=== PATIENT | male | born 1940 | race Caucasian/White ===

== ENCOUNTER 2016-12-29 07:51 | Inpatient (IN) | payer OTHER ==
--- NOTE | 2016-09-16 09:46 | PAT Medication Instructions ---
Service Date Sep 16, 2016. Current Home Medication List Amoxicillin (Amoxil), 2,000 MG PO UD Ipratropium Waverly (Nasal) (Ipratropium Waverly), 1 DOSE N/A TID Meloxicam (Mobic), 7.5 MG PO QAM Multivitamin (Multivitamin), 1 TAB PO QAM Psyllium (Metamucil), 1 DOSE PO QAM Medication Instructions For Your Scheduled Surgery - Hold the following medications 10 days prior to surgery per surgeon's instructions: Meloxicam (Mobic), 7.5 MG PO QAM - Hold the following medications the morning of surgery: Multivitamin (Multivitamin), 1 TAB PO QAM Psyllium (Metamucil), 1 DOSE PO QAM - Take the following medications the morning of surgery with a sip of water: Ipratropium Waverly (Nasal) (Ipratropium Waverly), 1 DOSE N/A TID Tylenol (okay to take if needed up to 4 hours prior to surgery) - Take the following medications as scheduled the night before surgery: Ipratropium Waverly (Nasal) (Ipratropium Waverly), 1 DOSE N/A TID Tylenol If you have any questions please call us at [phone] or [phone] or [phone]
[2016-09-16 10:24] LABS: COMPLETE YES; HEMATOCRIT 41.4 % (42-52); IG% 0.1 %; LYMPH % 40.8 %; LYMPH ABS # 3.64 K/uL (1.2-3.4); MEAN CELL VOLUME 84.5 fL (80-100); MEAN CORPUSCULAR HEMOGLOBIN 29.4 pg (25-34); MEAN CORPUSCULAR HGB CONC 34.8 g/dl (32-36); MEAN PLATELET VOLUME 8.5 fL (7.4-10.4); MONO % 6.6 %; NEUT % 52.5 %; PLATELET COUNT 145 K/uL (130-400); WHITE BLOOD COUNT 8.92 K/uL (4.8-10.8)
[2016-09-16 10:32] LABS: PROTHROMBIN TIME (PATIENT) 10.7 SECONDS (9.0-12.0)
--- NOTE | 2016-09-16 10:34 | DIAGNOSTIC IMAGING REPORT ---
CHEST 2 VIEWS ROUTINE HISTORY: Preop. COMPARISON: Chest 12/05/2012. FINDINGS: Stable calcification along within the bilateral midlung zones. The lungs are otherwise clear. The heart is normal in size. No pleural effusions. No pneumothorax. IMPRESSION: No significant change compared to the prior study. No acute process. Electronically signed by: Chung Clifton M.D. 09/16/2016 10:32 AM Dictated Date/Time: 09/16/2016 10:31 AM
[2016-09-16 10:42] LABS: BUN/CREATININE RATIO 29.1 (10-20); CALCIUM 9.2 mg/dl (8.5-10.1); CREATININE 0.92 mg/dl (0.60-1.40); POTASSIUM 4.3 mmol/L (3.5-5.1)
--- NOTE | 2016-10-09 08:17 | HISTORY & PHYSICAL EXAMINATION ---
DATE OF ADMISSION: 10/13/2016 CHIEF COMPLAINT: Right knee pain. HISTORY OF PRESENT ILLNESS: The patient is a 75-year-old gentleman who presents for surgical treatment of his right knee. He has got a long history of bilateral knee pain and discomfort and had his left knee replaced about 4 years ago. He has done well from this. Over the past couple years, he has developed increased pain and discomfort in his right knee. He has actually resorted to using a walker to get around due to his pain. We tried basically everything short of surgery. He has had multiple injections. He has tried a hinged knee brace. All this provided pretty minimal relief. He is having difficulty maintaining an independent lifestyle due to his pain and decreased ability to get around. He would like to have his right knee replaced. He has been on different anti-inflammatories without much relief. PAST MEDICAL HISTORY: 1. Heart murmur. 2. BPH. 3. Bladder disease followed by Dr. Romero. 4. Mild obesity with BMI of 31. 5. Low back pain/spinal disease. PAST SURGICAL HISTORY: 1. Cholecystectomy. 2. Thyroid operation. 3. Left total knee replacement done 08/19/2012. ALLERGIES: None. CURRENT MEDICINES: 1. Meloxicam once a day. 2. Multivitamin. 3. Ipratropium bromide 4. Nasal spray solution. SOCIAL HISTORY: A 75-year-old male. He is single. Lives by himself. FAMILY HISTORY: Noncontributory. REVIEW OF SYSTEMS: Negative for diabetes, neurologic problems, vascular problems, bleeding disorders. Denies any chest pain, no shortness of breath. No history of DVT or PE. PHYSICAL EXAMINATION: GENERAL: Reveals a healthy pleasant elderly male. He looks to be in reasonably good health. HEAD, EYES, EARS, NOSE, AND THROAT EXAMINATION: Benign. NECK: Supple. No lymphadenopathy. LUNGS: Clear to auscultation. HEART: Regular rate and rhythm. ABDOMEN: Soft, nontender, nondistended. EXTREMITY EXAMINATION: Grossly neurovascularly intact except as follows: Examination of the right leg reveals patient ambulates with the use of a walker. He comes in wearing a hinged knee brace. He has got varus alignment to his knee with a varus thrust. He has got bony hypertrophy medially. Range of motion is 10 degrees short of full extension to 110 degrees of flexion. No gross instability. X-RAYS: X-rays of the right knee reviewed. It shows advanced right knee DJD. He has got complete loss of his medial joint space. He has got tibial and femoral subluxation. He has got subchondral sclerosis. ASSESSMENT: A 75-year-old gentleman 4 years out from left knee replaced with advanced right knee degenerative joint disease. He has failed conservative care. He is relatively independent and a relatively healthy and would like to have his right knee replaced. PLAN: We are going to take him of the operating room and do a right total knee replacement. The risks and benefits of this procedure were explained to the patient including but not limited to DVT, PE, , infection, neurological injury, vascular injury, bleeding problem, pain, limited range of motion, stiffness, failure to relieve symptoms, incomplete relief of symptoms, need for further surgery in the future, fracture, leg length inequality, nerve palsy, etc. The patient understands and desires to proceed. Informed consent was obtained. As far as discharge plans, he would like to go to [facility] for a brief rehab stay and then use the [facility] home health program after that as he lives by himself. We can have Dr. Oliva follow him in the hospital.
[2016-11-16 10:33] LABS: COMPLETE YES; HEMATOCRIT 42.2 % (42-52); IG% 0.1 %; LYMPH % 41.3 %; LYMPH ABS # 3.21 K/uL (1.2-3.4); MEAN CELL VOLUME 88.5 fL (80-100); MEAN CORPUSCULAR HEMOGLOBIN 29.4 pg (25-34); MEAN CORPUSCULAR HGB CONC 33.2 g/dl (32-36); MEAN PLATELET VOLUME 8.6 fL (7.4-10.4); MONO % 5.3 %; NEUT % 53.3 %; PLATELET COUNT 143 K/uL (130-400); RED BLOOD COUNT 4.77 M/uL (4.7-6.1); WHITE BLOOD COUNT 7.77 K/uL (4.8-10.8)
[2016-11-16 10:47] LABS: PROTHROMBIN TIME (PATIENT) 10.6 SECONDS (9.0-12.0)
[2016-12-01 14:57] LABS: COMPLETE YES; HEMATOCRIT 41.2 % (42-52); IG% 0.2 %; LYMPH % 36.3 %; LYMPH ABS # 3.86 K/uL (1.2-3.4); MEAN CELL VOLUME 87.1 fL (80-100); MEAN CORPUSCULAR HEMOGLOBIN 30.2 pg (25-34); MEAN CORPUSCULAR HGB CONC 34.7 g/dl (32-36); MEAN PLATELET VOLUME 8.7 fL (7.4-10.4); MONO % 8.1 %; NEUT % 55.4 %; PLATELET COUNT 174 K/uL (130-400); RED BLOOD COUNT 4.73 M/uL (4.7-6.1); WHITE BLOOD COUNT 10.63 K/uL (4.8-10.8)
[2016-12-01 15:05] LABS: INR 0.9 (0.9-1.1)
[2016-12-01 15:16] LABS: BUN/CREATININE RATIO 29.4 (10-20); CALCIUM 9.2 mg/dl (8.5-10.1); CREATININE 1.1 mg/dl (0.60-1.40); POTASSIUM 4.1 mmol/L (3.5-5.1)
[2016-12-01 15:19] LABS: C-REACTIVE PROTEIN 0.52 mg/dl (0-0.29)
--- NOTE | 2016-12-26 20:08 | HISTORY & PHYSICAL EXAMINATION ---
DATE OF ADMISSION: 12/29/2016 This is a repeat dictation as his previous surgery was cancelled. So this is a new H\T\P. CHIEF COMPLAINT: Right knee pain. HISTORY OF PRESENT ILLNESS: A 76-year-old gentleman who presents for surgical treatment of his right knee. He has got a long history of bilateral knee pain and discomfort. He had his left knee replaced about 4 years ago and done well from this. Over the past several years, he has developed increased pain and discomfort in his right knee. He was actually scheduled for surgery back in September, but cancelled due to an illness. He has now recovered and would like to proceed with knee surgery. He is actually resorted and using a walker to get around due to his knee pain. We have tried everything short of surgery including injections, bracing and medicines. He is having difficulty maintaining an independent lifestyle and would like to proceed with knee replacement surgery. He has done well on his other side. PAST MEDICAL HISTORY: 1. Heart murmur. 2. BPH. 3. Bladder disease followed by Dr. Romero. 4. Mild obesity. 5. Low back pain. PAST SURGICAL HISTORY: Include: 1. Cholecystectomy. 2. Thyroid surgery. 3. Left total knee replacement done on 08/19/2012. ALLERGIES: None. CURRENT MEDICINES: 1. Meloxicam once a day. 2. Multivitamin. 3. Ipratropium bromide. 4. Nasal spray. SOCIAL HISTORY: A 75-year-old male. He lives in [place]. He lives by himself. He is single. FAMILY HISTORY: Noncontributory. REVIEW OF SYSTEMS: Negative for diabetes, neurologic problems, vascular problems, bleeding disorders. No chest pain or shortness of breath. No history of DVT or PE. PHYSICAL EXAMINATION: GENERAL: Pleasant, elderly male. He looks to be in reasonably good health. HEENT: Benign. NECK: Supple. No lymphadenopathy. LUNGS: Clear to auscultation. HEART: Has a regular rate and rhythm. ABDOMEN: Soft, nontender, nondistended. EXTREMITIES: Grossly neurovascularly intact except as follows: Examination of the right knee reveals the patient walks with the use of a walker. He has got a varus alignment to his knee. He comes in wearing a hinged knee brace. He has got a small knee effusion. He has got bony hypertrophy medially. Range of motion about 10 degrees short of full extension, about 115 degrees of flexion. No instability. X-RAYS: X-rays of the right knee reviewed. It shows advanced right knee DJD. He has complete loss of his medial joint space. He has got tibial femoral subluxation. He has subchondral sclerosis. He has got osteophytes of the medial femoral condyle and medial tibial plateau. ASSESSMENT: A 76-year-old gentleman, 4 years out from left knee replacement with advanced right knee degenerative joint disease. He has failed conservative treatment and would like to have his right knee replaced. PLAN: We are going to take him to the operating room and do a right total knee replacement. The risks and benefits of this procedure were explained to the patient including but not limited to DVT, PE, , infection, neurologic injury, vascular injury, bleeding problem, pain, limited range of motion, stiffness, failure to relieve the symptoms, incomplete relief of symptoms, need for further surgery in the future, persistent pain, etc. The patient understands and desires to proceed. Informed consent was obtained. The patient has seen Dr. Oliva and cleared for surgery. We will likely have Dr. Oliva follow him in the hospital. He is hoping to be discharged to [facility] for a brief rehab stay and then use the [facility] home health program. KEVON
[2016-12-29] VITALS (8 sets, daily range): BP systolic 97–146; BP diastolic 53–83; PULSE 53–73; TEMP 36.4–36.6; O2SAT 93–98; Ht 172.7 cm; Wt 91.1 kg
[~2016-12-29] VITALS: Ht 172.7 cm; Wt 91.1 kg
[~2016-12-29 07:51] MED LIST: ACETAMINOPHEN 500 MG TAB PO SCH; AMOX500C3 PO; BUPIVACAINE 0.25% 30 ML VIAL ONE; BUPIVACAINE 0.5 % 5 MG/1 ML PF 10ML VIAL ONE; BUPIVACAINE LIPOSOME 266 MG, BUPIVACAINE/EPINEPHRINE INJ 50 ML, SODIUM CHLORIDE 0.9% PF... INFIL SCH; CEFAZOLIN 2000 MG/60 ML D5W 60 ML IV SCH; CHECK SCOPOLAMINE PATCH PLACEMENT SCH; CeleBREX 200 MG CAP PO SCH; DEXAMETHASONE 4 MG TAB PO SCH; FAMOTIDINE 20 MG TAB PO SCH; GABAPENTIN 300 MG CAP PO SCH; IPRA0.06; LACTATED RINGER'S 1000ML 1,000 ML IV SCH; LACTATED RINGER'S 1000ML 500 ML IV ONE; LACTATED RINGER'S 1000ML IV SCH; MELO7.5T5 PO; METOCLOPRAMIDE HCL 10 MG TAB PO SCH; MULT-506 PO; PSYL0.524 PO; SCOPOLAMINE 1.5 MG TDSY TD SCH; TRANEXAMIC ACID INJ 1,000 MG in SODIUM CHLORIDE 0.9% 100ML 100 ML IV SCH
[2016-12-29] MEDS ORDERED: FENTANYL CITRATE INJ 50 MCG/1 ML 2 ML VIAL IV PRN (08:15)
[2016-12-29] MEDS ORDERED: LABETALOL HCL IV 5 MG/ML 20ML IV PRN (08:15)
[2016-12-29] MEDS ORDERED: MEPERIDINE HCL 25 MG/ML CARP IV PRN (08:15)
[2016-12-29] MEDS ORDERED: EpHEDrine SULFATE INJ 50 MG/ML AMP IV PRN (08:15)
[2016-12-29] MEDS ORDERED: ATROPINE SULFATE 0.1 MG/ML 5ML SYR IV PRN (08:15)
[2016-12-29] MEDS ORDERED: ONDANSETRON INJ 2 MG/ML 2 ML VIAL IV PRN ×2 (08:15→12:45)
[2016-12-29] MEDS ORDERED: HYDROmorphone INJ 1 MG/ML SYR IV PRN ×2 (08:15→12:45)
--- NOTE | 2016-12-29 08:33 | History & Physical Bridge Note ---
H&P Re-Evaluation Bridge Note: I have examined the patient, reviewed the History & Physical and in the interval since the performance of the History & Physical I have noted the following changes of clinical significance: No changes noted
[2016-12-29] MEDS ORDERED: PROPOFOL IV EMULSION 10 MG/ML 20 ML VIAL IV ONE (09:23)
[2016-12-29] MEDS ORDERED: ONDANSETRON INJ 2 MG/ML 2 ML VIAL ONE (09:23)
[2016-12-29] MEDS ORDERED: MIDAZOLAM HCL 1 MG/ML 2ML VIAL ONE (09:23)
[2016-12-29] MEDS ORDERED: LIDOCAINE HCL 2% 2 ML VIAL (20MG/ML) ONE (09:23)
[2016-12-29] MEDS ORDERED: DEXAMETHASONE SOD INJ 4 MG/ML VIAL ONE (09:23)
[2016-12-29] MEDS ORDERED: FENTANYL CITRATE INJ 50 MCG/1 ML 2 ML VIAL ONE (09:24)
[2016-12-29] MEDS ORDERED: BUPIVACAINE/EPINEPHRINE 0.25% 1:200,000 30 ML VIAL ONE (10:47)
[2016-12-29] MEDS ORDERED: SODIUM CHLORIDE 0.9% PF 50 ML VIAL ONE (10:48)
[2016-12-29] MEDS ORDERED: BUPIVACAINE LIPOSOME 1/3% 266 MG/20 ML VIAL INFIL ONE (10:48)
[2016-12-29] MEDS ORDERED: BACITRACIN 50000 UNIT VIAL ONE (10:48)
--- NOTE | 2016-12-29 12:40 | [facility] Post Operative Brief Note ---
Immediate Operative Summary Operative Date December 29, 2016. Pre-Operative Diagnosis Advanced right knee degenerative joint disease Post-Operative Diagnosis Advanced right knee degenerative joint disease Procedure(s) Performed Right Total Knee Arthroplasty - Cemented Surgeon Dr. Cruzito Jurado Sample Distributor Surgeon(s) Dwaine Schulz PA-C Estimated Blood Loss 50 ML Findings Right Knee DJD Fluids (cc crystalloids) 1500 cc Specimens A: Right knee bone and tissue Drains None Anesthesia Spinal Complication(s) None Disposition Recovery Room / PACU
[2016-12-29] MEDS ORDERED: ALUMINUM/MAGNESIUM/SIMETH (MAALOX MAX) 30 ML UDC PO PRN (12:45)
[2016-12-29] MEDS ORDERED: MAGNESIUM HYDROXIDE SUSP 30 ML UDC PO PRN (12:45)
[2016-12-29] MEDS ORDERED: TAMSULOSIN HCL 0.4 MG CAP PO PRN (12:45)
[2016-12-29] MEDS ORDERED: OXYCODONE HCL IR 5 MG TAB (IMMEDIATE RELEASE) PO PRN (12:45)
[2016-12-29] MEDS ORDERED: BISACODYL 10 MG SUPP PR PRN (12:45)
[2016-12-29] MEDS ORDERED: ZOLPIDEM TARTRATE 5 MG TAB PO PRN (12:45)
[2016-12-29] MEDS ORDERED: METOCLOPRAMIDE HCL INJ 5 MG/ML 2 ML VIAL IV PRN (12:45)
[2016-12-29] MEDS ORDERED: SILVER SULFADIAZINE 1% CR 50 GM JAR EXT PRN (12:45)
--- NOTE | 2016-12-29 13:39 | Anesthesiology Progress Note ---
Anesthesia Post Op Note Date & Time December 29, 2016 at 13:39 Vital Signs Pain Intensity: 0 Vital Signs Past 12 Hours Date Time Temp Pulse Resp B/P Pulse Ox O2 Delivery O2 Flow Rate FiO2 12/29/16 13:25 36.2 58 16 112/62 96 Nasal Cannula 2 12/29/16 13:15 57 16 112/59 94 Nasal Cannula 2 12/29/16 13:05 54 16 104/59 95 Nasal Cannula 2 12/29/16 12:55 60 16 93/63 96 Mask 10 12/29/16 12:45 36.2 59 16 95/45 98 Mask 10 12/29/16 08:30 36.6 73 20 133/83 95 Room Air Notes Mental Status: alert / awake / arousable, participated in evaluation Pt Amnestic to Procedure: Yes Nausea / Vomiting: adequately controlled Pain: adequately controlled Airway Patency, RR, SpO2: stable & adequate BP & HR: stable & adequate Hydration State: stable & adequate Neuraxial Anesthesia: was administered, sensory block is resolving Anesthetic Complications: no major complications apparent
--- NOTE | 2016-12-29 13:49 | DIAGNOSTIC IMAGING REPORT ---
RIGHT KNEE 1 OR 2 VIEWS ROUTINE CLINICAL HISTORY: Degenerative arthritis COMPARISON: Outside study dated 08/27/2016 DISCUSSION: There are postsurgical changes of a total right knee arthroplasty and patellar resurfacing. The femoral and tibial components appear well seated. Overlying skin kiko are evident. There is air within soft tissues consistent with recent surgery. IMPRESSION: Postsurgical changes of a total right knee arthroplasty. Electronically signed by: Daniel Mix M.D. 12/29/2016 1:48 PM Dictated Date/Time: 12/29/2016 1:47 PM
[2016-12-29] MEDS: D5W AND 1/2NSS + 20MEQ KCL 1,000 ML IV SCH (15:46)
[2016-12-29] MEDS: KETOROLAC TROMETHAMINE 15 MG/ML VIAL IV. SCH ×2 (15:46→21:22)
[2016-12-29] MEDS: ACETAMINOPHEN 500 MG TAB PO SCH ×2 (15:47→23:30)
[2016-12-29] MEDS: CHECK SCOPOLAMINE PATCH PLACEMENT SCH ×2 (15:47→23:29)
--- NOTE | 2016-12-29 16:14 | PROGRESS NOTE ---
DATE: 12/29/2016 SUBJECTIVE: A 76-year-old gentleman postop from a right knee replacement. He is doing well. Just starting to get some pain in his leg. No chest pain or shortness of breath. Not feeling dizzy or lightheaded. OBJECTIVE: VITAL SIGNS: Temperature 36.4. Vital signs stable. GENERAL: Reveals a healthy pleasant elderly male. He is sitting up in bed and talking to the nurse and looks pretty comfortable. LUNGS: Clear to auscultation. HEART: Has regular rate and rhythm. ABDOMEN: Soft, nontender, nondistended. EXTREMITIES: Grossly neurovascularly intact except as follows: Examination of the right leg reveals the leg to be well aligned. The dressing is clean, dry, and intact. He can dorsiflex and plantarflex his foot appropriately. He has got brisk refill. X-RAYS: X-rays of the right knee from recovery room were reviewed. It shows a right cemented posterior stabilized total knee arthroplasty. The components looked to be in good position. No signs of problems. ASSESSMENT: A 76-year-old gentleman postop from a right knee replacement, doing pretty well. His pain is controlled. He is neurologically intact. PLAN: 1. DVT prophylaxis including thigh-high TEDs, SCDs, and aspirin twice a day. 2. PT/OT. Weightbearing as tolerated. Right total knee protocol. 3. Pain control, doing pretty well with current pain regimen. 4. IV antibiotics x24 hours. 5. Medical management as per Dr. Oliva, his primary care physician. 6. Disposition: He is hoping to be discharged to [facility] for a brief rehab stay once medically stable.
--- NOTE | 2016-12-29 16:23 | OPERATIVE REPORT ---
DATE OF OPERATION: 12/29/2016 SURGEON: Cruzito Jurado MD CONTROL PANEL OPERATOR CRUDE UNIT: LESIA Harley PREOPERATIVE DIAGNOSIS: Right knee degenerative joint disease. POSTOPERATIVE DIAGNOSIS: Same. PROCEDURE PERFORMED: Right cemented posterior stabilized total knee arthroplasty. COMPLICATIONS: None. ESTIMATED BLOOD LOSS: 50 mL. FLUID REPLACEMENT: 1600 mL crystalloid fluid replacement. ANESTHESIA: Spinal with adductor canal block. DRAINS: None. SPECIMENS: Right knee sent for pathology. TOURNIQUET TIME: 58 minutes at 300 mmHg. ANESTHESIA: Spinal with adductor canal block. OPERATIVE INDICATIONS: The patient is a 76-year-old very independent gentleman who is status post a left total knee replacement 4 years or so ago. He has developed increased pain, discomfort and limitations respect to his right knee. He has been through extensive conservative treatment including injections, oral medicines, and bracing. He is having more and more time difficulty getting around and living an independent lifestyle. It was all related to his knee pain. He had failed conservative treatment and elected to proceed with total knee arthroplasty. OPERATIVE FINDINGS: Operative findings revealed advanced right knee DJD. He had grade 4 [id number] disease in the medial femoral condyle and medial tibial plateau with pretty extensive disease and eburnation. He had also had significant gouging of the lateral femoral condyle from the intercondylar eminence in subluxation. He had focal grade 4 changes in the patellofemoral joint. OPERATIVE IMPLANTS: Operative implants consisted of: 1. Biomet Vanguard size 72.5 right posterior stabilized femoral component. 2. Biomet size 71 tibial tray. 3. A 14-mm posterior stabilized polyethylene insert. 4. A 31 x 8 all poly patella. OPERATIVE PROCEDURE: The patient was taken to the operating room, identified and placed on the operating table in the supine position. All contact areas were appropriately padded. IV antibiotics were provided by anesthesia team. A spinal anesthetic and adductor canal block had been provided in the holding area. Graham catheter was placed in sterile fashion. Right thigh tourniquet was then placed and the right lower extremity was then prepped and draped in the usual sterile fashion. The right leg was elevated and exsanguinated with Esmarch and tourniquet was placed at 300 mmHg. An anterior approach to the right knee was then performed through a longitudinal incision centered over the patella. Sharp dissection was carried out through the subcutaneous tissues down to the level of the extensor mechanism. A medial parapatellar arthrotomy incision was made. Some subperiosteal dissection was carried out medially. The fat pad was resected from beneath the patellar tendon. The lateral patellofemoral ligament was released. The patella was everted and knee was flexed. The osteophytes were taken off the distal femur. The ACL and PCL were then released from the distal femur and the tibia subluxated anteriorly. The external tibial alignment jig was then placed in the anterior face of the tibia and adjusted 14 mm medially. Proximal tibial cut was made to remove about a millimeter or 2 of bone from the most deficient aspect of the medial tibial plateau. Tibia was sized to a size 71. Some osteophytes were taken off medial and posteromedially. Attention was then drawn to the femur. The distal femur was entered with a sharp drill bit. Intramedullary canal was suctioned. A right 6-degree valgus cutting guide was placed. Distal femoral cutting block was pinned in place. Distal femoral cut was made to take an additional 3 mm of bone off the distal femur. The femur was then sized to a size 72.5. We did downsize this slightly. The AP cutting block was pinned parallel to the epicondylar axis, which was 3 degrees of external rotation. The anterior cut, anterior chamfer, posterior cut, and posterior chamfer cuts were made. Box cutting guide was placed and adjusted slightly lateral and the box cut was made. The knee was flexed. The remnants of the medial and lateral menisci were excised. The osteophytes were taken off the posterior aspect of the femur. A trial femoral component was placed. Tibial tray was pinned in maximum external rotation and drill and stem punch were used to create defect in proximal tibia for the tibial tray. The knee was then trialed and the 14-mm insert fit most appropriately. Attention was then drawn to the patella. The patella was cleaned of all soft tissues. Patella thickness measured 23 mm in thickness and was cut down to 14. It was sized to a size 31 patella. Lug holes were drilled for the 31 patella. Lateral osteophyte was removed. Patella button was placed. Knee was taken through range of motion and patella tracked nicely with no thumbs test. Attention was then drawn toward placement of the permanent components. All trial components were removed. Bone plug was placed in the distal femur to limit blood loss. A double batch of Palacos G cement was mixed. A right size 72.5 posterior stabilized femoral component, size 71 tibial tray, a 14-mm posterior stabilized polyethylene insert, and a 31 x 8 all poly patella were then cemented in place. Knee was brought out into full extension until cement hardened. A final cement check was then performed. The pericapsular tissues were injected with a total of 100 mL of a combination of 20 mL of Exparel, 30 mL of normal saline, and 50 mL of 0.25% Marcaine with epinephrine. The patient did receive 1 gram of tranexamic acid. The tourniquet was let down for final tourniquet time of 58 minutes. Hemostasis was assured with use of electrocautery. The extensor mechanism was closed with a combination of #1 PDS suture and #1 Vicryl suture in a [id number] fashion. The extensor mechanism was checked and found to be intact. The subcutaneous tissues were then closed with 2-0 Dexon suture in a buried interrupted fashion. Skin was closed skin kiko. Leg was then cleaned and dried and a sterile dressing of Xeroform, 4 x 4, sterile cast padding and Ambrose bandage were applied. The patient was then transferred to the recovery room in stable condition. The patient tolerated the procedure well with no complications. All needle and sponge counts were correct at the end of the operation. I attest to the content of the Intraoperative Record and any orders documented therein. Any exceptio ns are noted below.
[2016-12-29] MEDS: FERROUS GLUCONATE 324 MG TAB PO SCH (18:08)
[2016-12-29] MEDS: CEFAZOLIN IV 2,000 MG in DEXTROSE 5% 50ML 50 ML IV SCH (18:08)
[2016-12-29] MEDS ORDERED: TRANEXAMIC ACID INJ 1,000 MG in SODIUM CHLORIDE 0.9% 100ML 100 ML IV SCH (19:00)
[2016-12-29] MEDS: IPRATROPIUM BROMIDE NASAL SPRAY 0.06% 15ML SCH (21:19)
[2016-12-29] MEDS: TAPENTADOL ER 50 MG TABCR PO SCH (21:20)
[2016-12-29] MEDS: DOCUSATE SODIUM 100 MG CAP PO SCH (21:21)
[2016-12-29] MEDS: ASPIRIN 325 MG ECTAB PO SCH (21:21)
--- NOTE | 2016-12-29 23:54 | INTERNAL MEDICINE CONSULTATION ---
DATE OF CONSULTATION: 12/29/2016 A 76-year-old male, underwent a right total knee arthroplasty by Dr. Cruzito Jurado for severe osteoarthritis. The procedure was done this morning. The patient was admitted after his surgery. MEDICAL PROBLEMS: Include; 1. Osteoarthritis, severe. 2. Status post left total knee arthroplasty on 08/19/[address] Cruzito Jurado. 3. Esophageal achalasia status post myotomy done at [facility]. 4. Stasis dermatitis. 5. Vitiligo. 6. Varicose veins. 7. History of rosacea. 8. Rhinitis. OUTPATIENT MEDICATIONS: Include; 1. Mobic 7.5 mg daily. 2. Metamucil 1 scoop daily. 3. Multivitamin 1 daily. 4. Atrovent 0.03% nasal spray as needed for his rhinorrhea. REVIEW OF SYSTEMS: The procedure was well-tolerated. The patient is resting comfortably. He denied any headache. No dizziness, no lightheadedness. He does wear glasses. He does have hearing aids. He has an oxygen cannula in place. He denied any neck pain. No chest pain, pressure or tightness. No shortness of breath. No abdominal pain, no nausea, no vomiting. No recent problem with his bowel movements. No problem urinating. His pain after surgery is well-controlled. PHYSICAL EXAMINATION: GENERAL: Well-developed, in no distress. His recorded weight is 91.1 kg, height 172.7 cm and BMI 30.5. VITAL SIGNS: Blood pressure 146/82, pulse 61, respirations 16, temperature 36.5 and oxygen saturation 93% on two liters oxygen by nasal cannula. SKIN: Warm and dry. No rash. Multiple areas of vitiligo. HEENT: He wears glasses. He has had cataract surgery in the past. Decreased hearing, he has hearing aids. Oxygen cannula in place. He has upper dentures, lower partials. NECK: Supple. Nontender. No lymph node or thyroid enlargement. No JVD. HEART: Regular heart sounds with 1/6 systolic murmur. No rub, no gallop. LUNGS: Clear. ABDOMEN: Soft and nontender. No organomegaly or masses. Scars from prior laparoscopic cholecystectomy. BACK: No spinal tenderness. EXTREMITIES: Surgical dressing, right leg. Scar, left knee from prior surgery. Compression stockings. Good dorsalis pedis pulses. Absent posterior tibialis pulses. ASSESSMENT: 1. Status post right total knee arthroplasty for severe osteoarthritis. 2. Osteoarthritis with history of left total knee arthroplasty. 3. History of esophageal achalasia status post myotomy. 4. Stasis dermatitis. 5. Varicose veins. 6. Vitiligo. PLAN: At this time, his condition is quite stable. He is adequately medicated for pain. He is quite awake and alert. He is tolerating his diet. His vital signs are stable. We will proceed with therapies as ordered by Dr. Jurado.
[2016-12-30] VITALS (7 sets, daily range): BP systolic 104–120; BP diastolic 57–78; PULSE 55–73; TEMP 36.4–36.7; O2SAT 93–98
[2016-12-30] MEDS: D5W AND 1/2NSS + 20MEQ KCL 1,000 ML IV SCH ×2 (00:35→10:51)
[2016-12-30] MEDS: CEFAZOLIN IV 2,000 MG in DEXTROSE 5% 50ML 50 ML IV SCH (02:11)
[2016-12-30] MEDS: KETOROLAC TROMETHAMINE 15 MG/ML VIAL IV. SCH ×4 (04:53→21:47)
[2016-12-30 06:06] LABS: HEMATOCRIT 35.3 % (42-52); MEAN CELL VOLUME 86.7 fL (80-100); MEAN CORPUSCULAR HEMOGLOBIN 27.8 pg (25-34); MEAN PLATELET VOLUME 8.4 fL (7.4-10.4); PLATELET COUNT 143 K/uL (130-400); RED BLOOD COUNT 4.07 M/uL (4.7-6.1); WHITE BLOOD COUNT 11.98 K/uL (4.8-10.8)
[2016-12-30 06:42] LABS: BUN/CREATININE RATIO 25.5 (10-20); CALCIUM 7.7 mg/dl (8.5-10.1); CREATININE 1.1 mg/dl (0.60-1.40); POTASSIUM 4.1 mmol/L (3.5-5.1)
[2016-12-30] MEDS: ACETAMINOPHEN 500 MG TAB PO SCH ×3 (07:37→23:19)
[2016-12-30] MEDS: CHECK SCOPOLAMINE PATCH PLACEMENT SCH ×3 (07:37→23:18)
[2016-12-30] MEDS ORDERED: ACET-1138 PO (08:32)
[2016-12-30] MEDS ORDERED: RXC5 PO (08:32)
[2016-12-30] MEDS ORDERED: ASPEC325 PO (08:32)
--- NOTE | 2016-12-30 08:34 | Discharge Instructions ---
Discharge Instructions Date of Service December 30, 2016. Admission Reason for Admission: Right Knee Degenerative Joint Disease Discharge Discharge Diagnosis / Problem: Right Knee Replacement Discharge Goals Goal(s): Decrease discomfort, Improve function, Increase independence, Improve disease control, Therapeutic intervention Activity Recommendations Activity Level: Assistance Required Therapies: Physical Therapy, Occupational Therapy Weightbearing Status: Right weightbearing . Additional Information Patient informed of condition: Yes Advance Directives: No DNR: No Level of Care: Acute Rehab Communicable Disease: No Prognosis: Improving Instructions / Follow-Up Instructions / Follow-Up ACTIVITY RECOMMENDATIONS: Physical Therapy: * You will go to physical therapy three times each week for four to six weeks after your surgery in order to regain your knee range of motion and to retrain your knee to work properly. * It is just as important to make sure you are getting your knee perfectly straight as it is to regain your knee bend. * Taking a pain pill an hour before therapy can help you have a more productive and comfortable therapy session. Home Exercise: * You were shown a series of exercises (heel props, heel slides, etc.) in the hospital. Do these exercises three to four times each day including the exercises you were shown in physical therapy. Walking: * Get up and walk several times each day. For the first four weeks, try not to stand or walk for more than one hour at a time. If you do stand or walk for more than one hour, you will not hurt anything, but your knee and leg will likely swell. * As you feel comfortable, you may change from the walker or crutches to a cane and then to independent walking. MEDICATIONS: New Medicine: * You will likely be taking one or more of these medications: 1. Oxycodone - A quick and shorter-acting pain medication. Take one to two tablets every four to six hours to lessen your pain. 2. Aspirin - Thins your blood to lessen the chance of forming a blood clot. * The most common side effects of pain medicine and iron are nausea and constipation. If nausea or constipation is too much of a problem or if you have any questions about your new medicines or doses, call [facility] at . We will try to help you manage these issues. VERY IMPORTANT TO READ AND REVIEW" Pain: * The immediate post-operative period after knee replacement surgery is often quite painful. * You are given a prescription for pain medicine. You should take it, as directed, when you need it, especially before physical therapy and before going to bed. Pain that interferes with sleep is very common and can last several months. * You will likely need pain medicine for the first four to six weeks. It will not stop all of the pain. The pain will lessen and as you feel better, you may change to milder pain medicine such as Tylenol. * The most common side effects of pain medicine are nausea and constipation, so don't take more than you need. SPECIAL CARE INSTRUCTIONS: TEDs/Elastic Stockings: * The white elastic stockings help limit swelling and prevent blood clots from forming in your legs. The more you wear them, the more they work. * Wear them for six weeks after knee replacement surgery and four weeks after partial knee replacement. Prevention of Infection: * Take antibiotics one hour before any dental cleaning, dental work, urological procedure, gastrointestinal procedure or any invasive surgery in order to prevent your new joint from getting infected. * You may get the antibiotics from the doctor performing the procedure or you may call our office at before and we will call in a prescription to the pharmacy of your choice. Things to Watch For: * Drainage from the incision site that occurs more than one week after your surgery. * Severely increased knee/leg pain or swelling. * Increased redness at the incision site. * Fever above 102 degrees Fahrenheit. * Unusual chest pain or shortness of breath. * Unusual pain or burning with urination. Call [facility] at with any of the above problems or if you have any questions about your medicines or recovery. FOLLOW UP VISIT: Make an appointment to see your doctor for approximately two weeks after surgery for a progress check and staple removal by calling the office at . Current Hospital Diet Patient's current hospital diet: Regular Diet Discharge Diet Recommended Diet: Regular Diet Procedures Procedures Performed: Right Total Knee Arthroplasty - Cemented Pending Studies Studies pending at discharge: no Medical Emergencies . Who to Call and When: Medical Emergencies: If at any time you feel your situation is an emergency, please call [phone] immediately. . Non-Emergent Contact Non-Emergency issues call your: Surgeon . . "Provider Documentation" section prepared by Cruzito Jurado. . Core Measure Problem Core Measures: None
--- NOTE | 2016-12-30 08:36 | PROGRESS NOTE ---
DATE: 12/30/2016 SUBJECTIVE: A 76-year-old gentleman postop day 1 from right knee replacement. He is doing well. Some pain, but managed. No chest pain or shortness of breath. Not feeling dizzy or lightheaded. OBJECTIVE: VITAL SIGNS: Temperature 36.6. Vital signs stable. PHYSICAL EXAMINATION: Reveals a pleasant elderly male. He was walking around in his bathroom when I visited him this morning. EXTREMITIES: Examination of the right leg reveals the dressing to be clean, dry and intact. Leg is well aligned. He can dorsiflex and plantarflex his foot appropriately. He is neurologically intact. LABORATORY DATA: Hemoglobin 11.3. Hematocrit 35.3. White cell count 11.98. Electrolytes are stable. ASSESSMENT: A 76-year-old gentleman postop day 1 from right knee replacement, doing pretty well. Pain is controlled. PLAN: 1. DVT prophylaxis including thigh-high TEDs, SCDs, and aspirin twice a day. 2. PT/OT. Weight bear as tolerated. Right total knee protocol. 3. Pain control, doing well with current pain regimen. 4. Disposition: He is hoping to be discharged to rehab. He lives by himself and will need some assistance. If not rehab, he will likely need some mcfp for a short period of time.
[2016-12-30] MEDS ORDERED: MULTIVITAMIN TAB PO SCH (09:00)
[2016-12-30] MEDS: PANTOprazole SOD 40 MG TAB PO SCH (09:13)
[2016-12-30] MEDS: FERROUS GLUCONATE 324 MG TAB PO SCH ×3 (09:13→18:04)
[2016-12-30] MEDS: ASPIRIN 325 MG ECTAB PO SCH ×2 (09:13→20:53)
[2016-12-30] MEDS: DOCUSATE SODIUM 100 MG CAP PO SCH ×2 (09:13→20:53)
[2016-12-30] MEDS: MULTIVITAMIN TAB PO SCH (09:14)
[2016-12-30] MEDS: PSYLLIUM 58.6% PWD PACK S\\F PO SCH (09:14)
[2016-12-30] MEDS: IPRATROPIUM BROMIDE NASAL SPRAY 0.06% 15ML SCH ×3 (09:15→20:53)
[2016-12-30] MEDS: TAPENTADOL ER 50 MG TABCR PO SCH ×2 (09:19→20:53)
--- NOTE | 2016-12-31 01:15 | PROGRESS NOTE ---
DATE: 12/30/2016 SUBJECTIVE: A 76-year-old male underwent a right total knee arthroplasty because of severe osteoarthritis. Overall, he is doing well. His procedure was well tolerated. His pain is under control. He denied any headache or dizziness. No chest pain, no shortness of breath. No abdominal pain. No nausea. Tolerating his diet very well. His pain is well controlled. PHYSICAL EXAMINATION: GENERAL: Well developed in no distress. VITAL SIGNS: Blood pressure 118/78, pulse 57, respirations 16, temperature 36.6, oxygen saturation 94% on room air. SKIN: Warm and dry. No rash. Areas of vitiligo. HEENT: He has hearing aids. Wears glasses. NECK: Supple without lymph node enlargement. No JVD. HEART: Regular heart sounds. LUNGS: Clear. ABDOMEN: Soft, nontender. BACK: No spinal tenderness. EXTREMITIES: Surgical dressing post-knee replacement. No edema, clubbing, or cyanosis. TODAY'S LABORATORY TESTS: WBC count 11,980, hemoglobin 11.3, hematocrit 35.3, platelet count 143,000. Sodium 142, potassium 4.1, chloride 109, CO2 28, BUN 28, creatinine 1.1, glucose 120, calcium 7.7. ASSESSMENT: 1. Severe osteoarthritis. Status post right total knee arthroplasty. 2. History of esophageal achalasia status post myotomy. PLAN: 1. His condition is quite stable. The procedure was well tolerated. His pain is well controlled. He is doing well in therapy. 2. Anticipating transfer to [facility].
[2016-12-31] MEDS: KETOROLAC TROMETHAMINE 15 MG/ML VIAL IV. SCH ×2 (04:00→10:16)
[2016-12-31 06:07] VITALS: BP 106/64; PULSE 75; TEMP 36.5; O2SAT 94
[2016-12-31] MEDS: PSYLLIUM 58.6% PWD PACK S\\F PO SCH (07:29)
[2016-12-31] MEDS: PANTOprazole SOD 40 MG TAB PO SCH (07:29)
[2016-12-31] MEDS: MULTIVITAMIN TAB PO SCH (07:30)
[2016-12-31] MEDS: IPRATROPIUM BROMIDE NASAL SPRAY 0.06% 15ML SCH (07:30)
[2016-12-31] MEDS: FERROUS GLUCONATE 324 MG TAB PO SCH ×2 (07:30→12:48)
--- NOTE | 2016-12-31 07:38 | PROGRESS NOTE ---
DATE: 12/31/2016 SUBJECTIVE: 76-year-old gentleman postop day 2 from right knee replacement. He is doing well. Pain is controlled. Therapy has gone pretty well. Denies any chest pain or shortness of breath. OBJECTIVE: VITAL SIGNS: Temperature is 36.5. Vital signs stable. PHYSICAL EXAMINATION: GENERAL: Pleasant elderly male. I had to wake him this morning. EXTREMITIES: Examination of the right leg reveals the leg to be well aligned. Dressing is clean, dry, and intact. He can dorsiflex and plantarflex his foot appropriately. He is neurologically intact. ASSESSMENT: 76-year-old gentleman postop day 2 from right knee replacement, doing well. Pain is controlled. PLAN: 1. DVT prophylaxis includes thigh high TEDS, SCDs, and aspirin twice a day. 2. PT/OT. Weightbearing as tolerated. Right total knee protocol. 3. Pain control, doing well with current pain regimen. 4. Disposition: Plan to discharge to [facility] later today if accepted and approved.
[2016-12-31] MEDS: ASPIRIN 325 MG ECTAB PO SCH (07:42)
[2016-12-31] MEDS: ACETAMINOPHEN 500 MG TAB PO SCH (07:42)
[2016-12-31] MEDS: DOCUSATE SODIUM 100 MG CAP PO SCH (07:42)
[2016-12-31] MEDS: TAPENTADOL ER 50 MG TABCR PO SCH (07:45)
[2016-12-31 08:04] VITALS: BP 118/68; PULSE 81; TEMP 36.8; O2SAT 94
[2016-12-31 08:30] VITALS: O2SAT 94
[2016-12-31 12:33] VITALS: BP 118/68; PULSE 81; TEMP 36.8; O2SAT 94
--- NOTE | 2017-01-08 14:04 | DISCHARGE SUMMARY ---
ADMITTING PHYSICIAN AND SURGEON: Dr. Jurado. ADMITTING DIAGNOSIS: Right knee degenerative joint disease. SURGERY PERFORMED: Right total knee arthroplasty. SECONDARY DIAGNOSES: Heart murmur, benign prostatic hypertrophy, bladder disease, mild obesity, low back pain. CONSULTS: Dr. Oliva for postoperative medical management. HISTORY AND PHYSICAL EXAMINATION: Well documented in the patient's chart. HOSPITAL COURSE: The patient was admitted on 12/29/2016 and underwent total knee arthroplasty. He tolerated the procedure well. There were no complications. He was transferred to the PACU postoperatively and later to the orthopedic floor for further care. He was given Ancef for antibiotic prophylaxis, BARBIE stockings, SCDs and aspirin for DVT prophylaxis. Hemoglobin, hematocrit and vital signs were monitored during his hospital stay and remained stable, did not require any blood transfusions. There were no complications. By postoperative day 2, he was tolerating a general diet, pain was controlled with oral pain medicine. He was participating in physical therapy and had no signs or symptoms of deep vein thrombosis. On postoperative day 2, he was transferred to a rehab facility. He was given discharge instructions including new prescriptions for extra strength Tylenol, aspirin 325 mg b.i.d., oxycodone, continue his home medications, continue physical therapy, weightbearing as tolerated, BARBIE stockings. Follow up in 10-12 days or sooner if there are any problems or concerns.
== END 2016-12-31 13:10 | DRG 470 ==
LOC: ENRESERVDT → ENRESERVTM → C.ACU 07:51 → C.3E 09:00
PROVIDERS: ADMIT Orthopaedic Surgery Sports Medicine; ATTEND Orthopaedic Surgery Sports Medicine
PROC: 0SRC0J9 Replacement of Right Knee Joint with Synthetic Substitute, Cemented, Open Approach (ICD-10-PCS; principal; 2016-12-29 10:50)
DX: M17.11 Unilateral primary osteoarthritis, right knee (principal); M21.061 Valgus deformity, not elsewhere classified, right knee; M25.461 Effusion, right knee; R01.1 Cardiac murmur, unspecified; N40.0 Benign prostatic hyperplasia without lower urinary tract symptoms; J31.0 Chronic rhinitis; E66.9 Obesity, unspecified; Z68.30 Body mass index [BMI] 30.0-30.9, adult; Z96.652 Presence of left artificial knee joint; Z87.19 Personal history of other diseases of the digestive system; Z87.891 Personal history of nicotine dependence; Z79.1 Long term (current) use of non-steroidal anti-inflammatories (NSAID); Z79.899 Other long term (current) drug therapy

== ENCOUNTER → 2017-11-02 | Outpatient (CLI) | payer OTHER ==
[~2017-11-02] MED LIST changes: +ACET-1138 PO; -ACETAMINOPHEN 500 MG TAB PO SCH; +ASPEC325 PO; -BUPIVACAINE 0.25% 30 ML VIAL ONE; -BUPIVACAINE 0.5 % 5 MG/1 ML PF 10ML VIAL ONE; -BUPIVACAINE LIPOSOME 266 MG, BUPIVACAINE/EPINEPHRINE INJ 50 ML, SODIUM CHLORIDE 0.9% PF... INFIL SCH; -CEFAZOLIN 2000 MG/60 ML D5W 60 ML IV SCH; -CHECK SCOPOLAMINE PATCH PLACEMENT SCH; -CeleBREX 200 MG CAP PO SCH; -DEXAMETHASONE 4 MG TAB PO SCH; -FAMOTIDINE 20 MG TAB PO SCH; -GABAPENTIN 300 MG CAP PO SCH; -LACTATED RINGER'S 1000ML 1,000 ML IV SCH; -LACTATED RINGER'S 1000ML 500 ML IV ONE; -LACTATED RINGER'S 1000ML IV SCH; -METOCLOPRAMIDE HCL 10 MG TAB PO SCH; +RXC5 PO; -SCOPOLAMINE 1.5 MG TDSY TD SCH; -TRANEXAMIC ACID INJ 1,000 MG in SODIUM CHLORIDE 0.9% 100ML 100 ML IV SCH
[2017-11-10 17:08] LABS: FECAL OCCULT BLOOD #1 NEGATIVE (NEGATIVE); FECAL OCCULT BLOOD #2 NEGATIVE (NEGATIVE); FECAL OCCULT BLOOD #3 NEGATIVE (NEGATIVE)
== END | disposition home or self-care (01) ==
LOC: C.LABSPEC 16:27
PROVIDERS: ATTEND Internal Medicine
DX: Z12.11 Encounter for screening for malignant neoplasm of colon (principal)

== ENCOUNTER → 2018-02-16 | Outpatient (CLI) | payer OTHER ==
[2018-02-16 14:32] LABS: HEMATOCRIT 45.1 % (42-52); HEMOGLOBIN 15.4 g/dL (14.0-18.0); IG# 0.02 K/uL (0.00-0.02); LYMPH % 45.2 %; LYMPH ABS # 4.08 K/uL (1.2-3.4); MEAN CELL VOLUME 85.4 fL (80-100); MEAN CORPUSCULAR HEMOGLOBIN 29.2 pg (25-34); MEAN CORPUSCULAR HGB CONC 34.1 g/dl (32-36); MEAN PLATELET VOLUME 9.2 fL (7.4-10.4); MONO % 5.9 %; MONO ABS # 0.53 K/uL (0.11-0.59); NEUT % 48.7 %; NEUT ABS # 4.39 K/uL (1.4-6.5); PLATELET COUNT 142 K/uL (130-400); RED CELL DISTRIBUTION WIDTH CV 13.9 % (11.5-14.5); RED CELL DISTRIBUTION WIDTH SD 43.2 fL (36.4-46.3); WHITE BLOOD COUNT 9.02 K/uL (4.8-10.8)
[2018-02-16 15:06] LABS: ALBUMIN 3.9 gm/dl (3.4-5.0); ALKALINE PHOSPHATASE 64 U/L (45-117); ALT/SGPT 25 U/L (12-78); AST/SGOT 15 U/L (15-37); BLOOD UREA NITROGEN 26 mg/dl (7-18); CALCIUM 9.2 mg/dl (8.5-10.1); CARBON DIOXIDE 31 mmol/L (21-32); GLUCOSE 95 mg/dl (70-99); POTASSIUM 3.8 mmol/L (3.5-5.1); SODIUM 139 mmol/L (136-145); TOTAL PROTEIN 7.3 gm/dl (6.4-8.2)
[2018-02-19 13:33] LABS: CLAM CLASS 0; CLAM IGE <0.10 KU/L; COMPLEMENT TOTAL(CH50)**45328P >60 U/mL (31-60); CRAB CLASS 0; CRAB IGE <0.10 KU/L; LOBSTER CLASS 0; LOBSTER IGE <0.10 KU/L; SHRIMP CLASS 0; SHRIMP IGE <0.10 KU/L
== END | disposition home or self-care (01) ==
LOC: C.LAB1850 13:25
PROVIDERS: ATTEND Internal Medicine Pulmonary Disease
DX: L50.1 Idiopathic urticaria (principal)

== ENCOUNTER 2018-08-29 09:20 | Observation (INO) ==
[2018-08-29] MEDS ORDERED: NITROGLYCERIN/D5W 100MCG/ML 20ML SYR ONE (12:19)
[2018-08-29] MEDS ORDERED: HEPARIN (PORCINE) 1000 UNIT/ML 10 ML (CATH LAB USE ONLY) ONE (12:19)
[2018-08-29] MEDS ORDERED: MIDAZOLAM HCL 1 MG/ML 2ML VIAL ONE (12:19)
[2018-08-29] MEDS ORDERED: NiCARDipine HCL INJ 2.5 MG/ML 10 ML AMP ONE (12:19)
[2018-08-29] MEDS ORDERED: fentaNYL citrate 100 MCG/2 ML VIAL ONE (12:19)
--- NOTE | 2018-08-29 14:08 | Pre Anesthesia Assessment ---
Date of Service August 29, 2018 Pre Sedation Assessment Vital Signs Temp Pulse Resp BP Pulse Ox 08/29/18 09:39 36.6 C 75 18 118/64 98 Cardiovascular RRR, no murmur, no edema Respiratory normal respiratory effort, lungs clear to auscultation Pre-Sedation Airway Assessment Smoking Status: Never smoker Hx Sleep Apnea: No Short, Thick Neck: No Thyromental Distance: > or= 3.5 Finger Breadths Oral Cavity: + Dentures Mallampati Class: II ASA: ASA4 NPO Status Date of Last Intake of Fluids: 08/28/18 Time of Last Intake of Fluids: 18:00 Date of Last Intake of Solid Food: 08/28/18 Time of Last Intake of Solid Foods: 18:00 Procedure Planning Contraindications for Sedation: none Current Medications Reviewed: Yes Notes The planned sedation has been discussed with the patient. Informed Consent was obtained. I have identified the patient, determined the appropriateness of sedation and have assessed the patient immediately prior to the procedure. All medicine(s) and interventions are by my order.
--- NOTE | 2018-08-29 14:08 | History & Physical Bridge Note ---
Date of Service August 29, 2018 History & Physical Bridge Note I have examined the patient, reviewed the History & Physical and in the interval since the performance of the History & Physical I have noted the following changes of clinical significance: no changes noted
--- NOTE | 2018-08-29 14:09 | Post Anesthesia Assessment ---
Date of Service August 29, 2018 Post Sedation Assessment Vital Signs Temp Pulse Resp BP Pulse Ox 08/29/18 09:39 36.6 C 75 18 118/64 98 Recovery Score Activity: Moves 4 extremities Respiration: Deep Breath/Cough Circulation: +/-20% PreAnes Value Consciousness: Fully Awake Oxygen Saturation: O2 needed for >90% Discharge Sedation Level of Care: Fast Track Phase II Post Sedation Plan On clinical assessment, the patient appears to have tolerated the sedation without complications. Patient is recovering as anticipated. Patient will continue to be monitored by nursing and may be discharged when sedation discharge criteria are met per below protocol. Upon Completions of procedure and additional 15 minutes continue every 5 minute vital signs and the P.A.R. score; then discharge to a Phase I or Fast Track to Phase II per the following guidelines: * Discharge Patient to appropriate Phase II area if PAR is 8 or greater or return to pre- procedure baseline. The post - procedure orders will be as directed. * If PAR score is less than 8 or not return to pre-procedure baseline then patient will follow Phase I monitoring till PAR is reached for Phase II. The Phase I may be done in procedure room or may call to secure a Phase I area. * If naloxone or flumazenil are used for reversal, hold in Phase I for continued monitoring from when last reversal dose was given for a minimum of 60 minutes or longer pending the nurse and/or physician discretion of patient condition before discharge to Phase II. Please call the Sedation Physician to re-evaluate and complete post-note for discharge to Phase II area. Do NOT discharge from procedure sedation or Phase 1 until post- sedation evaluation note is complete by procedure /sedation MD Sedation Discharge Instructions to be given to the patient at discharge to home.
--- NOTE | 2018-08-29 14:12 | Cardiac Catheterization ---
Cardiac Cath Procedure Full Procedure Date August 29, 2018 Pre-Procedure Diagnosis Pre-Procedure Diagnosis: Positive Stress Test AUC Score AUC Score: 8 Post-Procedure Diagnosis Post-Procedure Diagnosis: Severe CAD and Successful PCI Procedure(s) Performed Procedure(s) Performed: Coronary Angiography and Drug Eluting Stent Manager Surgical Toni Espino MD Microwave Radio Technician(s) Josette Vitale Estimated Blood Loss Estimated Blood Loss: 10 Medication(s) Medication(s): Fentanyl, Heparin, Lidocaine 1%, Nicardipine and Versed Summary of Findings Indication: High risk positive stress test Access: 6 [place]ino right radial artery Catheters: [place], EBU 3.5 guide Findings: LM -calcified, luminal irregularities LAD -moderate caliber vessel, heavily calcified proximally, 95% mid segment focal stenosis at takeoff of small second diagonal. Distal vessel with luminal irregularities as tapers to apex. LAD gives off collaterals to PDA via septal. small second diagonal aneurysmal proximally mild diffuse distal disease. LCxlarge caliber vessel, gives off high OM1 without significant disease 95% calcified focal stenosis in the mid segment after takeoff of OM1. Minimal disease in distal vessel, left PLB. Gives off epicardial collaterals to distal RCA RCA -dominant, heavily calcified, 100% chronic proximal occlusion. Distal vessel fills primarily via left to right collaterals with some right to right collaterals via AV vanesa branch -- PCI -- Antithrombotic therapy: Heparin, clopidogrel Procedure: Left main cannulated with EBU 3.5 guide Net Ui Developer 50 wire passed across lesion into distal vessel Mid LAD lesion predilated with 2.0, 2.75 compliant balloon Dilated lesion stented with 3.0 x 18 mm [place] drug-eluting stent Stent post-dilated with 3.0 noncompliant balloon to high atmospheres IC vasodilators administered for spasm Post procedure ALICE 3 flow, stent well expanded with minimal residual stenosis and no apparent cardiac complications. Arterial Closure: TR band Summary: 1. Severe 3 vessel coronary artery disease -100% proximal chronic RCA occlusion well collateralized distally via left to right and some right to right collaterals. 95% mid LAD at bifurcation of small second diagonal 95% mid circumflex after takeoff of OM1 2. Successful PCI of mid LAD with single drug-eluting stent (3.0 x 18 mm [place]). 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 Hemodynamics Rest Ao:: 104/45/71 Final Ao: 112/50/75 LV: -- Recommendations Recommendations: PCI without planned CABG Specimens Specimens: None Radiation Exposure (mGy) 2637 Contrast (mls) 115 Fluids (cc crystalloids) Fluids (cc crystalloids): 135 Drains Drains: None Anesthesia Moderate Procedural Complication(s) None Disposition PCU ACC Data: Disbursing Officer Cardiac Status Clinical evaluation leading to the procedure CAD Presenation: Positive Stress Test Anginal Classification: CCS III Heart Failure: No Cardiogenic Shock within 24 Hours: No Cardiac Arrest within 24 Hours: No Imaging Studies Past 6 Months: Yes Stress Studies Past 6 Months: Yes Stress Echocardiogram: Yes - Positive and Risk/Extent of Ischemia (High) Diagnostic Physicians Name: Toni Espino MD Status: Elective Closure Device Percutaneous Entry Location: Radial Closure Device: Radial Band Recommendations: PCI without planned CABG PCI Indication: + Stress Test Lesion Segment Name: Mid LAD Culprit Artery: Yes Stenosis Prior to Rx (%): 95 Chronic Total Occlusion: No IVUS: No FFR: No Pre-Procedure ALICE Flow: 3 Previously Treated Lesion: No Lesion Complexity: High/C Lesion Length (mm): 50 Thrombus Present: No Bifurcation Lesion: Yes Guidewire Across Lesion: Stenosis Post-Procedure (%): 0 Post-Procedure ALICE Flow : 3 Devices(s) Deployed: Yes Yes Intraprocedure Events Significant Disection: No Perforation: No
[2018-08-29] MEDS ORDERED: CLOPIDOGREL BISULFATE 300 MG TAB ONE (14:15)
[2018-08-29] MEDS ORDERED: ACETAMINOPHEN 325 MG TAB PO PRN (14:25)
[2018-08-29] MEDS ORDERED: ONDANSETRON INJ 2 MG/ML 2 ML VIAL IV PRN (14:25)
[2018-08-29] MEDS ORDERED: SODIUM CHLORIDE 0.9% 1000ML 1,000 ML IV SCH (16:00)
[2018-08-29] MEDS: METOPROLOL TARTRATE 25 MG TAB PO SCH (20:40)
[2018-08-29] MEDS: IPRATROPIUM BROMIDE NASAL SPRAY 0.06% 15ML SCH (20:41)
[2018-08-30] MEDS ORDERED: LEVOTHYROXINE SODIUM 50 MCG TABLET PO SCH (06:30)
[2018-08-30 07:50] LABS: Hematocrit (blood only) 40.9 % (42-52); Hemoglobin 13.8 g/dL (14.0-18.0); Immature Granulocytes # (auto) 0.02 K/uL (0.00-0.02); Immature Granulocytes % (auto) 0.2 %; Lymphocytes # (auto) 2.91 K/uL (1.2-3.4); Lymphocytes % (auto) 35.9 %; Mean Corpuscular Hgb Conc 33.7 g/dL (32-36); Mean Corpuscular Volume 86.7 fL (80-100); Mean Platelet Volume 8.9 fL (7.4-10.4); Monocytes # (auto) 0.52 K/uL (0.11-0.59); Monocytes % (auto) 6.4 %; Neutrophils # (auto) 4.66 K/uL (1.4-6.5); Neutrophils % (auto) 57.5 %; Platelet Count 115 K/uL (130-400); RDW Coefficient of Variation 14.1 % (11.5-14.5); RDW Standard Deviation 44.5 fL (36.4-46.3); Red Blood Count 4.72 M/uL (4.7-6.1); White Blood Count 8.11 K/uL (4.8-10.8)
[2018-08-30] MEDS: METOPROLOL TARTRATE 25 MG TAB PO SCH (07:58)
[2018-08-30] MEDS: IPRATROPIUM BROMIDE NASAL SPRAY 0.06% 15ML SCH (08:00)
[2018-08-30 08:22] LABS: BUN Creatinine Ratio 24.3 (10-20); Est GFR (African American) 92.6; Est GFR (Non-African American) 79.9
[2018-08-30] MEDS ORDERED: ASPIRIN 81 MG ECTAB PO SCH (09:00)
[2018-08-30] MEDS ORDERED: MULTIVITAMIN TAB PO SCH (09:00)
[2018-08-30] MEDS ORDERED: ATORVASTATIN 40 MG TAB PO SCH (09:00)
[2018-08-30] MEDS ORDERED: CLOPIDOGREL BISULFATE 75 MG TAB PO SCH (09:00)
--- NOTE | 2018-09-07 22:11 | Discharge Summary ---
Date of Service August 29, 2018 Admission HPI Per Admitting Provider Mr. Lindsey presented for cardiac catheterization after high risk stress test in the setting of progressive CCS class III symptoms. Specialty Data Cardiology Cardiac catheterization/PCI: 1. Severe 3 vessel coronary artery disease -100% proximal chronic RCA occlusion, well-collateralized distally via left to right and some right to right collaterals. 95% mid LAD at bifurcation of small second diagonal 95% mid circumflex after takeoff of OM1 2. Successful PCI of mid LAD with single drug-eluting stent (3.0 x 18 mm [place]). Discharge Data Procedures Performed Operation Date: 08/29/18 10:00 Actual Procedures p Drug Eluting Stent SGl Vessel - Tuan Espino MD s Cineradiography w/Routine Exam - Tuan Espino MD s Cath, Coronaries ONLY (no LV) - Tuan Espino MD Hospital Course (1) Multi-vessel coronary artery stenosis: Underwent cardiac catheterization via right radial artery. Was found to have severe 3 vessel disease with chronically occluded RCA, and severe focal disease in mid LAD and mid circumflex. Underwent successful PCI of mid LAD without complication. Admitted to telemetry service for observation. Overnight had no recurrent chest pain. No apparent access site complications. Labs stable. Discharged to home on hospital day 2. Staged PCI arranged for next week of mid circumflex. Will plan to medically manage well-collateralized chronically occluded RCA. Home on DAPT with aspirin and plavix.
== END 2018-08-30 12:20 | disposition home or self-care (01) ==
LOC: CC 09:20 → 2S 09:20
PROC: CLB.CCO (2018-08-29 10:00)

== ENCOUNTER 2018-09-05 08:24 | Observation (INO) ==
--- NOTE | 2018-09-05 09:28 | Pre Anesthesia Assessment ---
Date of Service September 05, 2018 Pre Sedation Assessment Vital Signs Temp Pulse Resp BP Pulse Ox 09/05/18 08:54 36.6 C 63 16 110/53 L 98 Cardiovascular RRR, no murmur, no edema Respiratory normal respiratory effort, lungs clear to auscultation Pre-Sedation Airway Assessment Smoking Status: Never smoker Hx Sleep Apnea: No Hx Difficult Intubation: No Short, Thick Neck: No Thyromental Distance: > or= 3.5 Finger Breadths Oral Cavity: + WNL Mallampati Class: III Procedure Planning Contraindications for Sedation: none Current Medications Reviewed: Yes Notes The planned sedation has been discussed with the patient. Informed Consent was obtained. I have identified the patient, determined the appropriateness of sedation and have assessed the patient immediately prior to the procedure. All medicine(s) and interventions are by my order.
--- NOTE | 2018-09-05 09:33 | History & Physical Report ---
Date of Service September 05, 2018 Assessment & Plan (1) Multi-vessel coronary artery stenosis: Plan to proceed with staged PCI of mid circumflex. History of Present Illness Primary Care Provider: Rolan Oliva MD Mr. Lindsey is a very pleasant 77-year-old man with a history of dyslipidemia, hypothyroidism, esophageal achalasia, severe osteoarthritis post bilateral TKA with a history of multivessel coronary artery disease and accelerating angina who returns today for staged PCI of mid circumflex. Patient underwent diagnostic angiography last week. Was found to have severe LAD disease which was treated with PCI with a single FRANNIE. RCA chronically occluded with [id number] collaterals. Mid circumflex after takeoff of OM1 with 90-95% focal stenosis. Since procedure last week is done well. Denies any recurrent chest pain. Exertional shortness of breath is somewhat improved. No right radial artery access site complications. Allergies Allergy/AdvReac Type Severity Reaction Status Date / Time No Known Allergies Allergy Unknown Verified 12/29/16 08:10 Home Medications Home Medications Medication Instructions Recorded Confirmed Type IPRATROPIUM BROMIDE (NASAL) 1 dose NOT APPLICABLE TID #0 09/16/16 09/05/18 History (IPRATROPIUM BROMIDE) Meloxicam (Mobic) 7.5 mg PO QAM #0 tab 09/16/16 09/05/18 History Multivitamin 1 tab PO QAM #0 tab 09/16/16 09/05/18 History Acetaminophen (Tylenol Extra 1,000 mg PO Q8H 30 Days #180 tab 12/30/16 09/05/18 Rx Strength) aspirin 81 mg PO DAILY 08/29/18 09/05/18 History levothyroxine 50 mcg PO DAILY 08/29/18 09/05/18 History atorvastatin 40 mg PO QAM 30 Days #60 tab 08/30/18 09/05/18 Rx clopidogrel 75 mg PO QAM 30 Days #30 tab 08/30/18 09/05/18 Rx metoprolol tartrate 25 mg PO BID 30 Days #60 tab 08/30/18 09/05/18 Rx Past Med/Surg History Social History Current Living Situation: Alone Other Information That Helps Us Care for You: No Feels Safe at Home: Yes Safety Concerns: Feels Safe At This Time Smoking Status: Never smoker Second Hand Exposure: No Hx Alcohol Use: No Hx Substance Use: No Beliefs That Will Affect Care: None Preferred Language: Hebrew Reservoir 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 No JVD. Lungs: Clear to auscultation bilaterally, no rhonchi or wheezes Cardiac: Regular rate and rhythm, no murmurs, rubs or gallops. Vascular: Mild residual ecchymosis at right radial artery access site. Intact distal pulse. Abdomen: Soft, nontender, nondistended, positive bowel sounds. Extremities: Well perfused, no peripheral edema Skin: No rashes or lesions. Neuro: Nonfocal Psych: Alert orient x3, normal affect and mood
[2018-09-05] MEDS ORDERED: MIDAZOLAM HCL 1 MG/ML 2ML VIAL ONE (09:50)
[2018-09-05] MEDS ORDERED: NiCARDipine HCL INJ 2.5 MG/ML 10 ML AMP ONE (09:50)
[2018-09-05] MEDS ORDERED: fentaNYL citrate 100 MCG/2 ML VIAL ONE (09:50)
[2018-09-05] MEDS ORDERED: HEPARIN (PORCINE) 1000 UNIT/ML 10 ML (CATH LAB USE ONLY) ONE (09:50)
[2018-09-05] MEDS ORDERED: NITROGLYCERIN/D5W 100MCG/ML 20ML SYR ONE (09:51)
[2018-09-05] MEDS ORDERED: CLOPIDOGREL BISULFATE 75 MG TAB ONE (09:56)
[2018-09-05] MEDS ORDERED: ASPIRIN 81 MG CHEW ONE (09:56)
[2018-09-05] MEDS ORDERED: CLOPIDOGREL BISULFATE 300 MG TAB ONE (11:05)
[2018-09-05] MEDS ORDERED: ACETAMINOPHEN 325 MG TAB PO PRN (11:13)
[2018-09-05] MEDS ORDERED: ONDANSETRON INJ 2 MG/ML 2 ML VIAL IV PRN (11:13)
[2018-09-05] MEDS ORDERED: SODIUM CHLORIDE 0.9% 1000ML 1,000 ML IV SCH (11:15)
--- NOTE | 2018-09-05 11:19 | Post Anesthesia Assessment ---
Date of Service September 05, 2018 Post Sedation Assessment Vital Signs Temp Pulse Resp BP Pulse Ox 09/05/18 08:54 36.6 C 63 16 110/53 L 98 Recovery Score Activity: Moves 4 extremities Respiration: Deep Breath/Cough Consciousness: Fully Awake Oxygen Saturation: O2 needed for >90% Discharge Sedation Level of Care: Fast Track Phase II Post Sedation Plan On clinical assessment, the patient appears to have tolerated the sedation without complications. Patient is recovering as anticipated. Patient will continue to be monitored by nursing and may be discharged when sedation discharge criteria are met per below protocol. Upon Completions of procedure and additional 15 minutes continue every 5 minute vital signs and the P.A.R. score; then discharge to a Phase I or Fast Track to Phase II per the following guidelines: * Discharge Patient to appropriate Phase II area if PAR is 8 or greater or return to pre- procedure baseline. The post - procedure orders will be as directed. * If PAR score is less than 8 or not return to pre-procedure baseline then patient will follow Phase I monitoring till PAR is reached for Phase II. The Phase I may be done in procedure room or may call to secure a Phase I area. * �If naloxone or flumazenil are used for reversal, hold in Phase I for continued monitoring from when last reversal dose was given for a minimum of 60 minutes or longer pending the nurse and/or physician discretion of patient condition before discharge to Phase II.� Please call the Sedation Physician to re-evaluate and complete post-note for discharge to Phase II area. Do NOT discharge from procedure sedation or Phase 1 until post- sedation evaluation note is complete by procedure /sedation MD Sedation Discharge Instructions to be given to the patient at discharge to home.
--- NOTE | 2018-09-05 11:21 | Cardiac Catheterization ---
Cardiac Cath Procedure Full Procedure Date September 05, 2018 Pre-Procedure Diagnosis Pre-Procedure Diagnosis: Positive Stress Test AUC Score AUC Score: 8 Post-Procedure Diagnosis Post-Procedure Diagnosis: Severe CAD and Successful PCI Procedure(s) Performed Procedure(s) Performed: Drug Eluting Stent Clinical Services Manager Toni Espino MD Transportation Economics Teacher(s) Josette Macario Estimated Blood Loss Estimated Blood Loss: 10 Medication(s) Medication(s): Clopidogrel, Fentanyl, Heparin, Lidocaine 1%, Nicardipine, Nitroglycerin and Versed Summary of Findings Indication: Multivessel coronary artery disease Access: 6 American right radial artery Catheters: EBU 3.5 guide, guideliner Findings: For full details of patient's coronary angiography please see cath report dictated on 08/29/2018. Briefly patient found to have severe multivessel disease and is post PCI to mid LAD with single drug-eluting stent. He returns today for planned PCI of mid circumflex. -- PCI -- Antithrombotic therapy: Heparin, clopidogrel Procedure: Left main cannulated with EBU 3.5 guide Customer Services Coordinator 50 wire passed across lesion into distal vessel With the aid of a guideliner lesion predilated with 2.0 and 2.5 compliant balloon Dilated lesion stented with 2.5 x 12 mm [place] drug-eluting stent Stent post-dilated with 2.5 noncompliant balloon IC vasodilators administered for spasm Post procedure ALICE 3 flow, stent well expanded with minimal residual stenosis and no apparent cardiac complications. Arterial Closure: TR band Summary: 1. Successful PCI of mid circumflex with single drug-eluting stent (2.5 x 12 mm [place]). Recommendations: To PCU for continued monitoring Reloaded with clopidogrel 300 mg in section laborer Continue dual-antiplatelet therapy for at least one year Continue statin, and ASCVD risk factor modification Hemodynamics Rest Ao:: 89/45/63 Final Ao: 121/55/70 LV: -- Recommendations Recommendations: PCI without planned CABG Specimens Specimens: None Radiation Exposure (mGy) 3843 Contrast (mls) 95 Fluids (cc crystalloids) Fluids (cc crystalloids): 131 Drains Drains: None Anesthesia Moderate Procedural Complication(s) None Disposition PCU ACC Data: Cream Separator Operator Cardiac Status Clinical evaluation leading to the procedure CAD Presenation: Positive Stress Test Anginal Classification: CCS III Heart Failure: No Cardiogenic Shock within 24 Hours: No Cardiac Arrest within 24 Hours: No Imaging Studies Past 6 Months: Yes Stress Studies Past 6 Months: Yes Stress Echocardiogram: Yes - Positive and Risk/Extent of Ischemia (High) Diagnostic Physicians Name: Toni Espino MD Status: Elective Closure Device Percutaneous Entry Location: Radial Closure Device: Radial Band Recommendations: PCI without planned CABG PCI Indication: Staged PCI Lesion Segment Name: Mid circumflex Culprit Artery: No Stenosis Prior to Rx (%): 90-95 Chronic Total Occlusion: No IVUS: No FFR: No Pre-Procedure ALICE Flow: 3 Previously Treated Lesion: No Lesion Complexity: Non-High/Non-C Lesion Length (mm): 10 Thrombus Present: No Bifurcation Lesion: Yes Guidewire Across Lesion: Stenosis Post-Procedure (%): 0 Post-Procedure ALICE Flow : 3 Devices(s) Deployed: Yes Yes Intraprocedure Events Significant Disection: No Perforation: No
[2018-09-05] MEDS: METOPROLOL TARTRATE 25 MG TAB PO SCH (20:46)
[2018-09-06] MEDS ORDERED: LEVOTHYROXINE SODIUM 50 MCG TABLET PO SCH (06:30)
[2018-09-06 07:01] LABS: Hemoglobin 14.2 g/dL (14.0-18.0); Immature Granulocytes # (auto) 0.02 K/uL (0.00-0.02); Immature Granulocytes % (auto) 0.2 %; Lymphocytes # (auto) 3.55 K/uL (1.2-3.4); Lymphocytes % (auto) 35.8 %; Mean Corpuscular Hgb Conc 33.8 g/dL (32-36); Mean Platelet Volume 8.9 fL (7.4-10.4); Monocytes # (auto) 0.89 K/uL (0.11-0.59); Neutrophils # (auto) 5.47 K/uL (1.4-6.5); Platelet Count 130 K/uL (130-400); RDW Coefficient of Variation 14.1 % (11.5-14.5); RDW Standard Deviation 44.4 fL (36.4-46.3); Red Blood Count 4.83 M/uL (4.7-6.1); White Blood Count 9.93 K/uL (4.8-10.8)
[2018-09-06 07:30] LABS: BUN Creatinine Ratio 27.5 (10-20); Creatinine Clr Calc Pharmacy 68.2 ml/min; Est GFR (African American) 82.6; Est GFR (Non-African American) 71.3; Potassium 4.3 mmol/L (3.5-5.1)
[2018-09-06] MEDS: METOPROLOL TARTRATE 25 MG TAB PO SCH (08:11)
--- NOTE | 2018-09-06 08:51 | Discharge Summary ---
Date of Service September 06, 2018 Admission HPI Per Admitting Provider Mr. Lindsey is a very pleasant 77-year-old man with a history of dyslipidemia, hypothyroidism, esophageal achalasia, severe osteoarthritis post bilateral TKA with a history of multivessel coronary artery disease and accelerating angina who returns today for staged PCI of mid circumflex. Patient underwent diagnostic angiography last week. Was found to have severe LAD disease which was treated with PCI with a single FRANNIE. RCA chronically occluded with [id number] collaterals. Mid circumflex after takeoff of OM1 with 90-95% focal stenosis. Since procedure last week is done well. Denies any recurrent chest pain. Exertional shortness of breath is somewhat improved. No right radial artery access site complications. Discharge Data Procedures Performed Operation Date: 09/05/18 09:30 Actual Procedures s Cineradiography w/Routine Exam - Tuan Espino MD p Drug Eluting Stent SGl Vessel - Tuan Espino MD Hospital Course (1) Multi-vessel coronary artery stenosis: 1. Successful PCI of mid circumflex with single drug-eluting stent . Patient underwent staged PCI of mid circumflex via right radial artery. A single drug-eluting stent (2.5 x 12 mm [place]) was placed without complication. Post procedure patient was admitted to telemetry service for observation. Overnight no arrhythmias, no recurrent chest pain or apparent access site complications. Labs stable in AM and patient feeling well. He was discharged to home on continued dual-antiplatelet therapy. Follow-up with Dr. Espino in 2 weeks. Discharge Instructions Home Medications IPRATROPIUM BROMIDE (NASAL) (IPRATROPIUM BROMIDE) 1 dose NOT APPLICABLE TID #0 09/16/16 [History Confirmed 09/05/18] Meloxicam (Mobic) 7.5 mg PO QAM #0 tab 09/16/16 [History Confirmed 09/05/18] Multivitamin 1 tab PO QAM #0 tab 09/16/16 [History Confirmed 09/05/18] Acetaminophen (Tylenol Extra Strength) 1,000 mg PO Q8H 30 Days #180 tab [Rx Confirmed 09/05/18] aspirin 81 mg PO DAILY 08/29/18 [History Confirmed 09/05/18] levothyroxine 50 mcg PO DAILY 08/29/18 [History Confirmed 09/05/18] atorvastatin 40 mg PO QAM 30 Days #60 tab 08/30/18 [Rx Confirmed 09/05/18] clopidogrel 75 mg PO QAM 30 Days #30 tab 08/30/18 [Rx Confirmed 09/05/18] metoprolol tartrate 25 mg PO BID 30 Days #60 tab 08/30/18 [Rx Confirmed 09/05/18 ]
[2018-09-06] MEDS ORDERED: MULTIVITAMIN TAB PO SCH (09:00)
[2018-09-06] MEDS ORDERED: ASPIRIN 81 MG CHEW PO SCH (09:00)
[2018-09-06] MEDS ORDERED: ATORVASTATIN 40 MG TAB PO SCH (09:00)
[2018-09-06] MEDS ORDERED: CLOPIDOGREL BISULFATE 75 MG TAB PO SCH (09:00)
== END 2018-09-06 12:14 | disposition home or self-care (01) ==
LOC: 2S 08:24 → CC 08:24

== ENCOUNTER 2021-02-13 20:06 | Inpatient (IN) ==
[2021-02-13] MEDS ORDERED: PANTOprazole 80 MG in DEXTROSE 5% 100 ML IV ONE (20:22)
[2021-02-13] MEDS ORDERED: SODIUM CHLORIDE 0.9% 250 ML IV PRN (20:22)
--- NOTE | 2021-02-13 20:29 | Emergency Department Note ---
History of Present Illness General Chief complaint: Illness Stated complaint: LOW BLOOD COUNT, WEAK, SOB Time Seen by Provider: 02/13/21 20:13 Source: patient History of Present Illness Provider complaint: Weakness Onset (ago): day(s) Location: head Severity: moderate Pain Consistency: + constant Maximum Pain Intensity: 0 Quality: + other (Generalized weakness) Exacerbated By: + movement Associated symptoms: + cough (Mild cough), + weakness and + other (Bloody diarrhea yesterday); no chest pain, no fever/chills, no nausea/vomiting or no shortness of breath This is an 80-year-old male who was sent over by his doctor for low blood count, weakness and bloody diarrhea. The patient states that he has been feeling generalized weakness since yesterday. Is worse with any exertion. He denies any associated chest pain or shortness of breath. He does state that he had 2 episodes of bloody diarrhea yesterday. He denies any black or bloody stools. He was seen by his doctor today who performed a rectal examination which showed blood. His blood work also showed a low hemoglobin so he was sent here. He denies any fever, urinary symptoms or hematuria. He states that he has had a mild cough. He does complain of occasional abdominal pain which she describes as an intermittent cramping. He is not having any pain right now. He does take a baby aspirin daily but denies other blood thinner use. He does not know when his last colonoscopy was or if he ever had one. Home Medications Medication Instructions Recorded Confirmed Type aspirin 81 mg chewable tablet 81 mg PO QAM 08/29/18 02/13/21 History levothyroxine 50 mcg tablet 50 mcg PO QAM 08/29/18 02/13/21 History ipratropium bromide 42 mcg (0.06 2 spray INTRANASAL TID 01/23/19 02/13/21 History %) nasal spray meloxicam 7.5 mg tablet 7.5 mg PO QAM PRN 01/23/19 02/13/21 History multivitamin 1 tab PO QAM 01/23/19 02/13/21 History metoprolol tartrate 25 mg tablet 25 mg PO BID #180 tab 04/02/20 02/13/21 Rx clopidogrel 75 mg tablet 75 mg PO QAM 90 Days #90 tab 10/23/20 02/13/21 Rx atorvastatin 40 mg tablet 40 mg PO DAILY #90 tab 01/28/21 02/13/21 Rx fexofenadine 180 mg tablet 180 mg PO DAILY 02/13/21 02/13/21 History magnesium 250 mg tablet 250 mg PO DAILY 02/13/21 02/13/21 History Allergies Allergy/AdvReac Type Severity Reaction Status Date / Time No Known Drug Allergies Allergy Unknown Verified 02/13/21 20:27 Past Med/Surg History Medical History Coronary artery stenosis Former smoker History of esophageal dilatation Hyperlipidemia Hypothyroidism Myocardial Infarction pt denies? Osteoarthritis Spinal stenosis Surgical History History of cardiac cath x2--SEVERE 3 VESSEL Dx with chronic RCA occlusion with distal collaterals, 95 % mid lAD and 95% Cx at takeoff of OM1. LAD s/p pCI and single FRANNIE on 08/29/2018 and staged PCI of Cx on 09/05/2018 wit single FRANNIE History of carpal tunnel release of both wrists History of cholecystectomy History of esophagogastroduodenoscopy (EGD) History of heart artery stent x2 total--08/2018 and 09/2018 History of phacoemulsification of cataract of both eyes with intraocular lens implantation History of tonsillectomy History of tooth extraction History of total knee replacement B/L Stented coronary artery Family History Aunt Family history of diabetes mellitus Mother Family history of diabetes mellitus Family/Other Family history of diabetes mellitus niece Other No family history of adverse response to anesthesia Social History Smoking Status: Never smoker Second Hand Exposure: No; Hx Alcohol Use: No Hx Substance Use: No Preferred Language: Kenyan Communication Ability: Effective Hearing Ability: Hard of Hearing Radioisotope Technician Required: No Beliefs That Will Affect Care: None marital status: / Current Living Situation: Alone current occupation: retired from [employer] Feels Safe at Home: Yes Assistive Devices: Cane, Glasses, Hearing Aid - Bilateral and Walker Review of Systems See HPI for pertinent positives & negatives. and A total of 10 systems reviewed and were otherwise negative Physical Exam Vital Signs Vital Signs - 24 hr 02/13/21 20:08 02/13/21 20:33 02/13/21 20:35 Temperature 35.9 C L Temperature Source Temporal Artery Scan Pulse Rate 75 73 70 Pulse Rate from SpO2 Sensor 73 Pulse Rhythm Regular Pulse Strength Respiratory Rate 20 27 H 20 Respiratory Effort / Characteristics Non-Labored Spontaneous Respiratory Depth Normal Blood Pressure 128/60 113/63 Blood Pressure Mean 82 79 Blood Pressure Position Sitting Pulse Oximetry 97 95 96 Oxygen Delivery Method Room Air Room Air Sepsis Recent Fever Within 48 Hours No Sepsis New/Unexplained Change in Mental Status No Sepsis Action Taken by Nursing No Action Required 02/13/21 21:22 02/13/21 21:30 02/13/21 22:00 Temperature Temperature Source Pulse Rate 73 70 69 Pulse Rate from SpO2 Sensor 75 70 69 Pulse Rhythm Pulse Strength Respiratory Rate 21 18 21 Respiratory Effort / Characteristics Respiratory Depth Blood Pressure 117/54 L 114/62 105/54 L Blood Pressure Mean 75 79 71 Blood Pressure Position Pulse Oximetry 99 98 97 Oxygen Delivery Method Sepsis Recent Fever Within 48 Hours Sepsis New/Unexplained Change in Mental Status Sepsis Action Taken by Nursing 02/13/21 22:27 02/13/21 22:45 Temperature 36.9 C 36.5 C Temperature Source Oral Oral Pulse Rate 69 73 Pulse Rate from SpO2 Sensor Pulse Rhythm Regular Pulse Strength Normal Respiratory Rate 20 19 Respiratory Effort / Characteristics Respiratory Depth Blood Pressure 97/60 L 104/53 L Blood Pressure Mean 72 70 Blood Pressure Position Sitting Pulse Oximetry 98 95 Oxygen Delivery Method Sepsis Recent Fever Within 48 Hours Sepsis New/Unexplained Change in Mental Status Sepsis Action Taken by Nursing Constitutional: Vital signs reviewed. Eyes: Pupils are equal round reactive to light. Conjunctiva are noninjected. ENT: Pharynx is clear without erythema or exudate. Mucous membranes are moist. Neck supple without meningeal signs. Respiratory: Clear to auscultation bilaterally. Breath sounds are equal bilaterally. Cardiovascular: Regular rate and rhythm. No rubs or gallops. GI: Soft, nondistended and nontender. Bowel sounds are present. Musculoskeletal: No peripheral edema. No lower extremity tenderness. Integumentary: No cyanosis. or jaundice. Pale. Neurological: The patient is awake and alert. No focal deficits. Psychiatric: Normal affect. Not anxious appearing. Course Administered Medications Pantoprazole Sodium 40 mg/ (Dextrose) 100 mls @ 20 mls/hr IV Q5H CAMRYN Stop: 03/15/21 20:44 Last Admin: 02/13/21 22:10 Dose: 8 mg/hr, 20 mls/hr Documented by: [id number] Discontinued Medications Pantoprazole Sodium (Protonix Bolus/Drip) 0 mls @ 1 mls/hr IV ONE STA Stop: 02/13/21 20:23 Last Admin: 02/13/21 22:49 Dose: Not Given Documented by: [id number] Pantoprazole Sodium 80 mg/ (Dextrose) 120 mls @ 400 mls/hr IV NOW ONE Stop: 02/13/21 20:39 Last Infusion: 02/13/21 22:10 Dose: 0 mls/hr Documented by: [id number] Admin: 02/13/21 21:26 Dose: 400 mls/hr Documented by: [id number] Ioversol (Optiray 320 100ml) 94 ml IV ONCE ONE Stop: 02/13/21 21:11 Last Admin: 02/13/21 21:11 Dose: 94 ml Documented by: [id number] Critical Care Time Critical Care Time: Yes Total Critical Care Time: 40 I have personally spent approximately 40 minutes of critical care time in the direct management of this patient. This includes bedside care, interpretation of diagnostic studies, and testing, discussion with consultants, patient, and family members, and other required patient management activities. These minutes are in excess of all separately billable procedures. Medical Decision Making Differential Diagnosis GI bleed, anemia, duodenal bleed, AVM, diverticulosis Medical Records Attestation: I reviewed the patient's medical records. I did perform a limited focused review of portions of the patient's old chart on the electronic medical record. The patient had blood work at 3 PM today which showed a hemoglobin of 7.7. His white count was over 20,000. He did have a EGD in 2019. This demonstrated duodenal erosions without bleeding Home Medications Current Medication List: was personally reviewed by me Laboratory Data Attestation: I reviewed the patient's lab results. Result diagrams: 02/13/21 20:40 Lab Results 02/13/21 02/13/21 02/13/21 Range/Units 20:40 20:40 20:40 WBC 17.76 H (4.8-10.8) K/uL RBC 2.52 L (4.7-6.1) M/uL Hgb 7.2 L (14.0-18.0) g/dL Hct 22.3 L (42-52) % MCV 88.5 (80-100) fL MCH 28.6 (25-34) pg MCHC 32.3 (32-36) g/dL RDW Std Deviation 50.4 H (36.4-46.3) fL RDW Coeff of You 15.7 H (11.5-14.5) % Plt Count 165 (130-400) K/uL MPV 8.0 (7.4-10.4) fL Immature Gran % (Auto) 0.3 % Neut % (Auto) 42.0 % Lymph % (Auto) 53.0 % [place] % (Auto) 4.6 % Eos % (Auto) 0.0 % Baso % (Auto) 0.1 % Neut # (Auto) 7.47 H (1.4-6.5) K/uL Lymph # (Auto) 9.41 H (1.2-3.4) K/uL [place] # (Auto) 0.82 H (0.11-0.59) K/uL Eos # (Auto) 0.00 (0-0.5) K/uL Baso # (Auto) 0.01 (0-0.2) K/uL Immature Gran # (Auto) 0.05 H (0.00-0.02) K/uL Polychromasia 1+ Hypochromasia Present PT (9.0-12.0) Seconds INR (0.9-1.1) APTT (21.0-31.0) Seconds PTT Ratio Troponin I 0.392 H* (0-0.045) ng/ml COVID-19 Eval Order Blood Type A Positive Blood Type Recheck Antibody Screen NEGATIVE Crossmatch See Detail 02/13/21 02/13/21 02/13/21 Range/Units 20:40 21:00 22:11 WBC (4.8-10.8) K/uL RBC (4.7-6.1) M/uL Hgb (14.0-18.0) g/dL Hct (42-52) % MCV (80-100) fL MCH (25-34) pg MCHC (32-36) g/dL RDW Std Deviation (36.4-46.3) fL RDW Coeff of You (11.5-14.5) % Plt Count (130-400) K/uL MPV (7.4-10.4) fL Immature Gran % (Auto) % Neut % (Auto) % Lymph % (Auto) % [place] % (Auto) % Eos % (Auto) % Baso % (Auto) % Neut # (Auto) (1.4-6.5) K/uL Lymph # (Auto) (1.2-3.4) K/uL [place] # (Auto) (0.11-0.59) K/uL Eos # (Auto) (0-0.5) K/uL Baso # (Auto) (0-0.2) K/uL Immature Gran # (Auto) (0.00-0.02) K/uL Polychromasia Hypochromasia PT 10.6 (9.0-12.0) Seconds INR 1.0 (0.9-1.1) APTT 20.0 L (21.0-31.0) Seconds PTT Ratio 0.8 Troponin I (0-0.045) ng/ml COVID-19 Eval Order Covid19 at [facility] Blood Type Blood Type Recheck A Positive Antibody Screen Crossmatch Imaging Data Attestation: I personally reviewed and interpreted this imaging study as follows: My Impression: Chest x-ray per my interpretation shows no acute cardiopulmonary process. Radiologist's Impression: Preliminary Findings Only See Final Report For Complete Findings CT ABDOMEN & PELVIS With Contrast: The solid organs are within normal limits. Redemonstrated large bladder diverticulum. Cholecystectomy. No obstruction. Diverticulosis. Mild age indeterminate L3 compression fracture. Radiologist: Majo Barksdale MD Study ready at 21:30 and initial results transmitted at 21:35 ECG Data Attestation: I personally reviewed and interpreted this ECG as follows: Indication: + weakness Rate (beats per minute): 67 Rhythm: + normal sinus ECG Intervals/blocks: + Right Bundle branch block ECG ST segments: + ST depression (Anterior lateral) ECG Findings: no PVCs Comparison ECG Date: from (September 05, 2018) Change: the following changes noted (ST depressions are new.) MDM Narrative I did evaluate the patient as noted above. The patient is presenting with symptoms concerning for a GI bleed. He was seen at his doctor's office today and had blood work as well as a rectal examination. He is feeling weak. His hemoglobin 7.7 and his white count was elevated over 20,000. He denies having any fevers. I did discuss informed consent for transfusion. He was amenable to transfusion. IV access was established. I did start him on IV Protonix. He was also placed on a drip. I did order 2 units of packed RBCs for transfusion. I did place an order for continuous cardiac monitoring. The monitor showed normal sinus rhythm at a rate of 70 bpm. I did order and personally review the patient's 12-lead EKG as described above. He has an old right bundle branch block without ST elevations. He does have some ST depressions in the anterior leads. I did order and personally reviewed the images of the patient's chest x- ray as described above. I do not see any evidence of pneumonia. I did order a urine analysis. I did order and review the patient's blood work as noted in the electronic medical record. His white count has improved to 17,000 here. His hemoglobin dropped to 7.2. Platelet count is within normal limits. Troponin is elevated at 0.392. The patient denies having any chest or back pain or shortness of breath. I did repeat a twelve-lead EKG. He has persistent ST depressions as noted above. Again he denies having any chest pain, back pain or shortness of breath. I did order a CT of the abdomen and pelvis. I did review the images myself as well as the radiology report as described above. There is no evidence of acute process within the abdomen or pelvis. The patient is currently being transfused. He denies any complaints other than fatigue. I did discuss the test results with him and he will be hospitalized. I did discuss the case with the hospitalist and shelter case manager. Impression & Plan Acute GI bleeding, Symptomatic anemia, Elevated troponin, Leukocytosis, Abnormal ECG Discharge Plan Visit Data Chief Complaint: Illness Stated Complaint: LOW BLOOD COUNT, WEAK, SOB ED Provider: Bashir Leon Discharge Problem: Acute GI bleeding, Symptomatic anemia, Elevated troponin, Leukocytosis, Abnormal ECG Patient Disposition: Being Evaluated by Hospitalist Forms Stand Alone Forms: My [facility] [employer] Prescriptions Prescriptions: No Action metoprolol tartrate 25 mg tablet 25 mg PO BID Qty: 180 RF: 3 clopidogrel 75 mg tablet 75 mg PO QAM 90 Days Qty: 90 RF: 3 atorvastatin 40 mg tablet 40 mg PO DAILY Qty: 90 RF: 3 levothyroxine 50 mcg Tablet 50 mcg PO QAM RF: 0 aspirin 81 mg Tablet,Chewable 81 mg PO QAM RF: 0 multivitamin Tablet 1 tab PO QAM RF: 0 meloxicam 7.5 mg Tablet 7.5 mg PO QAM PRN (Reason: Muscle Spasm) RF: 0 ipratropium bromide 42 mcg (0.06 %) [place],Non-Aerosol 2 spray INTRANASAL TID RF: 0 fexofenadine 180 mg tablet 180 mg PO DAILY RF: 0 magnesium 250 mg Tablet 250 mg PO DAILY RF: 0 Referrals Referrals: Rolan Oliva MD [Primary Care Provider] -
[2021-02-13 20:55] LABS: Hematocrit (blood only) 22.3 % (42-52); Hemoglobin 7.2 g/dL (14.0-18.0); Mean Corpuscular Hemoglobin 28.6 pg (25-34); Mean Corpuscular Hgb Conc 32.3 g/dL (32-36); Mean Corpuscular Volume 88.5 fL (80-100); Platelet Count 165 K/uL (130-400); RDW Coefficient of Variation 15.7 % (11.5-14.5); RDW Standard Deviation 50.4 fL (36.4-46.3); Red Blood Count 2.52 M/uL (4.7-6.1); White Blood Count 17.76 K/uL (4.8-10.8)
[2021-02-13 21:05] LABS: Partial Thromboplastin Ratio 0.8; Prothrombin Time 10.6 Seconds (9.0-12.0)
[2021-02-13] MEDS ORDERED: OPTIRAY 320 100ml IV ONE (21:10)
[2021-02-13 21:14] LABS: Basophils # (auto) 0.01 K/uL (0-0.2); Basophils % (auto) 0.1 %; Hypochromasia Present; Immature Granulocytes # (auto) 0.05 K/uL (0.00-0.02); Immature Granulocytes % (auto) 0.3 %; Lymphocytes # (auto) 9.41 K/uL (1.2-3.4); Monocytes # (auto) 0.82 K/uL (0.11-0.59); Monocytes % (auto) 4.6 %; Neutrophils # (auto) 7.47 K/uL (1.4-6.5); Polychromasia 1+
[2021-02-13 21:28] LABS: Troponin I 0.392 ng/ml (0-0.045)
[2021-02-13] MEDS: PANTOPRAZOLE BOLUS/DRIP 1 EA IV STA ×2 (22:10→22:49)
[2021-02-13] MEDS: PANTOprazole 40 MG in DEXTROSE 5% 100 ML IV SCH (22:10)
[2021-02-13] MEDS ORDERED: cefTRIAXone SODIUM 1,000 MG in DEXTROSE 5% 50 ML IV STA (23:05)
--- NOTE | 2021-02-13 23:17 | History & Physical Report ---
Date of Service February 13, 2021 Assessment & Plan (1) Acute GI bleeding: (2) Symptomatic anemia: (3) Elevated troponin: (4) Multi-vessel coronary artery stenosis: (5) Hyperlipidemia: (6) Hypothyroidism: Plan: Acute GIB: Presented with bright red diarrhea x2 days with associated HARRIS, full-body weakness. Hgb 7.7 -> 7.2 today, baseline ~13.0 in 2020. No history of GIB. Takes daily DAPT, as well as daily meloxicam. CTAP without acute pathology noted on [facility]. Protonix gtt. Blood consent obtained. Will transfuse 2u PRBCs and check q6h H/H. Empiric ceftriaxone for GIB. Holding aspirin, Plavix, meloxicam. GI consulted and appreciate recommendations. Patient will remain n.p.o. until evaluated by GI. CAD s/p stent, HTN, HLD; demand ischemia: Hx CAD: Severe 3 vessel disease. LAD s/p PCI and single FRANNIE on 08/29/2018, and staged PCI of Cx on 09/05/2018 with single FRANNIE. Last Echo 2019 with EF 50-55%. Today with elevated troponin and V3-V5 T wave changes, no cardiac complaints. Suspect demand ischemia in the setting of GIB. Treatment of GIB and 2u PRBCs as above. Holding aspirin, Plavix due to GIB. Continue metoprolol with holding parameters, statin. Trend troponin, telemetry for cardiac monitoring, Echo in AM. Hypothyroidism: Continue levothyroxine. Code Status: Conditional code; desires all interventions save for intubation. Discussed that cardiac arrest situations are often unsuccessful if intubation is not performed.. Patient understands and still declines intubation but would like chest compressions and defibrillation if indicated. FEN: NPO, receiving 2u PRBCS DVT ppx: holding anticoagulation in setting of GIB; SCDs Dispo: Telemetry History of Present Illness Chief Complaint: Weakness, bloody stools Primary Care Provider: Rolan Rahman MD 80-year-old male past medical history significant for CAD s/p stent, hypothyroidism, chronic joint pains presented to the ER for 1 day of bloody diarrhea and a sensation of worsening weakness. Had CBC done by PCP which showed hemoglobin of 7.7 and he was urged to go to the ER. In the ER patient's vitals were stable save for mild hypotension which patient has had on previous admits. Lab work showed hemoglobin of 7.2, WBC count 17.76, elevated troponin to 0.392. EKG with T wave changes in lateral leads. CTAP did not show any acute pathologies on stat read. Patient was consented for blood and transfusion was ordered. Allergies Allergy/AdvReac Type Severity Reaction Status Date / Time No Known Drug Allergies Allergy Unknown Verified 02/14/21 12:36 Home Medications Medication Instructions Recorded Confirmed Type aspirin 81 mg chewable tablet 81 mg PO QAM 08/29/18 02/13/21 History levothyroxine 50 mcg tablet 50 mcg PO QAM 08/29/18 02/13/21 History ipratropium bromide 42 mcg (0.06 2 spray INTRANASAL TID 01/23/19 02/13/21 History %) nasal spray meloxicam 7.5 mg tablet 7.5 mg PO QAM PRN 01/23/19 02/13/21 History multivitamin 1 tab PO QAM 01/23/19 02/13/21 History metoprolol tartrate 25 mg tablet 25 mg PO BID #180 tab 04/02/20 02/13/21 Rx clopidogrel 75 mg tablet 75 mg PO QAM 90 Days #90 tab 10/23/20 02/13/21 Rx atorvastatin 40 mg tablet 40 mg PO DAILY #90 tab 01/28/21 02/13/21 Rx fexofenadine 180 mg tablet 180 mg PO DAILY 02/13/21 02/13/21 History magnesium 250 mg tablet 250 mg PO DAILY 02/13/21 02/13/21 History Past Med/Surg History Medical History Coronary artery stenosis Former smoker History of esophageal dilatation Hyperlipidemia Hypothyroidism Myocardial Infarction pt denies? Osteoarthritis Spinal stenosis Surgical History History of cardiac cath x2--SEVERE 3 VESSEL Dx with chronic RCA occlusion with distal collaterals, 95% mid lAD and 95% Cx at takeoff of OM1. LAD s/p pCI and single FRANNIE on 08/29/2018 and staged PCI of Cx on 09/05/2018 wit single FRANNIE History of carpal tunnel release of both wrists History of cholecystectomy History of esophagogastroduodenoscopy (EGD) History of heart artery stent x2 total--08/2018 and 09/2018 History of phacoemulsification of cataract of both eyes with intraocular lens implantation History of tonsillectomy History of tooth extraction History of total knee replacement B/L Stented coronary artery Family History Aunt Family history of diabetes mellitus Mother Family history of diabetes mellitus Family/Other Family history of diabetes mellitus niece Other No family history of adverse response to anesthesia Social History Smoking Status: Never smoker Second Hand Exposure: No; Hx Alcohol Use: No Hx Substance Use: No Preferred Language: Ukrainian Communication Ability: Effective Hearing Ability: Hard of Hearing 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 Required: No Beliefs That Will Affect Care: None marital status: / Current Living Situation: Alone current occupation: retired from [employer] Other Information That Helps Us Care for You: No Feels Safe at Home: Yes Safety Concerns: Feels Safe At This Time Assistive Devices: Denture - Upper, Denture - Lower, Glasses, Hearing Aid - Left and Walker Review of Systems Review of Systems: All systems reviewed & are unremarkable except as noted in HPI & below Constitutional: + malaise; no fever and no chills Respiratory: + dyspnea on exertion; no cough Cardiovascular: no chest pain, no palpitations and no edema Gastrointestinal: + abdominal pain (mild, diffuse), + diarrhea/loose stools and + blood in stools; no nausea, no vomiting and no constipation Genitourinary: no dysuria, no urinary frequency or no hematuria Physical Exam Constitutional: WD/WN, vitals as above Eyes: PERRL, conjunctivae normal, anicteric sclerae ENMT: external ear and nose normal, oropharynx normal Neck: normal visual inspection Respiratory: normal respiratory effort, lungs clear to auscultation Cardiovascular: RRR, no murmur, no edema Gastrointestinal (Abdomen): normal bowel sounds, soft, nontender, no hepatosplenomegaly Musculoskeletal: no cyanosis or clubbing, extremities motor strength 5/5 Skin: no rashes, warm and dry Neurologic: Normal speech, no focal motor deficits Psychiatric: A+Ox3, euthymic affect Results & Data Results & Data ([facility]) Vital Signs (Past 12 Hours) Vital Signs Temp Pulse Resp BP Pulse Ox 02/13/21 23:00 36.6 C 64 21 108/55 L 95 02/13/21 22:45 36.5 C 73 19 104/53 L 95 02/13/21 22:27 36.9 C 69 20 97/60 L 98 02/13/21 22:07 20 98 02/13/21 22:00 69 21 105/54 L 97 02/13/21 21:30 70 18 114/62 98 02/13/21 21:22 73 21 117/54 L 99 02/13/21 20:35 70 20 96 02/13/21 20:33 73 27 H 113/63 95 02/13/21 20:08 35.9 C L 75 20 128/60 97 Code Status & VTE Plan VTE Prophylaxis Plan VTE Prophylaxis will be ordered: Yes Supervising Physician Co-Signing Physician Notes Attending addendum: I have physically seen this patient, have supervised the medical residents activities, and agree with the H&P unless as otherwise noted. Assessment and Plan: Acute GI bleed/bright red blood per rectum- Hemoglobin 7.2 upon admission, with baseline around 13 Transfuse 2 units PRBCs now Stop dual antiplatelet therapy and meloxicam Protonix bolus and drip H&H every 6 hours DDAVP 3 mcg/kg IV x1 Consult gastroenterology Remaining orders and notations as noted Resident Activity Tracking Resident Involvement: Resident Care Provided Care Provided: Adult Hospital Medicine
[2021-02-14] MEDS ORDERED: NITROGLYCERIN SL 0.4 MG/TAB TAB SL PRN (00:52)
[2021-02-14] MEDS ORDERED: ONDANSETRON INJ 2 MG/ML 2 ML VIAL IV PRN (00:52)
[2021-02-14] MEDS: PANTOprazole 40 MG in DEXTROSE 5% 100 ML IV SCH ×4 (03:37→14:53)
[2021-02-14 06:02] LABS: Hematocrit (blood only) 25.1 % (42-52); Hemoglobin 8.2 g/dL (14.0-18.0)
[2021-02-14] MEDS: LEVOTHYROXINE SODIUM 50 MCG TABLET PO SCH (06:44)
--- NOTE | 2021-02-14 06:54 | XRay Report ---
XR chest 1V portable CLINICAL HISTORY: WBC elevated eval for PNA COMPARISON STUDY: 12/05/2012 FINDINGS: The heart is borderline enlarged. There is aortic tortuosity/ectasia. There is no overt magda lure. There is no lobar consolidation. There is a linear opacity within the left midlung zone likely representing subsegmental atelectasis. There are mild basilar atelectatic changes.[ IMPRESSION: 1. Mild basilar atelectasis 2. No evidence of failure. No evidence of lobar consolidation ACT 112: Negative or not required by law. Electronically signed by: Daniel Mix M.D. 02/14/2021 6:53 AM
[2021-02-14] MEDS ORDERED: SODIUM CHLORIDE 0.9% 250 ML IV PRN ×2 (08:31→14:22)
--- NOTE | 2021-02-14 08:38 | CT Scan Report ---
ABDOMEN AND PELVIS CT WITH IV CONTRAST CT DOSE: 796.29 mGy.cm HISTORY: Acute generalized abdominal pain abd pain and bleeding (creatinine 1.08 today) TECHNIQUE: Multiaxial CT images of the abdomen and pelvis were performed following the IV administrat ion of 94 cc of Optiray, A dose lowering technique was utilized adhering to the principles of ALARA. COMPARISON STUDY: Chest radiograph of same day, CT abdomen and pelvis 11/23/2012 FINDINGS: Mild bibasilar atelectasis. No pneumatosis or pneumoperitoneum. Cardiomegaly with coronary artery daxa cifications. Unremarkable spleen, pancreas and adrenal glands. Unremarkable liver. The gallbladder ap pears surgically absent. Mild extrahepatic biliary ductal prominence is likely postsurgical. Patency of the hepatic and portal veins. Unremarkable kidneys. No hydronephrosis. Mild urinary bladder disten tion. 9.5 cm ovoid diverticulum projects along the right lateral margin of the bladder, previously me asuring up to 4.2 cm. Prostamegaly. Calcifications of the vas deferens. Calcified plaque of the abdom inal aorta without aneurysm. No bowel obstruction. Mild rectal wall thickening on image 397. Tiny hiatal hernia with fluid-filled distal esophagus. Indeterminate 10 x 8 mm nodule within the abdominal flow quadrant adjacent to the d escending sigmoid junction on image 325 which appears new from comparison. Mild fecal retention. The appendix is not diagnostically visualized. Degenerative changes of the spine, pelvis and hips. No acu te fracture identified. Chronic L3 and L4 compression deformities. IMPRESSION: 1. Mild rectal wall thickening is likely secondary to partial distention. With reported clinical hist ory of rectal bleeding, this finding could be correlated with colonoscopy. 2. Indeterminate 10 x 8 mm soft tissue nodule of the abdominal left lower quadrant adjacent to the de scending sigmoid junction, possibly a lymph node. Attention at follow-up recommended. 3. Prostamegaly with large urinary bladder diverticulum, increased in size from 2013. 4. Additional findings as above. ACT 112: Negative or not required by law. The above report was generated using voice recognition software. It may contain grammatical, syntax o r spelling errors. Electronically signed by: Osbaldo Sen M.D. 02/14/2021 8:37 AM
--- NOTE | 2021-02-14 08:55 | XCELERA ---
[id number]
[2021-02-14 08:59] LABS: Estimated Average Glucose 126 mg/dl
[2021-02-14] MEDS: METOPROLOL TARTRATE 25 MG TAB PO SCH ×2 (09:00→20:46)
--- NOTE | 2021-02-14 09:30 | Hospitalist Progress Note ---
Date of Service February 14, 2021 Assessment & Plan (1) Acute GI bleeding: Plan: Duodenitis 2nd to NSAID use Meloxicam discontinued s/p 2 u PRBC, will transfuse 1 additional unit to keep hgb >8.5 Trop elevated, decreased on repeat -- suspect demand 2nd to bleeding Protonix gtt for today s/p EGD with duodentiis, multiple small ulcers Transitioned to protonix 40mg IV BID --> continue PPI BID x 3 months Monitor blood counts in AM WBC 17k on admission --> 13.4k (likely secondary to stress/bleeding, but did get dose of Ceftriaxone) Afebrile. Continue to monitor Will order clear liquid diet for today CTA/P with rectal wall thickening --> per discussion with GI, can follow up with [facility] in 1 week and possible c-scope if continued bleeding noted (2) Symptomatic anemia: Plan: 2nd to above continue to monitor (3) Hyperlipidemia: Plan: Continue Lipitor 40mg daily (4) Hypothyroidism: Plan: Continue levothyroxine 50mcg daily (5) Multi-vessel coronary artery stenosis: Plan: On DAPT Continue metoprolol tartrate 25mg BID Holding ASA/Plavix in setting of bleed --> resume when ok with GI , likely in 10 days ECHO with LV systolic function normal, mild concentric LVH. Mild valvular aortic stenosis. RVSP elevated at 30-40mmHg. Will obtain overnight pulse ox Dispo: continued inpatient stay Admission and Anticipated Discharge Date Admission Date: February 13, 2021 Subjective Patient evaluated this afternoon. Feeling well. Underwent EGD which showed some ulcers and duodenitis, likely from meloxicam. Discussed discontinuing this and can use tylenol as needed for pain. No fever, chills, chest pain. Shortness of breath last evening but improved this morning. Got 2u PRBC and will order 3rd unit to keep Hgb >8.5. Discussed if hgb stable and symptoms controlled in am, possible d/c. Questions/concerns addressed at this time. Review of Systems Review of Systems: All systems reviewed & are unremarkable except as noted in HPI & below Physical Exam Constitutional: WD/WN, vitals as above general pallor Eyes: PERRL, conjunctivae normal, anicteric sclerae ENMT: external ear and nose normal, oropharynx normal Neck: normal visual inspection Respiratory: normal respiratory effort, lungs clear to auscultation Cardiovascular: RRR, no murmur, no edema Gastrointestinal (Abdomen): normal bowel sounds, soft, nontender, no hepatosplenomegaly Musculoskeletal: no cyanosis or clubbing, extremities motor strength 5/5 Skin: no rashes, warm and dry Neurologic: Normal speech, no focal motor deficits Psychiatric: A+Ox3, euthymic affect Results & Data Results & Data ([facility]) Vital Signs (Past 12 Hours) Vital Signs Temp Pulse Pulse Resp BP BP Pulse Ox 02/14/21 08:58 68 19 114/65 95 02/14/21 05:32 20 110/54 L 98 02/14/21 05:00 65 22 99/53 L 96 02/14/21 04:45 60 19 95/51 L 97 02/14/21 04:30 67 21 101/54 L 96 02/14/21 04:15 63 21 99/55 L 96 02/14/21 04:00 66 19 101/54 L 96 02/14/21 03:45 60 19 98/54 L 94 02/14/21 03:30 64 23 96/50 L 95 02/14/21 03:15 65 22 97/49 L 95 02/14/21 03:00 67 22 116/51 L 95 02/14/21 02:38 37 C 63 16 100/53 L 94 02/14/21 02:23 37.1 C 65 20 103/47 L 94 02/14/21 02:15 68 21 104/49 L 92 02/14/21 02:03 36.9 C 66 20 97/50 L 94 02/14/21 02:00 69 14 97/50 L 94 02/14/21 01:45 65 21 102/50 L 93 02/14/21 01:30 65 23 103/52 L 95 02/14/21 01:23 37.6 C H 63 23 134/76 95 02/14/21 01:15 74 22 134/76 95 02/14/21 01:00 65 21 109/60 94 02/14/21 00:45 69 22 103/56 L 96 02/14/21 00:30 37.5 C 65 21 105/56 L 95 02/14/21 00:15 70 22 103/57 L 95 02/14/21 00:00 36.7 C 68 24 104/55 L 95 02/13/21 23:45 66 23 102/56 L 02/13/21 23:30 36.7 C 65 19 102/54 L 94 02/13/21 23:15 66 20 98/51 L 94 02/13/21 23:00 36.6 C 66 21 108/55 L 95 02/13/21 22:45 36.5 C 71 27 H 104/53 L 95 02/13/21 22:30 70 23 104/59 L 96 02/13/21 22:27 36.9 C 68 23 97/60 L 95 02/13/21 22:12 70 23 105/56 L 97 02/13/21 22:07 20 98 02/13/21 22:00 69 21 105/54 L 97 02/13/21 21:30 70 18 114/62 98 Laboratory Results 02/14/21 02/14/21 02/14/21 Range/Units 10:10 10:10 09:04 WBC 13.46 H (4.8-10.8) K/uL RBC 2.90 L (4.7-6.1) M/uL Hgb 8.3 L (14.0-18.0) g/dL Hct 25.4 L (42-52) % MCV 87.6 (80-100) fL MCH 28.6 (25-34) pg MCHC 32.7 (32-36) g/dL RDW Std Deviation 51.4 H (36.4-46.3) fL RDW Coeff of You 15.9 H (11.5-14.5) % Plt Count 120 L (130-400) K/uL MPV 7.9 (7.4-10.4) fL Immature Gran % (Auto) % Neut % (Auto) % Lymph % (Auto) % [place] % (Auto) % Eos % (Auto) % Baso % (Auto) % Neut # (Auto) (1.4-6.5) K/uL Lymph # (Auto) (1.2-3.4) K/uL [place] # (Auto) (0.11-0.59) K/uL Eos # (Auto) (0-0.5) K/uL Baso # (Auto) (0-0.2) K/uL Immature Gran # (Auto) (0.00-0.02) K/uL Absolute Nucleated RBC 0.02 H (0-0) K/uL Nucleated RBC % (auto) 0.2 % Polychromasia Hypochromasia PT (9.0-12.0) Seconds INR (0.9-1.1) APTT (21.0-31.0) Seconds PTT Ratio Sodium 141 (136-145) mmol/L Potassium 3.6 (3.5-5.1) mmol/L Chloride 109 H (98-107) mmol/L Carbon Dioxide 28 (21-32) mmol/L Anion Gap 4.0 (3-11) BUN 48 H (7-18) mg/dl Creatinine 0.92 (0.6-1.4) mg/dl Est Cr Clr Drug Dosing 68.6 ml/min Est GFR ( Amer) 89.5 ml/min Est GFR (Non-Af Amer) 77.2 ml/min BUN/Creatinine Ratio 52.5 H (10-20) Glucose 106 H (70-99) mg/dl Estimat Average Glucose mg/dl Hemoglobin A1c (4.5-5.6) % Calcium 8.0 L (8.5-10.1) mg/dl Troponin I 0.557 H* (0-0.045) ng/ml Triglycerides (0-150) mg/dl Cholesterol (0-200) mg/dl LDL Cholesterol, Calc mg/dl VLDL Cholesterol, Calc mg/dl HDL Cholesterol mg/dl Cholesterol/HDL Ratio COVID-19 Eval Order SARS-CoV-2 (PCR) (Negative) Flow Cytometry Comment Blood Type Blood Type Recheck Antibody Screen Crossmatch 02/14/21 02/14/21 02/13/21 Range/Units 05:49 05:49 22:11 WBC (4.8-10.8) K/uL RBC (4.7-6.1) M/uL Hgb 8.2 L (14.0-18.0) g/dL Hct 25.1 L (42-52) % MCV (80-100) fL MCH (25-34) pg MCHC (32-36) g/dL RDW Std Deviation (36.4-46.3) fL RDW Coeff of You (11.5-14.5) % Plt Count (130-400) K/uL MPV (7.4-10.4) fL Immature Gran % (Auto) % Neut % (Auto) % Lymph % (Auto) % [place] % (Auto) % Eos % (Auto) % Baso % (Auto) % Neut # (Auto) (1.4-6.5) K/uL Lymph # (Auto) (1.2-3.4) K/uL [place] # (Auto) (0.11-0.59) K/uL Eos # (Auto) (0-0.5) K/uL Baso # (Auto) (0-0.2) K/uL Immature Gran # (Auto) (0.00-0.02) K/uL Absolute Nucleated RBC (0-0) K/uL Nucleated RBC % (auto) % Polychromasia Hypochromasia PT (9.0-12.0) Seconds INR (0.9-1.1) APTT (21.0-31.0) Seconds PTT Ratio Sodium (136-145) mmol/L Potassium (3.5-5.1) mmol/L Chloride (98-107) mmol/L Carbon Dioxide (21-32) mmol/L Anion Gap (3-11) BUN (7-18) mg/dl Creatinine (0.6-1.4) mg/dl Est Cr Clr Drug Dosing ml/min Est GFR ( Amer) ml/min Est GFR (Non-Af Amer) ml/min BUN/Creatinine Ratio (10-20) Glucose (70-99) mg/dl Estimat Average Glucose mg/dl Hemoglobin A1c (4.5-5.6) % Calcium (8.5-10.1) mg/dl Troponin I 0.588 H* (0-0.045) ng/ml Triglycerides (0-150) mg/dl Cholesterol (0-200) mg/dl LDL Cholesterol, Calc mg/dl VLDL Cholesterol, Calc mg/dl HDL Cholesterol mg/dl Cholesterol/HDL Ratio COVID-19 Eval Order SARS-CoV-2 (PCR) NEGATIVE (Negative) Flow Cytometry Comment Blood Type Blood Type Recheck Antibody Screen Crossmatch 02/13/21 02/13/21 02/13/21 Range/Units 22:11 21:00 20:40 WBC (4.8-10.8) K/uL RBC (4.7-6.1) M/uL Hgb (14.0-18.0) g/dL Hct (42-52) % MCV (80-100) fL MCH (25-34) pg MCHC (32-36) g/dL RDW Std Deviation (36.4-46.3) fL RDW Coeff of You (11.5-14.5) % Plt Count (130-400) K/uL MPV (7.4-10.4) fL Immature Gran % (Auto) % Neut % (Auto) % Lymph % (Auto) % [place] % (Auto) % Eos % (Auto) % Baso % (Auto) % Neut # (Auto) (1.4-6.5) K/uL Lymph # (Auto) (1.2-3.4) K/uL [place] # (Auto) (0.11-0.59) K/uL Eos # (Auto) (0-0.5) K/uL Baso # (Auto) (0-0.2) K/uL Immature Gran # (Auto) (0.00-0.02) K/uL Absolute Nucleated RBC (0-0) K/uL Nucleated RBC % (auto) % Polychromasia Hypochromasia PT (9.0-12.0) Seconds INR (0.9-1.1) APTT (21.0-31.0) Seconds PTT Ratio Sodium (136-145) mmol/L Potassium (3.5-5.1) mmol/L Chloride (98-107) mmol/L Carbon Dioxide (21-32) mmol/L Anion Gap (3-11) BUN (7-18) mg/dl Creatinine (0.6-1.4) mg/dl Est Cr Clr Drug Dosing ml/min Est GFR ( Amer) ml/min Est GFR (Non-Af Amer) ml/min BUN/Creatinine Ratio (10-20) Glucose (70-99) mg/dl Estimat Average Glucose mg/dl Hemoglobin A1c (4.5-5.6) % Calcium (8.5-10.1) mg/dl Troponin I (0-0.045) ng/ml Triglycerides (0-150) mg/dl Cholesterol (0-200) mg/dl LDL Cholesterol, Calc mg/dl VLDL Cholesterol, Calc mg/dl HDL Cholesterol mg/dl Cholesterol/HDL Ratio COVID-19 Eval Order Covid19 at [facility] SARS-CoV-2 (PCR) (Negative) Flow Cytometry Comment Pending Blood Type Blood Type Recheck A Positive Antibody Screen Crossmatch 02/13/21 02/13/21 02/13/21 Range/Units 20:40 20:40 20:40 WBC 17.76 H (4.8-10.8) K/uL RBC 2.52 L (4.7-6.1) M/uL Hgb 7.2 L (14.0-18.0) g/dL Hct 22.3 L (42-52) % MCV 88.5 (80-100) fL MCH 28.6 (25-34) pg MCHC 32.3 (32-36) g/dL RDW Std Deviation 50.4 H (36.4-46.3) fL RDW Coeff of You 15.7 H (11.5-14.5) % Plt Count 165 (130-400) K/uL MPV 8.0 (7.4-10.4) fL Immature Gran % (Auto) 0.3 % Neut % (Auto) 42.0 % Lymph % (Auto) 53.0 % [place] % (Auto) 4.6 % Eos % (Auto) 0.0 % Baso % (Auto) 0.1 % Neut # (Auto) 7.47 H (1.4-6.5) K/uL Lymph # (Auto) 9.41 H (1.2-3.4) K/uL [place] # (Auto) 0.82 H (0.11-0.59) K/uL Eos # (Auto) 0.00 (0-0.5) K/uL Baso # (Auto) 0.01 (0-0.2) K/uL Immature Gran # (Auto) 0.05 H (0.00-0.02) K/uL Absolute Nucleated RBC (0-0) K/uL Nucleated RBC % (auto) % Polychromasia 1+ Hypochromasia Present PT 10.6 (9.0-12.0) Seconds INR 1.0 (0.9-1.1) APTT 20.0 L (21.0-31.0) Seconds PTT Ratio 0.8 Sodium (136-145) mmol/L Potassium (3.5-5.1) mmol/L Chloride (98-107) mmol/L Carbon Dioxide (21-32) mmol/L Anion Gap (3-11) BUN (7-18) mg/dl Creatinine (0.6-1.4) mg/dl Est Cr Clr Drug Dosing ml/min Est GFR ( Amer) ml/min Est GFR (Non-Af Amer) ml/min BUN/Creatinine Ratio (10-20) Glucose (70-99) mg/dl Estimat Average Glucose 126 mg/dl Hemoglobin A1c 6.0 H (4.5-5.6) % Calcium (8.5-10.1) mg/dl Troponin I (0-0.045) ng/ml Triglycerides (0-150) mg/dl Cholesterol (0-200) mg/dl LDL Cholesterol, Calc mg/dl VLDL Cholesterol, Calc mg/dl HDL Cholesterol mg/dl Cholesterol/HDL Ratio COVID-19 Eval Order SARS-CoV-2 (PCR) (Negative) Flow Cytometry Comment Blood Type Blood Type Recheck Antibody Screen Crossmatch 02/13/21 02/13/21 Range/Units 20:40 20:40 WBC (4.8-10.8) K/uL RBC (4.7-6.1) M/uL Hgb (14.0-18.0) g/dL Hct (42-52) % MCV (80-100) fL MCH (25-34) pg MCHC (32-36) g/dL RDW Std Deviation (36.4-46.3) fL RDW Coeff of You (11.5-14.5) % Plt Count (130-400) K/uL MPV (7.4-10.4) fL Immature Gran % (Auto) % Neut % (Auto) % Lymph % (Auto) % [place] % (Auto) % Eos % (Auto) % Baso % (Auto) % Neut # (Auto) (1.4-6.5) K/uL Lymph # (Auto) (1.2-3.4) K/uL [place] # (Auto) (0.11-0.59) K/uL Eos # (Auto) (0-0.5) K/uL Baso # (Auto) (0-0.2) K/uL Immature Gran # (Auto) (0.00-0.02) K/uL Absolute Nucleated RBC (0-0) K/uL Nucleated RBC % (auto) % Polychromasia Hypochromasia PT (9.0-12.0) Seconds INR (0.9-1.1) APTT (21.0-31.0) Seconds PTT Ratio Sodium (136-145) mmol/L Potassium (3.5-5.1) mmol/L Chloride (98-107) mmol/L Carbon Dioxide (21-32) mmol/L Anion Gap (3-11) BUN (7-18) mg/dl Creatinine (0.6-1.4) mg/dl Est Cr Clr Drug Dosing ml/min Est GFR ( Amer) ml/min Est GFR (Non-Af Amer) ml/min BUN/Creatinine Ratio (10-20) Glucose (70-99) mg/dl Estimat Average Glucose mg/dl Hemoglobin A1c (4.5-5.6) % Calcium (8.5-10.1) mg/dl Troponin I 0.392 H* (0-0.045) ng/ml Triglycerides 197 H (0-150) mg/dl Cholesterol 104 (0-200) mg/dl LDL Cholesterol, Calc 35 mg/dl VLDL Cholesterol, Calc 39 mg/dl HDL Cholesterol 30 mg/dl Cholesterol/HDL Ratio 4 COVID-19 Eval Order SARS-CoV-2 (PCR) (Negative) Flow Cytometry Comment Blood Type A Positive Blood Type Recheck Antibody Screen NEGATIVE Crossmatch See Detail Diagnostic Findings Abdomen/Pelvis CT 02/13/21 20:[address] WITH IV CONTRAST CT DOSE: 796.29 mGy.cm HISTORY: Acute generalized abdominal pain abd pain and bleeding (creatinine 1.08 today) TECHNIQUE: Multiaxial CT images of the abdomen and pelvis were performed following the IV administration of 94 cc of Optiray, A dose lowering technique was utilized adhering to the principles of ALARA. COMPARISON STUDY: Chest radiograph of same day, CT abdomen and pelvis 11/23/2012 FINDINGS: Mild bibasilar atelectasis. No pneumatosis or pneumoperitoneum. Cardiomegaly with coronary artery calcifications. Unremarkable spleen, pancreas and adrenal glands. Unremarkable liver. The gallbladder appears surgically absent. Mild extrahepatic biliary ductal prominence is likely postsurgical. Patency of the hepatic and portal veins. Unremarkable kidneys. No hydronephrosis. Mild urinary bladder distention. 9.5 cm ovoid diverticulum projects along the right lateral margin of the bladder, previously measuring up to 4.2 cm. Prostamegaly. Calcifications of the vas deferens. Calcified plaque of the abdominal aorta without aneurysm. No bowel obstruction. Mild rectal wall thickening on image 397. Tiny hiatal hernia with fluid-filled distal esophagus. Indeterminate 10 x 8 mm nodule within the abdominal flow quadrant adjacent to the descending sigmoid junction on image 325 which appears new from comparison. Mild fecal retention. The appendix is not diagnostically visualized. Degenerative changes of the spine, pelvis and hips. No acute fracture identified. Chronic L3 and L4 compression deformities. IMPRESSION: 1. Mild rectal wall thickening is likely secondary to partial distention. With reported clinical history of rectal bleeding, this finding could be correlated with colonoscopy. 2. Indeterminate 10 x 8 mm soft tissue nodule of the abdominal left lower quadrant adjacent to the descending sigmoid junction, possibly a lymph node. Attention at follow-up recommended. 3. Prostamegaly with large urinary bladder diverticulum, increased in size from 2013. 4. Additional findings as above. ACT 112: Negative or not required by law. The above report was generated using voice recognition software. It may contain grammatical, syntax or spelling errors. Electronically signed by: Osbaldo Sen M.D. 02/14/2021 8:37 AM Chest X-Ray 02/13/21 22:03 XR chest 1V portable CLINICAL HISTORY: WBC elevated eval for PNA COMPARISON STUDY: 12/05/2012 FINDINGS: The heart is borderline enlarged. There is aortic tortuosity/ectasia. There is no overt failure. There is no lobar consolidation. There is a linear opacity within the left midlung zone likely representing subsegmental atelectasis. There are mild basilar atelectatic changes.[ IMPRESSION: 1. Mild basilar atelectasis 2. No evidence of failure. No evidence of lobar consolidation ACT 112: Negative or not required by law. Electronically signed by: Daniel Mix M.D. 02/14/2021 6:53 AM PG Care Time/CCT Total # of Minutes Spent Total Time Spent with Patient: Total time spent is greater than 50% in coordination of care (as documented) at patient's floor/unit and/or counseling patient: Coding Level of Care Code 54185 Subseq Hosp Care Lvl 3 Diagnoses Acute GI bleeding K92.2 Symptomatic anemia D64.9 Hyperlipidemia E78.5 Hypothyroidism E03.9 Multi-vessel coronary artery stenosis I25.10
[2021-02-14 10:34] LABS: Hematocrit (blood only) 25.4 % (42-52); Hemoglobin 8.3 g/dL (14.0-18.0); Mean Corpuscular Hemoglobin 28.6 pg (25-34); Mean Corpuscular Hgb Conc 32.7 g/dL (32-36); Mean Corpuscular Volume 87.6 fL (80-100); Mean Platelet Volume 7.9 fL (7.4-10.4); Nucleated RBC # (auto) 0.02 K/uL (0-0); Nucleated RBC % (auto) 0.2 %; Platelet Count 120 K/uL (130-400); RDW Coefficient of Variation 15.9 % (11.5-14.5); RDW Standard Deviation 51.4 fL (36.4-46.3); White Blood Count 13.46 K/uL (4.8-10.8)
[2021-02-14 10:58] LABS: BUN Creatinine Ratio 52.5 (10-20); Creatinine Clr Calc Pharmacy 68.6 ml/min; Est GFR (African American) 89.5 ml/min; Est GFR (Non-African American) 77.2 ml/min; Potassium 3.6 mmol/L (3.5-5.1)
--- NOTE | 2021-02-14 10:59 | Anesthesiology Consultation ---
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 Mode Coello MD Height/Weight Height: 5 ft 7 in Weight: 96.7 kg Allergies Allergy/AdvReac Type Severity Reaction Status Date / Time No Known Drug Allergies Allergy Unknown Verified 02/13/21 20:27 Medications Home Medications Medication Instructions Recorded Confirmed Last Taken aspirin 81 mg chewable tablet 81 mg PO QAM 08/29/18 02/13/21 03/26/19 08:00 levothyroxine 50 mcg tablet 50 mcg PO QAM 08/29/18 02/13/21 03/27/19 06:00 ipratropium bromide 42 mcg (0.06 2 spray INTRANASAL TID 01/23/19 02/13/21 08:00 %) nasal spray meloxicam 7.5 mg tablet 7.5 mg PO QAM PRN 01/23/19 02/13/21 03/26/19 08:00 multivitamin 1 tab PO QAM 01/23/19 02/13/21 03/26/19 08:00 metoprolol tartrate 25 mg tablet 25 mg PO BID #180 tab 04/02/20 02/13/21 Unknown clopidogrel 75 mg tablet 75 mg PO QAM 90 Days #90 tab 10/23/20 02/13/21 Unknown atorvastatin 40 mg tablet 40 mg PO DAILY #90 tab 01/28/21 02/13/21 Unknown fexofenadine 180 mg tablet 180 mg PO DAILY 02/13/21 02/13/21 Unknown magnesium 250 mg tablet 250 mg PO DAILY 02/13/21 02/13/21 Unknown Active Medications Generic Name Dose Route Start Last Admin Trade Name Freq PRN Reason Stop Dose Admin Pantoprazole Sodium 40 mg/ 100 mls @ 20 mls/hr 02/13/21 20:45 02/14/21 08:45 Dextrose IV 03/15/21 20:44 8 mg/hr Q5H CAMRYN 20 mls/hr Administration 8 MG/HR Levothyroxine Sodium 50 mcg 02/14/21 06:30 02/14/21 06:44 Levothyroxine Sodium 50 Mcg Tablet PO 03/16/21 06:29 50 mcg DAILYBB CAMRYN Administration Metoprolol Tartrate 25 mg 02/14/21 09:00 02/14/21 09:00 Metoprolol Tartrate 25 Mg Tab PO 03/16/21 08:59 25 mg BID CAMRYN Administration Past Medical History Medical History Coronary artery stenosis Former smoker History of esophageal dilatation Hyperlipidemia Hypothyroidism Myocardial Infarction pt denies? Osteoarthritis Spinal stenosis Past Family History Family History Aunt Family history of diabetes mellitus Mother Family history of diabetes mellitus Family/Other Family history of diabetes mellitus niece Other No family history of adverse response to anesthesia Past Surgical History Surgical History History of cardiac cath x2--SEVERE 3 VESSEL Dx with chronic RCA occlusion with distal collaterals, 95% mid lAD and 95% Cx at takeoff of OM1. LAD s/p pCI and single FRANNIE on 08/29/2018 and staged PCI of Cx on 09/05/2018 wit single FRANNIE History of carpal tunnel release of both wrists History of cholecystectomy History of esophagogastroduodenoscopy (EGD) History of heart artery stent x2 total--08/2018 and 09/2018 History of phacoemulsification of cataract of both eyes with intraocular lens implantation History of tonsillectomy History of tooth extraction History of total knee replacement B/L Stented coronary artery Social History Smoking Status: Never smoker Hx Alcohol Use: No Hx Substance Use: No substance use type: does not use Physical Exam Vital Signs Last Vital Signs Temp 98.6 F 02/14/21 02:38 Pulse 68 02/14/21 08:58 Resp 19 02/14/21 08:58 BP 114/65 02/14/21 08:58 Pulse Ox 95 02/14/21 08:58 Testing Laboratory Results 02/14/21 10:10 PT 10.6 Seconds (9.0-12.0) 02/13/21 20:40 INR 1.0 (0.9-1.1) 02/13/21 20:40 APTT 20.0 Seconds (21.0-31.0) L 02/13/21 20:40 Hemoglobin A1c 6.0 % (4.5-5.6) H 02/13/21 20:40 Blood Type A Positive 02/13/21 20:40 Antibody Screen NEGATIVE 02/13/21 20:40 Electrocardiogram Date: 02/13/21 Normal sinus rhythm, rate 69 bpm Right bundle branch block Abnormal ECG When compared with ECG of 13-FEB-2021 20:43, (unconfirmed) No significant change was found Chest X-Ray Date: 02/14/21 IMPRESSION: 1. Mild basilar atelectasis 2. No evidence of failure. No evidence of lobar consolidation Echocardiogram Date: 02/14/21 LV systolic function is normal There is mild concentric LVH Mild valvular aortic stenosis RVSP is elevated at 30-40mmHg
--- NOTE | 2021-02-14 12:09 | Gastrointestinal Consultation ---
Date of Consultation February 14, 2021 Assessment & Plan (1) Acute GI bleeding: (2) Symptomatic anemia: possible peptic ulcer disease vs. bleeding AVM or other etiology. HD stable at this time, s/p PRBC transfusion yesterday. Recs: --keep NPO --protonix drip or IV 40 mg BID --EGD today to further evaluate --supportive care, IVFs Thank you for allowing me to participate in the care of this patient History of Present Illness Reason for Consultation: GI bleed Attending Physician: Bashir Segovia MD History of Present Illness 80 yo male with hx CAD s/p stent, hypothyroidism here with GI bleed. He presented to ER with bloody diarrhea and weakness. Hgb as an outpatient was noted to be 7.7 and was sent to ER. Received PRBC overnight and hgb now 8.[address] A/P was unremarkable. EGD in 2019 with erosions and dilated esophagus. labs reviewed. Allergies Allergy/AdvReac Type Severity Reaction Status Date / Time No Known Drug Allergies Allergy Unknown Verified 02/13/21 20:27 Home Medications Medication Instructions Recorded Confirmed Type aspirin 81 mg chewable tablet 81 mg PO QAM 08/29/18 02/13/21 History levothyroxine 50 mcg tablet 50 mcg PO QAM 08/29/18 02/13/21 History ipratropium bromide 42 mcg (0.06 2 spray INTRANASAL TID 01/23/19 02/13/21 History %) nasal spray meloxicam 7.5 mg tablet 7.5 mg PO QAM PRN 01/23/19 02/13/21 History multivitamin 1 tab PO QAM 01/23/19 02/13/21 History metoprolol tartrate 25 mg tablet 25 mg PO BID #180 tab 04/02/20 02/13/21 Rx clopidogrel 75 mg tablet 75 mg PO QAM 90 Days #90 tab 10/23/20 02/13/21 Rx atorvastatin 40 mg tablet 40 mg PO DAILY #90 tab 01/28/21 02/13/21 Rx fexofenadine 180 mg tablet 180 mg PO DAILY 02/13/21 02/13/21 History magnesium 250 mg tablet 250 mg PO DAILY 02/13/21 02/13/21 History Patient History Medical History Coronary artery stenosis Former smoker History of esophageal dilatation Hyperlipidemia Hypothyroidism Myocardial Infarction pt denies? Osteoarthritis Spinal stenosis Surgical History History of cardiac cath x2--SEVERE 3 VESSEL Dx with chronic RCA occlusion with distal collaterals, 95% mid lAD and 95% Cx at takeoff of OM1. LAD s/p pCI and single FRANNIE on 08/29 and staged PCI of Cx on 09/05/2018 wit single FRANNIE History of carpal tunnel release of both wrists History of cholecystectomy History of esophagogastroduodenoscopy (EGD) History of heart artery stent x2 total--08/2018 and 09/2018 History of phacoemulsification of cataract of both eyes with intraocular lens implantation History of tonsillectomy History of tooth extraction History of total knee replacement B/L Stented coronary artery Family History Aunt Family history of diabetes mellitus Mother Family history of diabetes mellitus Family/Other Family history of diabetes mellitus niece Other No family history of adverse response to anesthesia Social History Smoking Status: Never smoker Second Hand Exposure: No; Hx Alcohol Use: No Hx Substance Use: No Preferred Language: Persian Communication Ability: Effective Hearing Ability: Hard of Hearing Branch Director Required: No Beliefs That Will Affect Care: None marital status: / Current Living Situation: Alone current occupation: retired from [employer] Other Information That Helps Us Care for You: No Feels Safe at Home: Yes Safety Concerns: Feels Safe At This Time Assistive Devices: Cane, Glasses, Hearing Aid - Left, Hearing Aid - Right and Walker Review of Systems Constitutional: no fever, no chills and no weight loss Eyes: as per Subjective / HPI Ear, Nose, Mouth, Throat: as per Subjective / HPI Respiratory: no dyspnea and no dyspnea on exertion Cardiovascular: no chest pain and no palpitations Gastrointestinal: as per Subjective / HPI Musculoskeletal: no joint pain and no swelling Integumentary: no rash and no lesions Neurologic: no numbness and no paresthesia Psychiatric: no depression and no anxiety Endocrine: no fatigue Hematologic / Lymphatic: no easy bleeding and no easy bruising Physical Exam Constitutional: WD/WN, vitals as above Eyes: EOM intact bilaterally Neck: normal visual inspection Respiratory: normal respiratory effort, lungs clear to auscultation Cardiovascular: RRR, no murmur, no edema Gastrointestinal (Abdomen): Inspection/Auscultation: abdomen normal to inspection; abdomen not distended Percussion/Palpation: abdomen soft; abdomen nontender and no hepatosplenomegaly Musculoskeletal: Extremities: no cyanosis Gait: normal gait Skin: no rashes, warm and dry Neurologic: moves all extremities Psychiatric: A+Ox3, euthymic affect Results & Data ([facility]) Vital Signs (Past 12 Hours) Vital Signs Temp Pulse Pulse Resp BP BP Pulse Ox 02/14/21 08:58 68 19 114/65 95 02/14/21 05:32 20 110/54 L 98 02/14/21 05:00 65 22 99/53 L 96 02/14/21 04:45 60 19 95/51 L 97 02/14/21 04:30 67 21 101/54 L 96 02/14/21 04:15 63 21 99/55 L 96 02/14/21 04:00 66 19 101/54 L 96 02/14/21 03:45 60 19 98/54 L 94 02/14/21 03:30 64 23 96/50 L 95 02/14/21 03:15 65 22 97/49 L 95 02/14/21 03:00 67 22 116/51 L 95 02/14/21 02:38 37 C 63 16 100/53 L 94 02/14/21 02:23 37.1 C 65 20 103/47 L 94 02/14/21 02:15 68 21 104/49 L 92 02/14/21 02:03 36.9 C 66 20 97/50 L 94 02/14/21 02:00 69 14 97/50 L 94 02/14/21 01:45 65 21 102/50 L 93 02/14/21 01:30 65 23 103/52 L 95 02/14/21 01:23 37.6 C H 63 23 134/76 95 02/14/21 01:15 74 22 134/76 95 02/14/21 01:00 65 21 109/60 94 02/14/21 00:45 69 22 103/56 L 96 02/14/21 00:30 37.5 C 65 21 105/56 L 95 02/14/21 00:15 70 22 103/57 L 95 PG Care Time/CCT Total # of Minutes Spent Total Time Spent with Patient: Total time spent is greater than 50% in coordination of care (as documented) at patient's floor/unit and/or counseling patient: Coding Level of Care Code 52816 Initial Inpt Care Lvl 3 Diagnoses Acute GI bleeding K92.2 Symptomatic anemia D64.9
--- NOTE | 2021-02-14 13:03 | GI REPORT ---
Patient Name: Smith Lindsey Procedure Date: 02/14/2021 12:50 PM Date of : 1940 Admit Type: Inpatient Age: 80 Gender: Male Attending MD: Johny Coello MD Procedure: Upper GI endoscopy Providers: Johny Coello MD Referring MD: Bashir Segovia Indications: Acute post hemorrhagic anemia, Hematochezia Medicines: Monitored Anesthesia Care Complications: No immediate complications. Estimated blood loss: None. Estimated Blood Loss: Estimated blood loss: none. Procedure: Pre-Anesthesia Assessment: - Prior Anticoagulants: The patient has taken Plavix (clopidogrel), last dose was 1 day prior to procedure. - ASA Grade Assessment: III - A patient with severe systemic disease. After obtaining informed consent, the endoscope was passed under direct vision. Throughout the procedure, the patient's blood pressure, pulse, and oxygen saturations were monitored continuously. The Endoscope was introduced through the mouth, and advanced to the second part of duodenum. The upper GI endoscopy was accomplished without difficulty. The patient tolerated the procedure well. Findings: The lumen of the esophagus was mildly dilated. Few non-bleeding linear gastric ulcers and erosions with no stigmata of bleeding were found in the gastric antrum. Estimated blood loss: none. Diffuse mild inflammation characterized by erythema was found in the duodenal bulb. The second portion of the duodenum was normal. Impression: - Dilation in the entire esophagus. - Non-bleeding gastric ulcers with no stigmata of bleeding. likely NSAID induced - Duodenitis. - Normal second portion of the duodenum. - No specimens collected. Recommendation: - Return patient to hospital eng for ongoing care. - clear liquid diet today, advance tomorrow as tolerated if hgb stable -protonix 40 mg BID for 3 months -stop meloxicam and all NSAIDS -supportive care, trend H/H daily Johny Coello MD 02/14/2021 1:03:20 PM This report has been signed electronically. Note Initiated On: 02/14/2021 12:50 PM Number of Addenda: 0 I attest to the content of the Intraoperative Record and orders documented therein, exceptions below {[id number]}
[2021-02-14] MEDS ORDERED: LIDOCAINE 2% 2 ML VIAL/AMP(20MG/ML) INFIL ONE (13:07)
[2021-02-14] MEDS ORDERED: PHENYLEPHRINE 100MCG/ML 5ML SYR ONE (13:07)
[2021-02-14] MEDS ORDERED: PROPOFOL IV EMULSION 10 MG/ML 20 ML VIAL IV ONE (13:07)
[2021-02-14] MEDS ORDERED: ePHEDrine sulfate 50 MG/ML SYR ONE (13:07)
--- NOTE | 2021-02-14 13:12 | Electrocardiogram Report ---
Test Reason : Blood Pressure : / mmHG Vent. Rate : 067 BPM Atrial Rate : 067 BPM P-R Int : 190 ms QRS Dur : 126 ms QT Int : 460 ms P-R-T Axes : 021 089 030 degrees QTc Int : 486 ms Normal sinus rhythm Right bundle branch block Abnormal ECG When compared with ECG of 05-SEP-2018 11:40, ST no longer elevated in Inferior leads ST now depressed in Anterolateral leads Nonspecific T wave abnormality, improved in Anterior leads QT has lengthened Confirmed by Toni Schmid ([id number]) on 02/14/2021 1:12:28 PM Referred By: REFERRED SELF Confirmed By:Gaston Schmid
--- NOTE | 2021-02-14 13:14 | Electrocardiogram Report ---
Test Reason : Blood Pressure : / mmHG Vent. Rate : 069 BPM Atrial Rate : 069 BPM P-R Int : 204 ms QRS Dur : 124 ms QT Int : 454 ms P-R-T Axes : 062 092 034 degrees QTc Int : 486 ms Normal sinus rhythm 1st degree AV block Right bundle branch block Abnormal ECG When compared with ECG of 13-FEB-2021 20:43, (unconfirmed) No significant change was found Confirmed by Toni Schmid ([id number]) on 02/14/2021 1:13:38 PM Referred By: REFERRED SELF Confirmed By:Gaston Schmid
--- NOTE | 2021-02-14 13:23 | Anesthesiology Progress Note ---
Date of Service February 14, 2021 Anesthesia Post Procedure Vital Signs Vital Signs: Temp Pulse Pulse Resp BP BP Pulse Ox 02/14/21 13:06 16 133/85 96 02/14/21 12:37 97.7 F 60 16 108/55 L 94 02/14/21 08:58 68 19 114/65 95 02/14/21 05:32 20 110/54 L 98 02/14/21 05:00 65 22 99/53 L 96 02/14/21 04:45 60 19 95/51 L 97 02/14/21 04:30 67 21 101/54 L 96 02/14/21 04:15 63 21 99/55 L 96 02/14/21 04:00 66 19 101/54 L 96 02/14/21 03:45 60 19 98/54 L 94 02/14/21 03:30 64 23 96/50 L 95 02/14/21 03:15 65 22 97/49 L 95 02/14/21 03:00 67 22 116/51 L 95 02/14/21 02:38 98.6 F 63 16 100/53 L 94 02/14/21 02:23 98.8 F 65 20 103/47 L 94 02/14/21 02:15 68 21 104/49 L 92 02/14/21 02:03 98.4 F 66 20 97/50 L 94 02/14/21 02:00 69 14 97/50 L 94 02/14/21 01:45 65 21 102/50 L 93 02/14/21 01:30 65 23 103/52 L 95 02/14/21 01:23 99.7 F H 63 23 134/76 95 02/14/21 01:15 74 22 134/76 95 02/14/21 01:00 65 21 109/60 94 02/14/21 00:45 69 22 103/56 L 96 02/14/21 00:30 99.5 F 65 21 105/56 L 95 02/14/21 00:15 70 22 103/57 L 95 02/14/21 00:00 98.1 F 68 24 104/55 L 95 02/13/21 23:45 66 23 102/56 L 02/13/21 23:30 98.1 F 65 19 102/54 L 94 02/13/21 23:15 66 20 98/51 L 94 02/13/21 23:00 97.9 F 66 21 108/55 L 95 02/13/21 22:45 97.7 F 71 27 H 104/53 L 95 02/13/21 22:30 70 23 104/59 L 96 02/13/21 22:27 98.4 F 68 23 97/60 L 95 02/13/21 22:12 70 23 105/56 L 97 02/13/21 22:07 20 98 02/13/21 22:00 69 21 105/54 L 97 02/13/21 21:30 70 18 114/62 98 02/13/21 21:22 73 21 117/54 L 99 02/13/21 20:35 70 20 96 02/13/21 20:33 73 27 H 113/63 95 02/13/21 20:08 96.6 F L 75 20 128/60 97 Transfer of Care Handoff Completed per policy Notes Mental Status: alert / awake / arousable and participated in evaluation Patient Amnestic to Procedure: Yes Nausea / Vomiting: adequately controlled Pain: adequately controlled Airway Patency, RR, SpO2: stable & adequate BP & HR: stable & adequate Hydration State: stable & adequate Anesthetic Complications: no major complications apparent and Pt Satisfied with anesthetic care
[2021-02-14] MEDS ORDERED: SODIUM CHLORIDE 0.9% 500 ML IV SCH (19:00)
[2021-02-14 19:38] LABS: Hemoglobin 8.8 g/dL (14.0-18.0)
[2021-02-14] MEDS: PANTOprazole 40 MG in SYRINGE 0 ML IV SCH (20:47)
[2021-02-14] MEDS: IPRATROPIUM BROMIDE NASAL SPRAY 0.06% 15ML NAE SCH (20:53)
[2021-02-15] MEDS: LEVOTHYROXINE SODIUM 50 MCG TABLET PO SCH (05:55)
--- NOTE | 2021-02-15 05:56 | Billing Data ---
Date of Service February 15, 2021 Coding Level of Care Code 29289 Initial Inpt Care Lvl 3
[2021-02-15 07:40] LABS: Hematocrit (blood only) 26.7 % (42-52); Mean Corpuscular Hgb Conc 33.7 g/dL (32-36); Mean Corpuscular Volume 86.1 fL (80-100); Mean Platelet Volume 8.1 fL (7.4-10.4); Platelet Count 102 K/uL (130-400); RDW Coefficient of Variation 16.1 % (11.5-14.5); RDW Standard Deviation 49.6 fL (36.4-46.3)
[2021-02-15 07:55] LABS: Immature Granulocytes # (auto) 0.03 K/uL (0.00-0.02); Immature Granulocytes % (auto) 0.3 %; Lymphocytes # (auto) 6.41 K/uL (1.2-3.4); Lymphocytes % (auto) 59.4 %; Monocytes # (auto) 0.62 K/uL (0.11-0.59); Monocytes % (auto) 5.7 %; Neutrophils # (auto) 3.74 K/uL (1.4-6.5); Neutrophils % (auto) 34.6 %; Polychromasia 1+
--- NOTE | 2021-02-15 07:58 | Hospitalist Progress Note ---
Date of Service February 15, 2021 Assessment & Plan (1) Acute GI bleeding: Plan: Presented with weakness and blood diarrhea. On DAPT and was also on daily meloxicam Hgb dropped to 7.2 GI consulted s/p EGD which showed evidence of duodenitis, with few non-bleeding linear g astric ulcers and erosions with no stigmata of bleeding, diffuse mild inflammation/erythema in duodenal bulb Is s/p 3 u PRBC Hgb stable at 9 (also on IVF, dilutional as well) Protonix transitioned to 40mg PO BID and will need continued for 3 months Diet advanced today without issues NO FURTHER NSAIDS-- educated on avoidance of these WBC wnl without further IV abx since in ER (1 dose Ceftriaxone), afebrile PT eval with patient acceptable to return home but was only able to make it about 5 steps and has 13 to enter his house Will order dose of Venofer for today (iron not checked on admission) CM alerted to arrange for home health Likely d/c tomorrow Of note, CTA/P with rectal wall thickening --> per discussion with GI, can follow up with [facility] in 1 week and possible c-scope if continued bleeding noted *Indeterminate 10 x 8 mm soft tissue nodule of the abdominal left lower quadrant adjacent to the descending sigmoid junction, possibly a lymph node. Attention at follow-up recommended.* --> Flow cytometry pending but peripheral smear without smudge cells -- Will need f/u at d/c Labs in AM (2) Symptomatic anemia: Plan: 2nd to above continue to monitor Also given 1gm IV calcium for Ca 7.9 -- likely from blood products and monitor on am labs Venofer x 1 for today Consider daily oral supplementation short term at discharge to help build stores (3) Elevated troponin: Plan: suspect secondary to demand, trending down on repeat. No CP reported (4) Multi-vessel coronary artery stenosis: Plan: Hx CAD: Severe 3 vessel disease. LAD s/p PCI and single FRANNIE on 08/29/2018, and staged PCI of Cx on 09/05/2018 with single FRANNIE. Last Echo 2019 with EF 50-55%. ECHO -- LV systolic function normal 55-60%, mild concentric LVH, mild valvular aortic stenosis. RVSP elevated 30-40mmHg. Today with elevated troponin and V3-V5 T wave changes, no cardiac complaints. Suspect demand ischemia in the setting of GIB - repeat trop trending down as above Treatment of GIB and 3u PRBCs as above. Holding aspirin, Plavix due to GIB -- ok to resume in AM per discussion with GI Continue metoprolol with holding parameters, statin. EKG w CP Has been SR on monitor, 1st degree AV block, low to the 50s overnight (5) Hyperlipidemia: Plan: Continue Lipitor 40mg daily (6) Hypothyroidism: Plan: Continue levothyroxine 50mcg daily Plan: Code Status: Conditional code; desires all interventions save for intubation. Discussed that cardiac arrest situations are often unsuccessful if intubation is not performed.. Patient understands and still declines intubation but would like chest compressions and defibrillation if indicated. DVT ppx: SCDs Chemical proph held in setting of GIB --> DAPT to be resumed in AM Dispo: continued inpatient stay, likely d/c in AM Admission and Anticipated Discharge Date Admission Date: February 13, 2021 Subjective Patient evaluated this morning. Doing well. No fever, chills, chest pain, shortness of breath, weakness, although he has not been out of bed. Passing gas but no BM. Tolerated clear liquid diet and will advance for lunch and if tolerated can increase to [facility] dinner. If tolerates, and PT/OT evals today with recs for home can get him home today with outpt GI follow up in 1 week. --> Only able to take about 5 steps before becoming tired and has 13 steps for entry to house. Will give dose of venofer today and have repeat therapy tomorrow and possible home with home health. CM alerted. Review of Systems Review of Systems: All systems reviewed & are unremarkable except as noted in HPI & below Physical Exam Constitutional: WD/WN, vitals as above general pallor (improved) Eyes: + anicteric sclerae and PERRL ENMT: external ear and nose normal, oropharynx normal slightly dry mm Neck: normal visual inspection Respiratory: normal respiratory effort, lungs clear to auscultation Cardiovascular: RRR, no murmur, no edema Gastrointestinal (Abdomen): normal bowel sounds, soft, nontender, no hepatosplenomegaly Musculoskeletal: strength 4/5 b/l LE NVI no edema, calf tenderness Skin: no rashes, warm and dry Neurologic: PERRL, EOMI, accommodation nl, no face palsy, no dysarthria Psychiatric: A+Ox3, euthymic affect Results & Data Results & Data ([facility]) Vital Signs (Past 12 Hours) Vital Signs Temp Pulse Pulse Pulse Resp BP BP 02/15/21 07:47 63 02/15/21 07:18 36.5 C 62 17 110/63 02/15/21 06:56 36.7 C 64 16 103/60 02/15/21 03:56 36.7 C 65 17 102/61 02/14/21 23:41 62 02/14/21 22:47 36.8 C 65 16 110/69 02/14/21 21:20 70 Pulse Ox Pulse Ox 02/15/21 07:47 02/15/21 07:18 92 02/15/21 06:56 92 02/15/21 03:56 96 02/14/21 23:41 02/14/21 22:47 98 02/14/21 21:20 91 Laboratory Results 02/15/21 02/15/21 02/14/21 Range/Units 07:23 07:23 19:11 WBC 10.80 (4.8-10.8) K/uL RBC 3.10 L (4.7-6.1) M/uL Hgb 9.0 L 8.8 L (14.0-18.0) g/dL Hct 26.7 L 27.0 L (42-52) % MCV 86.1 (80-100) fL MCH 29.0 (25-34) pg MCHC 33.7 (32-36) g/dL RDW Std Deviation 49.6 H (36.4-46.3) fL RDW Coeff of You 16.1 H (11.5-14.5) % Plt Count 102 L (130-400) K/uL MPV 8.1 (7.4-10.4) fL Immature Gran % (Auto) 0.3 % Neut % (Auto) 34.6 % Lymph % (Auto) 59.4 % Stanly % (Auto) 5.7 % Eos % (Auto) 0.0 % Baso % (Auto) 0.0 % Neut # (Auto) 3.74 (1.4-6.5) K/uL Lymph # (Auto) 6.41 H (1.2-3.4) K/uL Stanly # (Auto) 0.62 H (0.11-0.59) K/uL Eos # (Auto) 0.00 (0-0.5) K/uL Baso # (Auto) 0.00 (0-0.2) K/uL Immature Gran # (Auto) 0.03 H (0.00-0.02) K/uL Polychromasia 1+ Sodium 141 (136-145) mmol/L Potassium 3.3 L (3.5-5.1) mmol/L Chloride 109 H (98-107) mmol/L Carbon Dioxide 27 (21-32) mmol/L Anion Gap 6.0 (3-11) BUN 31 H (7-18) mg/dl Creatinine 0.86 (0.6-1.4) mg/dl Est Cr Clr Drug Dosing 72.4 ml/min Est GFR ( Amer) 93.6 ml/min Est GFR (Non-Af Amer) 80.8 ml/min BUN/Creatinine Ratio 35.9 H (10-20) Glucose 94 (70-99) mg/dl Calcium 7.9 L (8.5-10.1) mg/dl Magnesium 2.0 (1.8-2.4) mg/dl Blood Type Antibody Screen Crossmatch 02/13/21 Range/Units 20:40 WBC (4.8-10.8) K/uL RBC (4.7-6.1) M/uL Hgb (14.0-18.0) g/dL Hct (42-52) % MCV (80-100) fL MCH (25-34) pg MCHC (32-36) g/dL RDW Std Deviation (36.4-46.3) fL RDW Coeff of You (11.5-14.5) % Plt Count (130-400) K/uL MPV (7.4-10.4) fL Immature Gran % (Auto) % Neut % (Auto) % Lymph % (Auto) % Stanly % (Auto) % Eos % (Auto) % Baso % (Auto) % Neut # (Auto) (1.4-6.5) K/uL Lymph # (Auto) (1.2-3.4) K/uL Stanly # (Auto) (0.11-0.59) K/uL Eos # (Auto) (0-0.5) K/uL Baso # (Auto) (0-0.2) K/uL Immature Gran # (Auto) (0.00-0.02) K/uL Polychromasia Sodium (136-145) mmol/L Potassium (3.5-5.1) mmol/L Chloride (98-107) mmol/L Carbon Dioxide (21-32) mmol/L Anion Gap (3-11) BUN (7-18) mg/dl Creatinine (0.6-1.4) mg/dl Est Cr Clr Drug Dosing ml/min Est GFR ( Amer) ml/min Est GFR (Non-Af Amer) ml/min BUN/Creatinine Ratio (10-20) Glucose (70-99) mg/dl Calcium (8.5-10.1) mg/dl Magnesium (1.8-2.4) mg/dl Blood Type A Positive Antibody Screen NEGATIVE Crossmatch See Detail Diagnostic Findings Abdomen/Pelvis CT 02/13/21 20:[address] WITH IV CONTRAST CT DOSE: 796.29 mGy.cm HISTORY: Acute generalized abdominal pain abd pain and bleeding (creatinine 1.08 today) TECHNIQUE: Multiaxial CT images of the abdomen and pelvis were performed following the IV administration of 94 cc of Optiray, A dose lowering technique was utilized adhering to the principles of ALARA. COMPARISON STUDY: Chest radiograph of same day, CT abdomen and pelvis 11/23/2012 FINDINGS: Mild bibasilar atelectasis. No pneumatosis or pneumoperitoneum. Cardiomegaly with coronary artery calcifications. Unremarkable spleen, pancreas and adrenal glands. Unremarkable liver. The gallbladder appears surgically absent. Mild extrahepatic biliary ductal prominence is likely postsurgical. Patency of the hepatic and portal veins. Unremarkable kidneys. No hydronephrosis. Mild urinary bladder distention. 9.5 cm ovoid diverticulum projects along the right lateral margin of the bladder, previously measuring up to 4.2 cm. Prostamegaly. Ca lcifications of the vas deferens. Calcified plaque of the abdominal aorta without aneurysm. No bowel obstruction. Mild rectal wall thickening on image 397. Tiny hiatal hernia with fluid-filled distal esophagus. Indeterminate 10 x 8 mm nodule within the abdominal flow quadrant adjacent to the descending sigmoid junction on image 325 which appears new from comparison. Mild fecal retention. The appendix is not diagnostically visualized. Degenerative changes of the spine, pelvis and hips. No acute fracture identified. Chronic L3 and L4 compression deformities. IMPRESSION: 1. Mild rectal wall thickening is likely secondary to partial distention. With reported clinical history of rectal bleeding, this finding could be correlated with colonoscopy. 2. Indeterminate 10 x 8 mm soft tissue nodule of the abdominal left lower quadrant adjacent to the descending sigmoid junction, possibly a lymph node. Attention at follow-up recommended. 3. Prostamegaly with large urinary bladder diverticulum, increased in size from 2013. 4. Additional findings as above. ACT 112: Negative or not required by law. The above report was generated using voice recognition software. It may contain grammatical, syntax or spelling errors. Electronically signed by: Osbaldo Sen M.D. 02/14/2021 8:37 AM PG Care Time/CCT Total # of Minutes Spent Total Time Spent with Patient: Total time spent is greater than 50% in coordination of care (as documented) at patient's floor/unit and/or counseling patient: Coding Level of Care Code 21658 Subseq Hosp Care Lvl 3 Diagnoses Acute GI bleeding K92.2 Symptomatic anemia D64.9 Elevated troponin R77.8 Multi-vessel coronary artery stenosis I25.10 Hyperlipidemia E78.5 Hypothyroidism E03.9
[2021-02-15 08:19] LABS: BUN Creatinine Ratio 35.9 (10-20); Calcium 7.9 mg/dl (8.5-10.1); Creatinine Clr Calc Pharmacy 72.4 ml/min; Est GFR (African American) 93.6 ml/min; Est GFR (Non-African American) 80.8 ml/min; Potassium 3.3 mmol/L (3.5-5.1)
[2021-02-15] MEDS: IPRATROPIUM BROMIDE NASAL SPRAY 0.06% 15ML NAE SCH ×3 (08:25→20:17)
[2021-02-15] MEDS: ATORVASTATIN 40 MG TAB PO SCH (08:25)
[2021-02-15] MEDS: MAGNESIUM OXIDE 400 MG TAB PO SCH (08:25)
[2021-02-15] MEDS: FEXOFENADINE HCL 180 MG TAB PO SCH (08:25)
[2021-02-15] MEDS: PANTOprazole 40 MG in SYRINGE 0 ML IV SCH (08:26)
[2021-02-15] MEDS: METOPROLOL TARTRATE 25 MG TAB PO SCH ×2 (08:26→20:15)
[2021-02-15] MEDS ORDERED: POTASSIUM CHLORIDE CRTAB 20 MEQ TABCR PO STA (09:43)
[2021-02-15] MEDS ORDERED: CALCIUM GLUCONATE 10% 1,000 MG in SODIUM CHLORIDE 0.9% 50 ML IV ONE (10:00)
--- NOTE | 2021-02-15 10:20 | Electrocardiogram Report ---
Test Reason : Blood Pressure : / mmHG Vent. Rate : 059 BPM Atrial Rate : 059 BPM P-R Int : 192 ms QRS Dur : 122 ms QT Int : 482 ms P-R-T Axes : 005 087 031 degrees QTc Int : 477 ms Sinus bradycardia with sinus arrhythmia Right bundle branch block ST depression consider anterolateral ischemia Abnormal ECG When compared with ECG of 13-FEB-2021 21:44, No significant change was found Confirmed by Shad Segal ([id number]) on 02/15/2021 10:19:52 AM Referred By: REFERRED SELF Confirmed By:Shad Segal
--- NOTE | 2021-02-15 10:42 | Electrocardiogram Report ---
Test Reason : Blood Pressure : / mmHG Vent. Rate : 063 BPM Atrial Rate : 063 BPM P-R Int : 178 ms QRS Dur : 122 ms QT Int : 462 ms P-R-T Axes : -01 094 001 degrees QTc Int : 472 ms Normal sinus rhythm Right bundle branch block Anterolateral ST depression Abnormal ECG When compared with ECG of 14-FEB-2021 15:18, (unconfirmed) No significant change was found Confirmed by Shad eSgal ([id number]) on 02/15/2021 10:41:39 AM Referred By: REFERRED SELF Confirmed By:Shad Segal
[2021-02-15] MEDS: DOCUSATE SODIUM/SENNA 50/8.6MG TAB PO SCH (10:58)
--- NOTE | 2021-02-15 11:42 | Gastroenterology Progress Note ---
Date of Service February 15, 2021 Assessment & Plan (1) Symptomatic anemia: (2) Peptic ulcer disease: (3) Abnormal CT scan: Plan: symptomatically improved, HD stable at this time. he does have mild rectal wall thickening and a lymph node adjacent to sigmoid colon on CT A/P. Recs: --protonix 40 mg PO BID for 3 months, then daily thereafter --ok to resume aspirin and plavix at this time -- strict avoidance of NSAIDS including meloxicam --will need outpatient colonoscopy to further evaluate rectal wall thickening and CT abnormalities --advance diet as tolerated --follow up with [facility] in 1 week Admission and Anticipated Discharge Date Admission Date: February 13, 2021 Subjective no events overnight, tolerated clear liquid diet. afebrile. feels well today, no symptoms. No hematochezia. Hgb is stable at 9 today. labs reviewed. Review of Systems Constitutional: no fever and no chills Respiratory: no cough, no dyspnea and no dyspnea on exertion Cardiovascular: no chest pain and no dyspnea Gastrointestinal: as per Subjective / HPI Psychiatric: no depression and no anxiety Physical Exam Constitutional: WD/WN, vitals as above Respiratory: normal respiratory effort, lungs clear to auscultation Cardiovascular: RRR, no murmur, no edema Gastrointestinal (Abdomen): normal bowel sounds, soft, nontender, no hepatosplenomegaly obese Musculoskeletal: no lower extremity edema Psychiatric: A+Ox3, euthymic affect Results & Data Results & Data ([facility]) Vital Signs (Past 12 Hours) Vital Signs Temp Pulse Pulse Resp BP Pulse Ox 02/15/21 11:02 36.5 C 57 L 18 103/60 95 02/15/21 07:47 63 02/15/21 07:18 36.5 C 62 17 110/63 92 02/15/21 06:56 36.7 C 64 16 103/60 92 02/15/21 03:56 36.7 C 65 17 102/61 96 02/14/21 23:41 62 PG Care Time/CCT Total # of Minutes Spent Total Time Spent with Patient: Total time spent is greater than 50% in coordination of care (as documented) at patient's floor/unit and/or counseling patient: Coding Level of Care Code 87635 Subseq Hosp Care Lvl 3 Diagnoses Symptomatic anemia D64.9 Peptic ulcer disease K27.[address] scan R93.89
[2021-02-15] MEDS: POLYETHYLENE (MIRALAX) 17 GM PACK PO SCH (15:21)
[2021-02-15] MEDS ORDERED: IRON SUCROSE 300 MG in SODIUM CHLORIDE 0.9% 250 ML IV ONE (16:30)
[2021-02-15] MEDS ORDERED: ACETAMINOPHEN 325 MG TAB PO PRN (20:01)
[2021-02-15] MEDS: PANTOprazole 40 MG TAB PO SCH (20:17)
[2021-02-16 06:08] LABS: Hematocrit (blood only) 28.8 % (42-52); Hemoglobin 9.4 g/dL (14.0-18.0); Mean Corpuscular Hemoglobin 28.6 pg (25-34); Mean Corpuscular Hgb Conc 32.6 g/dL (32-36); Mean Corpuscular Volume 87.5 fL (80-100); Mean Platelet Volume 8.2 fL (7.4-10.4); Platelet Count 126 K/uL (130-400); RDW Standard Deviation 49.7 fL (36.4-46.3); Red Blood Count 3.29 M/uL (4.7-6.1); White Blood Count 10.83 K/uL (4.8-10.8)
[2021-02-16] MEDS: LEVOTHYROXINE SODIUM 50 MCG TABLET PO SCH (06:41)
[2021-02-16 06:53] LABS: Est GFR (African American) 80.9 ml/min; Est GFR (Non-African American) 69.8 ml/min; Potassium 3.9 mmol/L (3.5-5.1)
[2021-02-16 06:54] LABS: BUN Creatinine Ratio 21.5 (10-20); Calcium 8.2 mg/dl (8.5-10.1); Creatinine Clr Calc Pharmacy 61.6 ml/min; Magnesium 2.3 mg/dl (1.8-2.4)
--- NOTE | 2021-02-16 07:56 | Hospitalist Progress Note ---
Date of Service February 16, 2021 Assessment & Plan Admission and Anticipated Discharge Date Admission Date: February 13, 2021 Results & Data Results & Data ([facility]) Vital Signs (Past 12 Hours) Vital Signs Temp Pulse Pulse Pulse Resp BP Pulse Ox 02/16/21 07:39 36.6 C 60 18 114/66 94 02/16/21 07:21 60 02/16/21 03:11 36.7 C 59 L 17 94/56 L 93 02/15/21 23:19 37.1 C 66 16 100/57 L 91 02/15/21 22:54 60 Laboratory Results 02/16/21 02/16/21 02/15/21 Range/Units 05:24 05:24 07:23 WBC 10.83 H (4.8-10.8) K/uL RBC 3.29 L (4.7-6.1) M/uL Hgb 9.4 L (14.0-18.0) g/dL Hct 28.8 L (42-52) % MCV 87.5 (80-100) fL MCH 28.6 (25-34) pg MCHC 32.6 (32-36) g/dL RDW Std Deviation 49.7 H (36.4-46.3) fL RDW Coeff of You 16.0 H (11.5-14.5) % Plt Count 126 L (130-400) K/uL MPV 8.2 (7.4-10.4) fL Sodium 140 141 (136-145) mmol/L Potassium 3.9 D 3.3 L (3.5-5.1) mmol/L Chloride 108 H 109 H (98-107) mmol/L Carbon Dioxide 31 27 (21-32) mmol/L Anion Gap 1.0 L 6.0 (3-11) BUN 21 H 31 H (7-18) mg/dl Creatinine 1.00 0.86 (0.6-1.4) mg/dl Est Cr Clr Drug Dosing 61.6 72.4 ml/min Est GFR ( Amer) 80.9 93.6 ml/min Est GFR (Non-Af Amer) 69.8 80.8 ml/min BUN/Creatinine Ratio 21.5 H 35.9 H (10-20) Glucose 102 H 94 (70-99) mg/dl Calcium 8.2 L 7.9 L (8.5-10.1) mg/dl Magnesium 2.3 2.0 (1.8-2.4) mg/dl PG Care Time/CCT Total # of Minutes Spent Total Time Spent with Patient: Total time spent is greater than 50% in coordination of care (as documented) at patient's floor/unit and/or counseling patient: Coding
[2021-02-16] MEDS: POLYETHYLENE (MIRALAX) 17 GM PACK PO SCH (08:13)
[2021-02-16] MEDS: METOPROLOL TARTRATE 25 MG TAB PO SCH (08:18)
[2021-02-16] MEDS: IPRATROPIUM BROMIDE NASAL SPRAY 0.06% 15ML NAE SCH (08:18)
[2021-02-16] MEDS: FEXOFENADINE HCL 180 MG TAB PO SCH (08:18)
[2021-02-16] MEDS: DOCUSATE SODIUM/SENNA 50/8.6MG TAB PO SCH (08:18)
[2021-02-16] MEDS: PANTOprazole 40 MG TAB PO SCH (08:18)
[2021-02-16] MEDS: ATORVASTATIN 40 MG TAB PO SCH (08:18)
[2021-02-16] MEDS: MAGNESIUM OXIDE 400 MG TAB PO SCH (08:18)
[2021-02-16] MEDS ORDERED: ASPIRIN 81 MG ECTAB PO SCH (09:00)
[2021-02-16] MEDS ORDERED: IRON SUCROSE 200 MG in 0.9 % SODIUM CHLORIDE 100 ML IV ONE (09:00)
[2021-02-16] MEDS ORDERED: CLOPIDOGREL BISULFATE 75 MG TAB PO SCH (09:00)
[2021-02-16] MEDS ORDERED: bisacodyL 5 MG TABEC PO ONE (09:31)
--- NOTE | 2021-02-16 11:33 | Gastroenterology Progress Note ---
Date of Service February 16, 2021 Assessment & Plan (1) Abnormal CT scan: (2) Symptomatic anemia: Plan: improving, tolerating diet, no signs of GI bleeding. Recs: --protonix 40 mg PO BID for 3 months, then daily thereafter -- strict avoidance of NSAIDS including meloxicam --will need outpatient colonoscopy to further evaluate rectal wall thickening and CT abnormalities --follow up with [facility] in 1 week Admission and Anticipated Discharge Date Admission Date: February 13, 2021 Subjective no events overnight, tolerating regular diet. No hematochezia, vomiting, or any issues. Feels well. Hgb is improved to 9.4. Restarted on ASA and plavix this morning. labs reviewed, VSS afebrile. Review of Systems Constitutional: no fever and no chills Respiratory: no cough, no dyspnea and no dyspnea on exertion Cardiovascular: no chest pain and no dyspnea Gastrointestinal: as per Subjective / HPI Psychiatric: no depression and no anxiety Physical Exam Constitutional: WD/WN, vitals as above Respiratory: normal respiratory effort, lungs clear to auscultation Cardiovascular: RRR, no murmur, no edema Gastrointestinal (Abdomen): normal bowel sounds, soft, nontender, no hepatosplenomegaly Musculoskeletal: no lower extremity edema Psychiatric: A+Ox3, euthymic affect Results & Data Results & Data ([facility]) Vital Signs (Past 12 Hours) Vital Signs Temp Pulse Pulse Pulse Pulse Resp BP 02/16/21 11:03 36.6 C 60 61 66 18 112/63 02/16/21 07:39 36.6 C 60 18 02/16/21 07:21 60 02/16/21 03:11 36.7 C 59 L 17 BP Pulse Ox 02/16/21 11:03 114/66 94 02/16/21 07:39 114/66 94 02/16/21 07:21 02/16/21 03:11 94/56 L 93 PG Care Time/CCT Total # of Minutes Spent Total Time Spent with Patient: Total time spent is greater than 50% in coordination of care (as documented) at patient's floor/unit and/or counseling patient: Coding Level of Care Code 07090 Subseq Hosp Care Lvl [address] scan R93.89 Symptomatic anemia D64.9
--- NOTE | 2021-02-16 12:18 | Discharge Summary ---
Date of Service February 16, 2021 Admission HPI Per Admitting Provider 80-year-old male past medical history significant for CAD s/p stent, hypothyroidism, chronic joint pains presented to the ER for 1 day of bloody diarrhea and a sensation of worsening weakness. Had CBC done by PCP which showed hemoglobin of 7.7 and he was urged to go to the ER. In the ER patient's vitals were stable save for mild hypotension which patient has had on previous admits. Lab work showed hemoglobin of 7.2, WBC count 17.76, elevated troponin to 0.392. EKG with T wave changes in lateral leads. CTAP did not show any acute pathologies on stat read. Patient was consented for blood and transfusion was ordered. Admission Exam Per Admitting Provider Constitutional: WD/WN, vitals as above Eyes: PERRL, conjunctivae normal, anicteric sclerae ENMT: external ear and nose normal, oropharynx normal Neck: normal visual inspection Respiratory: normal respiratory effort, lungs clear to auscultation Cardiovascular: RRR, no murmur, no edema Gastrointestinal (Abdomen): normal bowel sounds, soft, nontender, no hepatosplenomegaly Musculoskeletal: no cyanosis or clubbing, extremities motor strength 5/5 Skin: no rashes, warm and dry Neurologic: Normal speech, no focal motor deficits Psychiatric: A+Ox3, euthymic affect Principal Diagnosis Acute GI Bleed Discharge Exam Constitutional WD/WN, vitals as above general pallor improving Eyes + anicteric sclerae and PERRL ENMT external ear and nose normal, oropharynx normal Neck normal visual inspection Respiratory normal respiratory effort, lungs clear to auscultation Cardiovascular RRR, no murmur, no edema Gastrointestinal (Abdomen) normal bowel sounds, soft, nontender, no hepatosplenomegaly Musculoskeletal no cyanosis or clubbing, extremities motor strength 5/5 Skin no rashes, warm and dry Neurologic PERRL, EOMI, accommodation nl, no face palsy, no dysarthria Psychiatric A+Ox3, euthymic affect Lymphatic no cervical or axillary lymphadenopathy Discharge Data Allergies Allergy/AdvReac Type Severity Reaction Status Date / Time No Known Drug Allergies Allergy Unknown Verified 02/14/21 12:36 Consultations 02/13/21 22:03 ED Decision to Admit Stat 02/13/21 23:05 Consult Gastroenterology Routine Procedures Performed Operation Date: 02/14/21 16:45 Actual Procedures p Esophagogastroduodenoscopy - Johny Coello MD Ordered Studies 02/13/21 20:22 CT abd pelvis IV con only Stat Hospital Course (1) Acute GI bleeding: Presented with weakness and blood diarrhea. On DAPT and was also on daily meloxicam Hgb dropped to 7.2 GI consulted s/p EGD which showed evidence of duodenitis, with few non-bleeding linear gastric ulcers and erosions with no stigmata of bleeding, diffuse mild inflammation/erythema in duodenal bulb Is s/p 3 u PRBC Hgb stable and improving, 9.4 (had been on IVF during admission as well). Venofer x 2 and oral supplementation at d/c. F/u PCP for repeat labs outpt Protonix IV transitioned to 40mg PO BID and continued for 3 months Diet advanced without issues NO FURTHER NSAIDS-- educated on avoidance of these WBC with lymphocyte predominance. No fever. PT eval with patient acceptable to return home but was only able to make it about 5 steps and has 13 to enter his house on 02/15. Given 2 doses IV Venofer and continued iron supplementation at discharge for next month [facility] arranged at discharge. Neighbor also able to assist at discharge today and patient with improvement in strength/ambulation Of note, CTA/P with rectal wall thickening --> per discussion with GI, can follow up with [facility] in 1 week and possible c-scope if continued bleeding noted *Indeterminate 10 x 8 mm soft tissue nodule of the abdominal left lower quadrant adjacent to the descending sigmoid junction, possibly a lymph node. Attention at follow-up recommended.* --> Flow cytometry pending but peripheral smear without smudge cells -- Will need f/u at d/c with PCP pending flow cytometry results Educated on warning signs and when to return to the emergency department (2) Symptomatic anemia: 2nd to above continue to monitor Also given 1gm IV calcium for Ca 7.9 -- likely from blood products and improved on repeat Venofer x 2 as above and oral supplementation at discharge. F/u PCP (3) Elevated troponin: suspect secondary to demand, trending down on repeat. No CP reported (4) Multi-vessel coronary artery stenosis: Hx CAD: Severe 3 vessel disease. LAD s/p PCI and single FRANNIE on 08/29/2018, and staged PCI of Cx on 09/05/2018 with single FRANNIE. Last Echo 2019 with EF 50-55%. ECHO -- LV systolic function normal 55-60%, mild concentric LVH, mild valvular aortic stenosis. RVSP elevated 30-40mmHg. Today with elevated troponin and V3-V5 T wave changes, no cardiac complaints. Suspect demand ischemia in the setting of GIB - repeat trop trending down as above Treatment of GIB and 3u PRBCs as above. Held DAPT given bleeding but ok with GI for resuming and were started prior to d/c Continued metoprolol with holding parameters, statin. EKG w CP Has been SR on monitor, 1st degree AV block (5) Hyperlipidemia: Continue Lipitor 40mg daily (6) Hypothyroidism: Continue levothyroxine 50mcg daily Code Status: Conditional code; desires all interventions save for intubation. Discussed that cardiac arrest situations are often unsuccessful if intubation is not performed.. Patient understands and still declines intubation but would like chest compressions and defibrillation if indicated. DVT ppx: SCDs Chemical proph held in setting of GIB --> DAPT resumed as above Discharged home with OPPT Total Time Total Time Spent Total Time Spent (In Minutes): 65 Discharge Plan Discharge Items Patient Disposition: Home - Self-Care Reason For Visit: ACUTE GIB, DEMAND ISCHEMIA Discharge Diagnosis: Acute GI Bleed Goals: You have been hospitalized for an acute medical problem. During your stay at [facility], we have made an effort to correct the problem that brought you to the hospital while keeping you as comfortable as possible. Medications were used to bring your condition under control and your discharge instructions will include directions for any medications you should take after leaving the hospital. Please make sure you see your Primary Care Provider as part of your follow up plan. Activity: Resume your previous activity Non-emergency contact: Primary Care Provider and [employer] Supervisor Call non-emergency contact if: you have any medication questions, your symptoms worsen and you have a fever Follow-up/Referrals: Rolan Oliva MD [Primary Care Provider] - Armen Ayala [Physician] - (1 week for colonoscopy) Diet: Heart Healthy Addtl Attending Provider Instructions: You have been hospitalized for a GI bleed. GI was consulted. You underwent an EGD which showed inflammation and bleeding ulcers (likely from your meloxicam which has been discontinued and you can use Tylenol as needed for pain but should avoid Aleeve, ibuprofen, etc from the NSAID class of medications). These were treated and you will need to continue on a medication to help called Protonix, which will be 40mg by mouth TWICE daily for THREE MONTHs. Initially it was felt you needed to hold your aspirin and plavix, but this was confirmed with GI provider that you may resume this at discharge as there was no stigmata of bleeding and you should be safe to resume these medications. Imaging showed areas of concern in your colon/rectum that recommend a colonoscopy, and this can be arranged as an outpatient. A follow up appointment with [facility] will be set up in the coming week to get this scheduled. You were given blood products during admission due to low blood counts from the bleeding, and your hemoglobin has remained stable, and improved. You will be sent on oral iron supplementation to take for the next month but note this can cause your stools to be darkened and worsening constipation. You should continue miralax twice daily to help have a bowel movement and can start the iron pill on Wednesday as you got a dose of Venofer (iron) in your IV this morning and wait to start until you have a bowel movement to prevent worsening constipation. Your blood counts did show an elevated lymphocyte count and a flow cytometry is pending at discharge to look at your cells more closely for any underlying issues as this appears to be chronic in nature. Please follow up with Dr. Kristin Rahman in the next week for monitoring post-discharge and to keep an eye on this. Please return to the emergency department with any further bleeding, chest pain, shortness of breath, or for any other symptoms that are concerning for you. It has been a pleasure being a part of the medical team providing for you while you have been in the hospital. Take care! Pending Studies at Discharge: Yes Studies:: Flow Cytometry Stand-Alone Forms: My [facility] Medications and DC Order Prescriptions: New pantoprazole 40 mg Tablet,Delayed Release (Dr/Ec) 40 mg PO BID Qty: 60 RF: 3 ferrous sulfate 325 mg (65 mg iron) tablet 325 mg PO DAILY Qty: 30 RF: 0 Continued metoprolol tartrate 25 mg tablet 25 mg PO BID Qty: 180 RF: 3 clopidogrel 75 mg tablet 75 mg PO QAM 90 Days Qty: 90 RF: 3 atorvastatin 40 mg tablet 40 mg PO DAILY Qty: 90 RF: 3 levothyroxine 50 mcg Tablet 50 mcg PO QAM RF: 0 aspirin 81 mg Tablet,Chewable 81 mg PO QAM RF: 0 multivitamin Tablet 1 tab PO QAM RF: 0 ipratropium bromide 42 mcg (0.06 %) [place],Non-Aerosol 2 spray INTRANASAL TID RF: 0 fexofenadine 180 mg tablet 180 mg PO DAILY RF: 0 magnesium 250 mg Tablet 250 mg PO DAILY RF: 0 Discontinued meloxicam 7.5 mg Tablet 7.5 mg PO QAM PRN (Reason: Muscle Spasm) RF: 0 Discharge Orders: Discharge Order (Routine); Ordered 02/16/21 Ordered By: Saundra Alexander/Other Patient Handouts: A1C, 5 Steps for Eating Healthier Admission Data Admit Date/Time: 02/13/21 23:05 Attending Provider: Bashir Segovia Admit Provider: Christiana Mcqueen Primary Care Provider: Rolan Oliva Other Providers: Pranav Moseley Brian D. Other Interventions: Discharge Summary Assessment (RN) Last Done: 02/16/21 11:03 Coding Level of Care Code D/C DAY MANAGEMENT >30 MINS Diagnoses Acute GI bleeding K92.2 Symptomatic anemia D64.9 Elevated troponin R77.8 Multi-vessel coronary artery stenosis I25.10 Hyperlipidemia E78.5 Hypothyroidism E03.9
--- NOTE | 2021-02-27 14:33 | Coding Query ---
CODING QUERY To promote full compliance with coding requirements relating to patient care, provider participation is requested in all cases of health economist uncertainty. Please assist us with the question(s) below: Coding Question(s): Patient admitted with Upper GI Bleed. EGD - duodenitis and gastric erosion, with no evidence of recent GI bleed. Please document, if known or suspected, the etiology of the GI bleed. Thanks for your help! Billy Barfield [facility] Physician's Response(s): duodenitis and gastric erosion Principal Diagnosis: "that condition established after study, to be chiefly responsible for occasioning the admission of the patient to the hospital for care." Co-Existing Principal Diagnosis: "when two or more diagnoses equally meet the criteria for principal diagnosis as determined by the circumstances of admission, diagnostic work up, and/or therapy provided, and the Alphabetic Index, Tabular List, or another coding guideline does not provide sequencing direction, any one of the diagnoses may be sequenced first." "When the physician has documented what appears to be a current diagnosis in the body of the record, but has not included the diagnosis in the final diagnostic statement, the physician should be asked whether the diagnosis should be added." (Source Coding Clinic 2 QTR90. p3-4) [facility]
== END 2021-02-16 12:25 | disposition home health service (06) | DRG 378 ==
LOC: ED 20:06 → SUATTDRO 23:05 → EDINP 23:05 → 2S 02-14 14:20

== ENCOUNTER 2022-03-24 16:41 | Inpatient (IN) ==
[2022-03-24 17:18] LABS: Hematocrit (blood only) 42.1 % (40.1-51.0); Hemoglobin 13.8 g/dl (14.0-18.0); Immature Granulocytes # (auto) 0.01 K/uL (0.00-0.02); Immature Granulocytes % (auto) 0.2 %; Lymphocytes # (auto) 0.79 K/uL (1.2-3.4); Lymphocytes % (auto) 12.5 %; Mean Corpuscular Hemoglobin 28.3 pg (25.0-34.0); Mean Corpuscular Hgb Conc 32.8 g/dL (32.0-36.0); Mean Corpuscular Volume 86.4 fL (80.0-100.0); Mean Platelet Volume 8.1 fL (9.4-12.4); Monocytes # (auto) 0.56 K/uL (0.24-0.82); Monocytes % (auto) 8.8 %; Neutrophils # (auto) 4.98 K/uL (1.4-6.5); Neutrophils % (auto) 78.5 %; Platelet Count 111 K/uL (130-400); RDW Coefficient of Variation 14.9 % (11.5-14.5); RDW Standard Deviation 47.4 fL (36.4-46.3); Red Blood Count 4.87 M/uL (4.63-6.08); White Blood Count 6.34 K/ul (4.8-10.8)
[2022-03-24 17:40] LABS: Alanine Aminotransferase 15 U/L (7-52); Albumin Globulin Ratio 1.9 (0.9-2); Albumin Level 4.7 gm/dl (3.4-5.0); Alkaline Phosphatase 58 U/L (34-104); Anion Gap 8 (3-11); Aspartate Aminotransferase 16 U/L (13-39); BUN Creatinine Ratio 31.5 (10-20); Bilirubin,Total 1.7 mg/dl (0.2-1.0); Blood Urea Nitrogen 34 mg/dl (6-23); Calcium 10.1 mg/dl (8.5-10.1); Carbon Dioxide 29 mmol/L (21-32); Chloride 102 mmol/L (98-107); Est GFR (African American) 73.2 ml/min; Est GFR (Non-African American) 63.1 ml/min; Globulin 2.5 gm/dl (2.5-4.0); Glucose 120 mg/dl (70-99(Fasting)); Potassium 3.9 mmol/L (3.5-5.1); Sodium 139 mmol/L (136-145); Total Protein 7.2 gm/dl (6.0-8.3)
[2022-03-24] MEDS ORDERED: ONDANSETRON INJ 2 MG/ML 2 ML VIAL IV STA (20:05)
[2022-03-24] MEDS ORDERED: SODIUM CHLORIDE 0.9% 1000ML 500 ML IV ONE (20:05)
--- NOTE | 2022-03-24 20:26 | Emergency Department Note ---
History of Present Illness General Chief complaint: Nausea Stated complaint: nausea Time Seen by Provider: 03/24/22 19:59 History of Present Illness Provider Complaint: + nausea and + vomiting Onset (ago): day(s) 2 Description of Vomiting: + food contents; no bilious, no blood-streaked or no coffee grounds Associated Abdominal Pain: Yes Location of pain: + diffuse Quality: + aching Pain Consistency: + intermittent Relieved By: + none Exacerbated By: + eating Associated symptoms: + bloating; no chest pain, no cough, no fever/chills, no headaches, no dysuria, no shortness of breath, no weakness, no decreased urine output or no fecal incontinence HPI Narrative: Patient reports his symptoms began after he ate some spicy bologna from a [employer]. Neighbor at bedside who brought the patient to the emergency department also reports that 2 days ago the patient was cleaning his toilet prior to him becoming nauseous. Home Medications Medication Instructions Recorded Confirmed Type aspirin 81 mg chewable tablet 81 mg PO QAM 08/29/18 03/24/22 History levothyroxine 50 mcg tablet 50 mcg PO QAM 08/29/18 03/24/22 History ipratropium bromide 42 mcg (0.06 2 spray intranasal UD 01/23/19 03/24/22 History %) nasal spray multivitamin 1 tab PO QAM 01/23/19 03/24/22 History fexofenadine 180 mg tablet 180 mg PO QAM 02/13/21 03/24/22 History magnesium 250 mg tablet 250 mg PO DAILY 02/13/21 03/24/22 History pantoprazole 40 mg tablet,delayed 40 mg PO BID #60 tabs 02/15/21 03/24/22 Rx release clopidogrel 75 mg tablet 75 mg PO QAM 90 days #90 tabs 11/03/21 03/24/22 Rx atorvastatin 40 mg tablet 40 mg PO DAILY #90 tabs 02/16/22 03/24/22 Rx Allergies Allergy/AdvReac Type Severity Reaction Status Date / Time No Known Drug Allergies Allergy Unknown Verified 03/24/22 21:07 Past Med/Surg History Medical History Anemia CAD (coronary artery disease) Coronary artery stenosis Former smoker Gastric ulcer History of esophageal dilatation History of GI bleed Hypothyroidism Myocardial Infarction pt denies? Osteoarthritis Spinal stenosis Surgical History History of cardiac cath x2--SEVERE 3 VESSEL Dx with chronic RCA occlusion with distal collaterals, 95% mid lAD and 95% Cx at takeoff of OM1. LAD s/p pCI and single FRANNIE on 08/29/2018 and staged PCI of Cx on 09/05/2018 wit single FRANNIE History of carpal tunnel release of both wrists History of cholecystectomy History of esophagogastroduodenoscopy (EGD) History of heart artery stent x2 total--08/2018 and 09/2018 History of phacoemulsification of cataract of both eyes with intraocular lens implantation History of tonsillectomy History of tooth extraction History of total knee replacement B/L Stented coronary artery Family History Aunt Family history of diabetes mellitus Mother Family history of diabetes mellitus Family/Other Family history of diabetes mellitus niece Other No family history of adverse response to anesthesia Social History Smoking Status: Never smoker Second Hand Exposure: Yes (hx); Hx Alcohol Use: No Hx Substance Use: No Preferred Language: Icelandic Communication Ability: Effective Hearing Ability: Hard of Hearing Manager Package Required: No Beliefs That Will Affect Care: None marital status: / Current Living Situation: Alone current occupation: retired from [employer] Feels Safe at Home: Yes Assistive Devices: Cane, Denture - Upper, Denture - Lower, Glasses, Hearing Aid - Bilateral and Walker Review of Systems A total of 10 systems reviewed and were otherwise negative Physical Exam Vital Signs: Vital Signs - 24 hr 03/24/22 16:42 03/24/22 20:16 03/24/22 21:13 Temperature 36.8 C Temperature Source Temporal Artery Sc an Pulse Rate 78 Pulse Rate [Finger ] 72 73 Pulse Rhythm Regular Respiratory Rate 18 20 18 Respiratory Effort / Characteristics Non-Labored Sponta neous Non-Labored Sponta neous Non-Labored Sponta neous Respiratory Depth Normal Normal Normal Blood Pressure 117/76 Blood Pressure [Ri ght Arm] 108/73 145/82 H Blood Pressure Jannie n 89 Blood Pressure Jannie n [Right Arm] 84 103 Blood Pressure Pos ition Sitting Pulse Oximetry 96 95 96 Oxygen Delivery Me thod Room Air Room Air Room Air Sepsis Recent Feve r Within 48 Hours No Sepsis New/Unexpla ined Change in Men gabriela Status No Sepsis Action Take n by Nursing No Action Required Physical Exam: Physical Exam GENERAL: He is oriented to person, place, and time. He appears well-developed and well-nourished. He does not appear distressed. HENT: Exam performed. - Head: Normocephalic and atraumatic. - Right Ear: External ear normal. No mastoid tenderness. - Left Ear: External ear normal. No mastoid tenderness. - Mouth/Throat: The oropharynx is clear and moist. No trismus in the jaw. No dental abscesses or uvula swelling. No oropharyngeal exudate or tonsillar abscesses. EYES: Conjunctivae and EOM are normal. Pupils are equal, round, and reactive to light. Right eye exhibits no discharge. Left eye exhibits no discharge. No scleral icterus. NECK: Normal range of motion. Neck supple. No JVD present. No spinous process tenderness present. No carotid bruit present. No rigidity. No tracheal deviation and normal range of motion present. No Brudzinski's sign and no Kernig's sign noted. CV: Normal rate, regular rhythm, normal heart sounds and intact distal pulses. There is no peripheral edema. Palpable radial pulses bue. PULM/CHEST: Effort normal and breath sounds normal. No respiratory distress. No stridor. He has no wheezes. He has no rales. - Chest Wall: He exhibits no tenderness. ABD: The abdomen is soft. Bowel sounds are normal. He has no distension. No mass is present. There is no tenderness. There is no rebound, no guarding, no Estrada's sign and no tenderness at McBurney's point. Rovsig negative. MUSC/SKEL: Normal range of motion. There is no peripheral edema, tenderness or deformity. LYMPH: No cervical adenopathy. NEURO: He is alert and oriented to person, place, and time. He has normal strength. No cranial nerve deficit or sensory deficit. Coordination and gait normal. GCS eye subscore is 4. GCS verbal subscore is 5. GCS motor subscore is 6. Cerebellar tests wnl. SKIN: Skin is warm and dry. He is not diaphoretic. PSYCH: He has a normal mood and affect. Behavior is normal. Judgment and thought content normal. Course Course 1958: The patient was evaluated in room B9. A complete history and physical exam was performed Cardiac monitoring: An order was placed for continuous cardiac monitoring. The monitor shows a rate of 70 with sinus rhythm 2220: Vital signs stable. Labs within normal limits except her bilirubin of 1.7. Imaging shows an esophagus that is impacted with food. I discussed case with on-call GI Dr. Alyson White who reviewed the patient's records and states that the patient does have a history of achalasia and having a myotomy in the past. We discussed possible disposition scenarios and after discussion we decided was best that the patient be admitted to the hospitalist service and be evaluated for dilatation by GI in the morning. Dr. Jurado's team was notified. Administered Medications Discontinued Medications Sodium Chloride (Nss 1000ml) 500 mls @ 999 mls/hr IV .Q31M ONE Stop: 03/24/22 20:35 Last Infusion: 03/24/22 22:50 Dose: 0 mls/hr Documented By: Admin: 03/24/22 20:15 Dose: 999 mls/hr Documented By: ERIC Ioversol (Optiray 300 100ml) 90 ml IV ONCE ONE Stop: 03/24/22 20:47 Last Admin: 03/24/22 20:47 Dose: 90 ml Documented By: CHOLO Ondansetron HCl (Ondansetron Inj 2 Mg/Ml 2 Ml Vial) 4 mg IV NOW STA Stop: 03/24/22 20:06 Last Admin: 03/24/22 20:14 Dose: 4 mg Documented By: ERIC Medical Decision Making Laboratory Data Result diagrams: 03/24/22 16:59 03/24/22 16:59 Lab Results 03/24/22 03/24/22 03/24/22 Range/Units 16:59 16:59 16:59 WBC 6.34 (4.8-10.8) K/ul RBC 4.87 (4.63-6.08) M/uL Hgb 13.8 L (14.0-18.0) g/dl Hct 42.1 (40.1-51.0) % MCV 86.4 (80.0-100.0) fL MCH 28.3 (25.0-34.0) pg MCHC 32.8 (32.0-36.0) g/dL RDW Std Deviation 47.4 H (36.4-46.3) fL RDW Coeff of You 14.9 H (11.5-14.5) % Plt Count 111 L (130-400) K/uL MPV 8.1 L (9.4-12.4) fL Immature Gran % (Auto) 0.2 % Neut % (Auto) 78.5 % Lymph % (Auto) 12.5 % Ransom % (Auto) 8.8 % Eos % (Auto) 0.0 % Baso % (Auto) 0.0 % Neut # (Auto) 4.98 (1.4-6.5) K/uL Lymph # (Auto) 0.79 L (1.2-3.4) K/uL Ransom # (Auto) 0.56 (0.24-0.82) K/uL Eos # (Auto) 0.00 (0-0.50) K/uL Baso # (Auto) 0.00 (0-0.2) K/uL Immature Gran # (Auto) 0.01 (0.00-0.02) K/uL Sodium 139 (136-145) mmol/L Potassium 3.9 (3.5-5.1) mmol/L Chloride 102 (98-107) mmol/L Carbon Dioxide 29 (21-32) mmol/L Anion Gap 8 (3-11) BUN 34 H (6-23) mg/dl Creatinine 1.08 (0.6-1.4) mg/dl Est Cr Clr Drug Dosing Not Reportable Est GFR ( Amer) 73.2 ml/min Est GFR (Non-Af Amer) 63.1 ml/min BUN/Creatinine Ratio 31.5 H (10-20) Glucose 120 H (70-99(Fasting)) mg/dl Calcium 10.1 (8.5-10.1) mg/dl Total Bilirubin 1.7 H (0.2-1.0) mg/dl AST 16 (13-39) U/L ALT 15 (7-52) U/L Alkaline Phosphatase 58 (34-104) U/L Total Protein 7.2 (6.0-8.3) gm/dl Albumin 4.7 (3.4-5.0) gm/dl Globulin 2.5 (2.5-4.0) gm/dl Albumin/Globulin Ratio 1.9 (0.9-2) Lipase 11 (11-82) U/L Imaging Data Radiologist's Impression: Abdomen/Pelvis CT 03/24/22 20:05 CT OF THE ABDOMEN AND PELVIS WITH CONTRAST CLINICAL HISTORY: Nausea and vomiting. COMPARISON STUDY: CT of the abdomen and pelvis February 13, 2021. TECHNIQUE: Following IV administration of 90 mL of Optiray, axial images of the abdomen and pelvis were obtained from the lung bases to the proximal femurs. Images were reviewed in the axial, sagittal, and coronal planes. IV contrast was administered without complication. Automated exposure control was utilized for the study. A dose lowering technique was utilized adhering to the principles of ALARA. CT DOSE: 591.24 mGy.cm FINDINGS: There is extensive coronary artery calcification. The visualized distal esophagus is distended and contains a significant amount of ingested material. The esophagus is dilated to the GE junction. There are minimal contents within the stomach. This finding is new since CT of February 13, 2021. Esophageal dilatation likely accounts for mediastinal widening shown on chest radiograph performed earlier today. The liver, adrenal glands, kidneys and pancreas are unremarkable. A few subcentimeter renal lesions are too small to c haracterize. There is renal cortical thinning. There is no biliary or pancreatic ductal dilatation. Mild splenomegaly is unchanged. Prominent upper abdominal lymph nodes are unchanged. There is extensive plaque of the abdominal aorta and branch vessels. No evidence for a bowel obstruction. Colonic diverticulosis is noted without evidence for acute diverticulitis. There is no ascites. A 9.3 x 3.4 cm right lateral bladder diverticulum is again noted. There is no hydronephrosis. There are no urinary calculi. No acute fracture or suspicious lesions within the visualized skeletal structures. IMPRESSION: 1. Distention of visualized portions of the esophagus which contains a significant amount of ingested material. Esophagus dilated to the GE junction. The findings could be due to to a food impaction or achalasia. An occult lesion at the GE junction cannot be excluded by CT. GI consultation is recommended. Esophageal dilatation likely accounts for mediastinal widening on chest radio graph performed earlier today. However, a follow-up chest CT is recommended for confirmation. 2. No bowel obstruction. No bowel wall thickening. Colonic diverticulosis without evidence for acute diverticulitis. ACT 112: Negative or not required by law. Electronically signed by: Car Rose M.D. 03/24/2022 9:51 PM Chest X-Ray 03/24/22 20:05 XR chest 1V portable CLINICAL HISTORY: Nausea and vomiting. COMPARISON STUDY: Chest radiograph February 13, 2021. FINDINGS: No pneumothorax or pleural effusion is noted. Minimal left basilar opacity favors atelectasis. There is no evidence for pulmonary edema. Cardiac size is normal. There has been interval development of upper mediastinal widening. There is apparent rightward displacement of the trachea. A few suspected calcified granulomas are incidentally noted. IMPRESSION: Interval development of upper mediastinal widening. This is nonspecific and a neoplastic etiology cannot be excluded. A CT of the chest with IV contrast is recommended for further evaluation. ACT 112: Positive. There are findings on this exam that require communication between the performing entity and the patient following Patient Test Result Information Act ([place] Act 112) guidelines. Electronically signed by: Car Rose M.D. 03/24/2022 8:37 PM ECG Data Indication: nausea Rate (beats per minute): 66 Rhythm: normal sinus Findings: + LBBB and + RBBB; no ST depression, no ST elevation or no prolonged QT Comparison ECG Date: from (January 2021) Change: no significant change MDM Narrative Vital signs stable. Labs within normal limits except her bilirubin of 1.7. Imaging shows an esophagus that is impacted with food. I discussed case with on-call GI Dr. Alyson White who reviewed the patient's records and states that the patient does have a history of achalasia and having a myotomy in the past. We discussed possible disposition scenarios and after discussion we decided was best that the patient be admitted to the hospitalist service and be evaluated for dilatation by GI in the morning. Dr. Jurado's team was notified. Impression & Plan Achalasia Discharge Plan Visit Data Chief Complaint: Nausea Stated Complaint: nausea ED Provider: Stanley Garcia Discharge Problem: Achalasia Patient Disposition: Being Evaluated by Hospitalist Forms Stand Alone Forms: My [facility] Prescriptions Prescriptions: No Action clopidogrel 75 mg tablet 75 mg PO QAM 90 Days Qty: 90 3RF atorvastatin 40 mg tablet 40 mg PO DAILY Qty: 90 3RF levothyroxine 50 mcg Tablet 50 mcg PO QAM aspirin 81 mg Tablet,Chewable 81 mg PO QAM multivitamin Tablet 1 tab PO QAM ipratropium bromide 42 mcg (0.06 %) [place],Non-Aerosol 2 spray INTRANASAL UD Rx Instructions: ordered daily but pt takes tid fexofenadine 180 mg tablet 180 mg PO QAM magnesium 250 mg Tablet 250 mg PO DAILY pantoprazole 40 mg Tablet,Delayed Release (Dr/Ec) 40 mg PO BID Qty: 60 3RF Referrals Referrals: Rolan Oliva MD [Staff Physician] -
--- NOTE | 2022-03-24 20:40 | XRay Report ---
XR chest 1V portable CLINICAL HISTORY: Nausea and vomiting. COMPARISON STUDY: Chest radiograph February 13, 2021. FINDINGS: No pneumothorax or pleural effusion is noted. Minimal left basilar opacity favors atelectas is. There is no evidence for pulmonary edema. Cardiac size is normal. There has been interval develop ment of upper mediastinal widening. There is apparent rightward displacement of the trachea. A few lee spected calcified granulomas are incidentally noted. IMPRESSION: Interval development of upper mediastinal widening. This is nonspecific and a neoplastic etiology cannot be excluded. A CT of the chest with IV contrast is recommended for further evaluatio n. ACT 112: Positive. There are findings on this exam that require communication between the performing entity and the patient following Patient Test Result Information Act ([place] Act 112) guidelines. Electronically signed by: Car Rose M.D. 03/24/2022 8:37 PM
[2022-03-24] MEDS ORDERED: OPTIRAY 300 100mL IV ONE (20:46)
--- NOTE | 2022-03-24 21:53 | CT Scan Report ---
CT OF THE ABDOMEN AND PELVIS WITH CONTRAST CLINICAL HISTORY: Nausea and vomiting. COMPARISON STUDY: CT of the abdomen and pelvis February 13, 2021. TECHNIQUE: Following IV administration of 90 mL of Optiray, axial images of the abdomen and pelvis we re obtained from the lung bases to the proximal femurs. Images were reviewed in the axial, sagittal, and coronal planes. IV contrast was administered without complication. Automated exposure control wa s utilized for the study. A dose lowering technique was utilized adhering to the principles of ALARA . CT DOSE: 591.24 mGy.cm FINDINGS: There is extensive coronary artery calcification. The visualized distal esophagus is disten ded and contains a significant amount of ingested material. The esophagus is dilated to the GE juncti on. There are minimal contents within the stomach. This finding is new since CT of February 13, 2021. Eso phageal dilatation likely accounts for mediastinal widening shown on chest radiograph performed earli er today. The liver, adrenal glands, kidneys and pancreas are unremarkable. A few subcentimeter renal lesions are too small to characterize. There is renal cortical thinning. There is no biliary or panc reatic ductal dilatation. Mild splenomegaly is unchanged. Prominent upper abdominal lymph nodes are u nchanged. There is extensive plaque of the abdominal aorta and branch vessels. No evidence for a maximo l obstruction. Colonic diverticulosis is noted without evidence for acute diverticulitis. There is no ascites. A 9.3 x 3.4 cm right lateral bladder diverticulum is again noted. There is no hydronephrosi s. There are no urinary calculi. No acute fracture or suspicious lesions within the visualized skelet al structures. IMPRESSION: 1. Distention of visualized portions of the esophagus which contains a significant amount of ingested material. Esophagus dilated to the GE junction. The findings could be due to to a food impaction or achalasia. An occult lesion at the GE junction cannot be excluded by CT. GI consultation is recommend ed. Esophageal dilatation likely accounts for mediastinal widening on chest radiograph performed fabian ier today. However, a follow-up chest CT is recommended for confirmation. 2. No bowel obstruction. No bowel wall thickening. Colonic diverticulosis without evidence for acute diverticulitis. ACT 112: Negative or not required by law. Electronically signed by: Car Rose M.D. 03/24/2022 9:51 PM
--- NOTE | 2022-03-24 22:54 | History & Physical Report ---
Date of Service March 24, 2022 Assessment & Plan (1) Choked on food: Plan: 81yo male with a history of achalasia s/p myotomy, CAD s/p stents, PUD, and hypothyroidism presents with a two-day history of nausea and vomiting after getting food stuck in his throat. Food bolus, achalasia s/p myotomy Patient with a food bolus for the past two days with resultant nausea, vomiting, and PO intolerance since Vitals and labs stable Imaging findings noted in HPI Symptoms suspected secondary to achalasia GI consulted Strict NPO pending speech eval and GI consult Cady prn NSS @ 60mL/hr (x1 bag ordered) CAD s/p stents: home regimen held while NPO, restart when appropriate Hypothyroidism: home regimen held while NPO, restart when appropriate FEN: strict NPO, NSS @ 60mL/hr (x1 bag ordered) Code status: full code DVT ppx: SCDs Held home meds: home regimen held while NPO, restart when appropriate Consults: gastroenterology PT/OT: ordered Dispo: med/surg (2) Achalasia: (3) Hypothyroidism: (4) Multi-vessel coronary artery stenosis: (5) Peptic ulcer disease: History of Present Illness Primary Care Provider: Ashish Ramirez MD 81yo male with a history of achalasia s/p myotomy, CAD s/p stents, PUD, and hypothyroidism presents with a two-day history of nausea and vomiting after getting food stuck in his throat. Two days ago patient was eating "spicy bologna" when he felt it get stuck in his throat. Patient has been unable to tolerate PO since, reporting nausea and nonbloody nonbilious vomiting each time he tries to eat. Patient denies fever, chills, headache, vision changes, CP, SOB, edema, abdominal pain, dysuria, hematochezia, melena, back pain, numbness, tingling, weakness, or other symptoms. Denies recent illness. Upon arrival, vitals were unremarkable; BP controlled, no tachycardia or tachypnea, afebrile, spO2 adequate on room air. Initial labs were notable for mild anemia (13.8), mild thrombocytopenia (111), and elevated Tbili (1.7). No leukocytosis or leukopenia, no electrolyte abnormalities, creatinine not elevated, LFTs wnl, lipase not elevated. In the ED, patient received NSS 500mL bolus (x1) and zofran. CXR: interval development of upper mediastinal widening - nonspecific and a neoplastic etiology cannot be excluded CT a/p: distention of visualized portions of the esophagus which contains a significant amount of ingested material; esophagus dilated to the GE junction; the findings could be due to to a food impaction or achalasia; an occult lesion at the GE junction cannot be excluded by CT; GI consultation is recommended; esophageal dilatation likely accounts for mediastinal widening on chest radiograph performed earlier today; however, a follow-up chest CT is recommended for confirmation; no bowel obstruction or bowel wall thickening; colonic diverticulosis without evidence for acute diverticulitis Allergies Allergy/AdvReac Type Severity Reaction Status Date / Time No Known Drug Allergies Allergy Unknown Verified 03/24/22 21:07 Home Medications Medication Instructions Recorded Confirmed Type aspirin 81 mg chewable tablet 81 mg PO QAM 08/29/18 03/24/22 History levothyroxine 50 mcg tablet 50 mcg PO QAM 08/29/18 03/24/22 History ipratropium bromide 42 mcg (0.06 2 spray intranasal UD 01/23/19 03/24/22 History %) nasal spray multivitamin 1 tab PO QAM 01/23/19 03/24/22 History fexofenadine 180 mg tablet 180 mg PO QAM 02/13/21 03/24/22 History magnesium 250 mg tablet 250 mg PO DAILY 02/13/21 03/24/22 History pantoprazole 40 mg tablet,delayed 40 mg PO BID #60 tabs 02/15/21 03/24/22 Rx release clopidogrel 75 mg tablet 75 mg PO QAM 90 days #90 tabs 11/03/21 03/24/22 Rx atorvastatin 40 mg tablet 40 mg PO DAILY #90 tabs 02/16/22 03/24/22 Rx Past Med/Surg History Medical History Anemia CAD (coronary artery disease) Coronary artery stenosis Former smoker Gastric ulcer History of esophageal dilatation History of GI bleed Hypothyroidism Myocardial Infarction pt denies? Osteoarthritis Spinal stenosis Surgical History History of cardiac cath x2--SEVERE 3 VESSEL Dx with chronic RCA occlusion with distal collaterals, 95% mid lAD and 95% Cx at takeoff of OM1. LAD s/p pCI and single FRANNIE on 08/29/2018 and staged PCI of Cx on 09/05/2018 wit single FRANNIE History of carpal tunnel release of both wrists History of cholecystectomy History of esophagogastroduodenoscopy (EGD) History of heart artery stent x2 total--08/2018 and 09/2018 History of phacoemulsification of cataract of both eyes with intraocular lens i mplantation History of tonsillectomy History of tooth extraction History of total knee replacement B/L Stented coronary artery Family History Aunt Family history of diabetes mellitus Mother Family history of diabetes mellitus Family/Other Family history of diabetes mellitus niece Other No family history of adverse response to anesthesia Social History Smoking Status: Never smoker Second Hand Exposure: Yes (hx); Do You Dip or Chew Tobacco: No; Hx Alcohol Use: No Hx Substance Use: No Preferred Language: Bahamian Communication Ability: Effective Hearing Ability: Hard of Hearing Circular Knife 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 Machine Required: No Beliefs That Will Affect Care: None marital status: / Current Living Situation: Alone current occupation: retired from [employer] Other Information That Helps Us Care for You: No Feels Safe at Home: Yes Safety Concerns: Feels Safe At This Time Assistive Devices: Cane, Glasses and Hearing Aid - Bilateral Physical Exam Physical Exam: Constitutional: well-appearing, no acute distress HEENT: NCAT, no conjunctival injection, MMM CV: regular rhythm, no murmur appreciated, extremities well-perfused, no LE edema Resp: CTABL, no wheezes/rales/rhonchi appreciated, no increased work of breathing GI: soft, nondistended, nontender, BS normoactive MSK: no gross deformities appreciated Skin: warm, dry, no rash appreciated Neuro: alert, oriented, no focal neurologic deficit appreciated Results & Data Results & Data ([facility]) Vital Signs (Past 12 Hours) Vital Signs Temp Pulse Pulse Resp BP BP Pulse Ox 03/24/22 21:13 73 18 145/82 H 96 03/24/22 20:16 72 20 108/73 95 03/24/22 16:42 36.8 C 78 18 117/76 96 O2 Del Method 03/24/22 21:13 Room Air 03/24/22 20:16 Room Air 03/24/22 16:42 Room Air Supervising Physician Co-Signing Physician Notes Patient seen and examined, chart reviewed, case discussed with Dr. Zhang and I agree with the assessment and plan as above. In brief, patient is an 81yo male with history of achalasia s/p myotomy, CAD, PUD and hypothyroidism presenting with retained food bolus, nausea, vomiting and PO intolerance. Symptoms began 2 days ago after patient ate some spicy bologna. Presently he is comfortable, no nausea, no additional complaints. On exam he is resting comfortably, hard of hearing, NAD Skin - intact HEENT - MMM Heart - +S1/S2, regular, no m/r/g Lungs - CTA Abd - soft, NT/ND Ext -warm, well perfused, no clubbing/cyanosis or edema Labs and images reviewed, CT with distention of esophagus with retention of food Assessment/Plan -81yo male with history of achalasia, nausea/vomiting and PO intolerance x 2 days following ingestion of spicy bologna. Possibly secondary to achalasia. -Strict NPO with aspiration precautions -GI consultation -Remainder as above Resident Activity Tracking Resident Involvement: Resident Care Provided and Retail Team Leader Coverage Note Care Provided: Adult Hospital Medicine
[2022-03-25] MEDS ORDERED: SODIUM CHLORIDE 0.9% 1000ML 1,000 ML IV SCH (01:47)
[2022-03-25] MEDS ORDERED: ONDANSETRON INJ 2 MG/ML 2 ML VIAL IV PRN ×2 (01:47→12:24)
[2022-03-25] MEDS ORDERED: ACETAMINOPHEN 325 MG TAB PO PRN (01:47)
--- NOTE | 2022-03-25 03:36 | Billing Data ---
Date of Service March 25, 2022 Coding Level of Care Code 14684 Initial Inpt Care Lvl 2
[2022-03-25] MEDS ORDERED: diphenhydrAMINE 50 MG/ML VIAL IV STA (03:56)
[2022-03-25] MEDS ORDERED: diphenhydrAMINE 50 MG/ML VIAL ONE (04:06)
[2022-03-25 04:27] LABS: Appearance Urine Clear (Clear); Bilirubin Urine Negative (Negative); Blood Urine Negative (Negative); Color Urine Dark Yellow; Glucose Urine UA Negative (Negative); Ketones Urine Trace (Negative); Leukocyte Esterase Urine Negative (Negative); Nitrite Urine Negative (Negative); Protein Urine Negative (Negative); Specific Gravity Urine 1.045 (1.000-1.030); Urobilinogen Urine Negative (Negative); pH Urine 5.5 (4.5-7.5)
[2022-03-25 06:44] LABS: Hematocrit (blood only) 38.5 % (40.1-51.0); Hemoglobin 12.5 g/dl (14.0-18.0); Mean Corpuscular Hgb Conc 32.5 g/dL (32.0-36.0); Mean Corpuscular Volume 86.1 fL (80.0-100.0); Mean Platelet Volume 7.8 fL (9.4-12.4); Platelet Count 102 K/uL (130-400); RDW Coefficient of Variation 14.9 % (11.5-14.5); RDW Standard Deviation 46.6 fL (36.4-46.3); Red Blood Count 4.47 M/uL (4.63-6.08); White Blood Count 6.59 K/ul (4.8-10.8)
[2022-03-25 07:14] LABS: Albumin Level 4.3 gm/dl (3.4-5.0); BUN Creatinine Ratio 33.3 (10-20); Bilirubin,Total 1.3 mg/dl (0.2-1.0); Calcium 9.4 mg/dl (8.5-10.1); Creatinine Clr Calc Pharmacy 50.1 ml/min; Est GFR (African American) 73.2 ml/min; Est GFR (Non-African American) 63.1 ml/min; Globulin 2.2 gm/dl (2.5-4.0); Magnesium 2.3 mg/dl (1.7-2.4); Potassium 3.9 mmol/L (3.5-5.1); Total Protein 6.5 gm/dl (6.0-8.3)
--- NOTE | 2022-03-25 09:10 | Electrocardiogram Report ---
Test Reason : Blood Pressure : / mmHG Vent. 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
--- NOTE | 2022-03-25 09:20 | Gastrointestinal Consultation ---
Date of Consultation March 25, 2022 Assessment & Plan (1) Achalasia: (2) Choked on food: Plan 81 year old male with history of achalasia s/p POEM, here today with a two day history of food bolus with inability to tolerate PO intake and his own saliva. - discussed case with Dr. Coello who advised on plan. - will set patient up for an egd for today. Will need to be done in OR with patient intubated. Supervising Physician Co-Signing Physician Notes I personally evaluated the patient and agree with the findings as documented by BROOKLYN Marcum Exam: Constitutional: WD/WN, vitals as above General: EOM intact bilaterally Neck: normal visual inspection Respiratory: normal respiratory effort, lungs clear to auscultation Cardiovascular: RRR, no murmur, no edema Gastrointestinal: abdomennormal to inspection, nondistended, soft, nontender, no hepatosplenomegaly Musculoskeletal: no cyanosis, head normal to inspection Skin: no rashes, warm and dry Neurologic: moves all extremities Psychiatric: A and O x3, euthymic affect Proceed with EGD. risks/benefits and procedure discussed with patient, who agrees to proceed History of Present Illness Reason for Consultation: Food bolus, history of achalasia Requesting Physician: Dr. Zhang Attending Physician: Arnoldo Verduzco MD History of Present Illness Patient is an 81 year old male with a history of achalasia s/p myotomy, CAD s/p stents, PUD, and hypothyroidism presents with a two-day history of nausea, vomiting, inability to tolerate PO intake after getting food stuck in his esophagus. Two days ago patient was eating "spicy bologna" and then he felt as if it got stuck in his lower esophagus. Since that time he still feels like the food is stuck. He has been unable to tolerate oral intake for the past 2 days. He tells me yesterday he tried to eat toast and eggs but immediately brought them back up. He has also been bringing up his saliva. Yesterday, he decided to proceed to the ED for evaluation. Patient denies fever, chills, chest pain, SOB, abdominal pain, change in bowels, hematochezia, melena. He tells me that about 2-3 years ago he did have a POEM procedure for achalasia at [facility]. Last egd was 02/14/21 dilation done, nonbleeding gastric ulcer, duodenitis. Allergies Allergy/AdvReac Type Severity Reaction Status Date / Time No Known Drug Allergies Allergy Unknown Verified 03/24/22 21:07 Home Medications Medication Instructions Recorded Confirmed Type aspirin 81 mg chewable tablet 81 mg PO QAM 08/29/18 03/24/22 History levothyroxine 50 mcg tablet 50 mcg PO QAM 08/29/18 03/24/22 History ipratropium bromide 42 mcg (0.06 2 spray intranasal UD 01/23/19 03/24/22 History %) nasal spray multivitamin 1 tab PO QAM 01/23/19 03/24/22 History fexofenadine 180 mg tablet 180 mg PO QAM 02/13/21 03/24/22 History magnesium 250 mg tablet 250 mg PO DAILY 02/13/21 03/24/22 History pantoprazole 40 mg tablet,delayed 40 mg PO BID #60 tabs 02/15/21 03/24/22 Rx release clopidogrel 75 mg tablet 75 mg PO QAM 90 days #90 tabs 11/03/21 03/24/22 Rx atorvastatin 40 mg tablet 40 mg PO DAILY #90 tabs 02/16/22 03/24/22 Rx Patient History Medical History Anemia CAD (coronary artery disease) Coronary artery stenosis Former smoker Gastric ulcer History of esophageal dilatation History of GI bleed Hypothyroidism Myocardial Infarction pt denies? Osteoarthritis Spinal stenosis Surgical History History of cardiac cath x2--SEVERE 3 VESSEL Dx with chronic RCA occlusion with distal collaterals, 95% mid lAD and 95% Cx at takeoff of OM1. LAD s/p pCI and single FRANNIE on 08/29/2018 and staged PCI of Cx on 09/05/2018 wit single FRANNIE History of carpal tunnel release of both wrists History of cholecystectomy History of esophagogastroduodenoscopy (EGD) History of heart artery stent x2 total--08/2018 and 09/2018 History of phacoemulsification of cataract of both eyes with intraocular lens implantation History of tonsillectomy History of tooth extraction History of total knee replacement B/L Stented coronary artery Family History Aunt Family history of diabetes mellitus Mother Family history of diabetes mellitus Family/Other Family history of diabetes mellitus niece Other No family history of adverse response to anesthesia Social History Smoking Status: Never smoker Second Hand Exposure: Yes (hx); Do You Dip or Chew Tobacco: No; Hx Alcohol Use: No Hx Substance Use: No Preferred Language: Bermudian Communication Ability: Effective Hearing Ability: Hard of Hearing Component 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 Supervisor Required: No Beliefs That Will Affect Care: None marital status: / Current Living Situation: Alone current occupation: retired from [employer] Other Information That Helps Us Care for You: No Feels Safe at Home: Yes Safety Concerns: Feels Safe At This Time Assistive Devices: Cane, Glasses and Hearing Aid - Bilateral Review of Systems Review of Systems: All systems reviewed & are unremarkable except as noted in HPI & below Ear, Nose, Mouth, Throat: + hearing loss Physical Exam Constitutional: WD/WN, vitals as above Eyes: + anicteric sclerae and PERRL ENMT: hard of hearing, uses hearing aids. Respiratory: normal respiratory effort, lungs clear to auscultation Cardiovascular: RRR, no murmur, no edema Gastrointestinal (Abdomen): normal bowel sounds, soft, nontender, no hepatosplenomegaly Skin: no rashes, warm and dry Psychiatric: Orientation: alert and oriented x 3 Affect: euthymic affect Results & Data ([facility]) Vital Signs (Past 12 Hours) Vital Signs Temp Pulse Resp BP Pulse Ox O2 Del Method 03/25/22 07:09 36.7 C 74 18 118/70 96 Room Air 03/25/22 05:53 Room Air 03/25/22 03:00 Room Air 03/25/22 03:00 36.8 C 76 18 124/75 94 Room Air 03/24/22 23:00 75 18 124/75 94 Room Air Diagnostic Findings CHEST XRAY 03/24/22 CLINICAL HISTORY: Nausea and vomiting. COMPARISON STUDY: Chest radiograph February 13, 2021. FINDINGS: No pneumothorax or pleural effusion is noted. Minimal left basilar opacity favors atelectasis. There is no evidence for pulmonary edema. Cardiac size is normal. There has been interval development of upper mediastinal widening. There is apparent rightward displacement of the trachea. A few suspected calcified granulomas are incidentally noted. IMPRESSION: Interval development of upper mediastinal widening. This is nonspecific and a neoplastic etiology cannot be excluded. A CT of the chest with IV contrast is recommended for further evaluation. CT OF THE ABDOMEN AND PELVIS WITH CONTRAST 03/24/22 CLINICAL HISTORY: Nausea and vomiting. COMPARISON STUDY: CT of the abdomen and pelvis February 13, 2021. TECHNIQUE: Following IV administration of 90 mL of Optiray, axial images of the abdomen and pelvis were obtained from the lung bases to the proximal femurs. Marlen ges were reviewed in the axial, sagittal, and coronal planes. IV contrast was administered without complication. Automated exposure control was utilized for the study. A dose lowering technique was utilized adhering to the principles of ALARA. CT DOSE: 591.24 mGy.cm FINDINGS: There is extensive coronary artery calcification. The visualized distal esophagus is distended and contains a significant amount of ingested material. The esophagus is dilated to the GE junction. There are minimal contents within the stomach. This finding is new since CT of February 13, 2021. Esophageal dilatation likely accounts for mediastinal widening shown on chest radiograph performed earlier today. The liver, adrenal glands, kidneys and pancreas are unremarkable. A few subcentimeter renal lesions are too small to characterize. There is renal cortical thinning. There is no biliary or pancreatic ductal dilatation. Mild splenomegaly is unchanged. Prominent upper abdominal lymph nodes are unchanged. There is extensive plaque of the abdominal aorta and branch vessels. No evidence for a bowel obstruction. Colonic diverticulosis is noted without evidence for acute diverticulitis. There is no ascites. A 9.3 x 3.4 cm right lateral bladder diverticulum is again noted. There is no hydronephrosis. There are no urinary calculi. No acute fracture or suspicious lesions within the visualized skeletal structures. IMPRESSION: 1. Distention of visualized portions of the esophagus which contains a significant amount of ingested material. Esophagus dilated to the GE junction. The findings could be due to to a food impaction or achalasia. An occult lesion at the GE junction cannot be excluded by CT. GI consultation is recommended. Esophageal dilatation likely accounts for mediastinal widening on chest radio graph performed earlier today. However, a follow-up chest CT is recommended for confirmation. 2. No bowel obstruction. No bowel wall thickening. Colonic diverticulosis without evidence for acute diverticulitis. PG Care Time/CCT Total # of Minutes Spent Total Time Spent with Patient: Total time spent is greater than 50% in coordination of care (as documented) at patient's floor/unit and/or counseling patient: Coding Level of Care Code 33418 Initial Inpt Care Lvl 3 Diagnoses Achalasia K22.0 Choked on food
--- NOTE | 2022-03-25 10:40 | Anesthesiology Consultation ---
Date of Service March 25, 2022 Assessment & Plan (1) Encounter for pre-operative examination: Chart Review Chart Review: Acceptable Risk for Surgery (necessary surgery) and Patient NOT seen in Pre Admission Testing Consults Requested none History Surgery Operation Date: 03/25/22 09:30 Proposed Procedures p Esophagogastroduodenoscopy - Johny Coello MD Operation Date: 03/25/22 16:15 Proposed Procedures p Esophagogastroduodenoscopy Dr. Coello - Johny Coello MD Height/Weight Height: 5 ft 8 in Weight: 81.647 kg Allergies Allergy/AdvReac Type Severity Reaction Status Date / Time No Known Drug Allergies Allergy Unknown Verified 03/24/22 21:07 Medications Home Medications Medication Instructions Recorded Confirmed Last Taken aspirin 81 mg chewable tablet 81 mg PO QAM 08/29/18 03/24/22 04/29/21 levothyroxine 50 mcg tablet 50 mcg PO QAM 08/29/18 03/24/22 04/30/21 06:00 ipratropium bromide 42 mcg (0.06 2 spray intranasal UD 01/23/19 03/24/22 04/29/21 %) nasal spray multivitamin 1 tab PO QAM 01/23/19 03/24/22 04/29/21 fexofenadine 180 mg tablet 180 mg PO QAM 02/13/21 03/24/22 04/29/21 magnesium 250 mg tablet 250 mg PO DAILY 02/13/21 03/24/22 04/29/21 pantoprazole 40 mg tablet,delayed 40 mg PO BID #60 tabs 02/15/21 03/24/22 04/30/21 06:00 release clopidogrel 75 mg tablet 75 mg PO QAM 90 days #90 tabs 11/03/21 03/24/22 Unknown atorvastatin 40 mg tablet 40 mg PO DAILY #90 tabs 02/16/22 03/24/22 Unknown Active Medications Generic Name Dose Route Start Last Admin Trade Name Freq PRN Reason Stop Dose Admin Sodium Chloride 1,000 mls @ 60 mls/hr 03/25/22 01:47 03/25/22 04:12 Nss 1000ml IV 03/25/22 18:26 60 mls/hr .[id number] CAMRYN Administration Past Medical History Medical History Anemia CAD (coronary artery disease) Coronary artery stenosis Former smoker Gastric ulcer History of esophageal dilatation History of GI bleed Hypothyroidism Myocardial Infarction pt denies? Osteoarthritis Spinal stenosis Past Family History Family History Aunt Family history of diabetes mellitus Mother Family history of diabetes mellitus Family/Other Family history of diabetes mellitus niece Other No family history of adverse response to anesthesia Past Surgical History Surgical History History of cardiac cath x2--SEVERE 3 VESSEL Dx with chronic RCA occlusion with distal collaterals, 95% mid lAD and 95% Cx at takeoff of OM1. LAD s/p pCI and single FRANNIE on 08/29/2018 and staged PCI of Cx on 09/05/2018 wit single FRANNIE History of carpal tunnel release of both wrists History of cholecystectomy History of esophagogastroduodenoscopy (EGD) History of heart artery stent x2 total--08/2018 and 09/2018 History of phacoemulsification of cataract of both eyes with intraocular lens im [place] History of tonsillectomy History of tooth extraction History of total knee replacement B/L Stented coronary artery Social History Smoking Status: Never smoker Do You Dip or Chew Tobacco: No Hx Alcohol Use: No Hx Substance Use: No substance use type: does not use Physical Exam Vital Signs Last Vital Signs Temp 36.7 C 03/25/22 07:09 Pulse 74 03/25/22 07:09 Resp 18 03/25/22 07:09 BP 118/70 03/25/22 07:09 Pulse Ox 96 03/25/22 07:09 O2 Del Method 03/25/22 07:09 Testing Laboratory Results 03/25/22 06:13 03/25/22 06:13 Urine Color Dark Yellow 03/25/22 03:43 Urine Appearance Clear (Clear) 03/25/22 03:43 Urine pH 5.5 (4.5-7.5) 03/25/22 03:43 Ur Specific [place] 1.045 (1.000-1.030) H 03/25/22 03:43 Urine Protein Negative (Negative) 03/25/22 03:43 Urine Glucose (UA) Negative (Negative) 03/25/22 03:43 Urine Ketones Trace (Negative) H 03/25/22 03:43 Urine Nitrite Negative (Negative) 03/25/22 03:43 Ur Leukocyte Esterase Negative (Negative) 03/25/22 03:43 Electrocardiogram Date: 03/24/22 DICTATED BY:Dirk Olson MD Test Reason : Blood Pressure : / mmHG Vent. 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 COMPARISON STUDY: Chest radiograph February 13, 2021. FINDINGS: No pneumothorax or pleural effusion is noted. Minimal left basilar opacity favors atelectasis. There is no evidence for pulmonary edema. Cardiac size is normal. There has been interval development of upper mediastinal widening. There is apparent rightward displacement of the trachea. A few suspected calcified granulomas are incidentally noted. IMPRESSION: Interval development of upper mediastinal widening. This is nonspecific and a neoplastic etiology cannot be excluded. A CT of the chest with IV contrast is recommended for further evaluation. ACT 112: Positive. There are findings on this exam that require communication between the performing entity and the patient following Patient Test Result Information Act ([place] Act 112) guidelines. Electronically signed by: Car Rose M.D. 03/24/2022 8:37 PM Echocardiogram Date: 02/14/21 EF: 55-60 LV Function: normal Other Findings: + LVH (mild) Valvular Disease: + (mild) RVSP 30-[address] OF THE ABDOMEN AND PELVIS WITH CONTRAST CLINICAL HISTORY: Nausea and vomiting. COMPARISON STUDY: CT of the abdomen and pelvis February 13, 2021. TECHNIQUE: Following IV administration of 90 mL of Optiray, axial images of the abdomen and pelvis were obtained from the lung bases to the proximal femurs. Images were reviewed in the axial, sagittal, and coronal planes. IV contrast was administered without complication. Automated exposure control was utilized for the study. A dose lowering technique was utilized adhering to the principles of ALARA. CT DOSE: 591.24 mGy.cm FINDINGS: There is extensive coronary artery calcification. The visualized distal esophagus is distended and contains a significant amount of ingested material. The esophagus is dilated to the GE junction. There are minimal contents within the stomach. This finding is new since CT of February 13, 2021. Esophageal dilatation likely accounts for mediastinal widening shown on chest radiograph performed earlier today. The liver, adrenal glands, kidneys and pancreas are unremarkable. A few subcentimeter renal lesions are too small to characterize. There is renal cortical thinning. There is no biliary or pancreatic ductal dilatation. Mild splenomegaly is unchanged. Prominent upper ab dominal lymph nodes are unchanged. There is extensive plaque of the abdominal aorta and branch vessels. No evidence for a bowel obstruction. Colonic diverticulosis is noted without evidence for acute diverticulitis. There is no ascites. A 9.3 x 3.4 cm right lateral bladder diverticulum is again noted. There is no hydronephrosis. There are no urinary calculi. No acute fracture or suspicious lesions within the visualized skeletal structures. IMPRESSION: 1. Distention of visualized portions of the esophagus which contains a significant amount of ingested material. Esophagus dilated to the GE junction. The findings could be due to to a food impaction or achalasia. An occult lesion at the GE junction cannot be excluded by CT. GI consultation is recommended. Esophageal dilatation likely accounts for mediastinal widening on chest radiograph performed earlier today. However, a follow-up chest CT is recommended for confirmation. 2. No bowel obstruction. No bowel wall thickening. Colonic diverticulosis without evidence for acute diverticulitis. ACT 112: Negative or not required by law. Electronically signed by: Car Rose M.D. 03/24/2022 9:51 PM Dictated:03/24/22 2139
[2022-03-25] MEDS ORDERED: ONDANSETRON INJ 2 MG/ML 2 ML VIAL ONE (12:19)
[2022-03-25] MEDS ORDERED: SUCCINYLCHOLINE CHLORIDE 20 MG/ML 10 ML VIAL IV ONE (12:19)
[2022-03-25] MEDS ORDERED: DEXAMETHASONE SOD INJ 4 MG/ML VIAL ONE (12:19)
[2022-03-25] MEDS ORDERED: PROPOFOL IV EMULSION 10 MG/ML 20 ML VIAL IV ONE (12:19)
[2022-03-25] MEDS ORDERED: fentaNYL citrate 100 MCG/2 ML VIAL IV PRN (12:24)
[2022-03-25] MEDS ORDERED: ePHEDrine sulfate 50 MG/ML AMP IV PRN (12:24)
[2022-03-25] MEDS ORDERED: ATROPINE SULFATE 0.1 MG/ML 10ML SYR IV PRN (12:24)
--- NOTE | 2022-03-25 14:04 | Procedure Note ---
Procedure Note Date of Service March 25, 2022 Note GI brief procedure/post op note egd findings: copious amounts of semisolid food bolus found in entire esophagus, removed via suction and shrestha net, no evidence for any obvious mass lesion or hiatal hernia. mild gastritis noted. recs: NPO today, speech and swallow evaluation tomorrow morning supportive care, IVF Johny Coello MD Gastroenterology Coding
--- NOTE | 2022-03-25 14:15 | GI REPORT ---
Patient Name: Smith Lindsey Procedure Date: 03/25/2022 12:07 PM Date of : 1940 Admit Type: Inpatient Age: 81 Gender: Male Attending MD: Johny Coello MD Procedure: Upper GI endoscopy Providers: Johny Coello MD Referring MD: Arnoldo Verduzco Md Indications: Dysphagia, Foreign body in the esophagus Medicines: Monitored Anesthesia Care Complications: No immediate complications. Estimated blood loss: None. Estimated Blood Loss: Estimated blood loss: none. Procedure: Pre-Anesthesia Assessment: - Prior Anticoagulants: The patient has taken no previous anticoagulant or antiplatelet agents. - ASA Grade Assessment: II - A patient with mild systemic disease. After obtaining informed consent, the endoscope was passed under direct vision. Throughout the procedure, the patient's blood pressure, pulse, and oxygen saturations were monitored continuously. The Endoscope was introduced through the mouth, and advanced to the second part of duodenum. The upper GI endoscopy was accomplished without difficulty. The patient tolerated the procedure well. Findings: Food was found in the entire esophagus which was dilated. Removal of food was accomplished using shrestha net and suction and talons. Estimated blood loss: none. no evidence for any obvious mass lesion or hiatal hernia. Diffuse mild inflammation characterized by erythema was found in the stomach. The duodenal bulb and second portion of the duodenum were normal. Impression: - Food in the esophagus. Removal was successful. - Gastritis. - Normal duodenal bulb and second portion of the duodenum. Recommendation: - Return patient to hospital eng for ongoing care. -NPO, speech and swallow evaluation tomorrow morning supportive care, [facility] Johny Coello MD 03/25/2022 2:15:27 PM This report has been signed electronically. Note Initiated On: 03/25/2022 12:07 PM Number of Addenda: 0 I attest to the content of the Intraoperative Record and orders documented therein, exceptions below {[id number]}
--- NOTE | 2022-03-25 14:49 | Anesthesiology Progress Note ---
Date of Service March 25, 2022 Anesthesia Post Procedure Vital Signs Vital Signs: Temp Pulse Pulse Pulse Resp BP BP 03/25/22 14:40 68 18 130/54 L 03/25/22 14:30 66 18 117/96 03/25/22 14:20 73 16 113/63 03/25/22 14:10 67 19 111/60 03/25/22 14:04 97.9 F 64 19 112/55 L 03/25/22 12:20 98.1 F 73 20 124/75 03/25/22 07:09 98.1 F 74 18 118/70 03/25/22 05:53 03/25/22 03:00 03/25/22 03:00 98.2 F 76 18 124/75 03/24/22 23:00 75 18 124/75 03/24/22 21:13 73 18 145/82 H 03/24/22 20:16 72 20 108/73 03/24/22 16:42 98.2 F 78 18 117/76 Pulse Ox O2 Del Method O2 Flow Rate 03/25/22 14:40 95 Nasal Cannula 2 03/25/22 14:30 92 Nasal Cannula 2 03/25/22 14:20 97 Oxymask 6 03/25/22 14:10 98 Oxymask 10 03/25/22 14:04 93 Oxymask 6 03/25/22 12:20 94 Room Air 03/25/22 07:09 96 Room Air 03/25/22 05:53 Room Air 03/25/22 03:00 Room Air 03/25/22 03:00 94 Room Air 03/24/22 23:00 94 Room Air 03/24/22 21:13 96 Room Air 03/24/22 20:16 95 Room Air 03/24/22 16:42 96 Room Air Transfer of Care Handoff Completed per policy Notes Mental Status: alert / awake / arousable and participated in evaluation Patient Amnestic to Procedure: Yes Nausea / Vomiting: adequately controlled Pain: adequately controlled Airway Patency, RR, SpO2: stable & adequate BP & HR: stable & adequate Hydration State: stable & adequate Anesthetic Complications: no major complications apparent and Pt Satisfied with anesthetic care
--- NOTE | 2022-03-25 15:15 | Hospitalist Progress Note ---
Date of Service March 25, 2022 Assessment & Plan (1) Choked on food: Plan: 81yo male with a history of achalasia s/p myotomy, CAD s/p stents, PUD, and hypothyroidism presents with a two-day history of nausea and vomiting after getting food stuck in his throat. Food bolus, achalasia s/p myotomy - Patient with a food bolus for the past two days with resultant nausea, vomiting, and PO intolerance since - Vitals and labs stable - Imaging findings noted in HPI - Symptoms suspected secondary to achalasia - GI consulted s/p EGD 03/25 with food residue removal - Strict NPO until seen by speech and swallowing study completed - Zofran IV prn - NSS @ 60mL/hr (x1 bag ordered) (2) Achalasia: Plan: - As above (3) Hypothyroidism: Plan: - Levothyroxine on hold until seen by speech (4) Multi-vessel coronary artery stenosis: Plan: - Takes ASA, Lipitor, and Plavix -- currently on hold while NPO (5) Peptic ulcer disease: Plan: - Gastritis noted on EGD - Start on PPI IV until seen by speech Plan As above. Await input by [employer] and swallowing study to determine appropriate diet for patient and resume home medications at that time. PT/OT to aid in d/c planning. Plan has been d/w Dr. Preeti Verduzco. Admission and Anticipated Discharge Date Admission Date: March 25, 2022 Subjective Patient seen on daily rounds this afternoon. Seen in PACU as he was waiting for a room upstairs. Pt is very [place] and difficult to communicate with. Verbalizes no complaints/denies pain. No issues reported by [facility] [employer]. Tolerated EGD procedure well, lots of food residue removed from esophagus. GI wants NPO until seen by speech. Review of Systems Review of Systems: All systems reviewed and are unremarkable except as noted in HPI and below. Denies fever, chills, fatigue, headache, nasal congestion, sore throat, cough, chest pain, shortness of breath, palpitations, orthopnea, PND, abdominal pain, n/v/d, constipation, dysuria, hematuria, frequency, back pain, joint pain or swelling, easy bruising or bleeding, skin lesions or rashes. Physical Exam Physical Exam: GENERAL: 81 yo Well-developed, well-nourished WF. NAD. LUNGS: Clear to auscultation bilaterally. No W/R/R. CARDIOVASCULAR: Regular rate and rhythm 3/6 SUSAN. ABDOMEN: Soft, non-tender and non-distended. BS normoactive x 4 quad. EXTREMITIES: No edema. Non-tender. Peripheral pulses +2/4. NEUROLOGIC: A&O x3--very [place]. PSYCHIATRIC: Cooperative. Appropriate mood and affect. SKIN: Warm, dry, intact. No rashes or lesions. Results & Data Results & Data ([facility]) Vital Signs (Past 12 Hours) Vital Signs Temp Pulse Pulse Resp BP Pulse Ox O2 Del Method 03/25/22 15:00 69 22 114/64 94 Nasal Cannula 03/25/22 14:50 71 20 122/63 94 Nasal Cannula 03/25/22 14:40 68 18 130/54 L 95 Nasal Cannula 03/25/22 14:30 66 18 117/96 92 Nasal Cannula 03/25/22 14:20 73 16 113/63 97 Oxymask 03/25/22 14:10 67 19 111/60 98 Oxymask 03/25/22 14:04 36.6 C 64 19 112/55 L 93 Oxymask 03/25/22 12:20 36.7 C 73 20 124/75 94 Room Air 03/25/22 07:09 36.7 C 74 18 118/70 96 Room Air 03/25/22 05:53 Room Air O2 Flow Rate 03/25/22 15:00 2 03/25/22 14:50 2 03/25/22 14:40 2 03/25/22 14:30 2 03/25/22 14:20 6 03/25/22 14:10 10 03/25/22 14:04 6 03/25/22 12:20 03/25/22 07:09 03/25/22 05:53 Laboratory Results 03/25/22 06:13 03/25/22 06:13 PG Care Time/CCT Total # of Minutes Spent Total Time Spent with Patient: Total time spent is greater than 50% in coordination of care (as documented) at patient's floor/unit and/or counseling patient: Coding Level of Care Code 68935 Subseq Hosp Care Lvl 2 Diagnoses Choked on food Achalasia K22.0 Hypothyroidism E03.9 Multi-vessel coronary artery stenosis I25.10 Peptic ulcer disease K27.9
[2022-03-25] MEDS ORDERED: ACETAMINOPHEN 1,000 MG/100 ML VIAL IV PRN (17:57)
[2022-03-25] MEDS: PANTOprazole 40 MG in SYRINGE 0 ML IV SCH (20:14)
[2022-03-26 09:27] LABS: Hematocrit (blood only) 40.6 % (40.1-51.0); Hemoglobin 13.4 g/dl (14.0-18.0); Mean Corpuscular Hemoglobin 28.7 pg (25.0-34.0); Mean Corpuscular Volume 86.9 fL (80.0-100.0); Mean Platelet Volume 8.2 fL (9.4-12.4); Platelet Count 116 K/uL (130-400); RDW Coefficient of Variation 14.8 % (11.5-14.5); RDW Standard Deviation 46.9 fL (36.4-46.3); Red Blood Count 4.67 M/uL (4.63-6.08); White Blood Count 6.97 K/ul (4.8-10.8)
[2022-03-26 09:51] LABS: Albumin Globulin Ratio 1.9 (0.9-2); Albumin Level 4.4 gm/dl (3.4-5.0); BUN Creatinine Ratio 34.3 (10-20); Bilirubin,Total 1.5 mg/dl (0.2-1.0); Calcium 9.2 mg/dl (8.5-10.1); Creatinine Clr Calc Pharmacy 50.1 ml/min; Est GFR (African American) 73.2 ml/min; Est GFR (Non-African American) 63.1 ml/min; Globulin 2.3 gm/dl (2.5-4.0); Potassium 3.7 mmol/L (3.5-5.1); Total Protein 6.7 gm/dl (6.0-8.3)
[2022-03-26] MEDS: PANTOprazole 40 MG in SYRINGE 0 ML IV SCH (09:51)
[2022-03-26] MEDS ORDERED: OPTIRAY 300 500mL IV ONE (10:15)
--- NOTE | 2022-03-26 10:52 | Fluoroscopy Report ---
FL barium swallow CLINICAL HISTORY: food bolus/achalasia COMPARISON STUDY: Abdomen and pelvis CT 03/24/2022. FINDINGS: Total fluoroscopy time was 2.3 minutes. 12 fluoroscopic spot images and a cine loop of the chest were submitted. The patient swallowed barium. Large amount of residue seen within the hypophary nx. No aspiration during the examination. Dilated esophagus with associated moderate dysmotility. Mod erate narrowing at the gastroesophageal junction. No gastroesophageal reflux demonstrated during the examination. The barium tablet passed out difficulty. IMPRESSION: A dilated esophagus with moderate dysmotility and moderate narrowing at the gastroesopha geal junction. This may represent achalasia. An underlying mass at the gastroesophageal junction is n ot excluded. Recommend correlation with endoscopy. ACT 112: Negative or not required by law. Electronically signed by: Chung Clifton M.D. 03/26/2022 10:50 AM
--- NOTE | 2022-03-26 12:14 | CT Scan Report ---
CT OF THE CHEST WITH IV CONTRAST CLINICAL HISTORY: mediastinal widening COMPARISON STUDY: Chest radiograph March 24, 2022. CT of the abdomen and pelvis March 24, 2022. TECHNIQUE: Following IV administration of 93 mL of Optiray, helical axial images of the chest were o btained. Sagittal and coronal reconstructions were viewed as well as maximal intensity projections o n an independent 3-D workstation. Automated exposure control was utilized for the study. A dose low ering technique was utilized adhering to the principles of ALARA. CT DOSE: 323.54 mGy.cm FINDINGS: There is mild dilatation of the ascending aorta, measuring 4.1 cm. Extensive coronary tobias ry calcification is present. There is no pericardial effusion. Size of the heart is normal. Esophagea l dilatation has improved since abdominal CT of March 24, 2022. There is mild residual esophageal di latation. Esophageal dilatation accounts for mediastinal widening shown on chest radiograph. Esophage al wall thickening is noted. Amount of intraluminal contents within the distal esophagus has markedly diminished. No pneumomediastinum is present. Linear and groundglass densities within lungs favor ate lectasis. No consolidation to suggest pneumonia. Central airways are patent. A few prominent left axi llary lymph nodes are noted. Although indeterminate, these are probably benign. Visualized portions o f the upper abdomen are unremarkable. Scattered calcified granulomas are present. IMPRESSION: 1. Significant interval improvement in esophageal dilatation and decrease in the intraluminal content s since CT of March 24, 2022. Mild esophageal wall thickening. Esophageal dilatation accounted for m ediastinal widening on chest radiograph. 2. No consolidation to suggest pneumonia. ACT 112: Negative or not required by law. Electronically signed by: Car Rose M.D. 03/26/2022 12:12 PM
--- NOTE | 2022-03-26 15:39 | Hospitalist Progress Note ---
Date of Service March 26, 2022 Assessment & Plan (1) Choked on food: Plan: 81yo male with a history of achalasia s/p myotomy, CAD s/p stents, PUD, and hypothyroidism presents with a two-day history of nausea and vomiting after getting food stuck in his throat. Food bolus, achalasia s/p myotomy - Patient with a food bolus for the past two days with resultant nausea, vomiting, and PO intolerance since - Vitals and labs stable - Imaging findings noted in HPI - Symptoms suspected secondary to achalasia - GI consulted s/p EGD 03/25 with food residue removal - Zofran IV prn - Seen by [facility] ADMINISTRATOR. No overt aspiration, but tons of esophageal dysmotility. Recommended restarting diet with full liquids, then advance tomorrow. [facility] ADMINISTRATOR (Raul Worley) will re-evaluate. Can likely be discharged tomorrow. (2) Achalasia: Plan: - As above (3) Hypothyroidism: Plan: - Restart levothyroxine (4) Multi-vessel coronary artery stenosis: Plan: - Takes ASA, Lipitor, and Plavix (5) Peptic ulcer disease: Plan: - Gastritis noted on EGD Admission and Anticipated Discharge Date Admission Date: March 25, 2022 Subjective Doing better today. No major issues. Reports no fevers/chills, chest pain, shortness of breath, abdominal pain, nausea, or vomiting. Physical Exam Constitutional: WD/WN, vitals as above Eyes: EOM intact bilaterally; no conjunctival abnormality ENMT: external ear and nose normal, oropharynx normal Neck: trachea midline, no thyromegaly normal visual inspection Respiratory: normal respiratory effort, lungs clear to auscultation no respiratory distress Cardiovascular: RRR, no murmur, no edema Gastrointestinal (Abdomen): Inspection/Auscultation: abdomen normal to inspection; abdomen not distended Musculoskeletal: no cyanosis or clubbing, extremities motor strength 5/5 Skin: no rashes, warm and dry Neurologic: moves all extremities and awake Psychiatric: Orientation: alert, oriented to person and cooperative Results & Data Results & Data ([facility]) Vital Signs (Past 12 Hours) Vital Signs Temp Pulse Pulse Resp BP BP Pulse Ox 03/26/22 14:36 36.7 C 72 17 96/62 L 97 03/26/22 12:04 36.5 C 67 16 124/68 94 03/26/22 08:38 36.3 C L 65 16 132/71 99 O2 Del Method O2 Flow Rate 03/26/22 14:36 Room Air 03/26/22 12:04 Room Air 03/26/22 08:38 Nasal Cannula 2 PG Care Time/CCT Total # of Minutes Spent Total Time Spent with Patient: Total time spent is greater than 50% in coordination of care (as documented) at patient's floor/unit and/or counseling patient: Coding Level of Care Code 98328 Subseq Hosp Care Lvl 2 Diagnoses Choked on food Achalasia K22.0 Hypothyroidism E03.9 Multi-vessel coronary artery stenosis I25.10 Peptic ulcer disease K27.9
[2022-03-26] MEDS: PANTOprazole 40 MG TAB PO SCH (19:56)
[2022-03-27] MEDS ORDERED: LEVOTHYROXINE SODIUM 50 MCG TABLET PO SCH (06:30)
[2022-03-27 07:10] LABS: BUN Creatinine Ratio 27.5 (10-20); Creatinine Clr Calc Pharmacy 49.7 ml/min; Est GFR (African American) 72.4 ml/min; Est GFR (Non-African American) 62.4 ml/min; Potassium 3.6 mmol/L (3.5-5.1)
[2022-03-27 07:49] LABS: Albumin Level 3.8 gm/dl (3.4-5.0); Bilirubin,Total 1.1 mg/dl (0.2-1.0); Globulin 1.9 gm/dl (2.5-4.0); Total Protein 5.7 gm/dl (6.0-8.3)
[2022-03-27] MEDS: PANTOprazole 40 MG TAB PO SCH (08:21)
[2022-03-27] MEDS ORDERED: CLOPIDOGREL BISULFATE 75 MG TAB PO SCH (09:00)
[2022-03-27] MEDS ORDERED: ATORVASTATIN 40 MG TAB PO SCH (09:00)
[2022-03-27] MEDS ORDERED: ASPIRIN 81 MG CHEW PO SCH (09:00)
[2022-03-27] MEDS ORDERED: FEXOFENADINE HCL 180 MG TAB PO SCH (09:00)
--- NOTE | 2022-03-27 15:47 | Discharge Summary ---
Date of Service March 27, 2022 Admission HPI Per Admitting Provider 81yo male with a history of achalasia s/p myotomy, CAD s/p stents, PUD, and hypothyroidism presents with a two-day history of nausea and vomiting after getting food stuck in his throat. Two days ago patient was eating "spicy bologna" when he felt it get stuck in his throat. Patient has been unable to tolerate PO since, reporting nausea and nonbloody nonbilious vomiting each time he tries to eat. Patient denies fever, chills, headache, vision changes, CP, SOB, edema, abdominal pain, dysuria, hematochezia, melena, back pain, numbness, tingling, weakness, or other symptoms. Denies recent illness. Upon arrival, vitals were unremarkable; BP controlled, no tachycardia or tachypnea, afebrile, spO2 adequate on room air. Initial labs were notable for mild anemia (13.8), mild thrombocytopenia (111), and elevated Tbili (1.7). No leukocytosis or leukopenia, no electrolyte abnormalities, creatinine not elevated, LFTs wnl, lipase not elevated. In the ED, patient received NSS 500mL bolus (x1) and zofran. CXR: interval development of upper mediastinal widening - nonspecific and a neoplastic etiology cannot be excluded CT a/p: distention of visualized portions of the esophagus which contains a significant amount of ingested material; esophagus dilated to the GE junction; the findings could be due to to a food impaction or achalasia; an occult lesion at the GE junction cannot be excluded by CT; GI consultation is recommended; esophageal dilatation likely accounts for mediastinal widening on chest radiograph performed earlier today; however, a follow-up chest CT is recommended for confirmation; no bowel obstruction or bowel wall thickening; colonic diverticulosis without evidence for acute diverticulitis Principal Diagnosis 1. Discharge Exam GENERAL: 81 yo Well-developed, well-nourished WF. NAD. LUNGS: Clear to auscultation bilaterally. No W/R/R. CARDIOVASCULAR: Regular rate and rhythm 3/6 SUSAN. ABDOMEN: Soft, non-tender and non-distended. BS normoactive x 4 quad. EXTREMITIES: No edema. Non-tender. Peripheral pulses +2/4. NEUROLOGIC: A&O x3 PSYCHIATRIC: Cooperative. Appropriate mood and affect. SKIN: Warm, dry, intact. No rashes or lesions. Discharge Data Allergies Allergy/AdvReac Type Severity Reaction Status Date / Time No Known Drug Allergies Allergy Unknown Verified 03/25/22 12:17 Consultations 03/24/22 22:34 ED Decision to Admit Stat 03/25/22 01:47 Consult Gastroenterology Routine Procedures Performed Operation Date: 03/25/22 09:30 Actual Procedures p Esophagogastroduodenoscopy - Johny Coello MD Operation Date: 03/25/22 16:15 <No data on this case meets the specified criteria> Ordered Studies Abdomen/Pelvis CT 03/24/22 20:05 CT OF THE ABDOMEN AND PELVIS WITH CONTRAST CLINICAL HISTORY: Nausea and vomiting. COMPARISON STUDY: CT of the abdomen and pelvis February 13, 2021. TECHNIQUE: Following IV administration of 90 mL of Optiray, axial images of the abdomen and pelvis were obtained from the lung bases to the proximal femurs. Images were reviewed in the axial, sagittal, and coronal planes. IV contrast was administered without complication. Automated exposure control was utilized for the study. A dose lowering technique was utilized adhering to the principles of ALARA. CT DOSE: 591.24 mGy.cm FINDINGS: There is extensive coronary artery calcification. The visualized distal esophagus is distended and contains a significant amount of ingested material. The esophagus is dilated to the GE junction. There are minimal contents within the stomach. This finding is new since CT of February 13, 2021. Esophageal dilatation likely accounts for mediastinal widening shown on chest radiograph performed earlier today. The liver, adrenal glands, kidneys and pancreas are unremarkable. A few subcentimeter renal lesions are too small to characterize. There is renal cortical thinning. There is no biliary or pancreatic ductal dilatation. Mild splenomegaly is unchanged. Prominent upper abdominal lymph nodes are unchanged. There is extensive plaque of the abdominal aorta and branch vessels. No evidence for a bowel obstruction. Colonic diverticulosis is noted without evidence for acute diverticulitis. There is no ascites. A 9.3 x 3.4 cm right lateral bladder diverticulum is again noted. There is no hydronephrosis. There are no urinary calculi. No acute fracture or suspicious lesions within the visualized skeletal structures. IMPRESSION: 1. Distention of visualized portions of the esophagus which contains a significant amount of ingested material. Esophagus dilated to the GE junction. The findings could be due to to a food impaction or achalasia. An occult lesion at the GE junction cannot be excluded by CT. GI consultation is recommended. Esophageal dilatation likely accounts for mediastinal widening on chest radiograph performed earlier today. However, a follow-up chest CT is recommended for confirmation. 2. No bowel obstruction. No bowel wall thickening. Colonic diverticulosis without evidence for acute diverticulitis. ACT 112: Negative or not required by law. Electronically signed by: Car Rose M.D. 03/24/2022 9:51 PM Chest X-Ray 03/24/22 20:05 XR chest 1V portable CLINICAL HISTORY: Nausea and vomiting. COMPARISON STUDY: Chest radiograph February 13, 2021. FINDINGS: No pneumothorax or pleural effusion is noted. Minimal left basilar opacity favors atelectasis. There is no evidence for pulmonary edema. Cardiac size is normal. There has been interval development of upper mediastinal widening. There is apparent rightward displacement of the trachea. A few suspected calcified granulomas are incidentally noted. IMPRESSION: Interval development of upper mediastinal widening. This is nonspecific and a neoplastic etiology cannot be excluded. A CT of the chest with IV contrast is recommended for further evaluation. ACT 112: Positive. There are findings on this exam that require communication between the performing entity and the patient following Patient Test Result Information Act ([place] Act 112) guidelines. Electronically signed by: Car Rose M.D. 03/24/2022 8:[address] 03/26/22 08:00 CT OF THE CHEST WITH IV CONTRAST CLINICAL HISTORY: mediastinal widening COMPARISON STUDY: Chest radiograph March 24, 2022. CT of the abdomen and pelvis March 24, 2022. TECHNIQUE: Following IV administration of 93 mL of Optiray, helical axial images of the chest were obtained. Sagittal and coronal reconstructions were viewed as well as maximal intensity projections on an independent 3-D workstation. Automated exposure control was utilized for the study. A dose lowering technique was utilized adhering to the principles of ALARA. CT DOSE: 323.54 mGy.cm FINDINGS: There is mild dilatation of the ascending aorta, measuring 4.1 cm. Extensive coronary artery calcification is present. There is no pericardial effusion. Size of the heart is normal. Esophageal dilatation has improved since abdominal CT of March 24, 2022. There is mild residual esophageal dilatation. Esophageal dilatation accounts for mediastinal widening shown on chest radiograph. Esophageal wall thickening is noted. Amount of intraluminal contents within the distal esophagus has markedly diminished. No pneumomediastinum is present. Linear and groundglass densities within lungs favor atelectasis. No consolidation to suggest pneumonia. Central airways are patent. A few prominent left axillary lymph nodes are noted. Although indeterminate, these are probably benign. Visualized portions of the upper abdomen are unremarkable. Scattered calcified granulomas are present. IMPRESSION: 1. Significant interval improvement in esophageal dilatation and decrease in the intraluminal contents since CT of March 24, 2022. Mild esophageal wall thickening. Esophageal dilatation accounted for mediastinal widening on chest radiograph. 2. No consolidation to suggest pneumonia. ACT 112: Negative or not required by law. Electronically signed by: Car Rose M.D. 03/26/2022 12:12 PM Barium Swallow X-Ray 03/26/22 10:30 FL barium swallow CLINICAL HISTORY: food bolus/achalasia COMPARISON STUDY: Abdomen and pelvis CT 03/24/2022. FINDINGS: Total fluoroscopy time was 2.3 minutes. 12 fluoroscopic spot images and a cine loop of the chest were submitted. The patient swallowed barium. Large amount of residue seen within the hypopharynx. No aspiration during the examina tion. Dilated esophagus with associated moderate dysmotility. Moderate narrowing at the gastroesophageal junction. No gastroesophageal reflux demonstrated during the examination. The barium tablet passed out difficulty. IMPRESSION: A dilated esophagus with moderate dysmotility and moderate narrowing at the gastroesophageal junction. This may represent achalasia. An underlying mass at the gastroesophageal junction is not excluded. Recommend correlation with endoscopy. ACT 112: Negative or not required by law. Electronically signed by: Chung Clifton M.D. 03/26/2022 10:50 AM Hospital Course (1) Choked on food: 81yo male with a history of achalasia s/p myotomy, CAD s/p stents, PUD, and hypothyroidism presents with a two-day history of nausea and vomiting after getting food stuck in his throat. Food bolus, achalasia s/p myotomy - Patient with a food bolus for the past two days with resultant nausea, vomiting, and PO intolerance since - Vitals and labs stable - Imaging findings noted in HPI - Symptoms suspected secondary to achalasia - GI consulted s/p EGD 03/25 with food residue removal - Zofran IV prn - Seen by PLAYER SERVICES REPRESENTATIVE. No overt aspiration, but tons of esophageal dysmotility. Recommended restarting diet with full liquids which he tolerated well - PLAYER SERVICES REPRESENTATIVE advanced to slippery foods for lucnh which he tolerated well, can d/c home today with PLAYER SERVICES REPRESENTATIVE at home which is being arranged by (2) Achalasia: - As above (3) Hypothyroidism: - Restart levothyroxine (4) Multi-vessel coronary artery stenosis: - Takes ASA, Lipitor, and Plavix (5) Peptic ulcer disease: - Gastritis noted on EGD Plan Patient is medically and hemodynamically stable for discharge home with PLAYER SERVICES REPRESENTATIVE services. Plan d/w Dr. Arnoldo Verduzco who is in agreement with above. Total Time Total Time Spent Total Time Spent (In Minutes): >30 minutes Discharge Plan Discharge Items Patient Disposition: Home - Home Health Services Reason For Visit: FOOD BOLUS, NAUSEA, VOMITING Discharge Diagnosis: food stuck in esophagus due to narrowing Activity: Resume your previous activity Non-emergency contact: Primary Care Provider Call non-emergency contact if: you have any medication questions and your symptoms worsen Follow-up/Referrals: Ashish Ramirez MD [Primary Care Provider] - 04/08/22 1:50 pm Diet: Regular Diet Texture: Easy to Chew Addtl Attending Provider Instructions: You were hospitalized after choking on food. You were taken for an upper scope of your GI tract to remove the food residue stuck in your esophagus. You were seen by speech therapy who slowly worked on resuming a regular diet of which you have tolerated well. Please be sure to follow all instructions provided by speech therapy regarding your meals/eating/swallowing. Case management is arranging for you to have speech therapy see you in your home to continue safe swallowing techniques. It is advised that you follow up with your family doctor within 1 week of discharge. If you have any questions following your discharge, please call the [employer] number listed on your paperwork. If you have a medical emergency, call 911. Pending Studies at Discharge: No Stand-Alone Forms: My [facility], Smoking Cessation Medications and DC Order Prescriptions: Continued clopidogrel 75 mg tablet 75 mg PO QAM 90 Days Qty: 90 3RF atorvastatin 40 mg tablet 40 mg PO DAILY Qty: 90 3RF levothyroxine 50 mcg Tablet 50 mcg PO QAM aspirin 81 mg Tablet,Chewable 81 mg PO QAM multivitamin Tablet 1 tab PO QAM ipratropium bromide 42 mcg (0.06 %) [place],Non-Aerosol 2 spray INTRANASAL UD Rx Instructions: ordered daily but pt takes tid fexofenadine 180 mg tablet 180 mg PO QAM magnesium 250 mg Tablet 250 mg PO DAILY pantoprazole 40 mg Tablet,Delayed Release (Dr/Ec) 40 mg PO BID Qty: 60 3RF Discharge Orders: Discharge Order (Routine); Ordered 03/27/22 Ordered By: Bianka Spann Admission Data Admit Date/Time: 03/25/22 01:02 Attending Provider: Arnoldo Verduzco Admit Provider: Jarocho Zhang Primary Care Provider: Ashish Ramirez Other Providers: Clarice Jurado ; Cooper Bonner Other Interventions: Discharge Summary Assessment (RN) Last Done: 03/27/22 16:04 Supervising Physician Co-Signing Physician Notes I supervised Bianka Spann PA-C on the care of this patient. I interviewed and examined the patient independently of her yesterday, within the last 24h of discharge. The plan is as written in her note except for any following changes/exceptions: None 81yo M w/ hx of achalasia who presented with food impaction. PLAYER SERVICES REPRESENTATIVE consulted and recommended gradual return to diet and approved his advancement to minced and moist diet today. Encouraged to avoid tough/larger foods that could cause repeat impaction. Coding Level of Care Code D/C DAY MANAGEMENT >30 MINS Diagnoses Choked on food Achalasia K22.0 Hypothyroidism E03.9 Multi-vessel coronary artery stenosis I25.10 Peptic ulcer disease K27.9
== END 2022-03-27 16:48 | disposition home health service (06) | DRG 392 ==
LOC: ED 16:41 → EDINP 03-25 01:02 → SUATTDRO 03-25 01:02 → EDINP 03-25 12:09 → PACUINP 03-25 15:51 → 3E 03-25 17:16

== ENCOUNTER 2023-11-04 08:57 | Inpatient (IN) ==
--- NOTE | 2023-11-04 09:18 | Emergency Department Note ---
Impression & Plan Acute hypotension, Elevated troponin I level, Urinary tract infection, Acute non-ST elevation myocardial infarction (NSTEMI) ED Provider Note NAME: SHALA FRAZIER AGE: 82 SEX: M : 1940 ARRIVES VIA: Ambulance INFORMANT: Patient, EMS ED PROVIDER(S): Ashish Ernst DO CHIEF COMPLAINT: Weakness HPI: The patient is an 82-year-old male who presented to the emergency department by ambulance from his half-way for an evaluation of low blood pressure and shortness of breath. The patient started having low blood pressure and shortness of breath over the last few days. The patient denies having any chest pain or difficulty with hemoptysis. He denies having any lower extremity swelling greater than usual. The patient received 400 mL of normal saline prior to arrival. The patient denies having any abdominal pain or vomiting. He was noted to have significant hypoxia and hypotension prior to coming to the emergency department. ROS: See above HPI for pertinent positives & negatives. A total of 10 systems reviewed and were otherwise negative. PAST MEDICAL HISTORY: See Below PAST SURGICAL HISTORY: See Below FAMILY HISTORY: See Below SOCIAL HISTORY: See Below HOME MEDICATIONS: See Below ALLERGIES: See Below VITALS: See Below PHYSICAL EXAMINATION: GENERAL: Patient is awake alert in no acute distress patient is resting comfortably and showing no signs of anxiety EYES: The conjunctivae are clear. The pupils are round and reactive. EARS, NOSE, MOUTH AND THROAT: The nose is without any evidence of any deformity. Mucous membranes are moist. Tongue is midline. NECK: The neck is nontender and supple. RESPIRATORY: Normal respiratory effort is noted there is no evidence of wheezing rhonchi or rales CARDIOVASCULAR: Regular rate and rhythm noted there no murmurs rubs or gallops normal S1 normal S2. GASTROINTESTINAL: The abdomen was mildly distended. There is no tenderness guarding rigidity elicited. MUSCULOSKELETAL/EXTREMITIES: There is no evidence of gross deformity full range of motion is noted in the hips and shoulders. SKIN: Skin was warm and dry. There is pedal edema bilaterally. NEUROLOGIC: Patient is awake alert and oriented x3 MEDICAL DECISION MAKING: The patient is an 82-year-old male who presented to the emergency department for an evaluation of difficulty breathing. The patient was treated with IV fluids. He was not given a full septic fluid bolus given his heart history. The patient does have a history of low ejection fraction and coronary artery disease. EKG showed no specific changes but his troponin was elevated. It is possible this represents cardiac source for his hypotension. He has had some changes to his medications recently. He has been noted to have low blood pressure as an outpatient as well. He was treated with IV antibiotics as well. He was found to have urinary tract infection. I discussed the patient's laboratory and radiographic studies with him. His exertional dyspnea was his only ischemic complaint. I discussed his condition with the [facility]. They have agreed to evaluate the patient in the emergency department for further management and disposition. Triage Nursing notes reviewed. Prior medical records reviewed Vital Signs: reviewed and remarkable for hypotension Differential diagnosis: Infection, dehydration, metabolic abnormality, hypo/hyperglycemia, electrolyte disturbance, anemia, hypoxia, cardiac sources, intracerebral event, toxicologic, neurologic, as well as other pathologies. ER treatment provided: See below Diagnostics interpreted by me: ECG: EKG was obtained in the emergency department. My interpretation is normal sinus rhythm at 82 bpm. Right bundle branch block pattern was noted. There is no PVCs. This was compared to a tracing from April 28, 2023. No changes were noted. Cardiac Monitoring: An order was placed for continuous cardiac monitoring. The monitor shows a rate of 93 bpm with sinus rhythm. Laboratory studies: As stated above and show below. Imaging studies: See below. Radiographic imaging was reviewed by myself Consultation(s): I discussed this case with the Dyan who is on-call for the [facility]. ED COURSE: Procedures: none Critical Care: I have personally spent greater than 45 minutes of critical care time in the direct management of this patient. This includes bedside care, interpretation of diagnostic studies, and testing, discussion with consultants, patient, and family members, and other required patient management activities. This 45 minutes is in excess of all separately billable procedures. Past Med/Surg History Medical History Aortic stenosis History of GI bleed Gastric ulcer CAD (coronary artery disease) Anemia Former smoker Coronary artery stenosis Osteoarthritis Spinal stenosis History of esophageal dilatation Myocardial Infarction pt denies? Hyperlipidemia Hypothyroidism Surgical History Stented coronary artery History of cholecystectomy History of esophagogastroduodenoscopy (EGD) History of tooth extraction History of phacoemulsification of cataract of both eyes with intraocular lens implantation History of heart artery stent x2 total--08/2018 and 09/2018 History of carpal tunnel release of both wrists History of cardiac cath x2--SEVERE 3 VESSEL Dx with chronic RCA occlusion with distal collaterals, 95% mid lAD and 95% Cx at takeoff of OM1. LAD s/p pCI and single FRANNIE on 08/29/2018 and staged PCI of Cx on 09/05/2018 wit single FRANNIE History of tonsillectomy History of total knee replacement B/L Family History Aunt Family history of diabetes mellitus Mother Family history of diabetes mellitus Family/Other Family history of diabetes mellitus niece Other No family history of adverse response to anesthesia Social History Smoking Status: Never smoker Second Hand Exposure: Yes (hx); Do You Dip or Chew Tobacco: No; Hx Alcohol Use: No Hx Substance Use: No Preferred Language: Somali Communication Ability: Effective Hearing Ability: Hard of Hearing Furniture Sprayer Required: No Beliefs That Will Affect Care: None marital status: / Current Living Situation: Alone current occupation: retired from [employer] Feels Safe at Home: Yes Assistive Devices: Cane and Walker Allergies Allergies Allergy/AdvReac Type Severity Reaction Status Date / Time No Known Drug Allergies Allergy Unknown Verified 10/21/23 11:47 Home Meds Home Medications Medication Instructions Recorded Confirmed aspirin 81 mg chewable tablet 81 mg PO QAM 08/29/18 10/21/23 multivitamin 1 tab PO QAM 01/23/19 10/21/23 fexofenadine 180 mg tablet 180 mg PO DAILY PRN Allergy 02/13/21 10/21/23 Symptoms fluticasone propionate 50 1 spray intranasal DAILY 01/19/23 10/21/23 mcg/actuation nasal spray,suspension azelastine 137 mcg (0.1 %) nasal 137 mcg intranasal UD 04/26/23 10/21/23 spray aerosol pantoprazole 40 mg tablet,delayed 40 mg PO DAILY 04/26/23 10/21/23 release acetaminophen 500 mg tablet 1,000 mg PO Q6H PRN 06/17/23 10/21/23 (Tylenol Extra Strength) docusate sodium 100 mg capsule 100 mg PO DAILY 06/17/23 10/21/23 (Colace) magnesium 200 mg tablet 200 mg PO DAILY 06/17/23 10/21/23 amoxicillin 500 mg capsule 2,000 mg PO .COMPLEX 09/15/23 10/21/23 carbamide peroxide [Debrox] otic (ear) PRN 09/15/23 10/21/23 levothyroxine 112 mcg capsule 112 mcg PO DAILY 09/15/23 10/21/23 xlyagihi-ighwthpnyo-jmkawddpd 1 applic topical DAILY 09/15/23 10/21/23 [Neosporin (ldw-sou-mbwfy)] polyethylene glycol 3350 17 17 g PO DAILY 09/15/23 10/21/23 gram/dose oral powder (Miralax) vit C,N-Qv-eqeed-lutein-zeaxan 1 tab PO BID 09/15/23 10/21/23 [PreserVision AREDS-2] Previous Rx's Medication Instructions Recorded atorvastatin 40 mg tablet 40 mg PO DAILY #90 tabs 03/18/23 metoprolol succinate 25 mg 12.5 mg (1/2 x 25 mg) PO DAILY #90 04/28/23 tablet,extended release 24 hr tabs (Toprol XL) sennosides 8.6 mg tablet (Senokot) 8.6 mg PO BID #60 tabs 04/28/23 furosemide 40 mg tablet 40 mg PO BID #180 tabs 09/27/23 sacubitril 24 mg-valsartan 26 mg 1 tab PO BID #60 tabs 10/21/23 tablet (Entresto) Results & Data (ED) Vital Signs Vital Signs - 24 hr 11/04/23 09:13 11/04/23 09:15 11/04/23 09:15 Temperature Temperature Source Pulse Rate 82 82 Pulse Rate from SpO2 Sensor Respiratory Rate 24 30 H Respiratory Effort / Characteristics Respiratory Depth Blood Pressure 84/61 L Blood Pressure Mean 63 Pulse Oximetry Oxygen Delivery Method Oxygen Flow Rate Sepsis Recent Fever Within 48 Hours Sepsis New/Unexplained Change in Mental Status Sepsis Action Taken by Nursing 11/04/23 09:18 11/04/23 09:20 11/04/23 09:26 Temperature Temperature Source Oral Pulse Rate 81 83 79 Pulse Rate from SpO2 Sensor Respiratory Rate 26 H 18 Respiratory Effort / Characteristics Non-Labored Respiratory Depth Normal Blood Pressure 66/45 L Blood Pressure Mean 52 Pulse Oximetry 95 Oxygen Delivery Method Room Air Oxygen Flow Rate Sepsis Recent Fever Within 48 Hours No Sepsis New/Unexplained Change in Mental Status No Sepsis Action Taken by Nursing No Action Required 11/04/23 09:26 11/04/23 09:30 11/04/23 09:30 Temperature Temperature Source Pulse Rate 81 Pulse Rate from SpO2 Sensor 79 Respiratory Rate 23 Respiratory Effort / Characteristics Non-Labored Respiratory Depth Normal Blood Pressure 69/45 L Blood Pressure Mean 50 Pulse Oximetry 77 L Oxygen Delivery Method Oxygen Flow Rate Sepsis Recent Fever Within 48 Hours Sepsis New/Unexplained Change in Mental Status Sepsis Action Taken by Nursing 11/04/23 09:32 11/04/23 09:32 11/04/23 09:34 Temperature Temperature Source Pulse Rate 79 Pulse Rate from SpO2 Sensor Respiratory Rate 15 Respiratory Effort / Characteristics Respiratory Depth Blood Pressure 66/45 L Blood Pressure Mean 52 Pulse Oximetry Oxygen Delivery Method Room Air Oxygen Flow Rate 95 Sepsis Recent Fever Within 48 Hours Sepsis New/Unexplained Change in Mental Status Sepsis Action Taken by Nursing 11/04/23 09:34 11/04/23 09:34 11/04/23 09:36 Temperature Temperature Source Pulse Rate 81 82 Pulse Rate from SpO2 Sensor 77 82 Respiratory Rate 17 25 H Respiratory Effort / Characteristics Respiratory Depth Blood Pressure 59/44 L Blood Pressure Mean 54 Pulse Oximetry 95 95 Oxygen Delivery Method Oxygen Flow Rate Sepsis Recent Fever Within 48 Hours Sepsis New/Unexplained Change in Mental Status Sepsis Action Taken by Nursing 11/04/23 09:36 11/04/23 09:40 11/04/23 09:45 Temperature Temperature Source Pulse Rate 76 Pulse Rate from SpO2 Sensor 78 Respiratory Rate 18 Respiratory Effort / Characteristics Respiratory Depth Blood Pressure 74/47 L 72/47 L Blood Pressure Mean 52 50 Pulse Oximetry 95 Oxygen Delivery Method Oxygen Flow Rate Sepsis Recent Fever Within 48 Hours Sepsis New/Unexplained Change in Mental Status Sepsis Action Taken by Nursing 11/04/23 09:45 11/04/23 09:50 11/04/23 09:50 Temperature 36.7 C Temperature Source Oral Pulse Rate 80 80 Pulse Rate from SpO2 Sensor 79 80 Respiratory Rate 18 25 H Respiratory Effort / Characteristics Respiratory Depth Blood Pressure Blood Pressure Mean Pulse Oximetry 97 97 Oxygen Delivery Method Oxygen Flow Rate Sepsis Recent Fever Within 48 Hours Sepsis New/Unexplained Change in Mental Status Sepsis Action Taken by Nursing 11/04/23 10:00 11/04/23 10:01 11/04/23 10:01 Temperature Temperature Source Pulse Rate 81 80 Pulse Rate from SpO2 Sensor 80 80 Respiratory Rate 25 H 26 H Respiratory Effort / Characteristics Respiratory Depth Blood Pressure 66/47 L Blood Pressure Mean 53 Pulse Oximetry 97 95 Oxygen Delivery Method Oxygen Flow Rate Sepsis Recent Fever Within 48 Hours Sepsis New/Unexplained Change in Mental Status Sepsis Action Taken by Nursing 11/04/23 10:10 11/04/23 10:16 11/04/23 10:16 Temperature Temperature Source Pulse Rate 81 80 Pulse Rate from SpO2 Sensor 80 80 Respiratory Rate 26 H 19 Respiratory Effort / Characteristics Respiratory Depth Blood Pressure 70/45 L Blood Pressure Mean 48 Pulse Oximetry 95 97 Oxygen Delivery Method Oxygen Flow Rate Sepsis Recent Fever Within 48 Hours Sepsis New/Unexplained Change in Mental Status Sepsis Action Taken by Nursing 11/04/23 10:20 11/04/23 10:30 11/04/23 10:30 Temperature Temperature Source Pulse Rate 79 80 Pulse Rate from SpO2 Sensor 78 75 Respiratory Rate 23 20 Respiratory Effort / Characteristics Respiratory Depth Blood Pressure 82/64 L Blood Pressure Mean 66 Pulse Oximetry 96 96 Oxygen Delivery Method Oxygen Flow Rate Sepsis Recent Fever Within 48 Hours Sepsis New/Unexplained Change in Mental Status Sepsis Action Taken by Nursing 11/04/23 10:40 11/04/23 10:41 11/04/23 10:41 Temperature Temperature Source Pulse Rate 80 80 Pulse Rate from SpO2 Sensor 82 75 Respiratory Rate 25 H 25 H Respiratory Effort / Characteristics Respiratory Depth Blood Pressure 76/58 L Blood Pressure Mean 65 Pulse Oximetry 90 95 Oxygen Delivery Method Oxygen Flow Rate Sepsis Recent Fever Within 48 Hours Sepsis New/Unexplained Change in Mental Status Sepsis Action Taken by Nursing 11/04/23 10:50 Temperature Temperature Source Pulse Rate 82 Pulse Rate from SpO2 Sensor 80 Respiratory Rate 26 H Respiratory Effort / Characteristics Respiratory Depth Blood Pressure Blood Pressure Mean Pulse Oximetry 95 Oxygen Delivery Method Oxygen Flow Rate Sepsis Recent Fever Within 48 Hours Sepsis New/Unexplained Change in Mental Status Sepsis Action Taken by Intermediate Medications Current Medication List: was personally reviewed by me Laboratory Data Attestation: I reviewed the patient's lab results. 11/04/23 09:16 11/04/23 09:16 Lab Results 11/04/23 11/04/23 Range/Units 09:16 09:22 WBC 8.08 (4.8-10.8) K/ul RBC 3.93 L (4.70-6.10) M/uL Hgb 10.5 L (14.0-18.0) g/dl Hct 33.4 L (42.0-52.0) % MCV 85.0 (80.0-100.0) fL MCH 26.7 (25.0-34.0) pg MCHC 31.4 L (32.0-36.0) g/dL RDW Std Deviation 49.1 H (36.4-46.3) fL RDW Coeff of You 15.8 H (11.5-14.5) % Plt Count 168 (130-400) K/uL MPV 8.3 L (9.4-12.4) fL Immature Gran % (Auto) 0.4 % Neut % (Auto) 69.5 % Lymph % (Auto) 16.1 % [place] % (Auto) 13.9 % Eos % (Auto) 0.0 % Baso % (Auto) 0.1 % Neut # (Auto) 5.62 (1.40-6.50) K/uL Lymph # (Auto) 1.30 (1.20-3.40) K/uL [place] # (Auto) 1.12 H (0.11-0.59) K/uL Eos # (Auto) 0.00 (0.00-0.50) K/uL Baso # (Auto) 0.01 (0.00-0.20) K/uL Immature Gran # (Auto) 0.03 (0.01-0.20) K/uL PT 12.4 H (9.0-12.0) Seconds INR 1.1 (0.9-1.1) APTT 33 H (21-31) Seconds PTT Ratio 1.2 D-Dimer 620 H* (0-500) ug/L FEU VBG pH 7.39 (7.36-7.41) VBG pCO2 44 (38-50) mmHg VBG pO2 32 mmHg VBG HCO3 27 mmol/L VBG O2 Saturation < 60.0 % VBG Base Excess 1.3 mEq/L Sodium 136 (136-145) mmol/L Potassium 4.3 (3.5-5.1) mmol/L Chloride 101 (98-107) mmol/L Carbon Dioxide 26 (21-32) mmol/L Anion Gap 9 (3-11) BUN 51 H (6-23) mg/dl Creatinine 2.51 H (0.6-1.4) mg/dl Est Cr Clr Drug Dosing Not Reportable Est GFR ( Amer) 26.2 ml/min Est GFR (Non-Af Amer) 22.6 ml/min BUN/Creatinine Ratio 20.3 H (10-20) Glucose 152 H (70-99(Fasting)) mg/dl Lactate 1.2 (0.4-2.0) mmol/L Calcium 9.0 (8.6-10.3) mg/dl Magnesium 2.0 (1.7-2.4) mg/dl Total Bilirubin 0.7 (0.2-1.0) mg/dl Direct Bilirubin 0.2 (0-0.2) mg/dl AST 15 (13-39) U/L ALT 12 (7-52) U/L Alkaline Phosphatase 46 (34-104) U/L Troponin I High Sens 367.2 H* (0-20) pg/ml Total Protein 6.3 (6.0-8.3) gm/dl Albumin 3.8 (3.4-5.0) gm/dl Procalcitonin 0.27 (0-0.5) ng/ml SARS-CoV-2 (PCR) NEGATIVE (Negative) Influenza Type A (PCR) Negative (Neg) Influenza Type B (PCR) Negative (Neg) RSV (RT-PCR) Negative (Neg) Administered Medications Discontinued Medications Sodium Chloride (Nss) 500 mls @ 999 mls/hr IV .Q31M ONE Stop: 11/04/23 09:33 Last Infusion: 11/04/23 10:12 Dose: Infused Documented By: Admin: 11/04/23 09:40 Dose: 999 mls/hr Documented By: DIOGENES Piperacillin Sod/Tazobactam Sod (Zosyn) 4.5 gm in 100 mls @ 200 mls/hr IV NOW ONE Stop: 11/04/23 10:58 Last Infusion: 11/04/23 11:55 Dose: Infused Documented By: Admin: 11/04/23 11:11 Dose: 200 mls/hr Documented By: DIOGENES Sodium Chloride (Nss) 500 mls @ 999 mls/hr IV .Q31M ONE Stop: 11/04/23 11:00 Last Infusion: 11/04/23 12:19 Dose: Infused Documented By: Admin: 11/04/23 11:11 Dose: 999 mls/hr Documented By: DIOGENES Imaging Data Attestation: I personally reviewed and interpreted this imaging study as follows: My Impression: 1 view chest x-ray was obtained in the emergency department. My interpretation is cardiomegaly, final report below. Radiologist's Impression: Chest X-Ray 11/04/23 09:03 SINGLE VIEW CHEST CLINICAL HISTORY: Sepsis FINDINGS: An AP, portable, upright chest radiograph is compared to chest x-ray and chest CT dated 04/26/2023. The heart is enlarged but noting atherosclerotic calcification of the thoracic aorta. The pulmonary vasculature is noncongested. Chronic interstitial thickening is similar to previous. There is bibasilar scarring/atelectasis. No airspace consolidation or large pleural effusion is identified. Scattered calcified granulomas are observed. No pneumothorax is seen. The skeletal structures are osteopenic. The bony thorax is grossly intact. Degenerative change is noted in the shoulders and spine. IMPRESSION: Cardiomegaly with no acute cardiopulmonary abnormality. ACT 112: Negative or not required by law. Electronically signed by: Sam Espinosa M.D. 11/04/2023 9:32 AM Abdomen/Pelvis CT 11/04/23 10:[address] WITHOUT CONTRAST CT DOSE: 1929.77 mGy.cm HISTORY: Acute sepsis sepsis TECHNIQUE: Multiaxial CT images of the abdomen and pelvis were performed without contrast. A dose lowering technique was utilized adhering to the principles of ALARA. COMPARISON STUDY: 04/26/2023 FINDINGS: Cardiomegaly with extensive coronary artery calcifications. Decreased attenuation of the cardiac blood pool suggestive of anemia. Mild bibasilar atelectasis. 4 mm subpleural solid nodule in the right middle lobe is unchanged on image 21. No free air. The unenhanced spleen, pancreas and adrenal limbs are unremarkable. The gallbladder appears surgically absent. Unremarkable liver. Mild nonspecific bilateral perinephric stranding. No renal or ureteral calculi or hydronephrosis identified. Prostatomegaly. Calcifications of the vas deferens. Urine in bladder wall thickening with perivesicular stranding. Large right lateral urinary bladder diverticulum again noted measuring 8 cm. Atherosclerosis of the aorta without aneurysm. No lymphadenopathy. Mild distal esophageal wall thickening with secretions within the distal esophagus. Colonic diverticulosis. No bowel obstruction or bowel wall thickening. Mild colonic fecal retention. No CT evidence of acute appendicitis. Unremarkable soft tissues. No acute fracture. IMPRESSION: 1. Prostatomegaly with evidence of chronic bladder outlet obstruction. There is progressive urinary bladder wall thickening with perivesicular stranding suspicious for superimposed cystitis. Correlation with urinalysis recommended. 2. No bowel obstruction or bowel wall thickening. 3. Colonic diverticulosis. 4. Additional findings as above. ACT 112: Negative or not required by law. The above report was generated using voice recognition software. It may contain grammatical, syntax or spelling errors. Electronically signed by: Osbaldo Sen M.D. 11/04/2023 11:[address] 11/04/23 10:38 CT SCAN OF THE CHEST WITHOUT IV CONTRAST CLINICAL HISTORY: Dyspnea and weakness. Sepsis. COMPARISON STUDY: Chest CT dated 04/26/2023. Chest x-ray dated 11/04/2023. TECHNIQUE: CT scan of the thorax was performed from the thoracic inlet to the upper abdomen. Images are reviewed in the axial, sagittal, and coronal planes. IV contrast was not administered for this examination as per the referring clinician. A dose lowering technique was utilized adhering to the principles of ALARA. FINDINGS: Thyroid: Imaged portions of the thyroid gland are normal in size and attenuation. Thoracic aorta: There is advanced atherosclerotic calcification of the thoracic aorta. 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 The remainder of the thoracic aorta is normal in caliber, and the arch demonstrates standard 3-vessel anatomy. Heart: The heart is enlarged and without pericardial effusion. The coronary arteries are densely calcified. There is diminished attenuation of the cardiac blood pool as compared to myocardium suggesting anemia. The main pulmonary arteries are dilated suggesting pulmonary artery hypertension. Lungs and pleural spaces: Evaluation of the lung parenchyma is degraded by motion artifact. Foci of parenchymal scarring are seen throughout both lungs, greatest at the lung bases. Scattered calcified granulomas are observed. No airspace consolidation or pleural effusion is identified. The trachea and central airways appear clear. A 4 mm pleural-based nodule in the right middle lobe on image #139 is unchanged. Mediastinum: There is no mediastinal lymphadenopathy. Veda: There are calcified hilar nodes. Note that the veda are not well assessed without IV contrast. Axillae: There is no axillary lymphadenopathy. Upper abdomen: A small hiatal hernia is noted. The esophageal wall appears thickened, and the proximal esophagus is dilated. Partially visualized upper abdominal viscera is otherwise grossly unremarkable. Skeletal structures: The skeletal structures are osteopenic. Degenerative change and hyperkyphosis is noted in the spine. Arthritic change is seen in the shoulders. No lytic or blastic bony lesions are seen. There are chronic right posterior rib fractures. IMPRESSION: 1. Cardiomegaly noting advanced coronary artery atherosclerosis.. 2. There is no airspace consolidation or pleural effusion. 3. The distal esophagus appears thick walled. Correlate clinically for evidence of esophagitis. If warranted this could be further evaluated with endoscopy. 4. Additional findings as above. ACT 112: Negative or not required by law. Electronically signed by: Sam Espinosa M.D. 11/04/2023 11:34 AM Discharge Plan Visit Data Chief Complaint: Shortness of Breath/Dyspnea Stated Complaint: SOB, WEAKNESS ED Provider: Ahsish Ernst Discharge Problem: Acute hypotension, Elevated troponin I level, Urinary tract infection, Acute non-ST elevation myocardial infarction (NSTEMI) Patient Disposition: Being Evaluated by Hospitalist Discharge Instructions Interventions: ED Discharge Assessment Last Done: 11/04/23 12:00 Discharge Problem: Urinary tract infection Qualifiers: Urinary tract infection type: site unspecified Hematuria presence: without hematuria Qualified Code(s): N39.0 - Urinary tract infection, site not specified
--- NOTE | 2023-11-04 09:34 | XRay Report ---
SINGLE VIEW CHEST CLINICAL HISTORY: Sepsis FINDINGS: An AP, portable, upright chest radiograph is compared to chest x-ray and chest CT dated 04/03. The heart is enlarged but noting atherosclerotic calcification of the thoracic aorta. The pul monary vasculature is noncongested. Chronic interstitial thickening is similar to previous. There is bibasilar scarring/atelectasis. No airspace consolidation or large pleural effusion is identified. Sc attered calcified granulomas are observed. No pneumothorax is seen. The skeletal structures are osteo penic. The bony thorax is grossly intact. Degenerative change is noted in the shoulders and spine. IMPRESSION: Cardiomegaly with no acute cardiopulmonary abnormality. ACT 112: Negative or not required by law. Electronically signed by: Sam Espinosa M.D. 11/04/2023 9:32 AM
[2023-11-04] MEDS: SODIUM CHLORIDE 0.9% 500 ML IV ONE ×2 (09:40→11:11)
[2023-11-04 10:01] LABS: Base Excess VBG 1.3 mEq/L; HCO3 VBG 27 mmol/L; Oxygen Saturation VBG < 60.0 %; PCO2 VBG 44 mmHg (38-50); PO2 VBG 32 mmHg; pH VBG 7.39 (7.36-7.41)
[2023-11-04 10:06] LABS: Basophils # (auto) 0.01 K/uL (0.00-0.20); Basophils % (auto) 0.1 %; Hematocrit (blood only) 33.4 % (42.0-52.0); Hemoglobin 10.5 g/dl (14.0-18.0); Immature Granulocytes # (auto) 0.03 K/uL (0.01-0.20); Immature Granulocytes % (auto) 0.4 %; Lymphocytes % (auto) 16.1 %; Mean Corpuscular Hemoglobin 26.7 pg (25.0-34.0); Mean Corpuscular Hgb Conc 31.4 g/dL (32.0-36.0); Mean Platelet Volume 8.3 fL (9.4-12.4); Monocytes # (auto) 1.12 K/uL (0.11-0.59); Monocytes % (auto) 13.9 %; Neutrophils # (auto) 5.62 K/uL (1.40-6.50); Neutrophils % (auto) 69.5 %; Platelet Count 168 K/uL (130-400); RDW Coefficient of Variation 15.8 % (11.5-14.5); RDW Standard Deviation 49.1 fL (36.4-46.3); Red Blood Count 3.93 M/uL (4.70-6.10); White Blood Count 8.08 K/ul (4.8-10.8)
[2023-11-04 10:27] LABS: Alanine Aminotransferase 12 U/L (7-52); Albumin Level 3.8 gm/dl (3.4-5.0); Alkaline Phosphatase 46 U/L (34-104); Anion Gap 9 (3-11); Aspartate Aminotransferase 15 U/L (13-39); BUN Creatinine Ratio 20.3 (10-20); Bilirubin Direct 0.2 mg/dl (0-0.2); Bilirubin,Total 0.7 mg/dl (0.2-1.0); Blood Urea Nitrogen 51 mg/dl (6-23); Carbon Dioxide 26 mmol/L (21-32); Chloride 101 mmol/L (98-107); Est GFR (African American) 26.2 ml/min; Est GFR (Non-African American) 22.6 ml/min; Glucose 152 mg/dl (70-99(Fasting)); Potassium 4.3 mmol/L (3.5-5.1); Sodium 136 mmol/L (136-145); Total Protein 6.3 gm/dl (6.0-8.3)
[2023-11-04 10:36] LABS: INR 1.1 (0.9-1.1); Partial Thromboplastin Ratio 1.2; Partial Thromboplastin Time 33 Seconds (21-31); Prothrombin Time 12.4 Seconds (9.0-12.0)
[2023-11-04 10:37] LABS: Troponin I High Sensitivity 367.2 pg/ml (0-20)
[2023-11-04 10:42] LABS: D Dimer 620 ug/L FEU (0-500)
[2023-11-04 10:47] LABS: Influenza A virus by PCR Negative (Neg); Influenza B virus by PCR Negative (Neg); RSV by PCR Negative (Neg); SARS CoV2 RNA(COVID-19) Ceph NEGATIVE (Negative)
[2023-11-04] MEDS: PIPERACILLIN/TAZOBACTAM 4.5 GM/100 ML BAG IV ONE (11:11)
[2023-11-04] MEDS ORDERED: POLYETHYLENE (MIRALAX) 17 GM PACK PO PRN (11:13)
[2023-11-04] MEDS ORDERED: ALUMINUM/MAGNESIUM SUSP 30 ML UDC PO PRN (11:13)
[2023-11-04] MEDS ORDERED: MAGNESIUM HYDROXIDE SUSP 30 ML UDC PO PRN (11:13)
--- NOTE | 2023-11-04 11:24 | History & Physical Report ---
Date of Service November 04, 2023 Assessment & Plan (1) CAD (coronary artery disease): (2) Fatigue: (3) Dyspnea on exertion: (4) BASIM (acute kidney injury): (5) Cystitis: (6) Aortic stenosis: (7) Hypothyroidism: (8) Hyperlipidemia: Plan Mr. Lindsey is an 82 year old pleasant male who presents to the ED from with complaints of HARRIS and hypotension. He has reportedly had HARRIS with fatigue for the past few months. He reports that the past few days have been increasingly more dyspneic without associated chest pain. He reports intermittent lightheadedness upon rising in the morning out of bed. He has a significant PMH that includes multivessel coronary artery disease, esophageal achalasia, OA, hypothyroidism, HLD, history of AMI and severe LV dysfunction in setting of aortic stenosis. Most recent echo 10/2019 for severe LV dysfunction in setting of I-S, EF 15 to 20%, mild left ventricle dilation, mild MR, mild to moderate TR, mild pulmonary regurgitation. He was hospitalized most recently 04/2023 under [facility] status post mechanical fall and rib fractures. He was discharged at that time to [facility] for acute rehab and made seemingly good recovery and then transition to to [facility] living. He was referred to [facility] for consideration of a CABG however was deemed too high risk for bypass surgery. A TAVR was discussed as well. Prior to arrival to the ED he received 400 mL NS be and in the ED received an additional 2L NSB. No leukocytosis, creatinine 2.51; baseline 1.1- 1.4; given abd/pelvis CT results; will order UA. D-dimer elevated at 620 which is an unlikely contributing factor when age corrected, troponin 367, negative for COVID/RSV/flu. *Chest x-ray suggestive of cardiomegaly. *Abdomen/Pelvis CT: Prostatomegaly with evidence of chronic bladder outlet obstruction. There is progressive urinary bladder wall thickening with perivesicular stranding suspicious for superimposed cystitis. Correlation with urinalysis recommended. No bowel obstruction or bowel wall thickening. Colonic diverticulosis. *Chest CT Cardiomegaly noting advanced coronary artery atherosclerosis. There is no airspace consolidation or pleural effusion. The distal esophagus appears thick walled. Correlate clinically for evidence of esophagitis. If warranted this could be further evaluated with endoscopy. Most recent ECHO 10/23; EF 15-20% severe LV dysfunction which is new in the setting of a severe aortic stenosis, mild left ventricular dilation, mild MR/mild to moderate TR/mild pulmonary regurgitation. ED covered with broad-spectrum antibiotics and obtain blood cultures. Discussed with patient his overarching goal in the event of a cardiac or respiratory arrest and he indicated that he understands that his heart condition is quite advanced and that he, at that point, would unlikely have a meaningful recovery and has chosen to be DNR/DNI. Patient will be admitted for further evaluation of his advanced CAD; patient is receptive to palliative medicine consultation. Suspect patient's hypotension of related to Entresto initiation which occurred a few weeks ago. Hold additional fluid resuscitation at this time given the severity of his heart failure. Consult cardiology for further medication adjustment considerations and further goals of care conversation. Hold nephrotoxic agents given BASIM. Will have BiPAP as needed and gentle diuresis as pressure allows. Midodrine for BP support CAD: Aortic Stenosis: HARRIS: Fatigue Hypotension: Chronic Troponin 365 and 7: Trend. Do not suspect ACS or other advanced multivessel CAD Most recent ECHO 10/23; EF 15-20% severe LV dysfunction which is new in the setting of a severe aortic stenosis, mild left ventricular dilation, mild MR/mi ld to moderate TR/mild pulmonary regurgitation. He was referred to [facility] for consideration of a CABG however was deemed too high risk for bypass surgery. A TAVR was discussed as well. Patient takes baby aspirin; continue Patient takes 40 mg lasix bid, will initiate iv lasix 20 mg daily to maintain euvolemic status Was started on Entresto 10/23; suspect could be contributing factor to hypotension; hold for now Takes metoprolol; hold for now given low BP Midodrine initiated for hypotension Cardiology consultation with [facility] interventional radiology Dr. Espino known to patient BASIM: Cystitis: Acute Serum creatinine 2.51; baseline 1.1-1.4 No leukocytosis Abdomen/Pelvis CT: Prostatomegaly with evidence of chronic bladder outlet obstruction. There is progressive urinary bladder wall thickening with perivesicular stranding suspicious for superimposed cystitis. Correlation with urinalysis recommended. No bowel obstruction or bowel wall thickening. Colonic diverticulosis. UA suggestive of cystitis; started on Rocephin; adjust based on urine culture Hold nephrotoxic agents for now Repeat BMP 2100 to monitor creatinine Goals of care; counseling: Lengthy conversation held with patient regarding his advanced disease. We had a conversation regarding his CODE STATUS and his overarching goal in the event of a cardiac or respiratory arrest and he indicated that he understands that his heart condition is quite advanced and that he, at that point, would unlikely have a meaningful recovery and has chosen to be DNR/DNI. Patient could benefit from further conversation regarding palliative medicine. I did begin conversations with regards to his advanced multivessel CAD and conservative t reatment options. I explained the difference between palliative medicine and hospice and how both services could benefit his medical condition. HLD: Chronic Takes atorvastatin; continue Hypothyroidism: Chronic Takes levothyroxine; continue GERD: Chronic Takes pantoprazole; continue Disposition: PCP: [facility]; Dr. Jewell Code Status: DNR/DNI VTE Prophylaxis: Teds and SCDs for now I spent a total of 87 minutes coordinating, documenting, and providing care for this patient excluding time spent in the performance of separately billed services. All of the aforementioned completed while collaborating with the assigned attending physician for a full treatment plan. Please see their addendum for further details. History of Present Illness Chief Complaint: SOB Primary Care Provider: Vito Jewell DO Mr. Lindsey is an 82 year old pleasant male who presents to the ED from [facility] with complaints of HARRIS and hypotension. He has reportedly had HARRIS with fatigue for the past few months. He reports that the past few days have been increasingly more dyspneic without associated chest pain. He reports intermittent lightheadedness upon rising in the morning out of bed. He has a significant past medical history that includes multivessel coronary artery disease, esophageal achalasia, OA, hypothyroidism, HLD, history of AMI and severe LV dysfunction in setting of aortic stenosis. Most recent echo 10/2019 for severe LV dysfunction in setting of I-S, EF 15 to 20%, mild left ventricle dilation, mild MR, mild to moderate TR, mild pulmonary regurgitation. He was hospitalized most recently 04/2023 under [facility] status post mechanical fall and rib fractures. He was discharged at that time to [facility] for acute rehab and made seemingly good recovery and then transition to to [facility] assisted living. He was referred to [facility] for consideration of a CABG however was deemed too high risk for bypass surgery. A TAVR was discussed as well. Prior to arrival to the ED he received 400 mL NS be and in the ED received an additional 2L NSB. No leukocytosis, creatinine 2.51; baseline 1.1-1.4; I suspect this will improve given fluid resuscitation. D-dimer elevated at 620 which is an unlikely contributing factor when age corrected, troponin 367, negative for COVID/RSV/flu. *Chest x-ray suggestive of cardiomegaly. *Abdomen/Pelvis CT: Prostatomegaly with evidence of chronic bladder outlet obstruction. There is progressive urinary bladder wall thickening with perivesicular stranding suspicious for superimposed cystitis. Correlation with urinalysis recommended. No bowel obstruction or bowel wall thickening. Colonic diverticulosis. *Chest CT Cardiomegaly noting advanced coronary artery atherosclerosis. There is no airspace consolidation or pleural effusion. The distal esophagus appears thick walled. Correlate clinically for evidence of esophagitis. If warranted this could be further evaluated with endoscopy. Most recent ECHO 10/23; EF 15-20% severe LV dysfunction which is new in the setting of a severe aortic stenosis, mild left ventricular dilation, mild MR/mild to moderate TR/mild pulmonary regurgitation. ED covered with broad-spectrum antibiotics and obtain blood cultures. Discussed with patient his overarching goal in the event of a cardiac or respiratory arrest and he indicated that he understands that his heart condition is quite advanced and that he, at that point, would unlikely have a meaningful recovery and has chosen to be DNR/DNI. Patient denies headache, dizziness, fever, chills, heart palpitations, chest pain, nausea, vomiting, diarrhea, urine or bowel changes, recent falls or trauma. Patient uses a walker at baseline. Patient will be admitted for further evaluation of his advanced heart failure; patient is receptive to palliative medicine consultation. Suspect patient's hypotension of related to Entresto initiation which occurred a few weeks ago. Hold additional fluid resuscitation at this time given the severity of his heart failure. Consult cardiology for further medication adjustment considerations and further goals of care conversation. Hold nephrotoxic agents given BASIM. Will have BiPAP as needed and Lasix 1 dose 20 mg IV as needed. Allergies Allergy/AdvReac Type Severity Reaction Status Date / Time No Known Drug Allergies Allergy Unknown Verified 10/21/23 11:47 Home Medications Medication Instructions Recorded Confirmed Type aspirin 81 mg chewable tablet 81 mg PO QAM 08/29/18 11/04/23 History multivitamin 1 tab PO QAM 01/23/19 11/04/23 History fexofenadine 180 mg tablet 180 mg PO DAILY PRN Allergy 02/13/21 11/04/23 History Symptoms fluticasone propionate 50 1 spray intranasal DAILY 01/19/23 11/04/23 History mcg/actuation nasal spray,suspension atorvastatin 40 mg tablet 40 mg PO DAILY #90 tabs 03/18/23 11/04/23 Rx azelastine 137 mcg (0.1 %) nasal 137 mcg intranasal UD 04/26/23 11/04/23 History spray aerosol pantoprazole 40 mg tablet,delayed 40 mg PO DAILY 04/26/23 11/04/23 History release metoprolol succinate 25 mg 12.5 mg (1/2 x 25 mg) PO DAILY #90 04/28/23 11/04/23 Rx tablet,extended release 24 hr tabs (Toprol XL) sennosides 8.6 mg tablet (Senokot) 8.6 mg PO BID #60 tabs 04/28/23 11/04/23 Rx acetaminophen 500 mg tablet 1,000 mg PO Q6H PRN Pain (Scale 06/17/23 11/04/23 History (Tylenol Extra Strength) Score 1-3) docusate sodium 100 mg capsule 100 mg PO DAILY 06/17/23 11/04/23 History (Colace) magnesium 200 mg tablet 200 mg PO DAILY 06/17/23 11/04/23 History amoxicillin 500 mg capsule 2,000 mg PO .COMPLEX 09/15/23 11/04/23 History levothyroxine 112 mcg capsule 112 mcg PO DAILY 09/15/23 11/04/23 History furosemide 40 mg tablet 40 mg PO BID #180 tabs 09/27/23 11/04/23 Rx sacubitril 24 mg-valsartan 26 mg 1 tab PO BID #60 tabs 10/21/23 11/04/23 Rx tablet (Entresto) Past Med/Surg History Medical History (Updated 11/04/23 @ 14:39 by MERCED Ward) Cystitis BASIM (acute kidney injury) Aortic stenosis History of GI bleed Gastric ulcer CAD (coronary artery disease) Anemia Former smoker Coronary artery stenosis Osteoarthritis Spinal stenosis History of esophageal dilatation Myocardial Infarction pt denies? Hyperlipidemia Hypothyroidism Surgical History Stented coronary artery History of cholecystectomy History of esophagogastroduodenoscopy (EGD) History of tooth extraction History of phacoemulsification of cataract of both eyes with intraocular lens implantation History of heart artery stent x2 total--08/2018 and 09/2018 History of carpal tunnel release of both wrists History of cardiac cath x2--SEVERE 3 VESSEL Dx with chronic RCA occlusion with distal collaterals, 95% mid lAD and 95% Cx at takeoff of OM1. LAD s/p pCI and single FRANNIE on 08/29/2018 and staged PCI of Cx on 09/05/2018 wit single FRANNIE History of tonsillectomy History of total knee replacement B/L Family History Aunt Family history of diabetes mellitus Mother Family history of diabetes mellitus Family/Other Family history of diabetes mellitus niece Other No family history of adverse response to anesthesia Social History Smoking Status: Never smoker Second Hand Exposure: Yes (hx); Do You Dip or Chew Tobacco: No; Hx Alcohol Use: No Hx Substance Use: No Preferred Language: Tunisian Communication Ability: Effective Hearing Ability: Hard of Hearing Engine Room 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 Required: No Beliefs That Will Affect Care: None marital status: / Current Living Situation: Alone current occupation: retired from [employer] Feels Safe at Home: Yes Assistive Devices: Cane and Walker Review of Systems Review of Systems: Neuro: (-) Falls, trauma, slurred speech HEENT: (-) QUINTEROS, dizziness, dysphagia, visual or auditory changes CV: (-) CP, palpitations, swelling Resp: (-) SOB (+) HARRIS GI: (-) appetite changes, N/V/D, bowel changes : (-) urinary changes Skin: (-) rashes Psych: (-) anxiety, depression Physical Exam Physical Exam: Neuro: AAOx4, PERRLA, no aphagia, memory changes, CNII-XII grossly intact HEENT: head normocephalic, moist mucus membranes CV: S1/S2, (+) M/G/R, (-) edema, cap refill < 3 seconds Resp: Lungs expiratory wheezes. On RA GI: Abdomen S/NT/ND, Ax4 bowel sounds, (-) CVA tenderness Musculoskeletal: 5/5 B/L UE strength, 5/5 B/L LE strength. Uses a walker at baseline. Skin: (-) rashes , (-) erythema. Psych: euthymic mood Results & Data Results & Data Vital Signs (Past 12 Hours) Vital Signs Temp Pulse Resp BP Pulse Ox O2 Del Method O2 Flow Rate 11/04/23 10:50 82 26 H 95 11/04/23 10:41 76/58 L 11/04/23 10:41 80 25 H 95 11/04/23 10:40 80 25 H 90 11/04/23 10:30 80 20 96 11/04/23 10:30 82/64 L 11/04/23 10:20 79 23 96 11/04/23 10:16 80 19 97 11/04/23 10:16 70/45 L 11/04/23 10:10 81 26 H 95 11/04/23 10:01 80 26 H 95 11/04/23 10:01 66/47 L 11/04/23 10:00 81 25 H 97 11/04/23 09:50 80 25 H 97 11/04/23 09:50 36.7 C 11/04/23 09:45 80 18 97 11/04/23 09:45 72/47 L 11/04/23 09:40 76 18 95 11/04/23 09:36 74/47 L 11/04/23 09:36 82 25 H 95 11/04/23 09:34 59/44 L 11/04/23 09:34 81 17 95 11/04/23 09:34 Room Air 95 11/04/23 09:32 79 15 11/04/23 09:32 66/45 L 11/04/23 09:30 81 23 77 L 11/04/23 09:30 69/45 L 11/04/23 09:26 79 18 66/45 L 95 Room Air 11/04/23 09:20 83 26 H 11/04/23 09:18 81 11/04/23 09:15 82 30 H 11/04/23 09:15 84/61 L 11/04/23 09:13 82 24 Laboratory Results Short CBC 11/04/23 Range/Units 09:16 WBC 8.08 (4.8-10.8) K/ul Hgb 10.5 L (14.0-18.0) g/dl Hct 33.4 L (42.0-52.0) % Plt Count 168 (130-400) K/uL BMP 11/04/23 09:16 Sodium 136 Potassium 4.3 Chloride 101 Carbon Dioxide 26 BUN 51 H Creatinine 2.51 H Glucose 152 H Calcium 9.0 Liver Function 11/04/23 Range/Units 09:16 Total Bilirubin 0.7 (0.2-1.0) mg/dl Direct Bilirubin 0.2 (0-0.2) mg/dl AST 15 (13-39) U/L ALT 12 (7-52) U/L Alkaline Phosphatase 46 (34-104) U/L Albumin 3.8 (3.4-5.0) gm/dl Diagnostic Findings Chest X-Ray 11/04/23 09:03 SINGLE VIEW CHEST CLINICAL HISTORY: Sepsis FINDINGS: An AP, portable, upright chest radiograph is compared to chest x-ray and chest CT dated 04/26/2023. The heart is enlarged but noting atherosclerotic calcification of the thoracic aorta. The pulmonary vasculature is noncongested. Chronic interstitial thickening is similar to previous. There is bibasilar scarring/atelectasis. No airspace consolidation or large pleural effusion is identified. Scattered calcified granulomas are observed. No pneumothorax is seen. The skeletal structures are osteopenic. The bony thorax is grossly intact. Degenerative change is noted in the shoulders and spine. IMPRESSION: Cardiomegaly with no acute cardiopulmonary abnormality. ACT 112: Negative or not required by law. Electronically signed by: Sam Espinosa M.D. 11/04/2023 9:32 AM Code Status & VTE Plan VTE Prophylaxis Plan VTE Prophylaxis will be ordered: Yes Supervising Physician Co-Signing Physician Notes Patient was seen and examined independently at bedside. Chart reviewed. Case discussed with Majo BLACKWOOD and agree with the documentation above. In summary, this is a 82 year old male from [facility] with severe LV systolic dysfunct ion/CM with EF <20%, mod-sev who presented to the ED with worsening SOB and desaturation. Found to have hypotension and BASIM in ED. He was recently started on entresto and is on lasix bid at home. States he makes good urine. His BP has improved to high 80s. He received some IVF in ED for BASIM. He is saturating >90% in room air. He denies any fever, chills, CP, N/V. He does have chronic cough with spit, more at night. His trop is mildly elevated suggestive of demand ischemia. His BNP is elevated at 1592. His procal is negative. RVP negative. UA and CT suggestive of UTI. CT with no PNA but chronic PATTEN with cystitis. Will hold entresto, nephrotoxics, avoid further IVF. Will continue gentle diuresis. Start on rocephin for UTI pending clx results. Low dose midodrine for pressor support. Follow up BMP in am, trend trop. Consult cardio and palliative. States he is not a candidate for TAVR. On exam- General: Sitting in bed, not in acute distress, on room air HEENT: EOMI, MAISHA, MMM Chest: Fair breath sounds bilaterally with some wheezes CVS: Regular rate and rhythm, normal heart sounds, no murmur Abdomen: Soft, non tender, not distended, normal bowel sounds Neuro: Awake, alert, oriented, conversing well, non focal Extremities: trace edema Rest as per the note above.
--- NOTE | 2023-11-04 11:36 | CT Scan Report ---
ABDOMEN AND PELVIS CT WITHOUT CONTRAST CT DOSE: 1929.77 mGy.cm HISTORY: Acute sepsis sepsis TECHNIQUE: Multiaxial CT images of the abdomen and pelvis were performed without contrast. A dose lo wering technique was utilized adhering to the principles of ALARA. COMPARISON STUDY: 04/26/2023 FINDINGS: Cardiomegaly with extensive coronary artery calcifications. Decreased attenuation of the ca rdiac blood pool suggestive of anemia. Mild bibasilar atelectasis. 4 mm subpleural solid nodule in th e right middle lobe is unchanged on image 21. No free air. The unenhanced spleen, pancreas and adrena l limbs are unremarkable. The gallbladder appears surgically absent. Unremarkable liver. Mild nonspecific bilateral perinephric stranding. No renal or ureteral calculi or hydronephrosis iden tified. Prostatomegaly. Calcifications of the vas deferens. Urine in bladder wall thickening with per ivesicular stranding. Large right lateral urinary bladder diverticulum again noted measuring 8 cm. At herosclerosis of the aorta without aneurysm. No lymphadenopathy. Mild distal esophageal wall thickeni ng with secretions within the distal esophagus. Colonic diverticulosis. No bowel obstruction or bowel wall thickening. Mild colonic fecal retention. No CT evidence of acute appendicitis. Unremarkable so ft tissues. No acute fracture. IMPRESSION: 1. Prostatomegaly with evidence of chronic bladder outlet obstruction. There is progressive urinary b ladder wall thickening with perivesicular stranding suspicious for superimposed cystitis. Correlation with urinalysis recommended. 2. No bowel obstruction or bowel wall thickening. 3. Colonic diverticulosis. 4. Additional findings as above. ACT 112: Negative or not required by law. The above report was generated using voice recognition software. It may contain grammatical, syntax o r spelling errors. Electronically signed by: Osbaldo Sen M.D. 11/04/2023 11:33 AM
--- NOTE | 2023-11-04 11:36 | CT Scan Report ---
CT SCAN OF THE CHEST WITHOUT IV CONTRAST CLINICAL HISTORY: Dyspnea and weakness. Sepsis. COMPARISON STUDY: Chest CT dated 04/26/2023. Chest x-ray dated 11/04/2023. TECHNIQUE: CT scan of the thorax was performed from the thoracic inlet to the upper abdomen. Images are reviewed in the axial, sagittal, and coronal planes. IV contrast was not administered for this ex amination as per the referring clinician. A dose lowering technique was utilized adhering to the shanti Espinoza. FINDINGS: Thyroid: Imaged portions of the thyroid gland are normal in size and attenuation. Thoracic aorta: There is advanced atherosclerotic calcification of the thoracic aorta. There is aneur ysmal dilatation of the ascending thoracic aorta which measures up to 4.2 cm. The remainder of the th oracic aorta is normal in caliber, and the arch demonstrates standard 3-vessel anatomy. Heart: The heart is enlarged and without pericardial effusion. The coronary arteries are densely calc ified. There is diminished attenuation of the cardiac blood pool as compared to myocardium suggesting anemia. The main pulmonary arteries are dilated suggesting pulmonary artery hypertension. Lungs and pleural spaces: Evaluation of the lung parenchyma is degraded by motion artifact. Foci of p arenchymal scarring are seen throughout both lungs, greatest at the lung bases. Scattered calcified g ranulomas are observed. No airspace consolidation or pleural effusion is identified. The trachea and central airways appear clear. A 4 mm pleural-based nodule in the right middle lobe on image #139 is u nchanged. Mediastinum: There is no mediastinal lymphadenopathy. Veda: There are calcified hilar nodes. Note that the veda are not well assessed without IV contrast. Axillae: There is no axillary lymphadenopathy. Upper abdomen: A small hiatal hernia is noted. The esophageal wall appears thickened, and the proxima l esophagus is dilated. Partially visualized upper abdominal viscera is otherwise grossly unremarkabl e. Skeletal structures: The skeletal structures are osteopenic. Degenerative change and hyperkyphosis is noted in the spine. Arthritic change is seen in the shoulders. No lytic or blastic bony lesions are seen. There are chronic right posterior rib fractures. IMPRESSION: 1. Cardiomegaly noting advanced coronary artery atherosclerosis.. 2. There is no airspace consolidation or pleural effusion. 3. The distal esophagus appears thick walled. Correlate clinically for evidence of esophagitis. If wa rranted this could be further evaluated with endoscopy. 4. Additional findings as above. ACT 112: Negative or not required by law. Electronically signed by: Sam Espinosa M.D. 11/04/2023 11:34 AM
[2023-11-04] MEDS ORDERED: FUROSEMIDE INJ 20 MG/2 ML VIAL IV PRN (13:15)
[2023-11-04] MEDS ORDERED: ALBUT/IPRATROP 3MG/0.5MG NEB 3 ML VIAL NEB PRN (13:15)
[2023-11-04 13:23] LABS: Appearance Urine Turbid (Clear); Bacteria Urine Automated 1+ (Negative); Bilirubin Urine Negative (Negative); Blood Urine 2+ (Negative); Color Urine Dark Yellow; Epithelial Cell Urine Auto >30 /lpf (0-5); Glucose Urine UA Negative (Negative); Ketones Urine Negative (Negative); Leukocyte Esterase Urine 3+ (Negative); Nitrite Urine Negative (Negative); Protein Urine 3+ (Negative); Specific Gravity Urine 1.017 (1.000-1.030); Urobilinogen Urine Negative (Negative); WBC Urine Automated >30 /hpf (0-5); pH Urine 5.5 (4.5-7.5)
[2023-11-04 13:49] LABS: Cast Urine Automated 0 /lpf (0-5)
[2023-11-04] MEDS ORDERED: cefTRIAXone SODIUM 1,000 MG in DEXTROSE 5 % MINI-B 50 ML IV SCH (14:45)
[2023-11-04 15:41] LABS: Calcium 8.8 mg/dl (8.6-10.3); Potassium 4.4 mmol/L (3.5-5.1)
[2023-11-04 15:47] LABS: BUN Creatinine Ratio 20.4 (10-20); Creatinine Clr Calc Pharmacy 27.1 ml/min; Est GFR (Non-African American) 23.3 ml/min
[2023-11-04] MEDS: cefTRIAXone SODIUM 2,000 MG in DEXTROSE 5 % MINI-B 50 ML IV SCH (16:24)
[2023-11-04] MEDS: Patient's HEIGHT &/or WEIGHT Needed STA (16:48)
[2023-11-04] MEDS: MIDODRINE HCL 2.5 MG TAB PO SCH (18:35)
[2023-11-04] MEDS: SENNA 8.6 MG TAB PO SCH (21:10)
[2023-11-05] MEDS: LEVOTHYROXINE SODIUM 112 MCG TABLET PO SCH (05:45)
[2023-11-05 06:28] LABS: Hematocrit (blood only) 32.1 % (42.0-52.0); Hemoglobin 10.5 g/dl (14.0-18.0); Mean Corpuscular Hemoglobin 27.2 pg (25.0-34.0); Mean Corpuscular Hgb Conc 32.7 g/dL (32.0-36.0); Mean Corpuscular Volume 83.2 fL (80.0-100.0); Mean Platelet Volume 8.1 fL (9.4-12.4); Platelet Count 152 K/uL (130-400); RDW Coefficient of Variation 15.9 % (11.5-14.5); RDW Standard Deviation 48.6 fL (36.4-46.3); Red Blood Count 3.86 M/uL (4.70-6.10); White Blood Count 10.09 K/ul (4.8-10.8)
[2023-11-05 06:52] LABS: Albumin Globulin Ratio 1.4 (0.9-2); Albumin Level 3.7 gm/dl (3.4-5.0); BUN Creatinine Ratio 21.4 (10-20); Bilirubin,Total 0.5 mg/dl (0.2-1.0); Creatinine Clr Calc Pharmacy 24.7 ml/min; Est GFR (African American) 27.3 ml/min; Est GFR (Non-African American) 23.5 ml/min; Globulin 2.7 gm/dl (2.5-4.0); Magnesium 1.9 mg/dl (1.7-2.4); Phosphorus 4.3 mg/dl (2.5-4.9); Potassium 4.1 mmol/L (3.5-5.1); Total Protein 6.4 gm/dl (6.0-8.3)
[2023-11-05] MEDS: FLUTICASONE PROPIONATE NA SPR 16 GM BTL SCH (07:37)
[2023-11-05] MEDS: ATORVASTATIN 40 MG TAB PO SCH (07:38)
[2023-11-05] MEDS: ASPIRIN 81 MG ECTAB PO SCH (07:38)
[2023-11-05] MEDS: PANTOprazole 40 MG TAB PO SCH (07:38)
[2023-11-05] MEDS: DOCUSATE SODIUM 100 MG CAP PO SCH (07:38)
[2023-11-05] MEDS ORDERED: FUROSEMIDE INJ 20 MG/2 ML VIAL IV SCH (09:00)
--- NOTE | 2023-11-05 09:31 | Palliative Care Consultation ---
Date of Consultation November 05, 2023 Assessment & Plan (1) Dyspnea and respiratory abnormalities: (2) Weakness generalized: (3) Acute non-ST elevation myocardial infarction (NSTEMI): (4) Multi-vessel coronary artery stenosis: (5) Palliative care by specialist: Met with pt. Provided overview of Palliative Medicine, a subspecialty that provides specialized medical care for people living with a serious illness by offering a focus on quality of life. Palliative Medicine is often conflated with hospice: I advised patient/family that Palliative and hospice can be partners but we are not the same. It is important to understand the difference so that we may be informed, and not afraid. Palliative Medicine works to improve QOL through reduction of symptom burden/more control over their illness, for both the patient and family. Palliative medicine clinicians are board certified, specially-trained and another member of the patient's medical care team. We often provide an extra layer of support because our care is based on the needs of the patient, not the prognosis; as such, it's appropriate at any ag e/advancing stage of a serious illness and can be provided along with curative treatment. Palliative Medicine clinicians are also trained in advanced communication methodologies, to facilitate complex discussions about advanced illness planning, which are needed to help assure that the treatment choices match the patient's goals, aka delivering Goal Concordant care. Finally, we discussed that hospice is a visiting nurse service that focuses on care delivered at the very end of life for patients with terminal illness, with life expectancy less than 6 month. Plan * Pt with signif, advanced cardiac problems which render him very high risk for persistent CHF with worsening performance status. Per cardiology, they d/w interventional cardiology [facility] and there are no additional options in terms of PCI or TAVR. Cardiology reviewed this earlier today with pt and his friend. * I tried to discuss ACP with pt for approx 18min. He reaffirmed his DNR / DNI election and said he knows he does not have a lot of time left. He has not wanted to explore options about what this might look like following this admission. * Pt is not inclined for GOC discussion today and advised me he is tired and wants to sleep. He then turned to his side and his eyes were closed. * Will re attempt Wednesday. TS 80 min Thank you for allowing us to participate in the ongoing care of this patient. Please don't hesitate to call or page with any additional concerns. Dr. Su Paez [facility] Director, Palliative Care History of Present Illness Reason for Consultation: end stage heart failure/goals conversation Attending Physician: Matias Johansen MD History of Present Illness 82yo male with severe multivesself coronary artery stenosis He is s/p PCI with FRANNIE to mid LAD, mid circumflex 09/2018. Known [employer]. He has severe three-vessel disease with chronic RCA occlusion with distal collaterals, 95% mid LAD and 95% circumflex at takeoff of OM1. The LAD was treated with PCI and single drug-eluting stent on 08/29/2018. He was then brought back for staged PCI of circumflex on 09/05/2018 with single FRANNIE, procedure uncomplicated and had improvement in symptoms. His cath of 01/2023 revealed severe multivessel CAD. He has moderate to severe aortic stenosis. 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 He has severe exertional dyspnea that limits every activity/attempted exertion. He has been evaluaetd by CT surgery at [facility] and is not a surgical candidate Admission in 04/2023 to [facility] after mechanical fall with resulting 11th right rib fracture. Minimal troponin elevation (HS TropI 64). Discharged to [facility] and then to [facility] assisted living which was greatly upsetting to him. Cardiology visit 10/21/23: "Very complex patient from cardiac standpoint. He has severe, multivessel CAD, severe aortic stenosis and now severe LV dysfunction as well. Functional status has continued to decline and has fairly poor quality of life currently. Mainly limited by dyspnea. On exam volume status improved with increased Lasix, weight is down. " Presented to our ED 11/04/23 with dyspnea and hypotension with hypoxia He has been given Low dose midodrine for pressor support. He is seen bedside, no family present he is somnolent and somewhat irritable, unwilling to engage in discussion he awakes to voice but quickly drifts back asleep he answers a few yes/no questions ED workup included the following results: Chest X-Ray 11/04/23 09:03 FINDINGS: An AP, portable, upright chest radiograph is compared to chest x-ray and chest CT dated 04/26/2023. The heart is enlarged but noting atherosclerotic calcification of the thoracic aorta. The pulmonary vasculature is noncongested. Chronic interstitial thickening is similar to previous. There is bibasilar scarring/atelectasis. No airspace consolidation or large pleural effusion is identified. Scattered calcified granulomas are observed. No pneumothorax is seen. The skeletal structures are osteopenic. The bony thorax is grossly intact. Degenerative change is noted in the shoulders and spine. IMPRESSION: Cardiomegaly with no acute cardiopulmonary abnormality. Abdomen/Pelvis CT 11/04/23 10:30 FINDINGS: Cardiomegaly with extensive coronary artery calcifications. Decreased attenuation of the cardiac blood pool suggestive of anemia. Mild bibasilar atelectasis. 4 mm subpleural solid nodule in the right middle lobe is unchanged on image 21. No free air. The unenhanced spleen, pancreas and adrenal limbs are unremarkable. The gallbladder appears surgically absent. Unremarkable liver. Mild nonspecific bilateral perinephric stranding. No renal or ureteral calculi or hydronephrosis identified. Prostatomegaly. Calcifications of the vas deferens. Urine in bladder wall thickening with perivesicular stranding. Large right lateral urinary bladder diverticulum again noted measuring 8 cm. Atherosclerosis of the aorta without aneurysm. No lymphadenopathy. Mild distal esophageal wall thickening with secretions within the distal esophagus. Colonic diverticulosis. No bowel obstruction or bowel wall thickening. Mild colonic fecal retention. No CT evidence of acute appendicitis. Unremarkable soft tissues. No acute fracture. IMPRESSION: 1. Prostatomegaly with evidence of chronic bladder outlet obstruction. There is progressive urinary bladder wall thickening with perivesicular stranding suspicious for superimposed cystitis. Correlation with urinalysis recommended. 2. No bowel obstruction or bowel wall thickening. 3. Colonic diverticulosis. 4. Additional findings as above. Chest CT 11/04/23 10:38 CT SCAN OF THE CHEST WITHOUT IV CONTRAST FINDINGS: Thyroid: Imaged portions of the thyroid gland are normal in size and attenuation. Thoracic aorta: There is advanced atherosclerotic calcification of the thoracic aorta. 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 The remainder of the thoracic aorta is normal in caliber, and the arch demonstrates standard 3-vessel anatomy. Heart: The heart is enlarged and without pericardial effusion. The coronary arteries are densely calcified. There is diminished attenuation of the cardiac blood pool as compared to myocardium suggesting anemia. The main pulmonary arteries are dilated suggesting pulmonary artery hypertension. Lungs and pleural spaces: Evaluation of the lung parenchyma is degraded by motion artifact. Foci of parenchymal scarring are seen throughout both lungs, greatest at the lung bases. Scattered calcified granulomas are observed. No airspace consolidation or pleural effusion is identified. The trachea and central airways appear clear. A 4 mm pleural-based nodule in the right middle lobe on image #139 is unchanged. Mediastinum: There is no mediastinal lymphadenopathy. Veda: There are calcified hilar nodes. Note that the veda are not well assessed without IV contrast. Axillae: There is no axillary lymphadenopathy. Upper abdomen: A small hiatal hernia is noted. The esophageal wall appears thickened, and the proximal esophagus is dilated. Partially visualized upper abdominal viscera is otherwise grossly unremarkable. Skeletal structures: The skeletal structures are osteopenic. Degenerative change and hyperkyphosis is noted in the spine. Arthritic change is seen in the shoulders. No lytic or blastic bony lesions are seen. There are chronic right posterior rib fractures. 1. Cardiomegaly noting advanced coronary artery atherosclerosis. 2. There is no airspace consolidation or pleural effusion. 3. The distal esophagus appears thick walled. Correlate clinically for evidence of esophagitis. If warranted this could be further evaluated with endoscopy. 4. Additional findings as above. Allergies Allergy/AdvReac Type Severity Reaction Status Date / Time No Known Drug Allergies Allergy Unknown Verified 10/21/23 11:47 Home Medications Medication Instructions Recorded Confirmed Type aspirin 81 mg chewable tablet 81 mg PO QAM 08/29/18 11/04/23 History multivitamin 1 tab PO QAM 01/23/19 11/04/23 History fexofenadine 180 mg tablet 180 mg PO DAILY PRN Allergy 02/13/21 11/04/23 History Symptoms fluticasone propionate 50 1 spray intranasal DAILY 01/19/23 11/04/23 History mcg/actuation nasal spray,suspension atorvastatin 40 mg tablet 40 mg PO DAILY #90 tabs 03/18/23 11/04/23 Rx azelastine 137 mcg (0.1 %) nasal 137 mcg intranasal UD 04/26/23 11/04/23 History spray aerosol pantoprazole 40 mg tablet,delayed 40 mg PO DAILY 04/26/23 11/04/23 History release metoprolol succinate 25 mg 12.5 mg (1/2 x 25 mg) PO DAILY #90 04/28/23 11/04/23 Rx tablet,extended release 24 hr tabs (Toprol XL) sennosides 8.6 mg tablet (Senokot) 8.6 mg PO BID #60 tabs 04/28/23 11/04/23 Rx acetaminophen 500 mg tablet 1,000 mg PO Q6H PRN Pain (Scale 06/17/23 11/04/23 History (Tylenol Extra Strength) Score 1-3) docusate sodium 100 mg capsule 100 mg PO DAILY 06/17/23 11/04/23 History (Colace) magnesium 200 mg tablet 200 mg PO DAILY 06/17/23 11/04/23 History amoxicillin 500 mg capsule 2,000 mg PO .COMPLEX 09/15/23 11/04/23 History levothyroxine 112 mcg capsule 112 mcg PO DAILY 09/15/23 11/04/23 History furosemide 40 mg tablet 40 mg PO BID #180 tabs 09/27/23 11/04/23 Rx sacubitril 24 mg-valsartan 26 mg 1 tab PO BID #60 tabs 10/21/23 11/04/23 Rx tablet (Entresto) Patient History Medical History (Updated 11/05/23 @ 20:01 by Su Paez DNP) Palliative care by specialist Dyspnea and respiratory abnormalities Weakness generalized Cystitis BASIM (acute kidney injury) Aortic stenosis History of GI bleed Gastric ulcer CAD (coronary artery disease) Anemia Former smoker Coronary artery stenosis Osteoarthritis Spinal stenosis History of esophageal dilatation Myocardial Infarction pt denies? Hyperlipidemia Hypothyroidism Surgical History Stented coronary artery History of cholecystectomy History of esophagogastroduodenoscopy (EGD) History of tooth extraction History of phacoemulsification of cataract of both eyes with intraocular lens implantation History of heart artery stent x2 total--08/2018 and 09/2018 History of carpal tunnel release of both wrists History of cardiac cath x2--SEVERE 3 VESSEL Dx with chronic RCA occlusion with distal collaterals, 95% mid lAD and 95% Cx at takeoff of OM1. LAD s/p pCI and single FRANNIE on 08/29/2018 and staged PCI of Cx on 09/05/2018 wit single FRANNIE History of tonsillectomy History of total knee replacement B/L Family History Aunt Family history of diabetes mellitus Mother Family history of diabetes mellitus Family/Other Family history of diabetes mellitus niece Other No family history of adverse response to anesthesia Social History Smoking Status: Former smoker Tobacco Type: Cigarettes Second Hand Exposure: No; Do You Dip or Chew Tobacco: No; Hx Alcohol Use: No Hx Substance Use: No Preferred Language: Mongolian Communication Ability: Effective Hearing Ability: Hard of Hearing Solutions Specialist Required: No Beliefs That Will Affect Care: None marital status: / Current Living Situation: Personal Care Facility current occupation: retired from [employer] Other Information That Helps Us Care for You: No Feels Safe at Home: Yes Safety Concerns: Feels Safe At This Time Assistive Devices: Hearing Aid - Bilateral, Walker and Wheelchair Review of Systems Review of Systems: All systems reviewed & are unremarkable except as noted in Subjective and Unobtainable due to cognitive status Physical Exam Constitutional: + ill appearing and + frail appearing Eyes: PERRL ENMT: poor dentition MM dry Neck: trachea midline and + short neck Respiratory: + labored breathing and + uses accessory muscles Auscultation: + diminished lung sounds and + crackles Cardiovascular: Rate/Rhythm: + tachycardic Gastrointestinal (Abdomen): Inspection/Auscultation: normal bowel sounds Musculoskeletal: generalized weakness Skin: + turgor decreased, + dry skin and + pal monse Neurologic: awake and alert but easily fatigued generalized weakness Results & Data Vital Signs (Past 12 Hours) Vital Signs Temp Pulse Pulse Resp BP Pulse Ox O2 Del Method 11/05/23 08:00 Nasal Cannula 11/05/23 08:00 87 11/05/23 07:43 36.3 C L 105 H 18 97/64 L 95 Nasal Cannula 11/05/23 03:05 36.7 C 52 L 17 118/79 94 Nasal Cannula 11/04/23 23:32 94 H 11/04/23 23:15 36.3 C L 96 H 17 88/61 L 95 Nasal Cannula O2 Flow Rate 11/05/23 08:00 2 11/05/23 08:00 11/05/23 07:43 11/05/23 03:05 2 11/04/23 23:32 11/04/23 23:15 2 Laboratory Results Laboratory Results WBC 10.09 K/ul (4.8-10.8) 11/05/23 05:56 RBC 3.86 M/uL (4.70-6.10) L 11/05/23 05:56 Hgb 10.5 g/dl (14.0-18.0) L 11/05/23 05:56 Hct 32.1 % (42.0-52.0) L 11/05/23 05:56 MCV 83.2 fL (80.0-100.0) 11/05/23 05:56 MCH 27.2 pg (25.0-34.0) 11/05/23 05:56 MCHC 32.7 g/dL (32.0-36.0) 11/05/23 05:56 RDW Std Deviation 48.6 fL (36.4-46.3) H 11/05/23 05:56 RDW Coeff of You 15.9 % (11.5-14.5) H 11/05/23 05:56 Plt Count 152 K/uL (130-400) 11/05/23 05:56 MPV 8.1 fL (9.4-12.4) L 11/05/23 05:56 Immature Gran % (Auto) 0.4 % 11/04/23 09:16 Neut % (Auto) 69.5 % 11/04/23 09:16 Lymph % (Auto) 16.1 % 11/04/23 09:16 [place] % (Auto) 13.9 % 11/04/23 09:16 Eos % (Auto) 0.0 % 11/04/23 09:16 Baso % (Auto) 0.1 % 11/04/23 09:16 Neut # (Auto) 5.62 K/uL (1.40-6.50) 11/04/23 09:16 Lymph # (Auto) 1.30 K/uL (1.20-3.40) 11/04/23 09:16 [place] # (Auto) 1.12 K/uL (0.11-0.59) H 11/04/23 09:16 Eos # (Auto) 0.00 K/uL (0.00-0.50) 11/04/23 09:16 Baso # (Auto) 0.01 K/uL (0.00-0.20) 11/04/23 09:16 Immature Gran # (Auto) 0.03 K/uL (0.01-0.20) 11/04/23 09:16 PT 12.4 Seconds (9.0-12.0) H 11/04/23 09:16 INR 1.1 (0.9-1.1) 11/04/23 09:16 APTT 33 Seconds (21-31) H 11/04/23 09:16 PTT Ratio 1.2 11/04/23 09:16 D-Dimer 620 ug/L FEU (0-500) H* 11/04/23 09:16 VBG pH 7.39 (7.36-7.41) 11/04/23 09:16 VBG pCO2 44 mmHg (38-50) 11/04/23 09:16 VBG pO2 32 mmHg 11/04/23 09:16 VBG HCO3 27 mmol/L 11/04/23 09:16 VBG O2 Saturation < 60.0 % 11/04/23 09:16 VBG Base Excess 1.3 mEq/L 11/04/23 09:16 Sodium 134 mmol/L (136-145) L 11/05/23 05:56 Potassium 4.1 mmol/L (3.5-5.1) 11/05/23 05:56 Chloride 100 mmol/L (98-107) 11/05/23 05:56 Carbon Dioxide 23 mmol/L (21-32) 11/05/23 05:56 Anion Gap 11 (3-11) 11/05/23 05:56 BUN 52 mg/dl (6-23) H 11/05/23 05:56 Creatinine 2.43 mg/dl (0.6-1.4) H 11/05/23 05:56 Est Cr Clr Drug Dosing 24.7 ml/min 11/05/23 05:56 Est GFR ( Amer) 27.3 ml/min 11/05/23 05:56 Est GFR (Non-Af Amer) 23.5 ml/min 11/05/23 05:56 BUN/Creatinine Ratio 21.4 (10-20) H 11/05/23 05:56 Glucose 172 mg/dl (70-99(Fasting)) H 11/05/23 05:56 Lactate 1.2 mmol/L (0.4-2.0) 11/04/23 09:16 Calcium 9.0 mg/dl (8.6-10.3) 11/05/23 05:56 Phosphorus 4.3 mg/dl (2.5-4.9) 11/05/23 05:56 Magnesium 1.9 mg/dl (1.7-2.4) 11/05/23 05:56 Total Bilirubin 0.5 mg/dl (0.2-1.0) 11/05/23 05:56 Direct Bilirubin 0.2 mg/dl (0-0.2) 11/04/23 09:16 AST 12 U/L (13-39) L 11/05/23 05:56 ALT 13 U/L (7-52) 11/05/23 05:56 Alkaline Phosphatase 48 U/L (34-104) 11/05/23 05:56 Troponin I High Sens 335.2 pg/ml (0-20) H* 11/04/23 18:19 B-Natriuretic Peptide 1592 pg/ml (0-100) H 11/04/23 11:24 Total Protein 6.4 gm/dl (6.0-8.3) 11/05/23 05:56 Albumin 3.7 gm/dl (3.4-5.0) 11/05/23 05:56 Globulin 2.7 gm/dl (2.5-4.0) 11/05/23 05:56 Albumin/Globulin Ratio 1.4 (0.9-2) 11/05/23 05:56 Procalcitonin 0.27 ng/ml (0-0.5) 11/04/23 09:16 Urine Color Dark Yellow 11/04/23 12:54 Urine Appearance Turbid (Clear) A 11/04/23 12:54 Urine pH 5.5 (4.5-7.5) 11/04/23 12:54 Ur Specific [place] 1.017 (1.000-1.030) 11/04/23 12:54 Urine Protein 3+ (Negative) H 11/04/23 12:54 Urine Glucose (UA) Negative (Negative) 11/04/23 12:54 Urine Ketones Negative (Negative) 11/04/23 12:54 Urine Blood 2+ (Negative) H 11/04/23 12:54 Urine Nitrite Negative (Negative) 11/04/23 12:54 Urine Bilirubin Negative (Negative) 11/04/23 12:54 Urine Urobilinogen Negative (Negative) 11/04/23 12:54 Ur Leukocyte Esterase 3+ (Negative) H 11/04/23 12:54 Urine WBC (Auto) >30 /hpf (0-5) H 11/04/23 12:54 Urine RBC (Auto) 10-30 /hpf (0-4) H 11/04/23 12:54 U Hyaline Cast (Auto) 0 /lpf (0-5) 11/04/23 12:54 U Epithel Cells (Auto) >30 /lpf (0-5) H 11/04/23 12:54 Urine Bacteria (Auto) 1+ (Negative) H 11/04/23 12:54 Urine Yeast Not Reportable 11/04/23 12:54 SARS-CoV-2 (PCR) NEGATIVE (Negative) 11/04/23 09:22 Influenza Type A (PCR) Negative (Neg) 11/04/23 09:22 Influenza Type B (PCR) Negative (Neg) 11/04/23 09:22 RSV (RT-PCR) Negative (Neg) 11/04/23 09:22 Impressions Chest X-Ray 11/04/23 09:03 SINGLE VIEW CHEST CLINICAL HISTORY: Sepsis FINDINGS: An AP, portable, upright chest radiograph is compared to chest x-ray and chest CT dated 04/26/2023. The heart is enlarged but noting atherosclerotic calcification of the thoracic aorta. The pulmonary vasculature is noncongested. Chronic interstitial thickening is similar to previous. There is bibasilar scarring/atelectasis. No airspace consolidation or large pleural effusion is identified. Scattered calcified granulomas are observed. No pneumothorax is seen. The skeletal structures are osteopenic. The bony thorax is grossly intact. Degenerative change is noted in the shoulders and spine. IMPRESSION: Cardiomegaly with no acute cardiopulmonary abnormality. ACT 112: Negative or not required by law. Electronically signed by: Sam Espinosa M.D. 11/04/2023 9:32 AM Abdomen/Pelvis CT 11/04/23 10:[address] WITHOUT CONTRAST CT DOSE: 1929.77 mGy.cm HISTORY: Acute sepsis sepsis TECHNIQUE: Multiaxial CT images of the abdomen and pelvis were performed without contrast. A dose lowering technique was utilized adhering to the principles of ALARA. COMPARISON STUDY: 04/26/2023 FINDINGS: Cardiomegaly with extensive coronary artery calcifications. Decreased attenuation of the cardiac blood pool suggestive of anemia. Mild bibasilar atelectasis. 4 mm subpleural solid nodule in the right middle lobe is unchanged on image 21. No free air. The unenhanced spleen, pancreas and adrenal limbs are unremarkable. The gallbladder appears surgically absent. Unremarkable liver. Mild nonspecific bilateral perinephric stranding. No renal or ureteral calculi or hydronephrosis identified. Prostatomegaly. Calcifications of the vas deferens. Urine in bladder wall thickening with perivesicular stranding. Large right lateral urinary bladder diverticulum again noted measuring 8 cm. Atherosclerosis of the aorta without aneurysm. No lymphadenopathy. Mild distal esophageal wall thickening with secretions within the distal esophagus. Colonic diverticulosis. No bowel obstruction or bowel wall thickening. Mild colonic fecal retention. No CT evidence of acute appendicitis. Unremarkable soft tissues. No acute fracture. IMPRESSION: 1. Prostatomegaly with evidence of chronic bladder outlet obstruction. There is progressive urinary bladder wall thickening with perivesicular stranding suspicious for superimposed cystitis. Correlation with urinalysis recommended. 2. No bowel obstruction or bowel wall thickening. 3. Colonic diverticulosis. 4. Additional findings as above. ACT 112: Negative or not required by law. The above report was generated using voice recognition software. It may contain grammatical, syntax or spelling errors. Electronically signed by: Osbaldo Sen M.D. 11/04/2023 11:[address] 11/04/23 10:38 CT SCAN OF THE CHEST WITHOUT IV CONTRAST CLINICAL HISTORY: Dyspnea and weakness. Sepsis. COMPARISON STUDY: Chest CT dated 04/26/2023. Chest x-ray dated 11/04/2023. TECHNIQUE: CT scan of the thorax was performed from the thoracic inlet to the upper abdomen. Images are reviewed in the axial, sagittal, and coronal planes. IV contrast was not administered for this examination as per the referring clinician. A dose lowering technique was utilized adhering to the principles of ALARA. FINDINGS: Thyroid: Imaged portions of the thyroid gland are normal in size and attenuation. Thoracic aorta: There is advanced atherosclerotic calcification of the thoracic aorta. 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 The remainder of the thoracic aorta is normal in caliber, and the arch demonstrates standard 3-vessel anatomy. Heart: The heart is enlarged and without pericardial effusion. The coronary arteries are densely calcified. There is diminished attenuation of the cardiac blood pool as compared to myocardium suggesting anemia. The main pulmonary arteries are dilated suggesting pulmonary artery hypertension. Lungs and pleural spaces: Evaluation of the lung parenchyma is degraded by motion artifact. Foci of parenchymal scarring are seen throughout both lungs, greatest at the lung bases. Scattered calcified granulomas are observed. No airspace consolidation or pleural effusion is identified. The trachea and central airways appear clear. A 4 mm pleural-based nodule in the right middle lobe on image #139 is unchanged. Mediastinum: There is no mediastinal lymphadenopathy. Veda: There are calcified hilar nodes. Note that the veda are not well assessed without IV contrast. Axillae: There is no axillary lymphadenopathy. Upper abdomen: A small hiatal hernia is noted. The esophageal wall appears thickened, and the proximal esophagus is dilated. Partially visualized upper abdominal viscera is otherwise grossly unremarkable. Skeletal structures: The skeletal structures are osteopenic. Degenerative change and hyperkyphosis is noted in the spine. Arthritic change is seen in the shoulders. No lytic or blastic bony lesions are seen. There are chronic right posterior rib fractures. IMPRESSION: 1. Cardiomegaly noting advanced coronary artery atherosclerosis.. 2. There is no airspace consolidation or pleural effusion. 3. The distal esophagus appears thick walled. Correlate clinically for evidence of esophagitis. If warranted this could be further evaluated with endoscopy. 4. Additional findings as above. ACT 112: Negative or not required by law. Electronically signed by: Sam Espinosa M.D. 11/04/2023 11:34 AM Diagnostic Findings see above PG Care Time/CCT Total # of Minutes Spent Total Time Spent with Patient: Total time spent is greater than 50% in coordination of care (as documented) at patient's floor/unit and/or counseling patient: I spent 80 minutes overall addressing this case: 20 min in medical data review/discussion with referring provider(s) and/or preparation for the visit 20 min in direct interaction with the patient/exam 20 min in Advance Care Planning/Goals of Care discussions as detailed above in note (must be >16min) 10 min in subsequent review and synthesis of assessment and plan 10 min communicating with other providers regarding the patient's case: Advanced Care Planning 57184 Advanced Care Planning 30 [place] [address] IN/OBS CONSULT LVL 5,80M Patient Type New History Comprehensive Exam Comprehensive Medical Decision Making High Complexity Diagnoses Dyspnea and respiratory abnormalities R06.00; R06.89 Weakness generalized R53.1 Acute non-ST elevation myocardial infarction (NSTEMI) I21.4 Multi-vessel coronary artery stenosis I25.10 Palliative care by specialist Z51.5 Additional Codes Advanced Care Planning - 93010 Advanced Care Planning 30 Min: 97151 Advanced Care Planning 30 Min ([id number])
--- NOTE | 2023-11-05 10:58 | Cardiology Consultation ---
Date of Consultation November 05, 2023 Assessment & Plan (1) CAD (coronary artery disease): Complex multivessel CAD including LMCA disease and occluded LAD, RCA 2. Severe 3. HFrEF/ICMEF 15 to 20% 4. BASIM 5. Anemia 6. Cystitis/UTI Patient here with worsened dizziness in the setting of hypotension and BASIM. Suspect triggered by increased diuretics and recently started Entresto. Weight down 6 pounds from last visit. Low suspicion for ACS event. At present patient still appears hypovolemic on exam. Going forward agree with holding antihypertensives and gentle IV fluids as needed. Will hold off on additional diuretics at this time. Wean off midodrine as able. Long-term patient has 3 advanced cardiac issues that make him extremely high risk for recurrent CHF and likely progressive overall decline. Have spoken with interventional cardiology at [facility] and [facility] and unfortunately does not have any additional options in terms of PCI or TAVR. In that setting agree with pursuing palliative care consult. Discussed this with patient and his friend today and they are in agreement. Will continue to follow. Appreciate hospital medicine team care History of Present Illness Attending Physician: Matias Johansen MD History of Present Illness Mr. Lindsey is a very pleasant 82 year-old end-stage cardiac disease known to me from the outpatient setting here today with dizziness, BASIM and hypotension. Patient has a long history of complex coronary artery disease. Most recent cardiac catheterization 01/2023 showed severe left main disease extending into circumflex. 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 Previously evaluated for bypass surgery at [facility] and thought to be too high risk. More recently has had progression in his aortic stenosis now severe. Also has had worsening in LV dysfunction, severe EF 15 to 20% on echo 10/2023. Patient resides at [facility]. Able to walk <50 feet with the aid of a walker. He has had recurrent edema, worsening shortness of breath requiring escalating diuretics. Recently seen by cardiology and Lasix increased to 40 mg twice daily, started on Entresto. Patient states that yesterday attempted to walk cafeteria became progressively dizzy, short of breath and had to sit down. Hypotensive and referred to ED. Hemoglobin down to 10.5 from 12.1. Creatinine up to 2.5 from 1.4. Flat HS TropI in 300s. ECG with sinus rhythm with old right bundle branch block inferolateral TWI. BNP 1500. UA grossly positive with abdominal CT showing possible obstruction/bladder thickening and started on broad-spectrum antibiotics. Initially received 500 mL normal saline. Has since received 2 doses of IV Lasix 20mg. +1400 since admission. Allergies Allergy/AdvReac Type Severity Reaction Status Date / Time No Known Drug Allergies Allergy Unknown Verified 10/21/23 11:47 Home Medications Medication Instructions Recorded Confirmed Type aspirin 81 mg chewable tablet 81 mg PO QAM 08/29/18 11/04/23 History multivitamin 1 tab PO QAM 01/23/19 11/04/23 History fexofenadine 180 mg tablet 180 mg PO DAILY PRN Allergy 02/13/21 11/04/23 History Symptoms fluticasone propionate 50 1 spray intranasal DAILY 01/19/23 11/04/23 History mcg/actuation nasal spray,suspension atorvastatin 40 mg tablet 40 mg PO DAILY #90 tabs 03/18/23 11/04/23 Rx azelastine 137 mcg (0.1 %) nasal 137 mcg intranasal UD 04/26/23 11/04/23 History spray aerosol pantoprazole 40 mg tablet,delayed 40 mg PO DAILY 04/26/23 11/04/23 History release metoprolol succinate 25 mg 12.5 mg (1/2 x 25 mg) PO DAILY #90 04/28/23 11/04/23 Rx tablet,extended release 24 hr tabs (Toprol XL) sennosides 8.6 mg tablet (Senokot) 8.6 mg PO BID #60 tabs 04/28/23 11/04/23 Rx acetaminophen 500 mg tablet 1,000 mg PO Q6H PRN Pain (Scale 06/17/23 11/04/23 History (Tylenol Extra Strength) Score 1-3) docusate sodium 100 mg capsule 100 mg PO DAILY 06/17/23 11/04/23 History (Colace) magnesium 200 mg tablet 200 mg PO DAILY 06/17/23 11/04/23 History amoxicillin 500 mg capsule 2,000 mg PO .COMPLEX 09/15/23 11/04/23 History levothyroxine 112 mcg capsule 112 mcg PO DAILY 09/15/23 11/04/23 History furosemide 40 mg tablet 40 mg PO BID #180 tabs 09/27/23 11/04/23 Rx sacubitril 24 mg-valsartan 26 mg 1 tab PO BID #60 tabs 10/21/23 11/04/23 Rx tablet (Entresto) Patient History Medical History (Updated 11/04/23 @ 14:39 by MERCED Ward) Cystitis BASIM (acute kidney injury) Aortic stenosis History of GI bleed Gastric ulcer CAD (coronary artery disease) Anemia Former smoker Coronary artery stenosis Osteoarthritis Spinal stenosis History of esophageal dilatation Myocardial Infarction pt denies? Hyperlipidemia Hypothyroidism Surgical History Stented coronary artery History of cholecystectomy History of esophagogastroduodenoscopy (EGD) History of tooth extraction History of phacoemulsification of cataract of both eyes with intraocular lens implantation History of heart artery stent x2 total--08/2018 and 09/2018 History of carpal tunnel release of both wrists History of cardiac cath x2--SEVERE 3 VESSEL Dx with chronic RCA occlusion with distal collaterals, 95% mid lAD and 95% Cx at takeoff of OM1. LAD s/p pCI and single FRANNIE on 08/29/2018 and staged PCI of Cx on 09/05/2018 wit single FRANNIE History of tonsillectomy History of total knee replacement B/L Family History Aunt Family history of diabetes mellitus Mother Family history of diabetes mellitus Family/Other Family history of diabetes mellitus niece Other No family history of adverse response to anesthesia Social History Smoking Status: Former smoker Tobacco Type: Cigarettes Second Hand Exposure: No; Do You Dip or Chew Tobacco: No; Hx Alcohol Use: No Hx Substance Use: No Preferred Language: Swedish Communication Ability: Effective Hearing Ability: Hard of Hearing Winery Worker Required: No Beliefs That Will Affect Care: None marital status: / Current Living Situation: Personal Care Facility current occupation: retired from [employer] Other Information That Helps Us Care for You: No Feels Safe at Home: Yes Safety Concerns: Feels Safe At This Time Assistive Devices: Hearing Aid - Bilateral, Walker and Wheelchair Review of Systems Review of Systems: All systems reviewed & are unremarkable except as noted in HPI & below Physical Exam Physical Exam: General: Comfortable, NC in place HEENT: Sclerae anicteric Lungs: Clear to auscultation bilaterally, no crackles or wheezes, intermittent coughing Cardiac: Regular rate and rhythm, 2 out of 6 stock ejection murmur heard best right posterior border. No JVD Vascular: 2+ radial Abdomen: Soft, nontender Extremities: Well perfused, no peripheral edema Neuro: Nonfocal Psych: Alert orient x3, normal affect and mood Results & Data Vital Signs (Past 12 Hours) Vital Signs Temp Pulse Pulse Resp BP Pulse Ox O2 Del Method 11/05/23 08:00 Nasal Cannula 11/05/23 08:00 87 11/05/23 07:43 97.3 F L 105 H 18 97/64 L 95 Nasal Cannula 11/05/23 03:05 98.1 F 52 L 17 118/79 94 Nasal Cannula 11/04/23 23:32 94 H 11/04/23 23:15 97.3 F L 96 H 17 88/61 L 95 Nasal Cannula O2 Flow Rate 11/05/23 08:00 2 11/05/23 08:00 11/05/23 07:43 11/05/23 03:05 2 11/04/23 23:32 11/04/23 23:15 2 PG Care Time/CCT Total # of Minutes Spent Total Time Spent with Patient: Total time spent is greater than 50% in coordination of care (as documented) at patient's floor/unit and/or counseling patient: Coding Level of Care Code 10779 INT INP/OBS CARE 3/75MIN Diagnoses CAD (coronary artery disease) I25.10
--- NOTE | 2023-11-05 12:02 | Nephrology Consultation ---
Date of Consultation November 05, 2023 Assessment & Plan (1) BASIM (acute kidney injury): Basim because of Hypotension triggered by recent start of entresto and higher Diuretics. he has end stage cardiac Dz--severe as well as EF of 15%. So has cardiorenal Syndrome also. Renal function will not improve in isolation given end stage cardiac dz. Acute part is better slightly. No Shorty/ARB/Adactone/Diuretics. NO iv fluid either. There is no solution and Hospice is recommended. (2) Urinary tract infection: History of Present Illness Reason for Consultation: BASIM Attending Physician: Matias Johansen MD History of Present Illness 82/M with end-stage cardiac disease Admitted yesterday with dizziness, BASIM and hypotension. Creat about 1 week ago 1.3 and on admission 2.5 and now 2.4. He has had progression in his aortic stenosis now severe. Also has had worsening in LV dysfunction, severe EF 15 to 20% on echo 10/2023. Patient resides at [facility]. He has had recurrent edema, worsening shortness of breath requiring escalating diuretics. Recently seen by cardiology and Lasix increased to 40 mg twice daily, started on Entresto. UA grossly positive with abdominal CT showing possible obstruction/bladder thickening and started on broad-spectrum antibiotics. Initially received 500 mL normal saline. Has since received 2 doses of IV Lasix 20mg. +1400 since admission. Creat is in the mid 2's. cardiology and palliative med both seen the patient already. Discussion about hospice being made. ROS--Pt is sleeping and did not open eyes on Command. Physical Exam Physical Exam: General: Comfortable, Sleeping and weak. Did not open eyes for me HEENT: MM moist. Lungs: Clear to auscultation bilaterally, no crackles or wheezes Cardiac: Regular rate and rhythm, 2/6 Systolic ejection murmur heard . No JVD Abdomen: Soft, nontender Extremities: Trace peripheral edema Neuro: Nonfocal Allergies Allergy/AdvReac Type Severity Reaction Status Date / Time No Known Drug Allergies Allergy Unknown Verified 10/21/23 11:47 Home Medications Medication Instructions Recorded Confirmed Type aspirin 81 mg chewable tablet 81 mg PO QAM 08/29/18 11/04/23 History multivitamin 1 tab PO QAM 01/23/19 11/04/23 History fexofenadine 180 mg tablet 180 mg PO DAILY PRN Allergy 02/13/21 11/04/23 History Symptoms fluticasone propionate 50 1 spray intranasal DAILY 01/19/23 11/04/23 History mcg/actuation nasal spray,suspension atorvastatin 40 mg tablet 40 mg PO DAILY #90 tabs 03/18/23 11/04/23 Rx azelastine 137 mcg (0.1 %) nasal 137 mcg intranasal UD 04/26/23 11/04/23 History spray aerosol pantoprazole 40 mg tablet,delayed 40 mg PO DAILY 04/26/23 11/04/23 History release metoprolol succinate 25 mg 12.5 mg (1/2 x 25 mg) PO DAILY #90 04/28/23 11/04/23 Rx tablet,extended release 24 hr tabs (Toprol XL) sennosides 8.6 mg tablet (Senokot) 8.6 mg PO BID #60 tabs 04/28/23 11/04/23 Rx acetaminophen 500 mg tablet 1,000 mg PO Q6H PRN Pain (Scale 06/17/23 11/04/23 History (Tylenol Extra Strength) Score 1-3) docusate sodium 100 mg capsule 100 mg PO DAILY 06/17/23 11/04/23 History (Colace) magnesium 200 mg tablet 200 mg PO DAILY 06/17/23 11/04/23 History amoxicillin 500 mg capsule 2,000 mg PO .COMPLEX 09/15/23 11/04/23 History levothyroxine 112 mcg capsule 112 mcg PO DAILY 09/15/23 11/04/23 History furosemide 40 mg tablet 40 mg PO BID #180 tabs 09/27/23 11/04/23 Rx sacubitril 24 mg-valsartan 26 mg 1 tab PO BID #60 tabs 10/21/23 11/04/23 Rx tablet (Entresto) Patient History Medical History (Updated 11/04/23 @ 14:39 by MERCED Ward) Cystitis BASIM (acute kidney injury) Aortic stenosis History of GI bleed Gastric ulcer CAD (coronary artery disease) Anemia Former smoker Coronary artery stenosis Osteoarthritis Spinal stenosis History of esophageal dilatation Myocardial Infarction pt denies? Hyperlipidemia Hypothyroidism Surgical History Stented coronary artery History of cholecystectomy History of esophagogastroduodenoscopy (EGD) History of tooth extraction History of phacoemulsification of cataract of both eyes with intraocular lens implantation History of heart artery stent x2 total--08/2018 and 09/2018 History of carpal tunnel release of both wrists History of cardiac cath x2--SEVERE 3 VESSEL Dx with chronic RCA occlusion with distal collaterals, 95% mid lAD and 95% Cx at takeoff of OM1. LAD s/p pCI and single FRANNIE on 08/29/2018 and staged PCI of Cx on 09/05/2018 wit single FRANNIE History of tonsillectomy History of total knee replacement B/L Family History Aunt Family history of diabetes mellitus Mother Family history of diabetes mellitus Family/Other Family history of diabetes mellitus niece Other No family history of adverse response to anesthesia Social History Smoking Status: Former smoker Tobacco Type: Cigarettes Second Hand Exposure: No; Do You Dip or Chew Tobacco: No; Hx Alcohol Use: No Hx Substance Use: No Preferred Language: Korean Communication Ability: Effective Hearing Ability: Hard of Hearing Resource Management Specialist Required: No Beliefs That Will Affect Care: None marital status: / Current Living Situation: Personal Care Facility current occupation: retired from [employer] Other Information That Helps Us Care for You: No Feels Safe at Home: Yes Safety Concerns: Feels Safe At This Time Assistive Devices: Denture - Upper, Denture - Lower, Glasses, Hearing Aid - Bilateral and Walker Results & Data Vital Signs (Past 12 Hours) Vital Signs Temp Pulse Pulse Resp BP Pulse Ox O2 Del Method 11/05/23 11:37 36.5 C 90 18 87/45 L 94 Nasal Cannula 11/05/23 08:00 Nasal Cannula 11/05/23 08:00 87 11/05/23 07:43 36.3 C L 105 H 18 97/64 L 95 Nasal Cannula 11/05/23 03:05 36.7 C 52 L 17 118/79 94 Nasal Cannula O2 Flow Rate 11/05/23 11:37 11/05/23 08:00 2 11/05/23 08:00 11/05/23 07:43 11/05/23 03:05 2 (2) Urinary tract infection Hematuria presence: without hematuria Urinary tract infection type: site unspecified Qualified Code(s): N39.0 - Urinary tract infection, site not specified
--- NOTE | 2023-11-05 14:34 | Communication Note ---
Date of Service: November 05, 2023 Brief Pall Med Note Full consult note to follow Attempted to visit patient who was sleepy/irritable and did not want to engage in discussion. There was no family present. I will re attempt Wednesday Dr Garland aware Thank you for allowing us to participate in the ongoing care of this patient. Please don't hesitate to call or page with any additional concerns. Dr. Su Paez DNP Director, Palliative Care
[2023-11-05] MEDS: ONDANSETRON INJ 2 MG/ML 2 ML VIAL IV PRN (15:33)
--- NOTE | 2023-11-05 17:47 | Hospitalist Progress Note ---
Date of Service November 05, 2023 Assessment & Plan (1) CAD (coronary artery disease): (2) Fatigue: (3) Dyspnea on exertion: (4) BASIM (acute kidney injury): (5) Cystitis: (6) Aortic stenosis: (7) Hypothyroidism: (8) Hyperlipidemia: Plan Per admitting notes with addendum: Mr. Lindsey is an 82 year old pleasant male who presents to the ED from with complaints of HARRIS and hypotension. He has reportedly had HARRIS with fatigue for the past few months. He reports that the past few days have been increasingly more dyspneic without associated chest pain. He reports intermittent lightheadedness upon rising in the morning out of bed. He has a significant PMH that includes multivessel coronary artery disease, esophageal achalasia, OA, hypothyroidism, HLD, history of AMI and severe LV dysfunction in setting of aortic stenosis. Most recent echo 10/2019 for severe LV dysfunction in setting of I-S, EF 15 to 20%, mild left ventricle dilation, mild MR, mild to moderate TR, mild pulmonary regurgitation. He was hospitalized most recently 04/2023 under [facility] status post mechanical fall and rib fractures. He was discharged at that time to [facility] for acute rehab and made seemingly good recovery and then transition to to [facility] assisted living. He was referred to [facility] for consideration of a CABG however was deemed too high risk for bypass surgery. A TAVR was discussed as well. Prior to arrival to the ED he received 400 mL NS be and in the ED received an additional 2L NSB. No leukocytosis, creatinine 2.51; baseline 1.1- 1.4; given abd/pelvis CT results; will order UA. D-dimer elevated at 620 which is an unlikely contributing factor when age corrected, troponin 367, negative for COVID/RSV/flu. *Chest x-ray suggestive of cardiomegaly. *Abdomen/Pelvis CT: Prostatomegaly with evidence of chronic bladder outlet obstruction. There is progressive urinary bladder wall thickening with perivesicular stranding suspicious for superimposed cystitis. Correlation with urinalysis recommended. No bowel obstruction or bowel wall thickening. Colonic diverticulosis. *Chest CT Cardiomegaly noting advanced coronary artery atherosclerosis. There is no airspace consolidation or pleural effusion. The distal esophagus appears thick walled. Correlate clinically for evidence of esophagitis. If warranted this could be further evaluated with endoscopy. Most recent ECHO 10/23; EF 15-20% severe LV dysfunction which is new in the setting of a severe aortic stenosis, mild left ventricular dilation, mild MR/mild to moderate TR/mild pulmonary regurgitation. ED covered with broad-spectrum antibiotics and obtain blood cultures. Discussed with patient his overarching goal in the event of a cardiac or respiratory arrest and he indicated that he understands that his heart condition is quite advanced and that he, at that point, would unlikely have a meaningful recovery and has chosen to be DNR/DNI. Patient will be admitted for further evaluation of his advanced CAD; patient is receptive to palliative medicine consultation. Suspect patient's hypotension of related to Entresto initiation which occurred a few weeks ago. Hold additional fluid resuscitation at this time given the severity of his heart failure. Consult cardiology for further medication adjustment considerations and further goals of care conversation. Hold nephrotoxic agents given BASIM. Will have BiPAP as needed and gentle diuresis as pressure allows. Midodrine for BP support CAD: Aortic Stenosis: HARRIS: Fatigue Hypotension: Chronic Troponin 365 and 7: Trend. Do not suspect ACS or other advanced multivessel CAD Most recent ECHO 10/23; EF 15-20% severe LV dysfunction which is new in the setting of a severe aortic stenosis, mild left ventricular dilation, mild MR/mild to moderate TR/mild pulmonary regurgitation. He was referred to [facility] for consideration of a CABG however was deemed too high risk for bypass surgery. A TAVR was discussed as well. Patient takes baby aspirin; continue Patient takes 40 mg lasix bid, will initiate iv lasix 20 mg daily to maintain euvolemic status Was started on Entresto 10/23; suspect could be contributing factor to hypotension; hold for now Takes metoprolol; hold for now given low BP Midodrine initiated for hypotension Cardiology consultation with [facility] interventional radiology Dr. Espino known to patient 4/5 BP improving overall Lasix on hold Wean off midodrine accordingly Cardiology service consulted, appreciate the recommendation BASIM: Cystitis: Acute Serum creatinine 2.51; baseline 1.1-1.4 No leukocytosis Abdomen/Pelvis CT: Prostatomegaly with evidence of chronic bladder outlet obstruction. There is progressive urinary bladder wall thickening with perivesicular stranding suspicious for superimposed cystitis. Correlation with urinalysis recommended. No bowel obstruction or bowel wall thickening. Colonic diverticulosis. UA suggestive of cystitis; started on Rocephin; adjust based on urine culture Hold nephrotoxic agents for now Repeat BMP 2100 to monitor creatinine 4/5 Hold Lasix Nephrology is consulted Goals of care; counseling: Lengthy conversation held with patient regarding his advanced disease. We had a conversation regarding his CODE STATUS and his overarching goal in the event of a cardiac or respiratory arrest and he indicated that he understands that his heart condition is quite advanced and that he, at that point, would unlikely have a meaningful recovery and has chosen to be DNR/DNI. Patient could benefit from further conversation regarding palliative medicine. I did begin conversations with regards to his advanced multivessel CAD and conservative treatment options. I explained the difference between palliative medicine and hospice and how both services could benefit his medical condition. 11/04 Palliative service consult HLD: Chronic Takes atorvastatin; continue Hypothyroidism: Chronic Takes levothyroxine; continue GERD: Chronic Takes pantoprazole; continue Disposition: PCP: Ramakrishna Whitlock; Dr. Jewell Code Status: DNR/DNI VTE Prophylaxis: Teds and SCDs for now I spent a total of 87 minutes coordinating, documenting, and providing care for this patient excluding time spent in the performance of separately billed services. All of the aforementioned completed while collaborating with the assigned attending physician for a full treatment plan. Please see their addendum for further details. Admission and Anticipated Discharge Date Admission Date: November 04, 2023 Subjective Follow-up for CHF, hypertension, etc. Seen sitting up in bed, comfortable, not in distress Good spirits States he feels improved today compared to yesterday no chest pain, dyspnea, palpitations, dizziness No other new symptoms Review of Systems Review of Systems: all noted and negative except for above Physical Exam Physical Exam: General- oriented x 2, not in distress, speaks in sentences with no effort or accessory muscle use Eyes- anicteric Neck- no JVD Lungs- clear breath sounds bilaterally, no rales/wheezes Heart- normal rate, regular rhythm; no murmurs Abdomen- normal bowel sounds, nondistended, soft, nontender Extremities- no pretibial edema, no calf tenderness Neuro- alert, oriented x 2; no gross focal neurologic deficits Skin- warm & dry Results & Data Results & Data Vital Signs (Past 12 Hours) Vital Signs Temp Pulse Pulse Resp BP Pulse Ox O2 Del Method 11/05/23 16:31 88 11/05/23 15:23 36.4 C L 100 H 19 95/58 L 97 Nasal Cannula 11/05/23 11:37 36.5 C 90 18 87/45 L 94 Nasal Cannula 11/05/23 08:00 Nasal Cannula 11/05/23 08:00 87 11/05/23 07:43 36.3 C L 105 H 18 97/64 L 95 Nasal Cannula O2 Flow Rate 11/05/23 16:31 11/05/23 15:23 11/05/23 11:37 11/05/23 08:00 2 11/05/23 08:00 11/05/23 07:43 all noted and reviewed including below
--- NOTE | 2023-11-05 22:41 | Communication Note ---
Date of Service: November 05, 2023 Code cynthia called around 10:30 PM SBP noted to be 50s. Patient asymptomatic as per RN. 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 Follow-up on hospice discussion between patient and palliative care provider.
[2023-11-05] MEDS: ALBUMIN 25% 25 GM/100 ML VIAL IV ONE (22:51)
[2023-11-05] MEDS: MIDODRINE HCL 2.5 MG TAB PO STA (22:54)
[2023-11-05 23:39] LABS: Est GFR (African American) 24.8 ml/min; Potassium 4.3 mmol/L (3.5-5.1)
[2023-11-05 23:40] LABS: BUN Creatinine Ratio 22.1 (10-20); Calcium 8.7 mg/dl (8.6-10.3); Creatinine Clr Calc Pharmacy 22.8 ml/min; Est GFR (Non-African American) 21.4 ml/min
[2023-11-06] MEDS: MIDODRINE HCL 2.5 MG TAB PO STA ×2 (02:01→04:01)
--- NOTE | 2023-11-06 06:47 | Electrocardiogram Report ---
Test Reason : Blood Pressure : / mmHG Vent. Rate : 082 BPM Atrial Rate : 082 BPM P-R Int : 206 ms QRS Dur : 156 ms QT Int : 430 ms P-R-T Axes : 017 096 -78 degrees QTc Int : 502 ms Normal sinus rhythm Right bundle branch block Possible Inferior infarct (cited on or before 26-APR-2023) Anteroseptal infarct (cited on or before 26-APR-2023) Abnormal ECG When compared with ECG of 28-APR-2023 06:05, No significant change Confirmed by Karan Nuñez ([id number]) on 11/06/2023 6:47:11 AM Referred By: REFERRED SELF Confirmed By:Karan Nuñez
[2023-11-06] MEDS: MIDODRINE HCL 2.5 MG TAB PO SCH (11:39)
--- NOTE | 2023-11-06 15:29 | Cardiology Progress Note ---
Date of Service November 06, 2023 Assessment & Plan (1) Aortic stenosis: (2) Multi-vessel coronary artery stenosis: (3) Ischemic cardiomyopathy: (4) Hypotension: (5) HFrEF (heart failure with reduced ejection fraction): (6) BASIM (acute kidney injury): Plan ASSESSMENT/PLAN: 1. Hypotension: Home antihypertensive agents have been discontinued. Net fluid balance is nearing 3 L during this hospital stay. Agree with holding of diuretics. Would stress adequate p.o. intake. Caution with more aggressive fluid administration. Midodrine not optimal, especially in the setting of acute renal failure. With his known severely reduced LV systolic function, mild hypotension is acceptable. Would try to wean midodrine as able. 2. Heart failure with reduced EF/Ischemic cardiomyopathy: He does not appear to be hypervolemic and likely hypovolemic on presentation. Slowly allowed to reach euvolemia and if able, would try to achieve such with oral intake as he is already nearing 3 L positive balance. Diuretics and Entresto have been discontinued given hypotension and hypovolemia on presentation. Beta-maria fernanda has been discontinued. Typical heart failure medications currently contraindicated due to hypotension. No ICD given DNR/DNI and diminished life expectancy. 3. Multivessel CAD: Dr. Espino has communicated with interventional cardiology at [facility] and [facility] and not felt to be a candidate for revascularization/PCI. No angina. Continue aspirin. Can continue high intensity statin therapy if no contraindication. 4. Severe aortic stenosis: Significant aortic stenosis and not felt to be TAVR candidate. 5. Acute kidney injury. Has been seen by nephrology during this hospital stay. No specific treatment felt to be useful. 6. Disposition: Poor prognosis. Multiple significant cardiac comorbidities and not felt to be candidate for valve replacement or revascularization. Palliative care has evaluated and plans on revisiting conversation with him on Wednesday. Will try to help improve hemodynamics to improve his quality of life in the meantime, although may be very challenging. Follows with Dr. Espino. Patient care communicated with primary hospitalist, Dr. Johansen. Admission and Anticipated Discharge Date Admission Date: November 04, 2023 Subjective Patient was seen earlier this afternoon. He states that he feels better today. Overnight, he was hypotensive with a low value of 58/40 mmHg charted. He states that he was not significantly symptomatic with this but recalls having orthostatic symptoms prehospital. He was laying flat in bed during today's visit but with supplemental oxygen. He denies orthopnea, chest pain, edema, palpitations, syncope, or bleeding. He is not yet back to baseline, although feeling better. He had an episode of diarrhea today. He was alone in his hospital room. Physical Exam Physical Exam: Gen.: No acute distress. Alert. HEENT: Anicteric sclera. Neck: No JVD. y. Cardiac: No ventricular heave. Regular. Normal S1-S2. 2/6 mid to late peaking systolic ejection murmur heard best at right upper sternal border. Pulmonary: Clear to auscultation bilaterally without wheezes, rales, or rhonchi. Abdomen: Soft, nontender, nondistended, with normoactive bowel sounds. No bruits noted. Extremities: 2+ radial pulses bilaterally. 2+ posterior tibialis pulses bilaterally. No edema or cyanosis. Psychiatric: Affect appears appropriate. Results & Data Vital Signs (Past 12 Hours) Vital Signs Temp Pulse Pulse Resp BP Pulse Ox O2 Del Method 11/06/23 11:04 36.7 C 72 18 89/60 L 99 Nasal Cannula 11/06/23 08:00 Nasal Cannula 11/06/23 08:00 82 11/06/23 07:55 36.3 C L 80 17 92/63 L 97 Nasal Cannula 11/06/23 03:37 36.6 C 83 16 57/36 L 97 Nasal Cannula O2 Flow Rate 11/06/23 11:04 2.0 11/06/23 08:00 2 11/06/23 08:00 11/06/23 07:55 2.0 11/06/23 03:37 2.0 Intake & Output 11/04/23 11/05/23 11/06/23 11/07/23 06:59 06:59 06:59 06:59 Intake Total 2590 / 2590 1356 / 1356 460 / 460 Output Total 675 / 675 550 / 550 476 / 476 Balance 1915 / 191 806 / 806 -16 / -16 Weight 199 lb 4.766 oz 205 lb 0.478 oz Laboratory Results Laboratory Results - last 24 hr 11/05/23 23:01 Sodium 132 L Potassium 4.3 Chloride 99 Carbon Dioxide 25 Anion Gap 8 BUN 58 H Creatinine 2.63 H Est Cr Clr Drug Dosing 22.8 Est GFR ( Amer) 24.8 Est GFR (Non-Af Amer) 21.4 BUN/Creatinine Ratio 22.1 H Glucose 165 H Lactate 1.0 Calcium 8.7 Diagnostic Findings Labs from 11/05/2023 demonstrated abnormal renal function, above baseline but stable during this hospital stay. Normal potassium, mild hyponatremia, mild anemia. Telemetry personally reviewed and notable for sinus rhythm. Urine and blood cultures negative to date. ECG personally reviewed 11/04/2023: Sinus rhythm 82 bpm. RBBB. Possible septal infarct. Cannot exclude inferior infarct. Chart reviewed. Echo 10/07/2023: Severely reduced LV systolic function. EF 15 to 20%. Severe global hypokinesis with apical akinesis. Significant aortic stenosis. Palliative care note reviewed. Medications Administered Current Inpatient Medications Acetaminophen (Acetaminophen 325 Mg Tab) 650 mg PO Q4H PRN PRN Reason: Pain or Fever Stop: 12/04/23 11:12 Al Hydrox/Mg Hydrox/Simethicone (Aluminum/Magnesium Susp 30 Ml Udc) 15 ml PO Q4H PRN PRN Reason: Dyspepsia Stop: 12/04/23 11:12 Albuterol (Albut/Ipratrop 3mg/0.5mg Neb 3 Ml Vial) 3 ml NEB Q2H PRN; Protocol PRN Reason: Wheezing Stop: 12/04/23 13:14 Aspirin (Aspirin 81 Mg Ectab) 81 mg PO QAM [facility] Stop: 12/05/23 08:59 Last Admin: 11/06/23 07:42 Dose: 81 mg Atorvastatin Calcium (Atorvastatin 40 Mg Tab) 40 mg PO DAILY [facility] Stop: 12/05/23 08:59 Last Admin: 11/06/23 07:42 Dose: 40 mg Docusate Sodium (Docusate Sodium 100 Mg Cap) 100 mg PO DAILY [facility] Stop: 12/05/23 08:59 Last Admin: 11/06/23 07:41 Dose: 100 mg Fluticasone Propionate (Fluticasone Propionate Na Spr 16 Gm Btl) 1 sprays NA DAILY [facility] Stop: 12/05/23 08:59 Last Admin: 11/06/23 07:41 Dose: 1 sprays Ceftriaxone Sodium 2,000 mg/ (Dextrose) 50 mls @ 100 mls/hr IV Q24H [facility] Stop: 11/09/23 15:59 Last Infusion: 11/05/23 16:23 Dose: Infused Levothyroxine Sodium (Levothyroxine Sodium 112 Mcg Tablet) 112 mcg PO DAILYBB [facility] Stop: 12/05/23 06:29 Last Admin: 11/06/23 06:13 Dose: 112 mcg Magnesium Hydroxide (Magnesium Hydroxide Susp 30 Ml Udc) 30 ml PO Q12H PRN PRN Reason: Constipation Stop: 12/04/23 11:12 Midodrine (Midodrine Hcl 2.5 Mg Tab) 5 mg PO TID@0800,1200,1700 [facility] Stop: 12/06/23 11:59 Last Admin: 11/06/23 11:39 Dose: 5 mg Ondansetron HCl (Ondansetron Inj 2 Mg/Ml 2 Ml Vial) 4 mg IV Q6H PRN PRN Reason: Nausea Stop: 12/04/23 11:12 Last Admin: 11/06/23 07:40 Dose: 4 mg Pantoprazole Sodium (Pantoprazole 40 Mg Tab) 40 mg PO DAILY [facility] Stop: 12/05/23 08:59 Last Admin: 11/06/23 07:42 Dose: 40 mg Polyethylene Glycol (Polyethylene (Miralax) 17 Gm Pack) 17 gm PO DAILY PRN PRN Reason: Constipation Stop: 12/04/23 11:12 Sennosides (Senna 8.6 Mg Tab) 8.6 mg PO BID [facility] Stop: 12/04/23 20:59 Last Admin: 11/06/23 11:39 Dose: 8.6 mg PG Care Time/CCT Total # of Minutes Spent Total Time Spent with Patient: Total time spent is greater than 50% in coordination of care (as documented) at patient's floor/unit and/or counseling patient: Coding Level of Care Code 87144 SUB INP/OBS CARE 3/50MIN Diagnoses Aortic stenosis I35.0 Multi-vessel coronary artery stenosis I25.10 Ischemic cardiomyopathy I25.5 Hypotension I95.9 HFrEF (heart failure with reduced ejection fraction) I50.20 BASIM (acute kidney injury) N17.9
--- NOTE | 2023-11-06 15:51 | Hospitalist Progress Note ---
Date of Service November 06, 2023 Assessment & Plan (1) CAD (coronary artery disease): (2) Fatigue: (3) Dyspnea on exertion: (4) BASIM (acute kidney injury): (5) Cystitis: (6) Aortic stenosis: (7) Hypothyroidism: (8) Hyperlipidemia: Plan Per admitting notes with addendum: Mr. Lindsey is an 82 year old pleasant male who presents to the ED from with complaints of HARRIS and hypotension. He has reportedly had HARRIS with fatigue for the past few months. He reports that the past few days have been increasingly more dyspneic without associated chest pain. He reports intermittent lightheadedness upon rising in the morning out of bed. He has a significant PMH that includes multivessel coronary artery disease, esophageal achalasia, OA, hypothyroidism, HLD, history of AMI and severe LV dysfunction in setting of aortic stenosis. Most recent echo 10/2019 for severe LV dysfunction in setting of I-S, EF 15 to 20%, mild left ventricle dilation, mild MR, mild to moderate TR, mild pulmonary regurgitation. He was hospitalized most recently 04/2023 under [facility] status post mechanical fall and rib fractures. He was discharged at that time to [facility] for acute rehab and made seemingly good recovery and then transition to to [facility] assisted living. He was referred to [facility] for consideration of a CABG however was deemed too high risk for bypass surgery. A TAVR was discussed as well. Prior to arrival to the ED he received 400 mL NS be and in the ED received an additional 2L NSB. No leukocytosis, creatinine 2.51; baseline 1.1- 1.4; given abd/pelvis CT results; will order UA. D-dimer elevated at 620 which is an unlikely contributing factor when age corrected, troponin 367, negative for COVID/RSV/flu. *Chest x-ray suggestive of cardiomegaly. *Abdomen/Pelvis CT: Prostatomegaly with evidence of chronic bladder outlet obstruction. There is progressive urinary bladder wall thickening with perivesicular stranding suspicious for superimposed cystitis. Correlation with urinalysis recommended. No bowel obstruction or bowel wall thickening. Colonic diverticulosis. *Chest CT Cardiomegaly noting advanced coronary artery atherosclerosis. There is no airspace consolidation or pleural effusion. The distal esophagus appears thick walled. Correlate clinically for evidence of esophagitis. If warranted this could be further evaluated with endoscopy. Most recent ECHO 10/23; EF 15-20% severe LV dysfunction which is new in the setting of a severe aortic stenosis, mild left ventricular dilation, mild MR/mild to moderate TR/mild pulmonary regurgitation. ED covered with broad-spectrum antibiotics and obtain blood cultures. Discussed with patient his overarching goal in the event of a cardiac or respiratory arrest and he indicated that he understands that his heart condition is quite advanced and that he, at that point, would unlikely have a meaningful recovery and has chosen to be DNR/DNI. Patient will be admitted for further evaluation of his advanced CAD; patient is receptive to palliative medicine consultation. Suspect patient's hypotension of related to Entresto initiation which occurred a few weeks ago. Hold additional fluid resuscitation at this time given the severity of his heart failure. Consult cardiology for further medication adjustment considerations and further goals of care conversation. Hold nephrotoxic agents given BASIM. Will have BiPAP as needed and gentle diuresis as pressure allows. Midodrine for BP support CAD: Aortic Stenosis: HARRIS: Fatigue Hypotension: Chronic Troponin 365 and 7: Trend. Do not suspect ACS or other advanced multivessel CAD Most recent ECHO 10/23; EF 15-20% severe LV dysfunction which is new in the setting of a severe aortic stenosis, mild left ventricular dilation, mild MR/mild to moderate TR/mild pulmonary regurgitation. He was referred to [facility] for consideration of a CABG however was deemed too high risk for bypass surgery. A TAVR was discussed as well. Patient takes baby aspirin; continue Patient takes 40 mg lasix bid, will initiate iv lasix 20 mg daily to maintain euvolemic status Was started on Entresto 10/23; suspect could be contributing factor to hypotension; hold for now Takes metoprolol; hold for now given low BP Midodrine initiated for hypotension Cardiology consultation with [facility] interventional radiology Dr. Espino known to patient 4/5 BP improving overall Lasix on hold Wean off midodrine accordingly Cardiology service consulted, appreciate the recommendation 4/6 Hypotensive overnight Midodrine increased Lasix, Entresto on hold Monitor closely BASIM: Cystitis: Acute Serum creatinine 2.51; baseline 1.1-1.4 No leukocytosis Abdomen/Pelvis CT: Prostatomegaly with evidence of chronic bladder outlet obstruction. There is progressive urinary bladder wall thickening with perivesicular stranding suspicious for superimposed cystitis. Correlation with urinalysis recommended. No bowel obstruction or bowel wall thickening. Colonic diverticulosis. UA suggestive of cystitis; started on Rocephin; adjust based on urine culture Hold nephrotoxic agents for now Repeat BMP 2100 to monitor creatinine 4/ Creatinine increased, today 2.6 Lasix already on hold Monitor closely Nephrology service consulted Goals of care; counseling: Lengthy conversation held with patient regarding his advanced disease. We had a conversation regarding his CODE STATUS and his overarching goal in the event of a cardiac or respiratory arrest and he indicated that he understands that his heart condition is quite advanced and that he, at that point, would unlikely have a meaningful recovery and has chosen to be DNR/DNI. Patient could benefit from further conversation regarding palliative medicine. I did begin conversations with regards to his advanced multivessel CAD and conservative treatment options. I explained the difference between palliative medicine and hospice and how both services could benefit his medical condition. 11/05 Palliative service consulted HLD: Chronic Takes atorvastatin; continue Hypothyroidism: Chronic Takes levothyroxine; continue GERD: Chronic Takes pantoprazole; continue Disposition: PCP: Ramakrishna Whitlock; Dr. Jewell Code Status: DNR/DNI VTE Prophylaxis: Teds and SCDs for now I spent a total of 87 minutes coordinating, documenting, and providing care for this patient excluding time spent in the performance of separately billed services. All of the aforementioned completed while collaborating with the assigned attending physician for a full treatment plan. Please see their addendum for further details. Admission and Anticipated Discharge Date Admission Date: November 04, 2023 Subjective Follow-up for hypotension, etc. Events overnight noted Resting in bed, comfortable, not in distress States he feels okay overall No dizziness, chest pain, palpitations No other new symptoms Review of Systems Review of Systems: all noted and negative except for above Physical Exam Physical Exam: General- oriented x 3, not in distress, speaks in sentences with no effort or accessory muscle use Eyes- anicteric Neck- no JVD Lungs- clear breath sounds bilaterally, no rales/wheezes Heart- normal rate, regular rhythm; no murmurs Abdomen- normal bowel sounds, nondistended, soft, nontender Extremities- no pretibial edema, no calf tenderness Neuro- alert, oriented x 3; no gross focal neurologic deficits Skin- warm & dry Results & Data Results & Data Vital Signs (Past 12 Hours) Vital Signs Temp Pulse Pulse Resp BP Pulse Ox O2 Del Method 11/06/23 11:04 36.7 C 72 18 89/60 L 99 Nasal Cannula 11/06/23 08:00 Nasal Cannula 11/06/23 08:00 82 11/06/23 07:55 36.3 C L 80 17 92/63 L 97 Nasal Cannula O2 Flow Rate 11/06/23 11:04 2.0 11/06/23 08:00 2 11/06/23 08:00 11/06/23 07:55 2.0 all noted and reviewed including below
[2023-11-07] MEDS: ACETAMINOPHEN 325 MG TAB PO PRN (06:14)
[2023-11-07] MEDS: ALBUT/IPRATROP 3MG/0.5MG NEB 3 ML VIAL NEB PRN (06:19)
--- NOTE | 2023-11-07 13:11 | Hospitalist Progress Note ---
Date of Service November 07, 2023 Assessment & Plan (1) CAD (coronary artery disease): (2) Fatigue: (3) Dyspnea on exertion: (4) BASIM (acute kidney injury): (5) Cystitis: (6) Aortic stenosis: (7) Hypothyroidism: (8) Hyperlipidemia: Plan Per admitting notes with addendum: Mr. Lindsey is an 82 year old pleasant male who presents to the ED from with complaints of HARRIS and hypotension. He has reportedly had HARRIS with fatigue for the past few months. He reports that the past few days have been increasingly more dyspneic without associated chest pain. He reports intermittent lightheadedness upon rising in the morning out of bed. He has a significant PMH that includes multivessel coronary artery disease, esophageal achalasia, OA, hypothyroidism, HLD, history of AMI and severe LV dysfunction in setting of aortic stenosis. Most recent echo 10/2019 for severe LV dysfunction in setting of I-S, EF 15 to 20%, mild left ventricle dilation, mild MR, mild to moderate TR, mild pulmonary regurgitation. He was hospitalized most recently 04/2023 under [facility] status post mechanical fall and rib fractures. He was discharged at that time to [facility] for acute rehab and made seemingly good recovery and then transition to to [facility] assisted living. He was referred to [facility] for consideration of a CABG however was deemed too high risk for bypass surgery. A TAVR was discussed as well. Prior to arrival to the ED he received 400 mL NS be and in the ED received an additional 2L NSB. No leukocytosis, creatinine 2.51; baseline 1.1- 1.4; given abd/pelvis CT results; will order UA. D-dimer elevated at 620 which is an unlikely contributing factor when age corrected, troponin 367, negative for COVID/RSV/flu. *Chest x-ray suggestive of cardiomegaly. *Abdomen/Pelvis CT: Prostatomegaly with evidence of chronic bladder outlet obstruction. There is progressive urinary bladder wall thickening with perivesicular stranding suspicious for superimposed cystitis. Correlation with urinalysis recommended. No bowel obstruction or bowel wall thickening. Colonic diverticulosis. *Chest CT Cardiomegaly noting advanced coronary artery atherosclerosis. There is no airspace consolidation or pleural effusion. The distal esophagus appears thick walled. Correlate clinically for evidence of esophagitis. If warranted this could be further evaluated with endoscopy. Most recent ECHO 10/23; EF 15-20% severe LV dysfunction which is new in the setting of a severe aortic stenosis, mild left ventricular dilation, mild MR/mild to moderate TR/mild pulmonary regurgitation. ED covered with broad-spectrum antibiotics and obtain blood cultures. Discussed with patient his overarching goal in the event of a cardiac or respiratory arrest and he indicated that he understands that his heart condition is quite advanced and that he, at that point, would unlikely have a meaningful recovery and has chosen to be DNR/DNI. Patient will be admitted for further evaluation of his advanced CAD; patient is receptive to palliative medicine consultation. Suspect patient's hypotension of related to Entresto initiation which occurred a few weeks ago. Hold additional fluid resuscitation at this time given the severity of his heart failure. Consult cardiology for further medication adjustment considerations and further goals of care conversation. Hold nephrotoxic agents given BASIM. Will have BiPAP as needed and gentle diuresis as pressure allows. Midodrine for BP support CAD: Aortic Stenosis: HARRIS: Fatigue Hypotension: Chronic Troponin 365 and 7: Trend. Do not suspect ACS or other advanced multivessel CAD Most recent ECHO 10/23; EF 15-20% severe LV dysfunction which is new in the setting of a severe aortic stenosis, mild left ventricular dilation, mild MR/mild to moderate TR/mild pulmonary regurgitation. He was referred to [facility] for consideration of a CABG however was deemed too high risk for bypass surgery. A TAVR was discussed as well. Patient takes baby aspirin; continue Patient takes 40 mg lasix bid, will initiate iv lasix 20 mg daily to maintain euvolemic status Was started on Entresto 10/23; suspect could be contributing factor to hypotension; hold for now Takes metoprolol; hold for now given low BP Midodrine initiated for hypotension Cardiology consultation with [facility] interventional radiology Dr. Espino known to patient 4/5 BP improving overall Lasix on hold Wean off midodrine accordingly Cardiology service consulted, appreciate the recommendation 4/6 Hypotensive overnight Midodrine increased Lasix, Entresto on hold Monitor closely 7 BP still on the lower side but seems to be stabilized Continue midodrine Holding Lasix and Entresto Palliative care service will be holding discussed with patient tomorrow Appreciate cardiology service recommendations BASIM: Cystitis: Acute Serum creatinine 2.51; baseline 1.1-1.4 No leukocytosis Abdomen/Pelvis CT: Prostatomegaly with evidence of chronic bladder outlet obstruction. There is progressive urinary bladder wall thickening with perivesicular stranding suspicious for superimposed cystitis. Correlation with urinalysis recommended. No bowel obstruction or bowel wall thickening. Colonic diverticulosis. UA suggestive of cystitis; started on Rocephin; adjust based on urine culture Hold nephrotoxic agents for now Repeat BMP 2100 to monitor creatinine 4/ Creatinine increased, today 2.6 Lasix already on hold Monitor closely Nephrology service consulted 11/06 PRP pending Goals of care; counseling: Lengthy conversation held with patient regarding his advanced disease. We had a conversation regarding his CODE STATUS and his overarching goal in the event of a cardiac or respiratory arrest and he indicated that he understands that his heart condition is quite advanced and that he, at that point, would unlikely have a meaningful recovery and has chosen to be DNR/DNI. Patient could benefit from further conversation regarding palliative medicine. I did begin conversations with regards to his advanced multivessel CAD and conservative star atment options. I explained the difference between palliative medicine and hospice and how both services could benefit his medical condition. 11/06 Palliative service consulted HLD: Chronic Takes atorvastatin; continue Hypothyroidism: Chronic Takes levothyroxine; continue GERD: Chronic Takes pantoprazole; continue Disposition: PCP: Ramakrishna Jewell Code Status: DNR/DNI VTE Prophylaxis: Teds and SCDs for now Admission and Anticipated Discharge Date Admission Date: November 04, 2023 Subjective Follow-up for hypotension, CHF, EF 15%, etc. Resting in bed, sleeping but easily awakened States he feels okay overall No acute events overnight Denies dizziness, chest pain, shortness of breath, palpitations Reported 2 loose bowel movements today, having some nausea earlier No other new symptoms Review of Systems Review of Systems: all noted and negative except for above Physical Exam Physical Exam: General- oriented x 3, not in distress, speaks in sentences with no effort or accessory muscle use Eyes- anicteric Neck- no JVD Lungs- clear BS BL Heart- normal rate, regular rhythm; no murmurs Abdomen- normal bowel sounds, nondistended, soft, nontender Extremities- no pretibial edema, no calf tenderness Neuro- alert, oriented x 3; no gross focal neurologic deficits Skin- warm & dry Results & Data Results & Data Vital Signs (Past 12 Hours) Vital Signs Temp Pulse Pulse Resp BP Pulse Ox O2 Del Method 11/07/23 12:04 36.4 C L 71 19 95/55 L 99 Nasal Cannula 11/07/23 07:45 36.3 C L 76 17 92/57 L 96 Nasal Cannula 11/07/23 07:42 86 11/07/23 06:19 86 18 90 Room Air 11/07/23 02:43 36.8 C 78 24 82/58 L 96 Nasal Cannula O2 Flow Rate 11/07/23 12:04 3.0 11/07/23 07:45 3.0 11/07/23 07:42 11/07/23 06:19 11/07/23 02:43 3.0 all noted and reviewed including below
--- NOTE | 2023-11-07 15:00 | Cardiology Progress Note ---
Date of Service November 07, 2023 Assessment & Plan (1) Aortic stenosis: (2) Multi-vessel coronary artery stenosis: (3) Ischemic cardiomyopathy: (4) Hypotension: (5) HFrEF (heart failure with reduced ejection fraction): (6) BASIM (acute kidney injury): Plan ASSESSMENT/PLAN: 1. Hypotension: Home antihypertensive agents have been discontinued. Net fluid balance is slightly above 3 L during this hospital stay. Agree with holding of diuretics. Would stress adequate p.o. intake. Caution with more aggressive fluid administration. Midodrine not optimal, especially in the setting of acute renal failure. With his known severely reduced LV systolic function, mild hypotension is acceptable. Will reduce midodrine to 2.5 mg p.o. 3 times daily and hopefully wean off completely tomorrow if tolerated. 2. Heart failure with reduced EF/Ischemic cardiomyopathy: He does not appear to be hypervolemic and likely hypovolemic on presentation. Slowly allowed to reach euvolemia and if able, would try to achieve such with oral intake as he is approximately 3 L positive balance. Diuretics and Entresto have been discontinued given hypotension and hypovolemia on presentation. Beta-maria fernanda has been discontinued. Typical heart failure medications currently contraindicated due to hypotension. No ICD given DNR/DNI and diminished life expectancy. 3. Multivessel CAD: Dr. Espino has communicated with interventional cardiology [place] [facility] [place] [facility] and not felt to be a candidate for revascularization/PCI. No angina. Continue aspirin. Can continue high intensity statin therapy if no contraindication. 4. Severe aortic stenosis: Significant aortic stenosis and not felt to be TAVR candidate. 5. Acute kidney injury. Has been seen by nephrology during this hospital stay. No specific treatment felt to be useful. Recommend repeating labs, which are currently pending. 6. Disposition: Poor prognosis. Multiple significant cardiac comorbidities and not felt to be candidate for valve replacement or revascularization. Palliative care has evaluated and plans on revisiting conversation with him on Wednesday. Will try to help improve hemodynamics to improve his quality of life in the meantime, although may be very challenging. Follows with Dr. Espino. Patient care discussed with primary hospitalist, Dr. Johansen. Admission and Anticipated Discharge Date Admission Date: November 04, 2023 Subjective Patient seen today with primary hospitalist, Dr. Johansen at the bedside. Patient states that he feels better today but still feels weak and has decreased appetite. He denies lightheadedness, syncope, chest pain, or significant shortness of breath. He slept better last night. Physical Exam Physical Exam: Gen.: No acute distress. Alert. HEENT: Anicteric sclera. Neck: No appreciable JVD. Cardiac: Regular. Normal S1-S2. 2/6 mid to late peaking systolic ejection murmur heard best at right upper sternal border. Pulmonary: Clear to auscultation bilaterally without wheezes, rales, or rhonchi. Abdomen: Soft, nontender, nondistended, with normoactive bowel sounds. No bruits noted. Extremities: 2+ radial pulses bilaterally. 2+ posterior tibialis pulses bilaterally. No edema or cyanosis. Psychiatric: Affect appears appropriate. Results & Data Vital Signs (Past 12 Hours) Vital Signs Temp Pulse Pulse Resp BP Pulse Ox O2 Del Method 11/07/23 12:04 36.4 C L 71 19 95/55 L 99 Nasal Cannula 11/07/23 07:45 36.3 C L 76 17 92/57 L 96 Nasal Cannula 11/07/23 07:42 86 11/07/23 06:19 86 18 90 Room Air O2 Flow Rate 11/07/23 12:04 3.0 11/07/23 07:45 3.0 11/07/23 07:42 11/07/23 06:19 Intake & Output 11/05/23 11/06/23 11/07/23 11/08/23 06:59 06:59 06:59 06:59 Intake Total 2590 / 2590 1356 / 1356 990 / 990 Output Total 675 / 675 550 / 550 652 / 652 Balance 1915 / 1915 806 / 806 338 / 338 Weight 199 lb 4.766 oz 205 lb 0.478 oz 196 lb 13.965 oz Laboratory Results BMP currently pending. Diagnostic Findings Telemetry personally reviewed: Sinus rhythm. No arrhythmia. Labs pending. Hospitalist note from 11/07/2023 reviewed. Medications Administered Current Inpatient Medications Acetaminophen (Acetaminophen 325 Mg Tab) 650 mg PO Q4H PRN PRN Reason: Pain or Fever Stop: 12/04/23 11:12 Last Admin: 11/07/23 06:14 Dose: 650 mg Al Hydrox/Mg Hydrox/Simethicone (Aluminum/Magnesium Susp 30 Ml Udc) 15 ml PO Q4H PRN PRN Reason: Dyspepsia Stop: 12/04/23 11:12 Albuterol (Albut/Ipratrop 3mg/0.5mg Neb 3 Ml Vial) 3 ml NEB Q2H PRN; Protocol PRN Reason: Wheezing Stop: 12/04/23 13:14 Last Admin: 11/07/23 06:19 Dose: 3 ml Aspirin (Aspirin 81 Mg Ectab) 81 mg PO QAM CAMRYN Stop: 12/05/23 08:59 Last Admin: 11/07/23 07:36 Dose: 81 mg Atorvastatin Calcium (Atorvastatin 40 Mg Tab) 40 mg PO DAILY CAMRYN Stop: 12/05/23 08:59 Last Admin: 11/07/23 07:36 Dose: 40 mg Docusate Sodium (Docusate Sodium 100 Mg Cap) 100 mg PO DAILY CAMRYN Stop: 12/05/23 08:59 Last Admin: 11/07/23 07:18 Dose: Not Given Fluticasone Propionate (Fluticasone Propionate Na Spr 16 Gm Btl) 1 sprays NA DAILY CAMRYN Stop: 12/05/23 08:59 Last Admin: 11/07/23 07:35 Dose: 1 sprays Ceftriaxone Sodium 2,000 mg/ (Dextrose) 50 mls @ 100 mls/hr IV Q24H CAMRYN Stop: 11/09/23 15:59 Last Infusion: 11/06/23 16:28 Dose: Infused Pantoprazole Sodium 40 mg/ (Syringe) 10 mls @ 5 mls/min IV BID CAMRYN Stop: 12/07/23 20:59 Levothyroxine Sodium (Levothyroxine Sodium 112 Mcg Tablet) 112 mcg PO DAILYBB CAMRYN Stop: 12/05/23 06:29 Last Admin: 11/07/23 06:06 Dose: 112 mcg Magnesium Hydroxide (Magnesium Hydroxide Susp 30 Ml Udc) 30 ml PO Q12H PRN PRN Reason: Constipation Stop: 12/04/23 11:12 Midodrine (Midodrine Hcl 2.5 Mg Tab) 5 mg PO TID@0800,1200,1700 CAMRYN Stop: 12/06/23 11:59 Last Admin: 11/07/23 11:35 Dose: 5 mg Ondansetron HCl (Ondansetron Inj 2 Mg/Ml 2 Ml Vial) 4 mg IV Q6H PRN PRN Reason: Nausea Stop: 12/04/23 11:12 Last Admin: 11/06/23 07:40 Dose: 4 mg Polyethylene Glycol (Polyethylene (Miralax) 17 Gm Pack) 17 gm PO DAILY PRN PRN Reason: Constipation Stop: 12/04/23 11:12 Sennosides (Senna 8.6 Mg Tab) 8.6 mg PO BID CAMRYN Stop: 12/04/23 20:59 Last Admin: 11/07/23 07:18 Dose: Not Given PG Care Time/CCT Total # of Minutes Spent Total Time Spent with Patient: Total time spent is greater than 50% in coordination of care (as documented) at patient's floor/unit and/or counseling patient: Coding Level of Care Code 63207 SUB INP/OBS CARE 3/50MIN Diagnoses Aortic stenosis I35.0 Multi-vessel coronary artery stenosis I25.10 Ischemic cardiomyopathy I25.5 Hypotension I95.9 HFrEF (heart failure with reduced ejection fraction) I50.20 BASIM (acute kidney injury) N17.9
[2023-11-07 15:47] LABS: BUN Creatinine Ratio 20.9 (10-20); Calcium 8.3 mg/dl (8.6-10.3); Creatinine Clr Calc Pharmacy 18.3 ml/min; Est GFR (African American) 19.1 ml/min; Est GFR (Non-African American) 16.5 ml/min; Potassium 4.3 mmol/L (3.5-5.1)
[2023-11-07] MEDS: MIDODRINE HCL 2.5 MG TAB PO SCH (15:52)
[2023-11-07] MEDS: PANTOprazole 40 MG in SYRINGE 0 ML IV SCH (20:20)
[2023-11-08 09:22] LABS: BUN Creatinine Ratio 21.3 (10-20); Calcium 8.9 mg/dl (8.6-10.3); Creatinine Clr Calc Pharmacy 18.8 ml/min; Est GFR (Non-African American) 17.3 ml/min; Potassium 4.4 mmol/L (3.5-5.1)
--- NOTE | 2023-11-08 11:44 | Palliative Family Discussion ---
Date of Service November 08, 2023 Patient Directed Conference Time of [id number] Face to face ACP meeting with pt Participants: Su Paez DNP Patient participation: yes Patient Support System: none Other Healthcare Provider Participation: None Meeting Location: bedside Advanced Directive available: no but pt reaffirms DNR/DNI Pt states his friend Bill is SDM/POA if he is unable to make his wishes known A family meeting was held for SMITH FRAZIER. This meeting was necessary for determining the appropriate course of treatment. Topics of Discussion Topics of Discussion: 1. 82yo male with severe multivessel coronary artery stenosis, s/p PCI with FRANNIE to mid LAD, mid circumflex 09/2018. 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 He has severe three-vessel disease with chronic RCA occlusion with distal collaterals, 95% mid LAD and 95% circumflex at takeoff of OM1. The LAD was treated with PCI and single drug- eluting stent on 08/29/2018. He was then brought back for staged PCI of circumflex on 09/05/2018 with single FRANNIE, procedure uncomplicated and had improvement in symptoms. Cath of 01/2023 revealed severe multivessel CAD. He has moderate to severe aortic stenosis. 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 He has severe exertional dyspnea that limits every activity/attempted exertion. He has been evaluated by CT surgery at both [facility] and [facility], is not a surgical candidate. 2. Smith notes he is at an end stage of HF and knows he is not a candidate for more surgery. He states he spoke with [facility] hospice and is interested in this at [facility]. He does not have an agency preference. 3. He wants to focus on QOL and comfort, he knows he is not imminently dying but that his mortality is closer now than it has been in the past, and his heart continues to fail. He is happy at [facility] and has become comfortable with the team there. Other Content of Meetin. Opportunity given for participants to speak and ask questions. 2. Participants were assured of attention to patient comfort. 3. Reassurance provided. 4. Support was provided for informed, good-sherman decisions. 5. Emotions expressed by family were acknowledged and addressed. 6. Follow-up Outpatient: offered Pall Med OP clinic follow up prn, contact info provided. 7. Plan of Care: back to [facility] with hospice, CM to coordinate: Comfort Care Discharge Summary & Plan of Care For Shelter/SNF/PCH/VISHAL Comfort plan of care parameters: 1. Patient elects hospice added to their care. 2. NO rehab/PT/OT 3. Strictly End of Life care only: Focus is on QOL 4. NO escalation of care: do not increase oxygen, escalate therapies, etc. The focus is on comfort through end of life, assure this is accomplished with aggressive symptom management (i.e. relief of dyspnea, pain, etc.) 5. NO return to hospital 6. NO labs, imaging, surgery 7. Oral intake as desired for comfort and pleasure: NO dietary restriction 8. If difficulty urinating/commode/bedpan, ok to place Graham catheter for comfort/hygiene/skin protection AND/OR Continue Graham catheter for comfort/hygiene/skin protection 9. NO: calorie counts, artificial nutrition, feeding tubes or IV fluids Medications to continue are noted on discharge summary. Provider to contact if any questions about comfort plan of care: Hospice Population Geneticist or designee Time Involved in Meeting: I spent 85 minutes overall addressing this case: 10 in medical data review/discussion with referring provider(s) and/or preparation for the visit 60 Advance Care Planning/Goals of Care discussions as detailed above in note (must be >16min) 5 in subsequent review and synthesis of assessment and plan 10 in communicating with other providers regarding the patient's case: nursing, primary team care mgt, cardiology Thank you for allowing us to participate in the ongoing care of this patient. Please don't hesitate to call or page with any additional concerns. Dr. Su Paez DNP Director, Palliative Care
--- NOTE | 2023-11-08 11:57 | Palliative Care Progress Note ---
Date of Service November 08, 2023 Assessment & Plan (1) Dyspnea and respiratory abnormalities: (2) Weakness generalized: (3) Palliative care by specialist: (4) Advanced care planning/counseling discussion: Plan: See separate ACP meeting Plan * Desires return to [facility] with hospice * Primary teams notified * follow up OP [facility] prn Thank you for allowing us to participate in the ongoing care of this patient. Please don't hesitate to call or page with any additional concerns. Dr. Su Paez DNP Director, Palliative Care Admission and Anticipated Discharge Date Admission Date: November 04, 2023 Subjective Smith is seen bedside, no family present He is AAOx3 He is more engaged and talkative this morning He denies pain He admits to Dyspnea No n/v Appetite is ok Mood is ok Review of Systems Review of Systems: All systems reviewed & are unremarkable except as noted in Subjective Physical Exam Constitutional: + ill appearing and + frail appearing Eyes: PERRL ENMT: poor dentition MM dry Neck: trachea midline and + short neck Respiratory: + labored breathing and + uses accessory muscles Auscultation: + diminished lung sounds and + crackles Cardiovascular: Rate/Rhythm: + tachycardic Gastrointestinal (Abdomen): Inspection/Auscultation: normal bowel sounds Musculoskeletal: generalized weakness Skin: + turgor decreased, + dry skin and + pal monse Neurologic: awake and alert but easily fatigued generalized weakness Results & Data Vital Signs (Past 12 Hours) Vital Signs Temp Pulse Pulse Resp BP Pulse Ox O2 Del Method 11/08/23 10:29 73 11/08/23 08:47 Nasal Cannula 11/08/23 07:29 36.4 C L 75 18 87/49 L 97 Nasal Cannula 11/08/23 03:00 36.6 C 71 22 79/46 L 96 Nasal Cannula O2 Flow Rate 11/08/23 10:29 11/08/23 08:47 2 11/08/23 07:29 2 11/08/23 03:00 1.0 Laboratory Results 11/08/23 11/07/23 11/05/23 Range/Units 08:48 14:45 23:01 WBC (4.8-10.8) K/ul RBC (4.70-6.10) M/uL Hgb (14.0-18.0) g/dl Hct (42.0-52.0) % MCV (80.0-100.0) fL MCH (25.0-34.0) pg MCHC (32.0-36.0) g/dL RDW Std Deviation (36.4-46.3) fL RDW Coeff of You (11.5-14.5) % Plt Count (130-400) K/uL MPV (9.4-12.4) fL Immature Gran % (Auto) % Neut % (Auto) % Lymph % (Auto) % Creek % (Auto) % Eos % (Auto) % Baso % (Auto) % Neut # (Auto) (1.40-6.50) K/uL Lymph # (Auto) (1.20-3.40) K/uL [place] # (Auto) (0.11-0.59) K/uL Eos # (Auto) (0.00-0.50) K/uL Baso # (Auto) (0.00-0.20) K/uL Immature Gran # (Auto) (0.01-0.20) K/uL PT (9.0-12.0) Seconds INR (0.9-1.1) APTT (21-31) Seconds PTT Ratio D-Dimer (0-500) ug/L FEU VBG pH (7.36-7.41) VBG pCO2 (38-50) mmHg VBG pO2 mmHg VBG HCO3 mmol/L VBG O2 Saturation % VBG Base Excess mEq/L Sodium 130 L 129 L 132 L (136-145) mmol/L Potassium 4.4 4.3 4.3 (3.5-5.1) mmol/L Chloride 97 L 96 L 99 (98-107) mmol/L Carbon Dioxide 23 24 25 (21-32) mmol/L Anion Gap 10 9 8 (3-11) BUN 67 H 68 H 58 H (6-23) mg/dl Creatinine 3.14 H 3.26 H D 2.63 H (0.6-1.4) mg/dl Est Cr Clr Drug Dosing 18.8 18.3 22.8 Est GFR ( Amer) 20.0 19.1 24.8 ml/min Est GFR (Non-Af Amer) 17.3 16.5 21.4 ml/min BUN/Creatinine Ratio 21.3 H 20.9 H 22.1 H (10-20) Glucose 184 H 188 H 165 H (70-99(Fasting)) mg/dl Lactate 1.0 (0.4-2.0) mmol/L Calcium 8.9 8.3 L 8.7 (8.6-10.3) mg/dl Phosphorus (2.5-4.9) mg/dl Magnesium (1.7-2.4) mg/dl Total Bilirubin (0.2-1.0) mg/dl Direct Bilirubin (0-0.2) mg/dl AST (13-39) U/L ALT (7-52) U/L Alkaline Phosphatase (34-104) U/L Troponin I High Sens (0-20) pg/ml B-Natriuretic Peptide (0-100) pg/ml Total Protein (6.0-8.3) gm/dl Albumin (3.4-5.0) gm/dl Globulin (2.5-4.0) gm/dl Albumin/Globulin Ratio (0.9-2) Procalcitonin (0-0.5) ng/ml Urine Color Urine Appearance (Clear) Urine pH (4.5-7.5) Ur Specific [place] (1.000-1.030) Urine Protein (Negative) Urine Glucose (UA) (Negative) Urine Ketones (Negative) Urine Blood (Negative) Urine Nitrite (Negative) Urine Bilirubin (Negative) Urine Urobilinogen (Negative) Ur Leukocyte Esterase (Negative) Urine WBC (Auto) (0-5) /hpf Urine RBC (Auto) (0-4) /hpf U Hyaline Cast (Auto) (0-5) /lpf U Epithel Cells (Auto) (0-5) /lpf Urine Bacteria (Auto) (Negative) Urine Yeast SARS-CoV-2 (PCR) (Negative) Influenza Type A (PCR) (Neg) Influenza Type B (PCR) (Neg) RSV (RT-PCR) (Neg) 11/05/23 11/04/23 11/04/23 Range/Units 05:56 18:19 15:12 WBC 10.09 (4.8-10.8) K/ul RBC 3.86 L (4.70-6.10) M/uL Hgb 10.5 L (14.0-18.0) g/dl Hct 32.1 L (42.0-52.0) % MCV 83.2 (80.0-100.0) fL MCH 27.2 (25.0-34.0) pg MCHC 32.7 (32.0-36.0) g/dL RDW Std Deviation 48.6 H (36.4-46.3) fL RDW Coeff of You 15.9 H (11.5-14.5) % Plt Count 152 (130-400) K/uL MPV 8.1 L (9.4-12.4) fL Immature Gran % (Auto) % Neut % (Auto) % Lymph % (Auto) % Creek % (Auto) % Eos % (Auto) % Baso % (Auto) % Neut # (Auto) (1.40-6.50) K/uL Lymph # (Auto) (1.20-3.40) K/uL Creek # (Auto) (0.11-0.59) K/uL Eos # (Auto) (0.00-0.50) K/uL Baso # (Auto) (0.00-0.20) K/uL Immature Gran # (Auto) (0.01-0.20) K/uL PT (9.0-12.0) Seconds INR (0.9-1.1) APTT (21-31) Seconds PTT Ratio D-Dimer (0-500) ug/L FEU VBG pH (7.36-7.41) VBG pCO2 (38-50) mmHg VBG pO2 mmHg VBG HCO3 mmol/L VBG O2 Saturation % VBG Base Excess mEq/L Sodium 134 L 136 (136-145) mmol/L Potassium 4.1 4.4 (3.5-5.1) mmol/L Chloride 100 102 (98-107) mmol/L Carbon Dioxide 23 24 (21-32) mmol/L Anion Gap 11 10 (3-11) BUN 52 H 50 H (6-23) mg/dl Creatinine 2.43 H 2.45 H (0.6-1.4) mg/dl Est Cr Clr Drug Dosing 24.7 27.1 Est GFR ( Amer) 27.3 27.0 ml/min Est GFR (Non-Af Amer) 23.5 23.3 ml/min BUN/Creatinine Ratio 21.4 H 20.4 H (10-20) Glucose 172 H 209 H (70-99(Fasting)) mg/dl Lactate (0.4-2.0) mmol/L Calcium 9.0 8.8 (8.6-10.3) mg/dl Phosphorus 4.3 (2.5-4.9) mg/dl Magnesium 1.9 (1.7-2.4) mg/dl Total Bilirubin 0.5 (0.2-1.0) mg/dl Direct Bilirubin (0-0.2) mg/dl AST 12 L (13-39) U/L ALT 13 (7-52) U/L Alkaline Phosphatase 48 (34-104) U/L Troponin I High Sens 335.2 H* (0-20) pg/ml B-Natriuretic Peptide (0-100) pg/ml Total Protein 6.4 (6.0-8.3) gm/dl Albumin 3.7 (3.4-5.0) gm/dl Globulin 2.7 (2.5-4.0) gm/dl Albumin/Globulin Ratio 1.4 (0.9-2) Procalcitonin (0-0.5) ng/ml Urine Color Urine Appearance (Clear) Urine pH (4.5-7.5) Ur Specific [place] (1.000-1.030) Urine Protein (Negative) Urine Glucose (UA) (Negative) Urine Ketones (Negative) Urine Blood (Negative) Urine Nitrite (Negative) Urine Bilirubin (Negative) Urine Urobilinogen (Negative) Ur Leukocyte Esterase (Negative) Urine WBC (Auto) (0-5) /hpf Urine RBC (Auto) (0-4) /hpf U Hyaline Cast (Auto) (0-5) /lpf U Epithel Cells (Auto) (0-5) /lpf Urine Bacteria (Auto) (Negative) Urine Yeast SARS-CoV-2 (PCR) (Negative) Influenza Type A (PCR) (Neg) Influenza Type B (PCR) (Neg) RSV (RT-PCR) (Neg) 11/04/23 11/04/23 11/04/23 Range/Units 12:54 11:24 09:22 WBC (4.8-10.8) K/ul RBC (4.70-6.10) M/uL Hgb (14.0-18.0) g/dl Hct (42.0-52.0) % MCV (80.0-100.0) fL MCH (25.0-34.0) pg MCHC (32.0-36.0) g/dL RDW Std Deviation (36.4-46.3) fL RDW Coeff of You (11.5-14.5) % Plt Count (130-400) K/uL MPV (9.4-12.4) fL Immature Gran % (Auto) % Neut % (Auto) % Lymph % (Auto) % Creek % (Auto) % Eos % (Auto) % Baso % (Auto) % Neut # (Auto) (1.40-6.50) K/uL Lymph # (Auto) (1.20-3.40) K/uL [place] # (Auto) (0.11-0.59) K/uL Eos # (Auto) (0.00-0.50) K/uL Baso # (Auto) (0.00-0.20) K/uL Immature Gran # (Auto) (0.01-0.20) K/uL PT (9.0-12.0) Seconds INR (0.9-1.1) APTT (21-31) Seconds PTT Ratio D-Dimer (0-500) ug/L FEU VBG pH (7.36-7.41) VBG pCO2 (38-50) mmHg VBG pO2 mmHg VBG HCO3 mmol/L VBG O2 Saturation % VBG Base Excess mEq/L Sodium (136-145) mmol/L Potassium (3.5-5.1) mmol/L Chloride (98-107) mmol/L Carbon Dioxide (21-32) mmol/L Anion Gap (3-11) BUN (6-23) mg/dl Creatinine (0.6-1.4) mg/dl Est Cr Clr Drug Dosing Est GFR ( Amer) ml/min Est GFR (Non-Af Amer) ml/min BUN/Creatinine Ratio (10-20) Glucose (70-99(Fasting)) mg/dl Lactate (0.4-2.0) mmol/L Calcium (8.6-10.3) mg/dl Phosphorus (2.5-4.9) mg/dl Magnesium (1.7-2.4) mg/dl Total Bilirubin (0.2-1.0) mg/dl Direct Bilirubin (0-0.2) mg/dl AST (13-39) U/L ALT (7-52) U/L Alkaline Phosphatase (34-104) U/L Troponin I High Sens 371.2 H* (0-20) pg/ml B-Natriuretic Peptide 1592 H (0-100) pg/ml Total Protein (6.0-8.3) gm/dl Albumin (3.4-5.0) gm/dl Globulin (2.5-4.0) gm/dl Albumin/Globulin Ratio (0.9-2) Procalcitonin (0-0.5) ng/ml Urine Color Dark Yellow Urine Appearance Turbid A (Clear) Urine pH 5.5 (4.5-7.5) Ur Specific [place] 1.017 (1.000-1.030) Urine Protein 3+ H (Negative) Urine Glucose (UA) Negative (Negative) Urine Ketones Negative (Negative) Urine Blood 2+ H (Negative) Urine Nitrite Negative (Negative) Urine Bilirubin Negative (Negative) Urine Urobilinogen Negative (Negative) Ur Leukocyte Esterase 3+ H (Negative) Urine WBC (Auto) >30 H (0-5) /hpf Urine RBC (Auto) 10-30 H (0-4) /hpf U Hyaline Cast (Auto) 0 (0-5) /lpf U Epithel Cells (Auto) >30 H (0-5) /lpf Urine Bacteria (Auto) 1+ H (Negative) Urine Yeast Not Reportable SARS-CoV-2 (PCR) NEGATIVE (Negative) Influenza Type A (PCR) Negative (Neg) Influenza Type B (PCR) Negative (Neg) RSV (RT-PCR) Negative (Neg) 11/04/23 Range/Units 09:16 WBC 8.08 (4.8-10.8) K/ul RBC 3.93 L (4.70-6.10) M/uL Hgb 10.5 L (14.0-18.0) g/dl Hct 33.4 L (42.0-52.0) % MCV 85.0 (80.0-100.0) fL MCH 26.7 (25.0-34.0) pg MCHC 31.4 L (32.0-36.0) g/dL RDW Std Deviation 49.1 H (36.4-46.3) fL RDW Coeff of You 15.8 H (11.5-14.5) % Plt Count 168 (130-400) K/uL MPV 8.3 L (9.4-12.4) fL Immature Gran % (Auto) 0.4 % Neut % (Auto) 69.5 % Lymph % (Auto) 16.1 % Creek % (Auto) 13.9 % Eos % (Auto) 0.0 % Baso % (Auto) 0.1 % Neut # (Auto) 5.62 (1.40-6.50) K/uL Lymph # (Auto) 1.30 (1.20-3.40) K/uL [place] # (Auto) 1.12 H (0.11-0.59) K/uL Eos # (Auto) 0.00 (0.00-0.50) K/uL Baso # (Auto) 0.01 (0.00-0.20) K/uL Immature Gran # (Auto) 0.03 (0.01-0.20) K/uL PT 12.4 H (9.0-12.0) Seconds INR 1.1 (0.9-1.1) APTT 33 H (21-31) Seconds PTT Ratio 1.2 D-Dimer 620 H* (0-500) ug/L FEU VBG pH 7.39 (7.36-7.41) VBG pCO2 44 (38-50) mmHg VBG pO2 32 mmHg VBG HCO3 27 mmol/L VBG O2 Saturation < 60.0 % VBG Base Excess 1.3 mEq/L Sodium 136 (136-145) mmol/L Potassium 4.3 (3.5-5.1) mmol/L Chloride 101 (98-107) mmol/L Carbon Dioxide 26 (21-32) mmol/L Anion Gap 9 (3-11) BUN 51 H (6-23) mg/dl Creatinine 2.51 H (0.6-1.4) mg/dl Est Cr Clr Drug Dosing Not Reportable Est GFR ( Amer) 26.2 ml/min Est GFR (Non-Af Amer) 22.6 ml/min BUN/Creatinine Ratio 20.3 H (10-20) Glucose 152 H (70-99(Fasting)) mg/dl Lactate 1.2 (0.4-2.0) mmol/L Calcium 9.0 (8.6-10.3) mg/dl Phosphorus (2.5-4.9) mg/dl Magnesium 2.0 (1.7-2.4) mg/dl Total Bilirubin 0.7 (0.2-1.0) mg/dl Direct Bilirubin 0.2 (0-0.2) mg/dl AST 15 (13-39) U/L ALT 12 (7-52) U/L Alkaline Phosphatase 46 (34-104) U/L Troponin I High Sens 367.2 H* (0-20) pg/ml B-Natriuretic Peptide (0-100) pg/ml Total Protein 6.3 (6.0-8.3) gm/dl Albumin 3.8 (3.4-5.0) gm/dl Globulin (2.5-4.0) gm/dl Albumin/Globulin Ratio (0.9-2) Procalcitonin 0.27 (0-0.5) ng/ml Urine Color Urine Appearance (Clear) Urine pH (4.5-7.5) Ur Specific [place] (1.000-1.030) Urine Protein (Negative) Urine Glucose (UA) (Negative) Urine Ketones (Negative) Urine Blood (Negative) Urine Nitrite (Negative) Urine Bilirubin (Negative) Urine Urobilinogen (Negative) Ur Leukocyte Esterase (Negative) Urine WBC (Auto) (0-5) /hpf Urine RBC (Auto) (0-4) /hpf U Hyaline Cast (Auto) (0-5) /lpf U Epithel Cells (Auto) (0-5) /lpf Urine Bacteria (Auto) (Negative) Urine Yeast SARS-CoV-2 (PCR) (Negative) Influenza Type A (PCR) (Neg) Influenza Type B (PCR) (Neg) RSV (RT-PCR) (Neg) Diagnostic Findings Laboratory Results WBC 10.09 K/ul (4.8-10.8) 11/05/23 05:56 RBC 3.86 M/uL (4.70-6.10) L 11/05/23 05:56 Hgb 10.5 g/dl (14.0-18.0) L 11/05/23 05:56 Hct 32.1 % (42.0-52.0) L 11/05/23 05:56 MCV 83.2 fL (80.0-100.0) 11/05/23 05:56 MCH 27.2 pg (25.0-34.0) 11/05/23 05:56 MCHC 32.7 g/dL (32.0-36.0) 11/05/23 05:56 RDW Std Deviation 48.6 fL (36.4-46.3) H 11/05/23 05:56 RDW Coeff of You 15.9 % (11.5-14.5) H 11/05/23 05:56 Plt Count 152 K/uL (130-400) 11/05/23 05:56 MPV 8.1 fL (9.4-12.4) L 11/05/23 05:56 Immature Gran % (Auto) 0.4 % 11/04/23 09:16 Neut % (Auto) 69.5 % 11/04/23 09:16 Lymph % (Auto) 16.1 % 11/04/23 09:16 Creek % (Auto) 13.9 % 11/04/23 09:16 Eos % (Auto) 0.0 % 11/04/23 09:16 Baso % (Auto) 0.1 % 11/04/23 09:16 Neut # (Auto) 5.62 K/uL (1.40-6.50) 11/04/23 09:16 Lymph # (Auto) 1.30 K/uL (1.20-3.40) 11/04/23 09:16 Creek # (Auto) 1.12 K/uL (0.11-0.59) H 11/04/23 09:16 Eos # (Auto) 0.00 K/uL (0.00-0.50) 11/04/23 09:16 Baso # (Auto) 0.01 K/uL (0.00-0.20) 11/04/23 09:16 Immature Gran # (Auto) 0.03 K/uL (0.01-0.20) 11/04/23 09:16 PT 12.4 Seconds (9.0-12.0) H 11/04/23 09:16 INR 1.1 (0.9-1.1) 11/04/23 09:16 APTT 33 Seconds (21-31) H 11/04/23 09:16 PTT Ratio 1.2 11/04/23 09:16 D-Dimer 620 ug/L FEU (0-500) H* 11/04/23 09:16 VBG pH 7.39 (7.36-7.41) 11/04/23 09:16 VBG pCO2 44 mmHg (38-50) 11/04/23 09:16 VBG pO2 32 mmHg 11/04/23 09:16 VBG HCO3 27 mmol/L 11/04/23 09:16 VBG O2 Saturation < 60.0 % 11/04/23 09:16 VBG Base Excess 1.3 mEq/L 11/04/23 09:16 Sodium 130 mmol/L (136-145) L 11/08/23 08:48 Potassium 4.4 mmol/L (3.5-5.1) 11/08/23 08:48 Chloride 97 mmol/L (98-107) L 11/08/23 08:48 Carbon Dioxide 23 mmol/L (21-32) 11/08/23 08:48 Anion Gap 10 (3-11) 11/08/23 08:48 BUN 67 mg/dl (6-23) H 11/08/23 08:48 Creatinine 3.14 mg/dl (0.6-1.4) H 11/08/23 08:48 Est Cr Clr Drug Dosing 18.8 ml/min 11/08/23 08:48 Est GFR ( Amer) 20.0 ml/min 11/08/23 08:48 Est GFR (Non-Af Amer) 17.3 ml/min 11/08/23 08:48 BUN/Creatinine Ratio 21.3 (10-20) H 11/08/23 08:48 Glucose 184 mg/dl (70-99(Fasting)) H 11/08/23 08:48 Lactate 1.0 mmol/L (0.4-2.0) 11/05/23 23:01 Calcium 8.9 mg/dl (8.6-10.3) 11/08/23 08:48 Phosphorus 4.3 mg/dl (2.5-4.9) 11/05/23 05:56 Magnesium 1.9 mg/dl (1.7-2.4) 11/05/23 05:56 Total Bilirubin 0.5 mg/dl (0.2-1.0) 11/05/23 05:56 Direct Bilirubin 0.2 mg/dl (0-0.2) 11/04/23 09:16 AST 12 U/L (13-39) L 11/05/23 05:56 ALT 13 U/L (7-52) 11/05/23 05:56 Alkaline Phosphatase 48 U/L (34-104) 11/05/23 05:56 Troponin I High Sens 335.2 pg/ml (0-20) H* 11/04/23 18:19 B-Natriuretic Peptide 1592 pg/ml (0-100) H 11/04/23 11:24 Total Protein 6.4 gm/dl (6.0-8.3) 11/05/23 05:56 Albumin 3.7 gm/dl (3.4-5.0) 11/05/23 05:56 Globulin 2.7 gm/dl (2.5-4.0) 11/05/23 05:56 Albumin/Globulin Ratio 1.4 (0.9-2) 11/05/23 05:56 Procalcitonin 0.27 ng/ml (0-0.5) 11/04/23 09:16 Urine Color Dark Yellow 11/04/23 12:54 Urine Appearance Turbid (Clear) A 11/04/23 12:54 Urine pH 5.5 (4.5-7.5) 11/04/23 12:54 Ur Specific [place] 1.017 (1.000-1.030) 11/04/23 12:54 Urine Protein 3+ (Negative) H 11/04/23 12:54 Urine Glucose (UA) Negative (Negative) 11/04/23 12:54 Urine Ketones Negative (Negative) 11/04/23 12:54 Urine Blood 2+ (Negative) H 11/04/23 12:54 Urine Nitrite Negative (Negative) 11/04/23 12:54 Urine Bilirubin Negative (Negative) 11/04/23 12:54 Urine Urobilinogen Negative (Negative) 11/04/23 12:54 Ur Leukocyte Esterase 3+ (Negative) H 11/04/23 12:54 Urine WBC (Auto) >30 /hpf (0-5) H 11/04/23 12:54 Urine RBC (Auto) 10-30 /hpf (0-4) H 11/04/23 12:54 U Hyaline Cast (Auto) 0 /lpf (0-5) 11/04/23 12:54 U Epithel Cells (Auto) >30 /lpf (0-5) H 11/04/23 12:54 Urine Bacteria (Auto) 1+ (Negative) H 11/04/23 12:54 Urine Yeast Not Reportable 11/04/23 12:54 SARS-CoV-2 (PCR) NEGATIVE (Negative) 11/04/23 09:22 Influenza Type A (PCR) Negative (Neg) 11/04/23 09:22 Influenza Type B (PCR) Negative (Neg) 11/04/23 09:22 RSV (RT-PCR) Negative (Neg) 11/04/23 09:22 Impressions Chest X-Ray 11/04/23 09:03 SINGLE VIEW CHEST CLINICAL HISTORY: Sepsis FINDINGS: An AP, portable, upright chest radiograph is compared to chest x-ray and chest CT dated 04/26/2023. The heart is enlarged but noting atherosclerotic calcification of the thoracic aorta. The pulmonary vasculature is noncongested. Chronic interstitial thickening is similar to previous. There is bibasilar scarring/atelectasis. No airspace consolidation or large pleural effusion is identified. Scattered calcified granulomas are observed. No pneumothorax is seen. The skeletal structures are osteopenic. The bony thorax is grossly intact. Degenerative change is noted in the shoulders and spine. IMPRESSION: Cardiomegaly with no acute cardiopulmonary abnormality. ACT 112: Negative or not required by law. Electronically signed by: Sam Espinosa M.D. 11/04/2023 9:32 AM Abdomen/Pelvis CT 11/04/23 10:[address] WITHOUT CONTRAST CT DOSE: 1929.77 mGy.cm HISTORY: Acute sepsis sepsis TECHNIQUE: Multiaxial CT images of the abdomen and pelvis were performed without contrast. A dose lowering technique was utilized adhering to the principles of ALARA. COMPARISON STUDY: 04/26/2023 FINDINGS: Cardiomegaly with extensive coronary artery calcifications. Decreased attenuation of the cardiac blood pool suggestive of anemia. Mild bibasilar atelectasis. 4 mm subpleural solid nodule in the right middle lobe is unchanged on image 21. No free air. The unenhanced spleen, pancreas and adrenal limbs are unremarkable. The gallbladder appears surgically absent. Unremarkable liver. Mild nonspecific bilateral perinephric stranding. No renal or ureteral calculi or hydronephrosis identified. Prostatomegaly. Calcifications of the vas deferens. Urine in bladder wall thickening with perivesicular stranding. Large right lateral urinary bladder diverticulum again noted measuring 8 cm. Atherosclerosis of the aorta without aneurysm. No lymphadenopathy. Mild distal esophageal wall thickening with secretions within the distal esophagus. Colonic diverticulosis. No bowel obstruction or bowel wall thickening. Mild colonic f ecal retention. No CT evidence of acute appendicitis. Unremarkable soft tissues. No acute fracture. IMPRESSION: 1. Prostatomegaly with evidence of chronic bladder outlet obstruction. There is progressive urinary bladder wall thickening with perivesicular stranding suspicious for superimposed cystitis. Correlation with urinalysis recommended. 2. No bowel obstruction or bowel wall thickening. 3. Colonic diverticulosis. 4. Additional findings as above. ACT 112: Negative or not required by law. The above report was generated using voice recognition software. It may contain grammatical, syntax or spelling errors. Electronically signed by: Osbaldo Sen M.D. 11/04/2023 11:[address] 11/04/23 10:38 CT SCAN OF THE CHEST WITHOUT IV CONTRAST CLINICAL HISTORY: Dyspnea and weakness. Sepsis. COMPARISON STUDY: Chest CT dated 04/26/2023. Chest x-ray dated 11/04/2023. TECHNIQUE: CT scan of the thorax was performed from the thoracic inlet to the upper abdomen. Images are reviewed in the axial, sagittal, and coronal planes. IV contrast was not administered for this examination as per the referring clinician. A dose lowering technique was utilized adhering to the principles of ALARA. FINDINGS: Thyroid: Imaged portions of the thyroid gland are normal in size and attenuation. Thoracic aorta: There is advanced atherosclerotic calcification of the thoracic aorta. 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 The remainder of the thoracic aorta is normal in caliber, and the arch demonstrates standard 3-vessel anatomy. Heart: The heart is enlarged and without pericardial effusion. The coronary arteries are densely calcified. There is diminished attenuation of the cardiac blood pool as compared to myocardium suggesting anemia. The main pulmonary arteries are dilated suggesting pulmonary artery hypertension. Lungs and pleural spaces: Evaluation of the lung parenchyma is degraded by motion artifact. Foci of parenchymal scarring are seen throughout both lungs, greatest at the lung bases. Scattered calcified granulomas are observed. No airspace consolidation or pleural effusion is identified. The trachea and central airways appear clear. A 4 mm pleural-based nodule in the right middle lobe on image #139 is unchanged. Mediastinum: There is no mediastinal lymphadenopathy. Veda: There are calcified hilar nodes. Note that the veda are not well assessed without IV contrast. Axillae: There is no axillary lymphadenopathy. Upper abdomen: A small hiatal hernia is noted. The esophageal wall appears thickened, and the proximal esophagus is dilated. Partially visualized upper abdominal viscera is otherwise grossly unremarkable. Skeletal structures: The skeletal structures are osteopenic. Degenerative change and hyperkyphosis is noted in the spine. Arthritic change is seen in the shoulders. No lytic or blastic bony lesions are seen. There are chronic right posterior rib fractures. IMPRESSION: 1. Cardiomegaly noting advanced coronary artery atherosclerosis.. 2. There is no airspace consolidation or pleural effusion. 3. The distal esophagus appears thick walled. Correlate clinically for evidence of esophagitis. If warranted this could be further evaluated with endoscopy. 4. Additional findings as above. ACT 112: Negative or not required by law. Electronically signed by: Sam Espinosa M.D. 11/04/2023 11:34 AM PG Care Time/CCT Total # of Minutes Spent Total Time Spent with Patient: Total time spent is greater than 50% in coordination of care (as documented) at patient's floor/unit and/or counseling patient: I spent 50 minutes overall addressing this case: 10 min in medical data review/discussion with referring provider(s) and/or preparation for the visit 20 min in direct interaction with the patient/exam 000 min in Advance Care Planning/Goals of Care discussions as detailed above in note (must be >16min) 10 min in subsequent review and synthesis of assessment and plan 10 min communicating with other providers regarding the patient's case: [place] [address] SUB INP/OBS CARE 3/50MIN Patient Type Established History Comprehensive Exam Comprehensive Medical Decision Making High Complexity Diagnoses Dyspnea and respiratory abnormalities R06.00; R06.89 Weakness generalized R53.1 Palliative care by specialist Z51.5 Advanced care planning/counseling discussion Z71.89
--- NOTE | 2023-11-08 18:02 | Hospitalist Progress Note ---
Date of Service November 08, 2023 Assessment & Plan (1) CAD (coronary artery disease): (2) Fatigue: (3) Dyspnea on exertion: (4) BASIM (acute kidney injury): (5) Cystitis: (6) Aortic stenosis: (7) Hypothyroidism: (8) Hyperlipidemia: Plan Per admitting notes with addendum: Mr. Lindsey is an 82 year old pleasant male who presents to the ED from with complaints of HARRIS and hypotension. He has reportedly had HARRIS with fatigue for the past few months. He reports that the past few days have been increasingly more dyspneic without associated chest pain. He reports intermittent lightheadedness upon rising in the morning out of bed. He has a significant PMH that includes multivessel coronary artery disease, esophageal achalasia, OA, hypothyroidism, HLD, history of AMI and severe LV dysfunction in setting of aortic stenosis. Most recent echo 10/2019 for severe LV dysfunction in setting of I-S, EF 15 to 20%, mild left ventricle dilation, mild MR, mild to moderate TR, mild pulmonary regurgitation. He was hospitalized most recently 04/2023 under [facility] status post mechanical fall and rib fractures. He was discharged at that time to [facility] for acute rehab and made seemingly good recovery and then transition to to [facility] assisted living. He was [place] [facility] [place] of [place] however was deemed too high risk for bypass surgery. A TAVR was discussed as well. Prior to arrival to the ED he received 400 mL NS be and in the ED received an additional 2L NSB. No leukocytosis, creatinine 2.51; baseline 1.1- 1.4; given abd/pelvis CT results; will order UA. D-dimer elevated at 620 which is an unlikely contributing factor when age corrected, troponin 367, negative for COVID/RSV/flu. *Chest x-ray suggestive of cardiomegaly. *Abdomen/Pelvis CT: Prostatomegaly with evidence of chronic bladder outlet obstruction. There is progressive urinary bladder wall thickening with perivesicular stranding suspicious for superimposed cystitis. Correlation with urinalysis recommended. No bowel obstruction or bowel wall thickening. Colonic diverticulosis. *Chest CT Cardiomegaly noting advanced coronary artery atherosclerosis. There is no airspace consolidation or pleural effusion. The distal esophagus appears thick walled. Correlate clinically for evidence of esophagitis. If warranted this could be further evaluated with endoscopy. Most recent ECHO 10/23; EF 15-20% severe LV dysfunction which is new in the setting of a severe aortic stenosis, mild left ventricular dilation, mild MR/mild to moderate TR/mild pulmonary regurgitation. ED covered with broad-spectrum antibiotics and obtain blood cultures. Discussed with patient his overarching goal in the event of a cardiac or respiratory arrest and he indicated that he understands that his heart condition is quite advanced and that he, at that point, would unlikely have a meaningful recovery and has chosen to be DNR/DNI. Patient will be admitted for further evaluation of his advanced CAD; patient is receptive to palliative medicine consultation. Suspect patient's hypotension of related to Entresto initiation which occurred a few weeks ago. Hold additional fluid resuscitation at this time given the severity of his heart failure. Consult cardiology for further medication adjustment considerations and further goals of care conversation. Hold nephrotoxic agents given BASIM. Will have BiPAP as needed and gentle diuresis as pressure allows. Midodrine for BP support CAD: Aortic Stenosis: HARRIS: Fatigue Hypotension: Chronic Troponin 365 and 7: Trend. Do not suspect ACS or other advanced multivessel CAD Most recent ECHO 10/23; EF 15-20% severe LV dysfunction which is new in the setting of a severe aortic stenosis, mild left ventricular dilation, mild MR/mild to moderate TR/mild pulmonary regurgitation. He was referred [place] [facility] [place] consideration of a [place]G however was deemed too high risk for bypass surgery. A TAVR was discussed as well. Patient takes baby aspirin; continue Patient takes 40 mg lasix bid, will initiate iv lasix 20 mg daily to maintain euvolemic status Was started on Entresto 10/23; suspect could be contributing factor to hypotension; hold for now Takes metoprolol; hold for now given low BP Midodrine initiated for hypotension Cardiology consultation with [facility] [place]al radiology Dr. Espino known to patient 4 BP improving overall Lasix on hold Wean off midodrine accordingly Cardiology service consulted, appreciate the recommendation 46 Hypotensive overnight Midodrine increased Lasix, Entresto on hold Monitor closely 11/06 BP still on the lower side but seems to be stabilized Continue midodrine Holding Lasix and Entresto Palliative care service will be holding discussed with patient tomorrow Appreciate cardiology service recommendations 11/07 Midodrine reduced to 2.5 mg p.o. 3 times daily Monitor BP Plan to transition to hospice upon discharge as per palliative care service BASIM: Cystitis: Acute Serum creatinine 2.51; baseline 1.1-1.4 No leukocytosis Abdomen/Pelvis CT: Prostatomegaly with evidence of chronic bladder outlet obstruction. There is progressive urinary bladder wall thickening with perivesicular stranding suspicious for superimposed cystitis. Correlation with urinalysis recommended. No bowel obstruction or bowel wall thickening. Colonic diverticulosis. UA suggestive of cystitis; started on Rocephin; adjust based on urine culture Hold nephrotoxic agents for now Repeat BMP 2100 to monitor creatinine 11/05 Creatinine increased, today 2.6 Lasix already on hold Monitor closely Nephrology service consulted 11/06 PRP pending 11/07 Creatinine has increased to 3.1 Likely cardiorenal syndrome Goals of care; counseling: Lengthy conversation held with patient regarding his advanced disease. We had a conversation regarding his CODE STATUS and his overarching goal in the event of a cardiac or respiratory arrest and he indicated that he understands that his heart condition is quite advanced and that he, at that point, would unlikely have a meaningful recovery and has chosen to be DNR/DNI. Patient could benefit from further conversation regarding palliative medicine. I did begin conversations with regards to his advanced multivessel CAD and conservative treatment options. I explained the difference between palliative medicine and hospice and how both services could benefit his medical condition. 11/07 Palliative service consulted Plan to transition to hospice service upon discharge HLD: Chronic Takes atorvastatin; continue Hypothyroidism: Chronic Takes levothyroxine; continue GERD: Chronic Takes pantoprazole; continue Disposition: PCP: Ramakrishna Whitlock; Dr. Jewell Code Status: DNR/DNI VTE Prophylaxis: Teds and SCDs for now Admission and Anticipated Discharge Date Admission Date: November 04, 2023 Subjective Follow-up for hypotension, etc. Seen resting in bed, sleeping but easily awakened States he feels on the weak side today, poor appetite No shortness of breath, palpitations, chest pain No other new symptoms Review of Systems Review of Systems: all noted and negative except for above Physical Exam Physical Exam: General- oriented x 3, not in distress, speaks in sentences with no effort or accessory muscle use Eyes- anicteric Neck- no JVD Lungs- clear breath sounds bilaterally, no rales/wheezes Heart- normal rate, regular rhythm; no murmurs Abdomen- normal bowel sounds, nondistended, soft, no tenderness Extremities- no pretibial edema, no calf tenderness Neuro- alert, oriented x 3; no gross focal neurologic deficits Skin- warm & dry Results & Data Results & Data Vital Signs (Past 12 Hours) Vital Signs Temp Pulse Pulse Resp BP BP Pulse Ox 11/08/23 16:35 84 11/08/23 15:34 36.3 C L 83 19 89/45 L 92 11/08/23 12:27 36.6 C 88 19 105/67 95 11/08/23 10:29 73 11/08/23 08:47 11/08/23 07:29 36.4 C L 75 18 87/49 L 97 O2 Del Method O2 Flow Rate 11/08/23 16:35 11/08/23 15:34 Nasal Cannula 11/08/23 12:27 Nasal Cannula 2 11/08/23 10:29 11/08/23 08:47 Nasal Cannula 2 11/08/23 07:29 Nasal Cannula 2 all noted and reviewed including below
--- NOTE | 2023-11-09 01:09 | Ultrasound Report ---
Exam(s): US VENOUS RIGHT LOWER EXTREMITY EXAM: US Duplex Right Lower Extremity Veins CLINICAL HISTORY: Reason for exam: pain. TECHNIQUE: Real-time duplex ultrasound scan of the right lower extremity veins integrating B-mode two-dimensional vascular structure, Doppler spectral analysis, color flow Doppler imaging and compression. COMPARISON: None. FINDINGS: Deep veins: Unremarkable. No DVT in the visualized common femoral, femoral, proximal deep femoral or popliteal veins. The veins demonstrate normal color flow, are normally compressible, with normal phasic flow and/or augmentation response. Superficial veins: Unremarkable. No thrombus in the visualized great saphenous vein. Soft tissues: Edema through the calf region. No popliteal cyst. IMPRESSION: No ultrasonographic evidence of deep venous thrombosis involving the right lower extremity. Electronically signed by: Jaimie Lanier MD 11/09/23 01:08 AM
[2023-11-09 08:43] LABS: BUN Creatinine Ratio 21.1 (10-20); Calcium 8.6 mg/dl (8.6-10.3); Creatinine Clr Calc Pharmacy 21.3 ml/min; Est GFR (African American) 23.1 ml/min; Est GFR (Non-African American) 19.9 ml/min
--- NOTE | 2023-11-09 11:34 | Discharge Summary ---
Discharge Summary Date of Service November 09, 2023 Notes For Next Care Provider Medication Changes From Visit Metoprolol, Entresto, Lasix discontinued due to hypotension Admission HPI Per Admitting Provider Mr. Lindsey is an 82 year old pleasant male who presents to the ED from [facility] with complaints of HARRIS and hypotension. He has reportedly had HARRIS with fatigue for the past few months. He reports that the past few days have been increasingly more dyspneic without associated chest pain. He reports intermittent lightheadedness upon rising in the morning out of bed. He has a significant past medical history that includes multivessel coronary artery disease, esophageal achalasia, OA, hypothyroidism, HLD, history of AMI and severe LV dysfunction in setting of aortic stenosis. Most recent echo 10/2019 for severe LV dysfunction in setting of I-S, EF 15 to 20%, mild left ventricle dilation, mild MR, mild to moderate TR, mild pulmonary regurgitation. He was hospitalized most recently 04/[address] [facility] status post mechanical fall and rib fractures. He was discharged at that time to [facility] for acute rehab and made seemingly good recovery and then transition to to [facility] assisted living. He was referred to [facility] [place] consideration of a CABG however was deemed too high risk for bypass surgery. A TAVR was discussed as well. Prior to arrival to the ED he received 400 mL NS be and in the ED received an additional 2L NSB. No leukocytosis, creatinine 2.51; baseline 1.1-1.4; I suspect this will improve given fluid resuscitation. D-dimer elevated at 620 which is an unlikely contributing factor when age corrected, troponin 367, negative for COVID/RSV/flu. *Chest x-ray suggestive of cardiomegaly. *Abdomen/Pelvis CT: Prostatomegaly with evidence of chronic bladder outlet obstruction. There is progressive urinary bladder wall thickening with perivesicular stranding suspicious for superimposed cystitis. Correlation with urinalysis recommended. No bowel obstruction or bowel wall thickening. Colonic diverticulosis. *Chest CT Cardiomegaly noting advanced coronary artery atherosclerosis. There is no airspace consolidation or pleural effusion. The distal esophagus appears thick walled. Correlate clinically for evidence of esophagitis. If warranted this could be further evaluated with endoscopy. Most recent ECHO 10/23; EF 15-20% severe LV dysfunction which is new in the setting of a severe aortic stenosis, mild left ventricular dilation, mild MR/mild to moderate TR/mild pulmonary regurgitation. ED covered with broad-spectrum antibiotics and obtain blood cultures. Discussed with patient his overarching goal in the event of a cardiac or respiratory arrest and he indicated that he understands that his heart condition is quite advanced and that he, at that point, would unlikely have a meaningful recovery and has chosen to be DNR/DNI. Patient denies headache, dizziness, fever, chills, heart palpitations, chest pain, nausea, vomiting, diarrhea, urine or bowel changes, recent falls or trauma. Patient uses a walker at baseline. Patient will be admitted for further evaluation of his advanced heart failure; patient is receptive to palliative medicine consultation. Suspect patient's hypotension of related to Entresto initiation which occurred a few weeks ago. Hold additional fluid resuscitation at this time given the severity of his heart failure. Consult cardiology for further medication adjustment considerations and further goals of care conversation. Hold nephrotoxic agents given BASIM. Will have BiPAP as needed and Lasix 1 dose 20 mg IV as needed. Admission Exam Per Admitting Provider Neuro: AAOx4, PERRLA, no aphagia, memory changes, CNII-XII grossly intact HEENT: head normocephalic, moist mucus membranes CV: S1/S2, (+) M/G/R, (-) edema, cap refill < 3 seconds Resp: Lungs expiratory wheezes. On RA GI: Abdomen S/NT/ND, Ax4 bowel sounds, (-) CVA tenderness Musculoskeletal: 5/5 B/L UE strength, 5/5 B/L LE strength. Uses a walker at baseline. Skin: (-) rashes , (-) erythema. Psych: euthymic mood Principal Dx & Hospital Course #1 = Principal Diagnosis (1) CAD (coronary artery disease): (2) Fatigue: (3) Dyspnea on exertion: (4) BASIM (acute kidney injury): (5) Cystitis: (6) Aortic stenosis: (7) Hypothyroidism: (8) Hyperlipidemia: Plan Per admitting notes with addendum: Mr. Lindsey is an 82 year old pleasant male who presents to the ED from with complaints of HARRIS and hypotension. He has reportedly had HARRIS with fatigue for the past few months. He reports that the past few days have been increasingly more dyspneic without associated chest pain. He reports intermittent lightheadedness upon rising in the morning out of bed. He has a significant PMH that includes multivessel coronary artery disease, esophageal achalasia, OA, hypothyroidism, HLD, history of AMI and severe LV dysfunction in setting of aortic stenosis. Most recent echo 10/2019 for severe LV dysfunction in setting of I-S, EF 15 to 20%, mild left ventricle dilation, mild MR, mild to moderate TR, mild pulmonary regurgitation. He was hospitalized most recently 04/[address] [facility] status post mechanical fall and rib fractures. He was discharged at that time to [facility] for acute rehab and made seemingly good recovery and then transition to to [facility] assisted living. He was referred to [facility] for consideration of a CABG however was deemed too high risk for bypass surgery. A TAVR was discussed as well. Prior to arrival to the ED he received 400 mL NS be and in the ED received an additional 2L NSB. No leukocytosis, creatinine 2.51; baseline 1.1- 1.4; given abd/pelvis CT results; will order UA. D-dimer elevated at 620 which is an unlikely contributing factor when age corrected, troponin 367, negative for COVID/RSV/flu. *Chest x-ray suggestive of cardiomegaly. *Abdomen/Pelvis CT: Prostatomegaly with evidence of chronic bladder outlet obstruction. There is progressive urinary bladder wall thickening with perivesicular stranding suspicious for superimposed cystitis. Correlation with urinalysis recommended. No bowel obstruction or bowel wall thickening. Colonic diverticulosis. *Chest CT Cardiomegaly noting advanced coronary artery atherosclerosis. There is no airspace consolidation or pleural effusion. The distal esophagus appears thick walled. Correlate clinically for evidence of esophagitis. If warranted this could be further evaluated with endoscopy. Most recent ECHO 10/23; EF 15-20% severe LV dysfunction which is new in the setting of a severe aortic stenosis, mild left ventricular dilation, mild MR/ mild to moderate TR/mild pulmonary regurgitation. ED covered with broad-spectrum antibiotics and obtain blood cultures. Discussed with patient his overarching goal in the event of a cardiac or respiratory arrest and he indicated that he understands that his heart condition is quite advanced and that he, at that point, would unlikely have a meaningful recovery and has chosen to be DNR/DNI. Patient will be admitted for further evaluation of his advanced CAD; patient is receptive to palliative medicine consultation. Suspect patient's hypotension of related to Entresto initiation which occurred a few weeks ago. Hold additional fluid resuscitation at this time given the severity of his heart failure. Consult cardiology for further medication adjustment considerations and further goals of care conversation. Hold nephrotoxic agents given BASIM. Will have BiPAP as needed and gentle diuresis as pressure allows. Midodrine for BP support CAD: Aortic Stenosis: HARRIS: Fatigue Hypotension: Chronic Troponin 365 and 7: Trend. Do not suspect ACS or other advanced multivessel CAD Most recent ECHO 10/23; EF 15-20% severe LV dysfunction which is new in the setting of a severe aortic stenosis, mild left ventricular dilation, mild MR/mild to moderate TR/mild pulmonary regurgitation. He was referred to [facility] for consideration of a CABG however was deemed too high risk for bypass surgery. A TAVR was discussed as well. Patient takes baby aspirin; continue Patient takes 40 mg lasix bid, will initiate iv lasix 20 mg daily to maintain euvolemic status Was started on Entresto 10/23; suspect could be contributing factor to hypotension; hold for now Takes metoprolol; hold for now given low BP Midodrine initiated for hypotension Cardiology consultation with [facility] interventional radiology Dr. Espino known to patient 4 BP improving overall Lasix on hold Wean off midodrine accordingly Cardiology service consulted, appreciate the recommendation 4/6 Hypotensive overnight Midodrine increased Lasix, Entresto on hold Monitor closely 11/06 BP still on the lower side but seems to be stabilized Continue midodrine Holding Lasix and Entresto Palliative care service will be holding discussed with patient tomorrow Appreciate cardiology service recommendations 11/07 Midodrine reduced to 2.5 mg p.o. 3 times daily Monitor BP Plan to transition to hospice upon discharge as per palliative care service 11/08 transition to Hospice Service at [facility] continue Midodrine Metoprolol, Entresto, Lasix discontinued due to hypotension BASIM: Cystitis: Acute Serum creatinine 2.51; baseline 1.1-1.4 No leukocytosis Abdomen/Pelvis CT: Prostatomegaly with evidence of chronic bladder outlet obstruction. There is progressive urinary bladder wall thickening with perivesicular stranding suspicious for superimposed cystitis. Correlation with urinalysis recommended. No bowel obstruction or bowel wall thickening. Colonic diverticulosis. UA suggestive of cystitis; started on Rocephin; adjust based on urine culture Hold nephrotoxic agents for now Repeat BMP 2100 to monitor creatinine 11/05 Creatinine increased, today 2.6 Lasix already on hold Monitor closely Nephrology service consulted 11/06 PRP pending 11/07 Creatinine has increased to 3.1 Likely cardiorenal syndrome 11/08 crea 2.7 likely from cardiorenal syndrome Goals of care; counseling: Lengthy conversation held with patient regarding his advanced disease. We had a conversation regarding his CODE STATUS and his overarching goal in the event of a cardiac or respiratory arrest and he indicated that he understands that his heart condition is quite advanced and that he, at that point, would unlikely have a meaningful recovery and has chosen to be DNR/DNI. Patient could benefit from further conversation regarding palliative medicine. I did begin conversations with regards to his advanced multivessel CAD and conservative treatment options. I explained the difference between palliative medicine and hospice and how both services could benefit his medical condition. 11/08 Palliative service consulted Plan to transition to hospice service upon discharge HLD: Chronic Takes atorvastatin; continue Hypothyroidism: Chronic Takes levothyroxine; continue GERD: Chronic Takes pantoprazole; continue Disposition: PCP: Ramakrishna Whitlock; Dr. Jewell Code Status: DNR/DNI VTE Prophylaxis: Teds and SCDs for now Discharge Exam General- oriented x 3, not in distress, speaks in sentences with no effort or accessory muscle use Eyes- anicteric Neck- no JVD Lungs- clear breath sounds bilaterally, no rales Heart- normal rate, regular rhythm; no murmurs Abdomen- normal bowel sounds, nondistended, soft, nontender Extremities- no pretibial edema, no calf tenderness Neuro- alert, oriented x 3; no gross focal neurologic deficits Skin- warm & dry Updated Medication List Medication Instructions Recorded Confirmed Type aspirin 81 mg chewable tablet 81 mg PO QAM 08/29/18 11/04/23 History multivitamin 1 tab PO QAM 01/23/19 11/04/23 History fexofenadine 180 mg tablet 180 mg PO DAILY PRN Allergy 02/13/21 11/04/23 History Symptoms fluticasone propionate 50 1 spray intranasal DAILY 01/19/23 11/04/23 History mcg/actuation nasal spray,suspension atorvastatin 40 mg tablet 40 mg PO DAILY #90 tabs 03/18/23 11/04/23 Rx azelastine 137 mcg (0.1 %) nasal 137 mcg intranasal UD 04/26/23 11/04/23 History spray aerosol pantoprazole 40 mg tablet,delayed 40 mg PO DAILY 04/26/23 11/04/23 History release metoprolol succinate 25 mg 12.5 mg (1/2 x 25 mg) PO DAILY #90 04/28/23 11/04/23 Rx tablet,extended release 24 hr tabs (Toprol XL) sennosides 8.6 mg tablet (Senokot) 8.6 mg PO BID #60 tabs 04/28/23 11/04/23 Rx acetaminophen 500 mg tablet 1,000 mg PO Q6H PRN Pain (Scale 06/17/23 11/04/23 History (Tylenol Extra Strength) Score 1-3) docusate sodium 100 mg capsule 100 mg PO DAILY 06/17/23 11/04/23 History (Colace) magnesium 200 mg tablet 200 mg PO DAILY 06/17/23 11/04/23 History amoxicillin 500 mg capsule 2,000 mg PO .COMPLEX 09/15/23 11/04/23 History levothyroxine 112 mcg capsule 112 mcg PO DAILY 09/15/23 11/04/23 History furosemide 40 mg tablet 40 mg PO BID #180 tabs 09/27/23 11/04/23 Rx sacubitril 24 mg-valsartan 26 mg 1 tab PO BID #60 tabs 10/21/23 11/04/23 Rx tablet (Entresto) midodrine 2.5 mg tablet 2.5 mg PO TID@0800,1200,1700 30 11/09/23 Rx days #90 tabs Hospital Stay Data Consultations 11/04/23 11:13 ED Decision to Admit Stat 11/04/23 13:15 Consult Cardiology Routine Consult Palliative Care Routine 11/05/23 08:03 Consult Nephrology Routine Diagnostic Imagining Performed 11/04/23 10:30 CT abd pelvis wo con Stat 11/04/23 10:38 CT chest diagnostic wo con Stat 11/08/23 20:07 US venous doppler LE RT Urgent Pending Results Patient Have Any Pending Studies at Discharge: No Total Time Total Time Spent Total Time Spent (In Minutes): >30 minutes
== END 2023-11-09 16:46 | disposition hospice, inpatient (51) | DRG 292 ==
LOC: ED 08:57 → SUATTDRO 11:13 → EDINP 11:13 → 4W 12:00 → UNDODISIN 11-09 13:52